=== PATIENT | male | born 1960 | race Caucasian/White ===

== ENCOUNTER 2016-07-07 10:08 | Inpatient (IN) | payer MEDICAID ==
[~2016-07-07 10:08] MED LIST: Midazolam 1 MG/ML 2 ML SDV ONE; Propofol 200 MG/20 ML SDV ONE; fentaNYL 100 MCG/2 ML SDV ONE
[2016-07-07] MEDS ORDERED: Lidocaine 1% 2 ML ONE (10:21)
[2016-07-07] MEDS ORDERED: ceFAZolin 2 GM in Sodium Chloride 0.9% 50 ML IV ONE (10:30)
[2016-07-07] MEDS ORDERED: Bupivacaine 0.5% 50 ML MDV ONE (10:31)
[2016-07-07] MEDS: Sodium Chloride 0.9% 1,000 ML IV SCH ×2 (10:36→16:25)
[2016-07-07] MEDS ORDERED: metroNIDAZOLE/Normal Saline 500 MG in Premix Bag 1 BAG IV ONE (11:00)
[2016-07-07] MEDS ORDERED: Propofol 200 MG/20 ML SDV ONE (11:17)
[2016-07-07] MEDS ORDERED: Bisacodyl 5 MG Tab PO PRN (11:37)
[2016-07-07] MEDS ORDERED: Naloxone 0.4 MG/ML SDV IVPUSH PRN (11:37)
[2016-07-07] MEDS ORDERED: Ondansetron 4 MG/2 ML SDV IVPUSH PRN (11:37)
[2016-07-07] MEDS ORDERED: Benzocaine/Cetylpyridinium/Menthol Lozenge MUCMEM PRN (11:37)
[2016-07-07] MEDS ORDERED: fentaNYL/Normal Saline 600 MCG/30 ML PCA Vial IV PRN (11:37)
[2016-07-07] MEDS ORDERED: Docusate Sodium 100 MG Cap PO PRN (11:37)
[2016-07-07] MEDS ORDERED: diphenhydrAMINE 50 MG/ML SDV IVPUSH PRN (11:37)
[2016-07-07] MEDS ORDERED: Promethazine 25 MG/ML SDV IM PRN (11:37)
[2016-07-07] MEDS ORDERED: Naloxone 0.4 MG/ML SDV IV PRN (11:40)
--- NOTE | 2016-07-07 15:08 | PCM.CONS ---
H&P History of Present Illness - General Date of Service: 07/07/16 Admit Problem/Dx: Admission Diagnosis/Problem Admission Diagnosis/Problem Osteomyelitis Source of Information: Patient, Provider History Limitations: Reports: No Limitations - History of Present Illness Initial Comments - Free Text/Narative: I was asked to see Edgar by Dr. Car regarding diabetes management. He was admitted to the hospital for amputation of his right fifth toe because of persistent infection. He underwent a successful and uneventful amputation. There've been no acute events and surgery. He has minimal pain at this time. We reviewed his diabetes medications including long-acting Lantus as well as metformin twice a day. He reports that he has been compliant with the medications. He has been on these doses for while and they have not changed. He does admit that his diet has been very rich in carbohydrates including 10-12 glasses of regular soda each day. He is aware that significant dietary improvements could be made in his hoping to start implementing some of these. He does not check his blood sugars regularly But when he does he often notes that they're high. His blood sugar was greater than 400 when he checked it yesterday. He does report polyuria and polydipsia. He has neuropathy of both feet. No recent difficulties with nausea, abdominal pain or weight loss. - Related Data Allergies/Adverse Reactions: Allergies Allergy/AdvReac Type Severity Reaction Status Date / Time No Known Allergies Allergy Verified 07/07/16 10:23 Home Medications: Home Meds Insulin Glargine,Hum.Rec.Anlog [Lantus Solostar] 70 units SQ DAILY 07/19/13 [ History] Aspirin [Children's Aspirin] 81 mg PO DAILY 06/29/14 [History] atorvaSTATin Calcium [Atorvastatin Calcium] 40 mg PO BEDTIME 06/29/14 [History] metFORMIN HCl [Metformin HCl] 1,000 mg PO BIDM 06/29/14 [History] Amoxicillin/Potassium Clav [Amox Tr-K Clv 875-125 mg Tab] 1 each PO Q12H [History] Glycerin/Lanolin/Mineral Oil [Eucerin Intensive [facility] C[facility]] 1 applic TP BID 02/11 [History] Lisinopril [Prinivil] 0.5 tab PO DAILY 07/07/16 [History] Naproxen [Naprosyn] 500 mg PO Q12HR 07/07/16 [History] Sulindac [Clinoril] 200 mg PO BIDMEALS 07/07/16 [History] Past Medical History - Past Health History Medical/Surgical History: Denies Medical/Surgical History Genitourinary History: Reports: Diabetic Nephropathy Musculoskeletal History: Reports: Other (See Below) Other Musculoskeletal History: sore right foot Endocrine/Metabolic History: Reports: Diabetes, Type II - Infectious Disease History Infectious Disease History: Reports: Chicken Pox Social & Family History - Family History Family Medical History: Noncontributory - Tobacco Use Smoking Status *Q: Never Smoker Second Hand Smoke Exposure: No - Caffeine Use Caffeine Use: Reports: Soda - Alcohol Use Days Per Week of Alcohol Use: 0 - Recreational Drug Use Recreational Drug Use: No H&P Review of Systems - Review of Systems: Review Of Systems: See Below Free Text/Narrative: A complete 12 point review of systems was obtained. Pertinent positives and negatives are noted in the history of present illness. All other systems were reviewed and were negative except as noted. Exam - Exam Exam: See Below - Vital Signs Vital Signs: Last Vital Signs Temp 36.4 C 07/07/16 14:47 Pulse 78 07/07/16 14:47 Resp 20 07/07/16 14:47 BP 132/80 07/07/16 14:47 Pulse Ox 92 L 07/07/16 12:44 Weight: 89.675 kg - Exam Quality Assessment: No: Supplemental Oxygen General: Alert, Oriented, Cooperative. No: Mild Distress HEENT: Conjunctiva Clear, Posterior Pharynx Clear Neck: Supple, Trachea Midline, Lymphadenopathy Lungs: Clear to Auscultation, Normal Respiratory Effort Cardiovascular: Regular Rate, Regular Rhythm Abdomen: Soft. No: Distention, Tenderness Back Exam: Normal Inspection, Full Range of Motion Extremities: Other (right 5th toe amputated, wound vac in place over the head of the metatarsal here). No: Cyanosis, Edema Peripheral Pulses: 1+: Dorsalis Pedis (L), Dorsalis Pedis (R) Skin: Warm, Dry Neuro Extensive - Mental Status: Alert, Oriented x3, Nl Response to Commands Neuro Extensive - Motor, Sensory, Reflexes: CN II-XII Intact. No: Dysarthria, Abnormal Motor, Tremor Psychiatric: Alert, Normal Affect - Patient Data [facility] Results last 24 hrs: Microbiology 07/07/16 11:20 Gram Stain - Final Toe, Right - Right Little Consult PN Assessment/Plan POD#: 0 Procedures: Procedures ASSAY OF CREATININE (01/31/16) DIAGNOSTIC COLONOSCOPY (07/07/14) EGD DIAGNOSTIC BRUSH WASH (07/06/14) EMERGENCY DEPT VISIT (07/19/13) EMERGENCY DEPT VISIT (06/15/13) IMMUNIZATION ADMIN (06/15/13) MRI LWR EXTREMITY W/O&W/DYE (01/31/16) ROUTINE VENIPUNCTURE (01/31/16) RPR S/N/AX/GEN/TRNK 2.5CM/< (06/15/13) TDAP VACCINE 7 YRS/> IM (06/15/13) THER/PROPH/DIAG INJ SC/IM (11/15/12) (1) Type II diabetes mellitus with foot ulcer SNOMED Code(s): 995347842 Code(s): E11.621 - TYPE 2 DIABETES MELLITUS WITH FOOT ULCER; L97.509 - NON- PRESSURE CHRONIC ULCER OTH PRT UNSP FOOT W UNSP SEVERITY Current Visit: Yes Qualifiers: Diabetes mellitus intermediate insulin use: with intermediate use Qualified Code( s): E11.621 - Type 2 diabetes mellitus with foot ulcer; L97.509 - Non-pressure chronic ulcer of other part of unspecified foot with unspecified severity; Z79.4 - intermission coordinator (current) use of insulin Problem List Initiated/Reviewed/Updated: Yes My Orders last 24 hours: My Active Orders 07/07/16 15:03 Diabetes Education [RC] Click to Edit Notify Provider [RC] PRN 07/07/16 15:04 POC Glucose [Blood Glucose Check, Bedside] [RC] QIDACANDBED 07/07/16 15:15 Insulin Aspart [NovoLOG] See Protocol SUBCUT ASDIRECTED 07/07/16 21:00 Insulin Detemir [Levemir] 40 unit SUBCUT BID atorvaSTATin [Lipitor] 40 mg PO BEDTIME 07/08/16 09:00 Aspirin [Halfprin] 81 mg PO DAILY Lisinopril [Prinivil] 5 mg PO DAILY Plan: ASSESSMENT AND PLAN 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 He has a wound VAC in place. Cultures are pending. -Postop cares per surgical team Suboptimally controlled, insulin-dependent diabetes mellitus - complications include neuropathy. Significant room for improvement with his diet. Plan to adjust medications while he is hospitalized. I think he would benefit from dividing his daily dose of medication to avoid providing too large of a single dose at bedtime. I think that a simple regimen would be most effective for him because I don't believe that he is capable of a complex 3 or 4 times per day dosing regimen. -Continue metformin twice daily with meals -Increase long-acting insulin to 40 units twice daily, adjust as indicated based on additional daily supplement -Medium dose sliding scale insulin -Diabetes education -Dietary consult Thank you for the interesting consultation and allowing me to be involved in Edgar's care. I will continue to follow along during hospitalization. Ata Posey M.D. Requesting Provider: Dr Car Date Consult Requested: 07/07/16 Reason for Consult: diabetes management Patient History Reviewed: Yes Admission H&P Reviewed: No (n/a) Notified Requestor: No (will notify in am ) Time Spent (in minutes): 45
[2016-07-07] MEDS: Insulin Aspart 100 Units/ML 3 ML Pen SUBCUT SCH ×3 (15:34→21:29)
[2016-07-07] MEDS: metFORMIN 500 MG Tab PO SCH (16:24)
[2016-07-07] MEDS ORDERED: Insulin Aspart 100 Units/ML 3 ML Pen SUBCUT ONE (17:20)
[2016-07-07] MEDS: Insulin Detemir 100 Units/ML 3 ML Pen SUBCUT SCH (21:29)
[2016-07-07] MEDS: atorvaSTATin 20 MG Tab PO SCH (21:30)
[2016-07-08] MEDS: Sodium Chloride 0.9% 1,000 ML IV SCH (05:13)
[2016-07-08] MEDS: metFORMIN 500 MG Tab PO SCH ×2 (09:36→17:02)
[2016-07-08] MEDS: Aspirin 81 MG Tab.EC PO SCH (09:37)
[2016-07-08] MEDS: Lisinopril 5 MG Tab PO SCH (09:37)
[2016-07-08] MEDS: Insulin Detemir 100 Units/ML 3 ML Pen SUBCUT SCH ×2 (09:39→21:05)
--- NOTE | 2016-07-08 09:42 | PCM.CONSN ---
- General Info Date of Service: 07/08/16 Functional Status: Reports: pain controlled, tolerating diet, urinating - Review of Systems General: Denies: Fever Musculoskeletal: Reports: foot pain Systems Review Comment:: No acute events overnight. Blood sugar was excellent this morning and 124. Patient complains of increased pain in his right foot, especially under the sponge supporting the wound VAC hose. There has been some drainage from the bottom of the right foot outside of the edge of the wound VAC. He has not had any fevers. Vital signs have been stable. No complaints of abdominal pain. - Patient Data Vitals - most recent: Last Vital Signs Temp 36.9 C 07/08/16 05:16 Pulse 68 07/08/16 05:16 Resp 15 07/08/16 05:16 BP 129/70 07/08/16 09:37 Pulse Ox 92 L 07/08/16 05:16 Weight - most recent: 89.675 kg I&O - last 24 hours: Intake & Output 07/07/16 07/08/16 07/08/16 22:59 06:59 14:59 Intake Total 743 896 Output Total 900 200 200 Balance -157 696 -200 Lab Results last 24 hrs: Laboratory Results - last 24 hr 07/08/16 07/08/16 Range/Units 05:31 05:31 WBC 12.7 H (4.5-11.0) K/uL RBC 4.19 L (4.30-5.90) M/uL Hgb 12.3 (12.0-15.0) g/dL Hct 35.8 L (40.0-54.0) % MCV 85 (80-98) fL MCH 29 (27-31) pg MCHC 34 (32-36) % Plt Count 319 (150-400) K/uL Neut % (Auto) 62 (36-66) % Lymph % (Auto) 24 (24-44) % [place] % (Auto) 12 H (2-6) % Eos % (Auto) 2 (2-4) % Baso % (Auto) 1 (0-1) % Sodium 139 L (140-148) mmol/L Potassium 3.9 (3.6-5.2) mmol/L Chloride 106 (100-108) mmol/L Carbon Dioxide 26 (21-32) mmol/L Anion Gap 10.9 (5.0-14.0) mmol/L BUN 15 (7-18) mg/dL Creatinine 0.8 (0.8-1.3) mg/dL Est Cr Clr Drug Dosing 105.56 mL/min Estimated GFR (MDRD) > 60 (>60) Glucose 124 H (74-106) mg/dL Calcium 7.7 L (8.5-10.1) mg/dL [facility] Results last 24 hrs: Microbiology 07/07/16 11:20 Gram Stain - Final Toe, Right - Right Little Wound Culture - Preliminary Viridans Streptococcus Med Orders - Current: Current Medications Aspirin (Halfprin) 81 mg PO DAILY [facility] Last Admin: 07/08/16 09:37 Dose: 81 mg Atorvastatin Calcium (Lipitor) 40 mg PO BEDTIME [facility] Last Admin: 07/07/16 21:30 Dose: 40 mg Benzocaine/Menthol (Cepacol Sore Throat) 1 lozenge MUCMEM Q1H PRN PRN Reason: Sore Throat Bisacodyl (Dulcolax) 5 mg PO DAILY PRN PRN Reason: Constipation Diphenhydramine HCl (Benadryl) 50 mg IVPUSH Q4H PRN PRN Reason: Itching Docusate Sodium (Colace) 100 mg PO BID PRN PRN Reason: Constipation Fentanyl Citrate (Fentanyl In Ns 20 Mcg/Ml 30 Ml Diving Coach) 0 mcg IV ASDIRECTED PRN; Protocol PRN Reason: Pain Sodium Chloride (Normal Saline) 1,000 mls @ 25 mls/hr IV ASDIRECTED [facility] Insulin Aspart (Novolog) 0 unit SUBCUT ASDIRECTED [facility] PRN Reason: Protocol Last Admin: 07/07/16 21:29 Dose: 2 units Insulin Detemir (Levemir) 40 unit SUBCUT BID [facility] Last Admin: 07/07/16 21:29 Dose: 40 units Lisinopril (Prinivil) 5 mg PO DAILY [facility] Last Admin: 07/08/16 09:37 Dose: 5 mg Metformin HCl (Glucophage) 1,000 mg PO BIDMEALS [facility] Last Admin: 07/08/16 09:36 Dose: 1,000 mg Naloxone HCl (Narcan) 0.1 mg IV ASDIRECTED PRN PRN Reason: decreased respiratory rate Ondansetron HCl (Zofran) 4 mg IVPUSH Q6H PRN PRN Reason: Nausea/Vomiting Promethazine HCl (Phenergan) 25 mg IM Q6H PRN PRN Reason: Nausea Senna/Docusate Sodium (Senna Plus) 1 tab PO BID PRN PRN Reason: Constipation Zolpidem Tartrate (Ambien) 5 mg PO BEDTIME PRN PRN Reason: Insomnia Discontinued Medications Bupivacaine HCl (Marcaine 0.5%) Confirm Administered Dose 50 ml .ROUTE .STK-MED ONE Stop: 07/07/16 10:32 Last Admin: 07/07/16 12:26 Dose: 30 ml Fentanyl (Sublimaze) Confirm Administered Dose 100 mcg .ROUTE .STK-MED ONE Stop: 07/07/16 10:07 Sodium Chloride (Normal Saline) 1,000 mls @ 75 mls/hr IV ASDIRECTED [facility] Last Admin: 07/08/16 05:13 Dose: 75 mls/hr Cefazolin Sodium 2 gm/ Sodium (Chloride) 50 mls @ 100 mls/hr IV ONETIME ONE Stop: 07/07/16 10:59 Last Admin: 07/07/16 10:51 Dose: 100 mls/hr Metronidazole 500 mg/ Premix 100 mls @ 100 mls/hr IV ONETIME ONE Stop: 07/07/16 11:59 Last Admin: 07/07/16 10:51 Dose: 100 mls/hr Lidocaine HCl (Xylocaine-Mpf 1%) Confirm Administered Dose 2 mls @ as directed .ROUTE .STK-MED ONE Stop: 07/07/16 10:22 Insulin Aspart (Novolog) 10 unit SUBCUT ONETIME ONE Stop: 07/07/16 17:21 Last Admin: 07/08/16 09:35 Dose: 10 units Midazolam HCl (Versed 1 Mg/Ml) Confirm Administered Dose 2 mg .ROUTE .STK-MED ONE Stop: 07/07/16 10:08 Propofol (Diprivan 20 Ml) Confirm Administered Dose 200 mg .ROUTE .STK-MED ONE Stop: 07/07/16 10:07 Propofol (Diprivan 20 Ml) Confirm Administered Dose 200 mg .ROUTE .STK-MED ONE Stop: 07/07/16 11:18 - Exam Quality Assessment: No: supplemental oxygen General: alert, oriented, cooperative, no acute distress Neck: supple Lungs: Normal respiratory effort Abdomen: soft, no distension Extremities: edema (right foot), other (wound vac in place with mild drainage. Callus over head of fifth metatarasl. callus and ulcer mid dorsum of the foot with mild drainage) Skin: warm, dry Psy/Mental Status: alert, normal affect Consult PN Assessment/Plan POD#: 1 Procedures: Procedures ASSAY OF CREATININE (01/31/16) DIAGNOSTIC COLONOSCOPY (07/07/14) EGD DIAGNOSTIC BRUSH WASH (07/06/14) EMERGENCY DEPT VISIT (07/19/13) EMERGENCY DEPT VISIT (06/15/13) IMMUNIZATION ADMIN (06/15/13) MRI LWR EXTREMITY W/O&W/DYE (01/31/16) ROUTINE VENIPUNCTURE (01/31/16) RPR S/N/AX/GEN/TRNK 2.5CM/< (06/15/13) TDAP VACCINE 7 YRS/> IM (06/15/13) THER/PROPH/DIAG INJ SC/IM (11/15/12) (1) Type II diabetes mellitus with foot ulcer SNOMED Code(s): 101171372 Code(s): E11.621 - TYPE 2 DIABETES MELLITUS WITH FOOT ULCER; L97.509 - NON- PRESSURE CHRONIC ULCER OTH PRT UNSP FOOT W UNSP SEVERITY Current Visit: Yes Qualifiers: Diabetes mellitus manufacturer representative insulin use: with half-way use Qualified Code( s): E11.621 - Type 2 diabetes mellitus with foot ulcer; L97.509 - Non-pressure chronic ulcer of other part of unspecified foot with unspecified severity; Z79.4 - shelter (current) use of insulin Problem List Initiated/Reviewed/Updated: Yes My Orders last 24 hours: My Active Orders 07/07/16 15:03 Diabetes Education [RC] Click to Edit Notify Provider [RC] PRN 07/07/16 15:04 POC Glucose [Blood Glucose Check, Bedside] [RC] QIDACANDBED 07/07/16 15:15 Insulin Aspart [NovoLOG] See Protocol SUBCUT ASDIRECTED 07/07/16 17:00 metFORMIN [Glucophage] 1,000 mg PO BIDMEALS 07/07/16 21:00 Insulin Detemir [Levemir] 40 unit SUBCUT BID atorvaSTATin [Lipitor] 40 mg PO BEDTIME 07/08/16 09:00 Aspirin [Halfprin] 81 mg PO DAILY Lisinopril [Prinivil] 5 mg PO DAILY 07/08/16 09:45 Sodium Chloride 0.9% [Normal Saline] 1,000 ml IV ASDIRECTED 07/08/16 Lunch Consistent Carbohydrate Diet [DIET] Plan: ASSESSMENT AND PLAN 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 He has a wound VAC in place. Cultures are pending. Periventricular bottom of the foot outside of the area of the wound. -Antibiotics -PICC line -Postop cares per surgical team Suboptimally controlled, insulin-dependent diabetes mellitus - complications include neuropathy. Sugars have improved with adjustments in his long-acting insulin and sliding-scale insulin. -Diabetic diet -Continue metformin twice daily with meals -Continue long-acting insulin to 40 units twice daily, adjust as indicated based on additional daily supplement -Medium dose sliding scale insulin -Diabetes education on Sunday -Dietary consult Thank you for the interesting consultation and allowing me to be involved in Edgar's care. I will continue to follow along during hospitalization. Ata Posey M.D.
[2016-07-08] MEDS ORDERED: Sodium Chloride 0.9% 1,000 ML IV SCH (09:45)
[2016-07-08] MEDS ORDERED: Piperacillin/Tazobactam 4.5 GM in Sodium Chloride 0.9% 100 ML IV SCH (10:00)
[2016-07-08] MEDS: Piperacillin/Tazobactam/Dext 4.5 GM in Premix Bag 1 BAG IV SCH ×3 (10:25→23:00)
[2016-07-08] MEDS: Enoxaparin 40 MG/0.4 ML Syringe SUBCUT SCH (10:25)
[2016-07-08] MEDS: Insulin Aspart 100 Units/ML 3 ML Pen SUBCUT SCH (10:42)
[2016-07-08] MEDS: atorvaSTATin 20 MG Tab PO SCH (21:07)
[2016-07-08] MEDS ORDERED: Piperacillin/Tazobactam 4.5 GM Vial ONE ×2 (22:35)
[2016-07-08] MEDS ORDERED: Sodium Chloride 0.9% 100 ML ONE ×2 (22:37)
[2016-07-09] MEDS: Piperacillin/Tazobactam/Dext 4.5 GM in Premix Bag 1 BAG IV SCH ×4 (03:41→22:14)
[2016-07-09] MEDS: Insulin Detemir 100 Units/ML 3 ML Pen SUBCUT SCH (08:48)
[2016-07-09] MEDS: Aspirin 81 MG Tab.EC PO SCH (08:49)
[2016-07-09] MEDS: metFORMIN 500 MG Tab PO SCH ×2 (08:50→16:51)
[2016-07-09] MEDS: Lisinopril 5 MG Tab PO SCH (08:52)
[2016-07-09] MEDS: Enoxaparin 40 MG/0.4 ML Syringe SUBCUT SCH (09:14)
--- NOTE | 2016-07-09 10:22 | PCM.CONSN ---
- General Info Date of Service: 07/09/16 Functional Status: Reports: pain controlled, tolerating diet - Review of Systems General: Denies: Fever Musculoskeletal: Reports: foot pain Systems Review Comment:: No acute events or fevers overnight. Pain has been fairly well-controlled with the exception of a short while this morning where he had increased pain. Appetite is been good. Blood sugars were a little on the low side this morning. He responded well to some juice. Culture from the right foot amputation is growing strep viridans. Wound VAC remains in place. He does have ongoing drainage from the bottom of his right foot. He had a bowel movement this morning. - Patient Data Vitals - most recent: Last Vital Signs Temp 36.7 C 07/09/16 07:03 Pulse 71 07/09/16 07:03 Resp 16 07/09/16 07:03 BP 103/69 07/09/16 08:52 Pulse Ox 95 07/09/16 07:03 Weight - most recent: 89.675 kg I&O - last 24 hours: Intake & Output 07/08/16 07/09/16 07/09/16 22:59 06:59 14:59 Intake Total 250 100 200 Output Total 300 650 300 Balance -50 -550 -100 [facility] Results last 24 hrs: Microbiology 07/07/16 11:20 Anaerobic Culture - Preliminary Toe, Right - Right Little NO GROWTH AFTER 2 DAYS 07/07/16 11:20 Gram Stain - Final Toe, Right - Right Little Wound Culture - Final Viridans Streptococcus Med Orders - Current: Current Medications Aspirin (Halfprin) 81 mg PO DAILY [facility] Last Admin: 07/09/16 08:49 Dose: 81 mg Atorvastatin Calcium (Lipitor) 40 mg PO BEDTIME [facility] Last Admin: 07/08/16 21:07 Dose: 40 mg Benzocaine/Menthol (Cepacol Sore Throat) 1 lozenge MUCMEM Q1H PRN PRN Reason: Sore Throat Bisacodyl (Dulcolax) 5 mg PO DAILY PRN PRN Reason: Constipation Diphenhydramine HCl (Benadryl) 50 mg IVPUSH Q4H PRN PRN Reason: Itching Docusate Sodium (Colace) 100 mg PO BID PRN PRN Reason: Constipation Enoxaparin Sodium (Lovenox) 40 mg SUBCUT Q24H [facility] Last Admin: 07/09/16 09:14 Dose: 40 mg Fentanyl Citrate (Fentanyl In Ns 20 Mcg/Ml 30 Ml Options Trader) 0 mcg IV ASDIRECTED PRN; Protocol PRN Reason: Pain Sodium Chloride (Normal Saline) 1,000 mls @ 25 mls/hr IV ASDIRECTED [facility] Piperacillin/Tazobactam/ (Dextrose 4.5 gm/ Premix) 100 mls @ 200 mls/hr IV Q6H [facility] Last Admin: 07/09/16 09:20 Dose: 200 mls/hr Insulin Aspart (Novolog) 0 unit SUBCUT ASDIRECTED [facility] PRN Reason: Protocol Last Admin: 07/08/16 10:42 Dose: 4 units Insulin Detemir (Levemir) 35 unit SUBCUT BEDTIME [facility] Insulin Detemir (Levemir) 40 unit SUBCUT DAILY [facility] Lisinopril (Prinivil) 5 mg PO DAILY [facility] Last Admin: 07/09/16 08:52 Dose: 5 mg Metformin HCl (Glucophage) 1,000 mg PO BIDMEALS [facility] Last Admin: 07/09/16 08:50 Dose: 1,000 mg Naloxone HCl (Narcan) 0.1 mg IV ASDIRECTED PRN PRN Reason: decreased respiratory rate Ondansetron HCl (Zofran) 4 mg IVPUSH Q6H PRN PRN Reason: Nausea/Vomiting Promethazine HCl (Phenergan) 25 mg IM Q6H PRN PRN Reason: Nausea Senna/Docusate Sodium (Senna Plus) 1 tab PO BID PRN PRN Reason: Constipation Zolpidem Tartrate (Ambien) 5 mg PO BEDTIME PRN PRN Reason: Insomnia Discontinued Medications Bupivacaine HCl (Marcaine 0.5%) Confirm Administered Dose 50 ml .ROUTE .STK-MED ONE Stop: 07/07/16 10:32 Last Admin: 07/07/16 12:26 Dose: 30 ml Fentanyl (Sublimaze) Confirm Administered Dose 100 mcg .ROUTE .STK-MED ONE Stop: 07/07/16 10:07 Sodium Chloride (Normal Saline) 1,000 mls @ 75 mls/hr IV ASDIRECTED [facility] Last Admin: 07/08/16 05:13 Dose: 75 mls/hr Cefazolin Sodium 2 gm/ Sodium (Chloride) 50 mls @ 100 mls/hr IV ONETIME ONE Stop: 07/07/16 10:59 Last Admin: 07/07/16 10:51 Dose: 100 mls/hr Metronidazole 500 mg/ Premix 100 mls @ 100 mls/hr IV ONETIME ONE Stop: 07/07/16 11:59 Last Admin: 07/07/16 10:51 Dose: 100 mls/hr Lidocaine HCl (Xylocaine-Mpf 1%) Confirm Administered Dose 2 mls @ as directed .ROUTE .STK-MED ONE Stop: 07/07/16 10:22 Sodium Chloride (Normal Saline) Confirm Administered Dose 100 mls @ as directed .ROUTE .STK-MED ONE Stop: 07/08/16 22:38 Last Admin: 07/09/16 02:16 Dose: Not Given Sodium Chloride (Normal Saline) Confirm Administered Dose 100 mls @ as directed .ROUTE .STK-MED ONE Stop: 07/08/16 22:38 Last Admin: 07/09/16 02:15 Dose: Not Given Insulin Aspart (Novolog) 10 unit SUBCUT ONETIME ONE Stop: 07/07/16 17:21 Last Admin: 07/08/16 09:35 Dose: 10 units Insulin Detemir (Levemir) 40 unit SUBCUT BID [facility] Last Admin: 07/09/16 08:48 Dose: 40 units Midazolam HCl (Versed 1 Mg/Ml) Confirm Administered Dose 2 mg .ROUTE .STK-MED ONE Stop: 07/07/16 10:08 Piperacillin Sod/Tazobactam Sod (Zosyn) Confirm Administered Dose 4.5 gm .ROUTE .STK-MED ONE Stop: 07/08/16 22:36 Last Admin: 07/09/16 01:47 Dose: Not Given Piperacillin Sod/Tazobactam Sod (Zosyn) Confirm Administered Dose 4.5 gm .ROUTE .STK-MED ONE Stop: 07/08/16 22:36 Last Admin: 07/09/16 02:15 Dose: Not Given Propofol (Diprivan 20 Ml) Confirm Administered Dose 200 mg .ROUTE .STK-MED ONE Stop: 07/07/16 10:07 Propofol (Diprivan 20 Ml) Confirm Administered Dose 200 mg .ROUTE .STK-MED ONE Stop: 07/07/16 11:18 - Exam General: alert, oriented, cooperative, no acute distress Neck: supple Lungs: Normal respiratory effort Abdomen: soft, no distension Extremities: edema (mild edema right foot. Wound vac over right 5th toe. necrotic distal to wound vac. Plantar surface with mid foot laceration and foul smelling drainage, mild surrounding erythema ) Psy/Mental Status: alert, normal affect Consult PN Assessment/Plan Procedures: Procedures ASSAY OF CREATININE (01/31/16) DIAGNOSTIC COLONOSCOPY (07/07/14) EGD DIAGNOSTIC BRUSH WASH (07/06/14) EMERGENCY DEPT VISIT (07/19/13) EMERGENCY DEPT VISIT (06/15/13) IMMUNIZATION ADMIN (06/15/13) MRI LWR EXTREMITY W/O&W/DYE (01/31/16) ROUTINE VENIPUNCTURE (01/31/16) RPR S/N/AX/GEN/TRNK 2.5CM/< (06/15/13) TDAP VACCINE 7 YRS/> IM (06/15/13) THER/PROPH/DIAG INJ SC/IM (11/15/12) (1) Type II diabetes mellitus with foot ulcer SNOMED Code(s): 242816767 Code(s): E11.621 - TYPE 2 DIABETES MELLITUS WITH FOOT ULCER; L97.509 - NON- PRESSURE CHRONIC ULCER OTH PRT UNSP FOOT W UNSP SEVERITY Current Visit: Yes Qualifiers: Diabetes mellitus terminal supervisor insulin use: with terminal supervisor use Qualified Code( s): E11.621 - Type 2 diabetes mellitus with foot ulcer; L97.509 - Non-pressure chronic ulcer of other part of unspecified foot with unspecified severity; Z79.4 - intermediate frame tender (current) use of insulin Problem List Initiated/Reviewed/Updated: Yes My Orders last 24 hours: My Active Orders 07/08/16 09:45 Sodium Chloride 0.9% [Normal Saline] 1,000 ml IV ASDIRECTED 07/08/16 Lunch Consistent Carbohydrate Diet [DIET] 07/09/16 10:16 CULTURE WOUND + SMEAR [RM] Routine 07/09/16 10:17 Lwr Ext Non Joint wo Cont Lt [MR] Routine 07/09/16 11:30 GLUCOSE POC LAB TO COLLECT [POC] QIDACANDBED 07/09/16 16:30 GLUCOSE POC LAB TO COLLECT [POC] QIDACANDBED 07/09/16 21:00 GLUCOSE POC LAB TO COLLECT [POC] QIDACANDBED Insulin Detemir [Levemir] 35 unit SUBCUT BEDTIME 07/10/16 05:00 BASIC METABOLIC PANEL,BMP [CHEM] Timed CBC W/O DIFF,HEMOGRAM [HEME] Timed (1) 07/10/16 09:00 Insulin Detemir [Levemir] 40 unit SUBCUT DAILY Plan: ASSESSMENT AND PLAN 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 He has a wound VAC in place. Cultures are pending. Ongoing drainage from the bottom of the foot, concern for significant deep space infection/osteomyelitis. Culture growing strep viridans. He is at risk for using part of his foot or possibly requiring a below the knee amputation. -MRI of the right foot -Continue current antibiotics -PICC line -Postop cares per surgical team Suboptimally controlled, insulin-dependent diabetes mellitus - complications include neuropathy. Sugars have improved and were slightly on the low side this morning. -Diabetic diet -Continue metformin twice daily with meals -Continue long-acting insulin to 40 units daily, decrease evening dose to 35 units -Medium dose sliding scale insulin -Diabetes education on Sunday -Dietary consult Thank you for the interesting consultation and allowing me to be involved in Edgar's care. I will continue to follow along during hospitalization. Ata Posey M.D.
[2016-07-09] MEDS: Insulin Aspart 100 Units/ML 3 ML Pen SUBCUT SCH (11:51)
[2016-07-09] MEDS ORDERED: Insulin Detemir 100 Units/ML 3 ML Pen SUBCUT SCH (21:00)
[2016-07-09] MEDS: atorvaSTATin 20 MG Tab PO SCH (22:14)
[2016-07-09] MEDS: Zolpidem 5 MG Tab PO PRN (23:31)
[2016-07-10] MEDS: Piperacillin/Tazobactam/Dext 4.5 GM in Premix Bag 1 BAG IV SCH ×4 (04:03→21:31)
[2016-07-10] MEDS ORDERED: Sodium Chloride 0.9% 1,000 ML IV SCH (08:00)
[2016-07-10] MEDS: Lisinopril 5 MG Tab PO SCH (08:23)
[2016-07-10] MEDS: metFORMIN 500 MG Tab PO SCH ×2 (08:23→16:49)
[2016-07-10] MEDS: Aspirin 81 MG Tab.EC PO SCH (08:23)
[2016-07-10] MEDS ORDERED: Insulin Detemir 100 Units/ML 3 ML Pen SUBCUT SCH ×2 (09:00→12:13)
[2016-07-10] MEDS: Enoxaparin 40 MG/0.4 ML Syringe SUBCUT SCH (10:14)
--- NOTE | 2016-07-10 12:15 | PCM.CONSN ---
- General Info Date of Service: 07/10/16 Functional Status: Reports: pain controlled, tolerating diet - Review of Systems General: Reports: Weakness. Denies: Fever, Chills Pulmonary: Reports: no symptoms Cardiovascular: Reports: No Symptoms Gastrointestinal: Reports: No symptoms Systems Review Comment:: This patient has remained stable over the past 24 hours, vital signs have been good and he has remained afebrile. White blood cell count remains elevated and he continues to drain purulent material from the wound in his right foot. MRI is pending today to try and make decision concerning further management and resection. - Patient Data Vitals - most recent: Last Vital Signs Temp 97.3 F 07/10/16 10:43 Pulse 88 07/10/16 10:43 Resp 18 07/10/16 10:43 BP 114/83 07/10/16 10:43 Pulse Ox 95 07/10/16 10:43 Weight - most recent: 197 lb 11.2 oz I&O - last 24 hours: Intake & Output 07/09/16 07/10/16 07/10/16 22:59 06:59 14:59 Intake Total 327 220 100 Output Total 400 600 Balance -73 220 -500 Lab Results last 24 hrs: Laboratory Results - last 24 hr 07/10/16 07/10/16 Range/Units 06:00 06:00 WBC 14.3 H (4.5-11.0) K/uL RBC 4.59 (4.30-5.90) M/uL Hgb 13.3 (12.0-15.0) g/dL Hct 39.2 L (40.0-54.0) % MCV 85 (80-98) fL MCH 29 (27-31) pg MCHC 34 (32-36) % Plt Count 367 (150-400) K/uL Sodium 138 L (140-148) mmol/L Potassium 4.2 (3.6-5.2) mmol/L Chloride 104 (100-108) mmol/L Carbon Dioxide 28 (21-32) mmol/L Anion Gap 10.2 (5.0-14.0) mmol/L BUN 11 (7-18) mg/dL Creatinine 0.9 (0.8-1.3) mg/dL Est Cr Clr Drug Dosing 93.83 mL/min Estimated GFR (MDRD) > 60 (>60) Glucose 131 H (74-106) mg/dL Calcium 8.0 L (8.5-10.1) mg/dL [facility] Results last 24 hrs: Microbiology 07/09/16 10:47 Gram Stain - Final Foot, Right Wound Culture - Preliminary Med Orders - Current: Current Medications Aspirin (Halfprin) 81 mg PO DAILY [facility] Last Admin: 07/10/16 08:23 Dose: 81 mg Atorvastatin Calcium (Lipitor) 40 mg PO BEDTIME [facility] Last Admin: 07/09/16 22:14 Dose: 40 mg Benzocaine/Menthol (Cepacol Sore Throat) 1 lozenge MUCMEM Q1H PRN PRN Reason: Sore Throat Bisacodyl (Dulcolax) 5 mg PO DAILY PRN PRN Reason: Constipation Diphenhydramine HCl (Benadryl) 50 mg IVPUSH Q4H PRN PRN Reason: Itching Docusate Sodium (Colace) 100 mg PO BID PRN PRN Reason: Constipation Enoxaparin Sodium (Lovenox) 40 mg SUBCUT Q24H [facility] Last Admin: 07/10/16 10:14 Dose: 40 mg Fentanyl Citrate (Fentanyl In Ns 20 Mcg/Ml 30 Ml [employer]) 0 mcg IV ASDIRECTED PRN; Protocol PRN Reason: Pain Piperacillin/Tazobactam/ (Dextrose 4.5 gm/ Premix) 100 mls @ 200 mls/hr IV Q6H [facility] Last Admin: 07/10/16 10:17 Dose: 200 mls/hr Sodium Chloride (Normal Saline) 1,000 mls @ 125 mls/hr IV ASDIRECTED [facility] Insulin Aspart (Novolog) 0 unit SUBCUT ASDIRECTED [facility] PRN Reason: Protocol Last Admin: 07/09/16 11:51 Dose: 4 units Insulin Detemir (Levemir) 20 unit SUBCUT DAILY [facility] Lisinopril (Prinivil) 5 mg PO DAILY [facility] Last Admin: 07/10/16 08:23 Dose: 5 mg Metformin HCl (Glucophage) 1,000 mg PO BIDMEALS [facility] Last Admin: 07/10/16 08:23 Dose: 1,000 mg Naloxone HCl (Narcan) 0.1 mg IV ASDIRECTED PRN PRN Reason: decreased respiratory rate Ondansetron HCl (Zofran) 4 mg IVPUSH Q6H PRN PRN Reason: Nausea/Vomiting Promethazine HCl (Phenergan) 25 mg IM Q6H PRN PRN Reason: Nausea Senna/Docusate Sodium (Senna Plus) 1 tab PO BID PRN PRN Reason: Constipation Zolpidem Tartrate (Ambien) 5 mg PO BEDTIME PRN PRN Reason: Insomnia Last Admin: 07/09/16 23:31 Dose: 5 mg Discontinued Medications Bupivacaine HCl (Marcaine 0.5%) Confirm Administered Dose 50 ml .ROUTE .STK-MED ONE Stop: 07/07/16 10:32 Last Admin: 07/07/16 12:26 Dose: 30 ml Fentanyl (Sublimaze) Confirm Administered Dose 100 mcg .ROUTE .STK-MED ONE Stop: 07/07/16 10:07 Sodium Chloride (Normal Saline) 1,000 mls [facility]ls[facility] Admin: 07/08/16 05:13 Dose: 75 mls/hr Cefazolin Sodium 2 gm/ Sodium (Chloride) 50 mls @ 100 mls/hr IV ONETIME ONE Stop: 07/07/16 10:59 Last Admin: 07/07/16 10:51 Dose: 100 mls/hr Metronidazole 500 mg/ Premix 100 mls @ 100 mls/hr IV ONETIME ONE Stop: 07/07/16 11:59 Last Admin: 07/07/16 10:51 Dose: 100 mls/hr Lidocaine HCl (Xylocaine-Mpf 1%) Confirm Administered Dose 2 mls @ as directed .ROUTE .STK-MED ONE Stop: 07/07/16 10:22 Sodium Chloride (Normal Saline) 1,000 mls @ 25 [facility]ls[facility] Last Admin: 07/10/16 10:15 Dose: 25 mls/hr Sodium Chloride (Normal Saline) Confirm Administered Dose 100 mls @ as directed .ROUTE .STK-MED ONE Stop: 07/08/16 22:38 Last Admin: 07/09/16 02:16 Dose: Not Given Sodium Chloride (Normal Saline) Confirm Administered Dose 100 mls @ as directed .ROUTE .STK-MED ONE Stop: 07/08/16 22:38 Last Admin: 07/09/16 02:15 Dose: Not Given Insulin Aspart (Novolog) 10 unit SUBCUT ONETIME ONE Stop: 07/07/16 17:21 Last Admin: 07/08/16 09:35 Dose: 10 units Insulin Detemir (Levemir) 40 unit SUBCUT BID [facility] Last Admin: 07/09/16 08:48 Dose: 40 units Insulin Detemir (Levemir) 35 unit SUBCUT BEDTIME [facility] Last Admin: 07/09/16 22:13 Dose: Not Given Insulin Detemir (Levemir) 40 unit SUBCUT DAILY [facility] Last Admin: 07/10/16 08:24 Dose: 40 units Midazolam HCl (Versed 1 Mg/Ml) Confirm Administered Dose 2 mg .ROUTE .STK-MED ONE Stop: 07/07/16 10:08 Piperacillin Sod/Tazobactam Sod (Zosyn) Confirm Administered Dose 4.5 gm .ROUTE .STK-MED ONE Stop: 07/08/16 22:36 Last Admin: 07/09/16 01:47 Dose: Not Given Piperacillin Sod/Tazobactam Sod (Zosyn) Confirm Administered Dose 4.5 gm .ROUTE .STK-MED ONE Stop: 07/08/16 22:36 Last Admin: 07/09/16 02:15 Dose: Not Given Propofol (Diprivan 20 Ml) Confirm Administered Dose 200 mg .ROUTE .STK-MED ONE Stop: 07/07/16 10:07 Propofol (Diprivan 20 Ml) Confirm Administered Dose 200 mg .ROUTE .STK-MED ONE Stop: 07/07/16 11:18 - Exam Quality Assessment: DVT prophylaxis General: alert, oriented, cooperative, mild distress Lungs: Clear to auscultation, Normal respiratory effort Cardiovascular: Regular Rate, Regular Rhythm, No Murmurs Abdomen: bowel sounds present, soft, no tenderness, no distension Extremities: no edema Skin: warm, dry, intact Consult PN Assessment/Plan Procedures: Procedures ASSAY OF CREATININE (01/31/16) DIAGNOSTIC COLONOSCOPY (07/07/14) EGD DIAGNOSTIC BRUSH WASH (07/06/14) EMERGENCY DEPT VISIT (07/19/13) EMERGENCY DEPT VISIT (06/15/13) IMMUNIZATION ADMIN (06/15/13) MRI LWR EXTREMITY W/O&W/DYE (01/31/16) ROUTINE VENIPUNCTURE (01/31/16) RPR S/N/AX/GEN/TRNK 2.5CM/< (06/15/13) TDAP VACCINE 7 YRS/> IM (06/15/13) THER/PROPH/DIAG INJ SC/IM (11/15/12) Problem List Initiated/Reviewed/Updated: Yes My Orders last 24 hours: My Active Orders 07/10/16 12:13 Insulin Detemir [Levemir] 20 unit SUBCUT DAILY Plan: ASSESSMENT AND PLAN 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 He has a wound VAC in place. Cultures are pending. Ongoing drainage from the bottom of the foot, concern for significant deep space infection/osteomyelitis. Culture growing strep viridans. He is at risk for using part of his foot or possibly requiring a below the knee amputation. 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 Sugars have improved and were slightly on the low side this morning. -Diabetic diet -Continue metformin twice daily with meals -Long-acting insulin 20 units subcutaneous daily -Medium dose sliding scale insulin -Diabetes education on Sunday -Dietary consult Thank you for the interesting consultation and allowing me to be involved in Edgar's care. I will continue to follow along during hospitalization.
[2016-07-10] MEDS ORDERED: Gadoteridol 279.3 MG/ML 20 ML SDV IV SCH (13:00)
[2016-07-10] MEDS: Insulin Aspart 100 Units/ML 3 ML Pen SUBCUT SCH ×2 (13:58→16:49)
--- NOTE | 2016-07-10 14:37 | MR ---
Lwr Ext Non Joint w wo Cont Rt HISTORY: osteomyelitis of the right foot Multiplanar sequences of the right foot were obtained without and with gadolinium. FINDINGS: There is diffuse soft tissue swelling and edema distal lateral aspect of the right foot. S oft tissue enhancement can be seen. These changes are consistent with cellulitis. I see no definite abscess formation. Postoperative changes of right fifth toe amputation are demonstrated. There also appears to have bee n amputation of the head of the fifth metatarsal. No marrow edema or enhancement of the fifth metata rsal is seen to suggest active osteomyelitis. No abnormal marrow edema or enhancement is seen in the remainder of the toes or metatarsals. IMPRESSION: Probable cellulitis. No definite active osteomyelitis is identified.
[2016-07-10] MEDS: atorvaSTATin 20 MG Tab PO SCH (20:24)
[2016-07-11] MEDS: Piperacillin/Tazobactam/Dext 4.5 GM in Premix Bag 1 BAG IV SCH ×4 (03:59→21:38)
[2016-07-11] MEDS ORDERED: Lidocaine 1% with EPINEPHrine 1:100,000 50 ML MDV ONE (06:49)
[2016-07-11] MEDS ORDERED: Bupivacaine 0.5% 50 ML MDV ONE (06:49)
[2016-07-11] MEDS ORDERED: fentaNYL 100 MCG/2 ML SDV ONE (07:22)
[2016-07-11] MEDS ORDERED: Midazolam 1 MG/ML 2 ML SDV ONE (07:22)
[2016-07-11] MEDS ORDERED: Propofol 200 MG/20 ML SDV ONE (07:22)
[2016-07-11] MEDS: metFORMIN 500 MG Tab PO SCH ×3 (07:37→16:29)
[2016-07-11] MEDS ORDERED: Lidocaine 1% 2 ML ONE (08:36)
[2016-07-11] MEDS: Lisinopril 5 MG Tab PO SCH (10:23)
[2016-07-11] MEDS: Aspirin 81 MG Tab.EC PO SCH (10:23)
[2016-07-11] MEDS: Enoxaparin 40 MG/0.4 ML Syringe SUBCUT SCH (10:23)
--- NOTE | 2016-07-11 10:54 | PN ---
DATE OF SERVICE: 07/09/2016 SUBJECTIVE: The patient is doing well. Again, this pain of his foot slowly is improving. No nausea, vomiting, shortness of breath, or chest pain. OBJECTIVE: VITAL SIGNS: Temperature 98.0, blood pressure 107/70, pulse 82, respirations 16, 94% on room air. CARDIOVASCULAR: Regular rhythm and rate. RESPIRATORY: Lungs are clear to consultation bilaterally. ABDOMEN: Bowel sounds are positive. Wound VAC is intact. No evidence of worsening infection. ASSESSMENT: Ray amputation. PLAN: Continue antibiotics at this time. The patient will undergo an MRI in the a.m. to evaluate current condition. Marino Car MD /[id number]
--- NOTE | 2016-07-11 10:57 | PN ---
DATE OF SERVICE: 07/10/2016 SUBJECTIVE: The patient continues to do well. MRI is still pending. His pain has improved. OBJECTIVE: VITAL SIGNS: Stable. Temperature 97.8, blood pressure 103/75, pulse 85, respirations 20, 99% on room air. CARDIOVASCULAR: Regular rhythm and rate. RESPIRATORY: Lungs are clear to consultation bilaterally. Wound VAC is intact. ASSESSMENT: Status post necrotic foot. PLAN: We will remove his wound VAC today. Evaluate and probably debride. Risks, benefits, alternatives, limitations of this were explained to the patient, and wished to proceed. Marino Car MD /[id number]
--- NOTE | 2016-07-11 11:00 | PN ---
DATE OF SERVICE: 07/11/2016 SUBJECTIVE: The patient continues to improve today. He feels subjectively his pain is significantly improved in his leg. OBJECTIVE: VITAL SIGNS: Stable. Temperature 98.8, blood pressure 135/86, pulse 82, respirations 18, 97% on room air. CARDIOVASCULAR: Regular rhythm and rate. RESPIRATORY: Lungs are clear to auscultation bilaterally. ABDOMEN: Bowel sounds are positive. Wound VAC is intact. ASSESSMENT: Infected right foot. PLAN: The patient will be taken to the operating room for debridement today. Risks, benefits, alternatives, and limitations, including, but not limited to infection and bleeding, were explained to the patient, and they wished to proceed. Marino Car MD /[id number]
--- NOTE | 2016-07-11 11:33 | PN ---
DATE OF SERVICE: 07/08/2016 SUBJECTIVE: The patient is doing well postoperatively. His pain has mildly improved compared to preoperative condition. OBJECTIVE: VITAL SIGNS: Temperature 98.0, blood pressure 102/69 respirations 28, and 97% on room air. CARDIOVASCULAR: Regular rhythm and rate. RESPIRATORY: Lungs, clear to consultation bilaterally. EXTREMITIES: Foot, the wound VAC is intact. No evidence of worsening cellulitis. LABORATORY DATA: Laboratory results show white blood cell count 12.7, basic metabolic panel is essentially normal. ASSESSMENT: Status post ray amputation. PLAN: We will continue to work on diet and activity today. Hospitalist service will continue general medical management. Marino Car MD /[id number]
--- NOTE | 2016-07-11 11:36 | PN ---
DATE OF SERVICE: 07/08/2016 Of note, due to the patient did not have antibiotics for approximately 12 hours. Once this was identified, this was corrected immediately. Marino Car MD /[id number]
--- NOTE | 2016-07-11 12:30 | OR ---
DATE OF PROCEDURE: 07/07/2016 PROCEDURE: 1. Transmetatarsal amputation (ray amputation) of 5th metatarsal, right foot. 2. Ray amputation. 3. Debridement of right foot approximately 5 cm x 3 cm (66952). 4. Placement of wound VAC, right foot (95096). PREOPERATIVE DIAGNOSIS: Concern for osteomyelitis, significant soft tissue skin infection. POSTOPERATIVE DIAGNOSIS: Concern for osteomyelitis, significant soft tissue skin infection. INDICATIONS: This is 55-year-old male, who had a traumatic injury to his right foot. He has been seen in clinic, but has worsened over the last 24 hours requiring surgical intervention. PROCEDURE IN DETAIL: The patient was placed in supine position. The foot was prepped and draped. The amputation performed in a classic grade fashion with circumnavigating the 5th toe. This was performed after anesthetizing with lidocaine. The toe was subsequently transected. The inferior to superior incision was made approximately 5 cm in size. This is rather large due to the necrotic tissue. This would be associated with a significant tissue debridement. The metatarsal head at about midshaft would be subsequently transected. A bone cutter was used to transect the metatarsal head. This was then subsequently removed and sent for specimen. The tissue was also cultured at this time. This was then thoroughly irrigated with 1 L of irrigation. The wound VAC was subsequently placed in the wound itself. This was performed in standard fashion using a black sponge and subsequently track pad and film over this. The patient tolerated the procedure well. Marino Car MD /[id number]
[2016-07-11] MEDS: Insulin Aspart 100 Units/ML 3 ML Pen SUBCUT SCH ×2 (13:14→21:40)
--- NOTE | 2016-07-11 14:10 | OR ---
DATE OF PROCEDURE: 07/11/2016 PROCEDURE: 1. Debridement, right foot (94644). 2. Wound VAC placement (35454). LOCATION: Bedside debridement. FINDINGS: Improved but still necrotic tissue noted in the right foot. PROCEDURE IN DETAIL: The patient was placed in supine position. The previous wound VAC was removed. The wound was then prepped with Betadine. Using a 15 blade, sharp debridement was performed. Unfortunately, this requires more debridement than can be performed at the bedside. Nonetheless, debridement was performed. The patient tolerated the procedure well. The wound VAC was then placed in standard fashion using the black wound sponge with the track pad and plastic overlay. The patient was taken to the operating room in the a.m. for more formal debridement. Marino Car MD /[id number]
--- NOTE | 2016-07-11 14:58 | OR ---
CORRECTED COPY DATE OF PROCEDURE: 07/11/2016 ADDENDUM: PROCEDURES PERFORMED: Debridement of right foot wound. DATE OF PROCEDURE: 07/11/2016 PROCEDURES PERFORMED: 1. Debridement of left foot wound, lateral (7.1 cm x 4.1 cm), 19466, 72692. 2. Debridement of right plantar wound anterior wound (2.1 x 0.9 cm), 71924. 3. Debridement of right foot plantar wound, posterior wound (1.6 cm x 1.4 cm). 4. Wound VAC placement, right foot (59170). INDICATIONS: This is a 55-year-old male with a significant infection of his right foot. He requires re-evaluation and debridement today. FINDINGS: Improvement overall of the cellulitis. No exposed bone. RISKS: Risks, benefits, alternatives, and limitations including, but not limited to infection, bleeding, and requirement for reoperation including [id number] amputation were explained to the patient, and they wished to proceed. PROCEDURE IN DETAIL: The patient was placed in the supine position. The right foot was readily identified. The previous wound VAC was removed. The original wound was inspected. There was some granulation tissue, but still some necrotic tissue. This was then debrided using a 15 blade. Minimal bleeding was controlled by electrocautery. The remainder of the metatarsal head was not exposed at this time. Debridement then continued with the other 2 wounds. Although, they do not communicate through the foot, there is a concern that they eventually will. These were also debrided using a 15 blade. Once hemostasis was achieved with electrocautery. The wound was thoroughly irrigated with 1 L of irrigation. This was then cleaned and dried. The wound VAC was then placed over all 3 wounds using a superficial film layer followed by a bridge around the lateral aspect of the foot. Minimal leak was noted and an ALEJA was placed to facilitate this. Of note, tincture of benzoin was also used to facilitate wound VAC suction. The patient tolerated the procedure well. Marino Car MD /[id number]
--- NOTE | 2016-07-11 15:24 | PCM.CONSN ---
- General Info Date of Service: 07/11/16 Functional Status: Reports: pain controlled, tolerating diet, urinating - Review of Systems General: Denies: Fever, Chills Pulmonary: Reports: no symptoms Cardiovascular: Reports: No Symptoms Gastrointestinal: Reports: No symptoms Systems Review Comment:: This patient has remained stable over the past 24 hours. Vital signs have been good and he has remained afebrile, white blood cell count remains modestly elevated. MRI was obtained and showed no evidence of osteomyelitis in the foot. He was taken back to the operating room this morning by Dr. Car for further debridement. - Patient Data Vitals - most recent: Last Vital Signs Temp 98.4 F 07/11/16 11:51 Pulse 95 07/11/16 11:51 Resp 18 07/11/16 11:51 BP 120/85 07/11/16 11:51 Pulse Ox 97 07/11/16 11:51 Weight - most recent: 197 lb 11.2 oz I&O - last 24 hours: Intake & Output 07/11/16 07/11/16 07/11/16 06:59 14:59 22:59 Intake Total 760 500 Output Total 550 250 Balance 210 250 Lab Results last 24 hrs: Laboratory Results - last 24 hr 07/11/16 Range/Units 09:46 WBC 12.5 H (4.5-11.0) K/uL RBC 4.84 (4.30-5.90) M/uL Hgb 14.3 (12.0-15.0) g/dL Hct 41.7 (40.0-54.0) % MCV 86 (80-98) fL MCH 30 (27-31) pg MCHC 34 (32-36) % Plt Count 348 (150-400) K/uL Neut % (Auto) 64 (36-66) % Lymph % (Auto) 22 L (24-44) % [place] % (Auto) 10 H (2-6) % Eos % (Auto) 3 (2-4) % Baso % (Auto) 1 (0-1) % [place] Results last 24 hrs: Microbiology 07/07/16 11:20 Anaerobic Culture - Final Toe, Right - Right Little NO GROWTH AFTER 3 DAYS 07/09/16 10:47 Gram Stain - Final Foot, Right Wound Culture - Preliminary Med Orders - Current: Current Medications Aspirin (Halfprin) 81 mg PO DAILY [facility] Last Admin: 07/11/16 10:23 Dose: 81 mg Atorvastatin Calcium (Lipitor) 40 mg PO BEDTIME [facility] Last Admin: 07/10/16 20:24 Dose: 40 mg Benzocaine/Menthol (Cepacol Sore Throat) 1 lozenge MUCMEM Q1H PRN PRN Reason: Sore Throat Bisacodyl (Dulcolax) 5 mg PO DAILY PRN PRN Reason: Constipation Diphenhydramine HCl (Benadryl) 50 mg IVPUSH Q4H PRN PRN Reason: Itching Docusate Sodium (Colace) 100 mg PO BID PRN PRN Reason: Constipation Enoxaparin Sodium (Lovenox) 40 mg SUBCUT Q24H [facility] Last Admin: 07/11/16 10:23 Dose: 40 mg Fentanyl Citrate (Fentanyl In Ns 20 Mcg/Ml 30 Ml Gunite Mixer) 0 mcg IV ASDIRECTED PRN; Protocol PRN Reason: Pain Last Admin: 07/07/16 11:46 Dose: 0.1 mcg Piperacillin/Tazobactam/ (Dextrose 4.5 gm/ Premix) 100 mls @ 200 mls/hr IV Q6H [facility] Last Admin: 07/11/16 10:40 Dose: 200 mls/hr Insulin Aspart (Novolog) 0 unit SUBCUT ASDIRECTED [facility] PRN Reason: Protocol Last Admin: 07/11/16 13:14 Dose: 2 units Insulin Detemir (Levemir) 24 unit SUBCUT DAILY [facility] Lisinopril (Prinivil) 5 mg PO DAILY [facility] Last Admin: 07/11/16 10:23 Dose: 5 mg Metformin HCl (Glucophage) 1,000 mg PO BIDMEALS [facility] Last Admin: 07/11/16 10:36 Dose: 1,000 mg Naloxone HCl (Narcan) 0.1 mg IV ASDIRECTED PRN PRN Reason: decreased respiratory rate Ondansetron HCl (Zofran) 4 mg IVPUSH Q6H PRN PRN Reason: Nausea/Vomiting Promethazine HCl (Phenergan) 25 mg IM Q6H PRN PRN Reason: Nausea Senna/Docusate Sodium (Senna Plus) 1 tab PO BID PRN PRN Reason: Constipation Zolpidem Tartrate (Ambien) 5 mg PO BEDTIME PRN PRN Reason: Insomnia Last Admin: 07/09/16 23:31 Dose: 5 mg Discontinued Medications Bupivacaine HCl (Marcaine 0.5%) Confirm Administered Dose 50 ml .ROUTE .STK-MED ONE Stop: 07/07/16 10:32 Last Admin: 07/07/16 12:26 Dose: 30 ml Bupivacaine HCl (Marcaine 0.5%) Confirm Administered Dose 50 ml .ROUTE .[facility]-MED ONE Stop: 07/11/16 06:50 Last Admin: 07/11/16 09:03 Dose: 5 ml Fentanyl (Sublimaze) Confirm Administered Dose 100 mcg .ROUTE .STK-MED ONE Stop: 07/07/16 10:07 Fentanyl (Sublimaze) Confirm Administered Dose 100 mcg .ROUTE .[facility]-MED ONE Stop: 07/11/16 07:23 Gadoteridol (Prohance) 20 ml IV . DIRECTED [facility] Stop: 07/10/16 13:01 Last Admin: 07/10/16 13:33 Dose: 19 ml Sodium Chloride (Normal Saline) 1,000 mls @ 75 mls/hr IV ASDIRECTED [facility] Last Admin: 07/08/16 05:13 Dose: 75 mls/hr Cefazolin Sodium 2 gm/ Sodium (Chloride) 50 mls @ 100 mls/hr IV ONETIME ONE Stop: 07/07/16 10:59 Last Admin: 07/07/16 10:51 Dose: 100 mls/hr Metronidazole 500 mg/ Premix 100 mls @ 100 mls/hr IV ONETIME ONE Stop: 07/07/16 11:59 Last Admin: 07/07/16 10:51 Dose: 100 mls/hr Lidocaine HCl (Xylocaine-Mpf 1%) Confirm Administered Dose 2 mls @ as directed .ROUTE .STK-MED ONE Stop: 07/07/16 10:22 Sodium Chloride (Normal Saline) 1,000 mls @ 25 mls/hr IV ASDIRECTED [facility] Last Admin: 07/10/16 10:15 Dose: 25 mls/hr Sodium Chloride (Normal Saline) Confirm Administered Dose 100 mls @ as directed .ROUTE .STK-MED ONE Stop: 07/08/16 22:38 Last Admin: 07/09/16 02:16 Dose: Not Given Sodium Chloride (Normal Saline) Confirm Administered Dose 100 mls @ as directed .ROUTE .STK-MED ONE Stop: 07/08/16 22:38 Last Admin: 07/09/16 02:15 Dose: Not Given Sodium Chloride (Normal Saline) 1,000 mls @ 125 mls/hr IV ASDIRECTED [facility] Last Admin: 07/11/16 07:03 Dose: 125 mls/hr Lidocaine HCl (Xylocaine-Mpf 1%) Confirm Administered Dose 2 mls @ as directed .ROUTE .STK-MED ONE Stop: 07/11/16 08:37 Insulin Aspart (Novolog) 10 unit SUBCUT ONETIME ONE Stop: 07/07/16 17:21 Last Admin: 07/08/16 09:35 Dose: 10 units Insulin Detemir (Levemir) 40 unit SUBCUT BID [facility] Last Admin: 07/09/16 08:48 Dose: 40 units Insulin Detemir (Levemir) 35 unit SUBCUT BEDTIME [facility] Last Admin: 07/09/16 22:13 Dose: Not Given Insulin Detemir (Levemir) 40 unit SUBCUT DAILY [facility] Last Admin: 07/10/16 08:24 Dose: 40 units Insulin Detemir (Levemir) 20 unit SUBCUT DAILY [facility] Last Admin: 07/11/16 10:27 Dose: 20 units Lidocaine/Epinephrine (Xylocaine 1% With Epinephrine 1:100,000) Confirm Administered Dose 50 ml .ROUTE .STK-MED ONE Stop: 07/11/16 06:50 Last Admin: 07/11/16 09:03 Dose: 5 ml Midazolam HCl (Versed 1 Mg/Ml) Confirm Administered Dose 2 mg .ROUTE .STK-MED ONE Stop: 07/07/16 10:08 Midazolam HCl (Versed 1 Mg/Ml) Confirm Administered Dose 2 mg .ROUTE .STK-MED ONE Stop: 07/11/16 07:23 Piperacillin Sod/Tazobactam Sod (Zosyn) Confirm Administered Dose 4.5 gm .ROUTE .STK-MED ONE Stop: 07/08/16 22:36 Last Admin: 07/09/16 01:47 Dose: Not Given Piperacillin Sod/Tazobactam Sod (Zosyn) Confirm Administered Dose 4.5 gm .ROUTE .STK-MED ONE Stop: 07/08/16 22:36 Last Admin: 07/09/16 02:15 Dose: Not Given Propofol (Diprivan 20 Ml) Confirm Administered Dose 200 mg .ROUTE .STK-MED ONE Stop: 07/07/16 10:07 Propofol (Diprivan 20 Ml) Confirm Administered Dose 200 mg .ROUTE .STK-MED ONE Stop: 07/07/16 11:18 Propofol (Diprivan 20 Ml) Confirm Administered Dose 200 mg .ROUTE .STK-MED ONE Stop: 07/11/16 07:23 - Exam Quality Assessment: DVT prophylaxis General: alert, oriented, cooperative, no acute distress Lungs: Clear to auscultation, Normal respiratory effort Cardiovascular: Regular Rate, Regular Rhythm, No Murmurs Abdomen: bowel sounds present, soft, no tenderness, no distension Extremities: no edema Skin: warm, dry, intact Consult PN Assessment/Plan Procedures: Procedures ASSAY OF CREATININE (01/31/16) DIAGNOSTIC COLONOSCOPY (07/07/14) EGD DIAGNOSTIC BRUSH WASH (07/06/14) EMERGENCY DEPT VISIT (07/19/13) EMERGENCY DEPT VISIT (06/15/13) IMMUNIZATION ADMIN (06/15/13) MRI LWR EXTREMITY W/O&W/DYE (01/31/16) ROUTINE VENIPUNCTURE (01/31/16) RPR S/N/AX/GEN/TRNK 2.5CM/< (06/15/13) TDAP VACCINE 7 YRS/> IM (06/15/13) THER/PROPH/DIAG INJ SC/IM (11/15/12) Problem List Initiated/Reviewed/Updated: Yes My Orders last 24 hours: My Active Orders 07/11/16 15:19 Insulin Detemir [Levemir] 24 unit SUBCUT DAILY 07/11/16 15:21 Convert IV to Saline Lock [OM.PC] Routine Plan: ASSESSMENT AND PLAN 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 He has a wound VAC in place. Culture from the fluid growing strep viridans. 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 Glucose levels have been stable over the past 2 days -Diabetic diet -Continue metformin twice daily with meals -Long-acting insulin 24 units subcutaneous daily -Medium dose sliding scale insulin -Diabetes education on Sunday -Dietary consult Thank you for the interesting consultation and allowing me to be involved in Edgar's care. I will continue to follow along during hospitalization.
[2016-07-11] MEDS: atorvaSTATin 20 MG Tab PO SCH (20:43)
[2016-07-11] MEDS: Zolpidem 5 MG Tab PO PRN (20:43)
[2016-07-12] MEDS: Piperacillin/Tazobactam/Dext 4.5 GM in Premix Bag 1 BAG IV SCH ×4 (04:02→21:41)
[2016-07-12] MEDS: metFORMIN 500 MG Tab PO SCH ×2 (07:57→17:59)
[2016-07-12] MEDS: Lisinopril 5 MG Tab PO SCH (08:02)
[2016-07-12] MEDS: Insulin Detemir 100 Units/ML 3 ML Pen SUBCUT SCH (08:02)
[2016-07-12] MEDS: Aspirin 81 MG Tab.EC PO SCH (08:03)
--- NOTE | 2016-07-12 09:51 | PN ---
DATE OF SERVICE: 07/12/2016 SUBJECTIVE: The patient is doing well today. Pain is controlled. No nausea, vomiting, or shortness of breath. Continues to do well. OBJECTIVE: VITAL SIGNS: Stable. He is afebrile. Blood pressure of 115/78, pulse 62, respirations 16. CARDIOVASCULAR: Regular rhythm and rate. RESPIRATORY: Lungs clear to auscultation bilaterally. Wound VAC is intact. ASSESSMENT: Status post wound VAC and surgical debridement of wound. PLAN: Continue antibiotics. Overall the patient continues to slowly improve. We will get a physical therapy consult today as we will encourage more activity, but he is active except for limited use of his foot. Marino Car MD /[id number]
[2016-07-12] MEDS: Enoxaparin 40 MG/0.4 ML Syringe SUBCUT SCH (10:34)
--- NOTE | 2016-07-12 12:22 | PCM.CONSN ---
- General Info Date of Service: 07/12/16 Functional Status: Reports: pain controlled, urinating - Review of Systems General: Denies: Fever, Weakness, Chills Pulmonary: Reports: no symptoms Cardiovascular: Reports: No Symptoms Gastrointestinal: Reports: No symptoms Psychiatric: Reports: depression Systems Review Comment:: This patient has remained stable over the past 24 hours, blood sugars have been under good control with current management. Vital signs have been stable and he has remained afebrile. He is feeling depressed because of current situation with his foot and need for longer hospitalization. - Patient Data Vitals - most recent: Last Vital Signs Temp 98.0 F 07/12/16 11:21 Pulse 76 07/12/16 11:21 Resp 16 07/12/16 11:21 BP 90/70 07/12/16 11:21 Pulse Ox 97 07/12/16 11:21 Weight - most recent: 197 lb 11.2 oz I&O - last 24 hours: Intake & Output 07/11/16 07/12/16 07/12/16 22:59 06:59 14:59 Intake Total 1222 260 100 Output Total 300 600 Balance 922 260 -500 Lab Results last 24 hrs: Laboratory Results - last 24 hr 07/12/16 Range/Units 05:57 WBC 14.4 H (4.5-11.0) K/uL RBC 4.46 (4.30-5.90) M/uL Hgb 12.8 (12.0-15.0) g/dL Hct 38.6 L (40.0-54.0) % MCV 87 (80-98) fL MCH 29 (27-31) pg MCHC 33 (32-36) % Plt Count 383 (150-400) K/uL Neut % (Auto) 67 H (36-66) % Lymph % (Auto) 22 L (24-44) % [place] % (Auto) 9 H (2-6) % Eos % (Auto) 2 (2-4) % Baso % (Auto) 0 (0-1) % [place] Results last 24 hrs: Microbiology 07/09/16 10:47 Gram Stain - Final Foot, Right Wound Culture - Final Med Orders - Current: Current Medications Aspirin (Halfprin) 81 mg PO DAILY [facility] Last Admin: 07/12/16 08:03 Dose: 81 mg Atorvastatin Calcium (Lipitor) 40 mg PO BEDTIME [facility] Last Admin: 07/11/16 20:43 Dose: 40 mg Benzocaine/Menthol (Cepacol Sore Throat) 1 lozenge MUCMEM Q1H PRN PRN Reason: Sore Throat Bisacodyl (Dulcolax) 5 mg PO DAILY PRN PRN Reason: Constipation Diphenhydramine HCl (Benadryl) 50 mg IVPUSH Q4H PRN PRN Reason: Itching Docusate Sodium (Colace) 100 mg PO BID PRN PRN Reason: Constipation Enoxaparin Sodium (Lovenox) 40 mg SUBCUT Q24H [facility] Last Admin: 07/12/16 10:34 Dose: 40 mg Fentanyl Citrate (Fentanyl In Ns 20 Mcg/Ml 30 Ml Method Consultant) 0 mcg IV ASDIRECTED PRN; Protocol PRN Reason: Pain Last Admin: 07/07/16 11:46 Dose: 0.1 mcg Piperacillin/Tazobactam/ (Dextrose 4.5 gm/ Premix) 100 mls @ 200 mls/hr IV Q6H [facility] Last Admin: 07/12/16 10:34 Dose: 200 mls/hr Insulin Aspart (Novolog) 0 unit SUBCUT ASDIRECTED [facility] PRN Reason: Protocol Last Admin: 07/11/16 21:40 Dose: 2 units Insulin Detemir (Levemir) 24 unit SUBCUT DAILY [facility] Last Admin: 07/12/16 08:02 Dose: 24 units Lisinopril (Prinivil) 5 mg PO DAILY [facility] Last Admin: 07/12/16 08:02 Dose: 5 mg Metformin HCl (Glucophage) 1,000 mg PO BIDMEALS [facility] Last Admin: 07/12/16 07:57 Dose: 1,000 mg Naloxone HCl (Narcan) 0.1 mg IV ASDIRECTED PRN PRN Reason: decreased respiratory rate Ondansetron HCl (Zofran) 4 mg IVPUSH Q6H PRN PRN Reason: Nausea/Vomiting Promethazine HCl (Phenergan) 25 mg IM Q6H PRN PRN Reason: Nausea Senna/Docusate Sodium (Senna Plus) 1 tab PO BID PRN PRN Reason: Constipation Zolpidem Tartrate (Ambien) 5 mg PO BEDTIME PRN PRN Reason: Insomnia Last Admin: 07/11/16 20:43 Dose: 5 mg Discontinued Medications Bupivacaine HCl (Marcaine 0.5%) Confirm Administered Dose 50 ml .ROUTE .[facility]-MED ONE Stop: 07/07/16 10:32 Last Admin: 07/07/16 12:26 Dose: 30 ml Bupivacaine HCl (Marcaine 0.5%) Confirm Administered Dose 50 ml .ROUTE .[facility] ONE Stop: 07/11/16 06:50 Last Admin: 07/11/16 09:03 Dose: 5 ml Fentanyl (Sublimaze) Confirm Administered Dose 100 mcg .ROUTE .[facility] ONE Stop: 07/07/16 10:07 Fentanyl (Sublimaze) Confirm Administered Dose 100 mcg .ROUTE .[facility] ONE Stop: 07/11/16 07:23 Gadoteridol (Prohance) 20 ml IV . DIRECTED [facility] Stop: 07/10/16 13:01 Last Admin: 07/10/16 13:33 Dose: 19 ml Sodium Chloride (Normal Saline) 1,000 mls @ 75 mls/hr IV ASDIRECTED [facility] Last Admin: 07/08/16 05:13 Dose: 75 mls/hr Cefazolin Sodium 2 gm/ Sodium (Chloride) 50 mls @ 100 mls/hr IV ONETIME ONE Stop: 07/07/16 10:59 Last Admin: 07/07/16 10:51 Dose: 100 mls/hr Metronidazole 500 mg/ Premix 100 mls @ 100 mls/hr IV ONETIME ONE Stop: 07/07/16 11:59 Last Admin: 07/07/16 10:51 Dose: 100 mls/hr Lidocaine HCl (Xylocaine-Mpf 1%) Confirm Administered Dose 2 mls @ as directed .ROUTE .[facility] ONE Stop: 07/07/16 10:22 Sodium Chloride (Normal Saline) 1,000 mls @ 25 mls/hr IV ASDIRECTED [facility] Last Admin: 07/10/16 10:15 Dose: 25 mls/hr Sodium Chloride (Normal Saline) Confirm Administered Dose 100 mls @ as directed .ROUTE .[facility] ONE Stop: 07/08/16 22:38 Last Admin: 07/09/16 02:16 Dose: Not Given Sodium Chloride (Normal Saline) Confirm Administered Dose 100 mls @ as directed .ROUTE .[facility] ONE Stop: 07/08/16 22:38 Last Admin: 07/09/16 02:15 Dose: Not Given Sodium Chloride (Normal Saline) 1,000 mls @ 125 mls/hr IV ASDIRECTED [facility] Last Admin: 07/11/16 07:03 Dose: 125 mls/hr Lidocaine HCl (Xylocaine-Mpf 1%) Confirm Administered Dose 2 mls @ as directed .ROUTE .STK-MED ONE Stop: 07/11/16 08:37 Insulin Aspart (Novolog) 10 unit SUBCUT ONETIME ONE Stop: 07/07/16 17:21 Last Admin: 07/08/16 09:35 Dose: 10 units Insulin Detemir (Levemir) 40 unit SUBCUT BID [facility] Last Admin: 07/09/16 08:48 Dose: 40 units Insulin Detemir (Levemir) 35 unit SUBCUT BEDTIME [facility] Last Admin: 07/09/16 22:13 Dose: Not Given Insulin Detemir (Levemir) 40 unit SUBCUT DAILY [facility] Last Admin: 07/10/16 08:24 Dose: 40 units Insulin Detemir (Levemir) 20 unit SUBCUT DAILY [facility] Last Admin: 07/11/16 10:27 Dose: 20 units Lidocaine/Epinephrine (Xylocaine 1% With Epinephrine 1:100,000) Confirm Administered Dose 50 ml .ROUTE .STK-MED ONE Stop: 07/11/16 06:50 Last Admin: 07/11/16 09:03 Dose: 5 ml Midazolam HCl (Versed 1 Mg/Ml) Confirm Administered Dose 2 mg .ROUTE .STK-MED ONE Stop: 07/07/16 10:08 Midazolam HCl (Versed 1 Mg/Ml) Confirm Administered Dose 2 mg .ROUTE .STK-MED ONE Stop: 07/11/16 07:23 Piperacillin Sod/Tazobactam Sod (Zosyn) Confirm Administered Dose 4.5 gm .ROUTE .STK-MED ONE Stop: 07/08/16 22:36 Last Admin: 07/09/16 01:47 Dose: Not Given Piperacillin Sod/Tazobactam Sod (Zosyn) Confirm Administered Dose 4.5 gm .ROUTE .STK-MED ONE Stop: 07/08/16 22:36 Last Admin: 07/09/16 02:15 Dose: Not Given Propofol (Diprivan 20 Ml) Confirm Administered Dose 200 mg .ROUTE .STK-MED ONE Stop: 07/07/16 10:07 Propofol (Diprivan 20 Ml) Confirm Administered Dose 200 mg .ROUTE .STK-MED ONE Stop: 07/07/16 11:18 Propofol (Diprivan 20 Ml) Confirm Administered Dose 200 mg .ROUTE .STK-MED ONE Stop: 07/11/16 07:23 - Exam Quality Assessment: DVT prophylaxis General: alert, oriented, cooperative Lungs: Clear to auscultation, Normal respiratory effort Cardiovascular: Regular Rate, Regular Rhythm, No Murmurs Abdomen: bowel sounds present, soft, no tenderness, no distension Extremities: no edema Consult PN Assessment/Plan Procedures: Procedures ASSAY OF CREATININE (01/31/16) DIAGNOSTIC COLONOSCOPY (07/07/14) EGD DIAGNOSTIC BRUSH WASH (07/06/14) EMERGENCY DEPT VISIT (07/19/13) EMERGENCY DEPT VISIT (06/15/13) IMMUNIZATION ADMIN (06/15/13) MRI LWR EXTREMITY W/O&W/DYE (01/31/16) ROUTINE VENIPUNCTURE (01/31/16) RPR S/N/AX/GEN/TRNK 2.5CM/< (06/15/13) TDAP VACCINE 7 YRS/> IM (06/15/13) THER/PROPH/DIAG INJ SC/IM (11/15/12) Problem List Initiated/Reviewed/Updated: Yes My Orders last 24 hours: My Active Orders 07/11/16 15:19 Insulin Detemir [Levemir] 24 unit SUBCUT DAILY 07/11/16 15:21 Convert IV to Saline Lock [OM.PC] Routine Plan: ASSESSMENT AND PLAN 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 He has a wound VAC in place. Culture from the fluid growing strep viridans. 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 Glucose levels have been stable over the past 3 days with current management -Diabetic diet -Continue metformin twice daily with meals -Long-acting insulin 24 units subcutaneous daily -Medium dose sliding scale insulin -Diabetes education on Sunday -Dietary consult Thank you for the interesting consultation and allowing me to be involved in Edgar's care. I will continue to follow along during hospitalization.
[2016-07-12] MEDS: Insulin Aspart 100 Units/ML 3 ML Pen SUBCUT SCH ×3 (12:31→21:21)
[2016-07-12] MEDS: Acetaminophen/HYDROcodone 325-5 MG Tab PO PRN (17:59)
[2016-07-12] MEDS: atorvaSTATin 20 MG Tab PO SCH (21:21)
[2016-07-13] MEDS: Piperacillin/Tazobactam/Dext 4.5 GM in Premix Bag 1 BAG IV SCH ×3 (04:51→16:27)
[2016-07-13] MEDS: Aspirin 81 MG Tab.EC PO SCH (08:34)
[2016-07-13] MEDS: Insulin Aspart 100 Units/ML 3 ML Pen SUBCUT SCH ×3 (08:35→21:34)
[2016-07-13] MEDS: FLUoxetine 20 MG Cap PO SCH (08:39)
[2016-07-13] MEDS: Lisinopril 5 MG Tab PO SCH (08:39)
[2016-07-13] MEDS: Insulin Detemir 100 Units/ML 3 ML Pen SUBCUT SCH (08:40)
--- NOTE | 2016-07-13 09:45 | PN ---
DATE OF SERVICE: 07/13/2016 SUBJECTIVE: The patient feels his foot is significantly better today. His pain is well controlled. He has no nausea, vomiting, shortness of breath, or chest pain. He is having bowel movements. OBJECTIVE: VITAL SIGNS: Temperature 97.9, blood pressure 127/77, pulse 67, respirations 16, and 95% on room air. CARDIOVASCULAR: Regular rhythm and rate. RESPIRATORY: Lungs, clear to auscultation bilaterally. ABDOMEN: Bowel sounds positive. EXTREMITIES: Right leg shows wound VAC intact. No worsening cellulitis. No concerns with the wound today. ASSESSMENT AND PLAN: Significant foot infection. MRI surprisingly did not show any evidence of osteomyelitis. We removed and exchanged his wound VAC in the a.m. The patient will be here for several more days to assess his status. In addition, the patient is not really a candidate for home antibiotics due to mental capacity and he needs to remain in the hospital for close observation also due to that fact. Marino Car MD /[id number]
[2016-07-13] MEDS: metFORMIN 500 MG Tab PO SCH ×2 (09:50→16:27)
[2016-07-13] MEDS: Enoxaparin 40 MG/0.4 ML Syringe SUBCUT SCH (10:38)
--- NOTE | 2016-07-13 13:15 | PCM.CONSN ---
- General Info Date of Service: 07/13/16 Functional Status: Reports: pain controlled, tolerating diet, urinating - Review of Systems General: Denies: Fever, Weakness, Chills Pulmonary: Reports: no symptoms Cardiovascular: Reports: No Symptoms Gastrointestinal: Reports: No symptoms Musculoskeletal: Reports: foot pain Systems Review Comment:: This patient has been stable over the past 24 hours, good vital signs and has been afebrile. White blood cell count remains modestly elevated. Glucose levels have been under good control with current management. - Patient Data Vitals - most recent: Last Vital Signs Temp 97.1 F 07/13/16 10:56 Pulse 78 07/13/16 10:56 Resp 16 07/13/16 10:56 BP 112/71 07/13/16 10:56 Pulse Ox 97 07/13/16 10:56 Weight - most recent: 192 lb 12.8 oz I&O - last 24 hours: Intake & Output 07/12/16 07/13/16 07/13/16 22:59 06:59 14:59 Intake Total 440 100 100 Output Total 150 300 Balance 290 -200 100 Med Orders - Current: Current Medications Hydrocodone Bitart/Acetaminophen ([place] 325-5 Mg) 1 - 2 tab PO Q4H PRN PRN Reason: Pain Last Admin: 07/12/16 17:59 Dose: 1 tab Aspirin (Halfprin) 81 mg PO DAILY [facility] Last Admin: 07/13/16 08:34 Dose: 81 mg Atorvastatin Calcium (Lipitor) 40 mg PO BEDTIME [facility] Last Admin: 07/12/16 21:21 Dose: 40 mg Benzocaine/Menthol (Cepacol Sore Throat) 1 lozenge MUCMEM Q1H PRN PRN Reason: Sore Throat Bisacodyl (Dulcolax) 5 mg PO DAILY PRN PRN Reason: Constipation Diphenhydramine HCl (Benadryl) 50 mg IVPUSH Q4H PRN PRN Reason: Itching Docusate Sodium (Colace) 100 mg PO BID PRN PRN Reason: Constipation Enoxaparin Sodium (Lovenox) 40 mg SUBCUT Q24H [facility] Last Admin: 07/13/16 10:38 Dose: 40 mg Fluoxetine HCl (Prozac) 40 mg PO DAILY [facility] Last Admin: 07/13/16 08:39 Dose: 40 mg Piperacillin/Tazobactam/ (Dextrose 4.5 gm/ Premix) 100 mls @ 200 mls/hr IV Q6H [facility] Stop: 07/13/16 17:00 Last Admin: 07/13/16 10:41 Dose: 200 mls/hr Piperacillin Sod/Tazobactam (Sod 4.5 gm/ Sodium Chloride) 100 mls @ 200 mls/hr IV Q6H [facility] Insulin Aspart (Novolog) 0 unit SUBCUT ASDIRECTED [facility] PRN Reason: Protocol Last Admin: 07/13/16 08:35 Dose: 2 units Insulin Detemir (Levemir) 24 unit SUBCUT DAILY [facility] Last Admin: 07/13/16 08:40 Dose: 24 units Lisinopril (Prinivil) 5 mg PO DAILY [facility] Last Admin: 07/13/16 08:39 Dose: 5 mg Metformin HCl (Glucophage) 1,000 mg PO BIDOKALS [facility] Last Admin: 07/13/16 09:50 Dose: 1,000 mg Naloxone HCl (Narcan) 0.1 mg IV ASDIRECTED PRN PRN Reason: decreased respiratory rate Ondansetron HCl (Zofran) 4 mg IVPUSH Q6H PRN PRN Reason: Nausea/Vomiting Promethazine HCl (Phenergan) 25 mg IM Q6H PRN PRN Reason: Nausea Senna/Docusate Sodium (Senna Plus) 1 tab PO BID PRN PRN Reason: Constipation Zolpidem Tartrate (Ambien) 5 mg PO BEDTIME PRN PRN Reason: Insomnia Last Admin: 07/11/16 20:43 Dose: 5 mg Discontinued Medications Bupivacaine HCl (Marcaine 0.5%) Confirm Administered Dose 50 ml .ROUTE .STK-MED ONE Stop: 07/07/16 10:32 Last Admin: 07/07/16 12:26 Dose: 30 ml Bupivacaine HCl (Marcaine 0.5%) Confirm Administered Dose 50 ml .ROUTE .STK-MED ONE Stop: 07/11/16 06:50 Last Admin: 07/11/16 09:03 Dose: 5 ml Fentanyl (Sublimaze) Confirm Administered Dose 100 mcg .ROUTE .STK-MED ONE Stop: 07/07/16 10:07 Fentanyl (Sublimaze) Confirm Administered Dose 100 mcg .ROUTE .STK-MED ONE Stop: 07/11/16 07:23 Fentanyl Citrate (Fentanyl In Ns 20 Mcg/Ml 30 Ml Clin Tech) 0 mcg IV ASDIRECTED PRN; Protocol PRN Reason: Pain Last Admin: 07/07/16 11:46 Dose: 0.1 mcg Gadoteridol (Prohance) 20 ml IV . DIRECTED [facility] Stop: 07/10/16 13:01 Last Admin: 07/10/16 13:33 Dose: 19 ml Sodium Chloride (Normal Saline) 1,000 mls @ 75 mls/hr IV ASDIRECTED [facility] Last Admin: 07/08/16 05:13 Dose: 75 mls/hr Cefazolin Sodium 2 gm/ Sodium (Chloride) 50 mls @ 100 mls/hr IV ONETIME ONE Stop: 07/07/16 10:59 Last Admin: 07/07/16 10:51 Dose: 100 mls/hr Metronidazole 500 mg/ Premix 100 mls @ 100 mls/hr IV ONETIME ONE Stop: 07/07/16 11:59 Last Admin: 07/07/16 10:51 Dose: 100 mls/hr Lidocaine HCl (Xylocaine-Mpf 1%) Confirm Administered Dose 2 mls @ as directed .ROUTE .STK-MED ONE Stop: 07/07/16 10:22 Sodium Chloride (Normal Saline) 1,000 mls @ 25 mls/hr IV ASDIRECTED [facility] Last Admin: 07/10/16 10:15 Dose: 25 mls/hr Sodium Chloride (Normal Saline) Confirm Administered Dose 100 mls @ as directed .ROUTE .STK-MED ONE Stop: 07/08/16 22:38 Last Admin: 07/09/16 02:16 Dose: Not Given Sodium Chloride (Normal Saline) Confirm Administered Dose 100 mls @ as directed .ROUTE .STK-MED ONE Stop: 07/08/16 22:38 Last Admin: 07/09/16 02:15 Dose: Not Given Sodium Chloride (Normal Saline) 1,000 mls @ 125 mls/hr IV ASDIRECTED [facility] Last Admin: 07/11/16 07:03 Dose: 125 mls/hr Lidocaine HCl (Xylocaine-Mpf 1%) Confirm Administered Dose 2 mls @ as directed .ROUTE .STK-MED ONE Stop: 07/11/16 08:37 Insulin Aspart (Novolog) 10 unit SUBCUT ONETIME ONE Stop: 07/07/16 17:21 Last Admin: 07/08/16 09:35 Dose: 10 units Insulin Detemir (Levemir) 40 unit SUBCUT BID [facility] Last Admin: 07/09/16 08:48 Dose: 40 units Insulin Detemir (Levemir) 35 unit SUBCUT BEDTIME [facility] Last Admin: 07/09/16 22:13 Dose: Not Given Insulin Detemir (Levemir) 40 unit SUBCUT DAILY [facility] Last Admin: 07/10/16 08:24 Dose: 40 units Insulin Detemir (Levemir) 20 unit SUBCUT DAILY [facility] Last Admin: 07/11/16 10:27 Dose: 20 units Lidocaine/Epinephrine (Xylocaine 1% With Epinephrine 1:100,000) Confirm Administered Dose 50 ml .ROUTE .STK-MED ONE Stop: 07/11/16 06:50 Last Admin: 07/11/16 09:03 Dose: 5 ml Midazolam HCl (Versed 1 Mg/Ml) Confirm Administered Dose 2 mg .ROUTE .STK-MED ONE Stop: 07/07/16 10:08 Midazolam HCl (Versed 1 Mg/Ml) Confirm Administered Dose 2 mg .ROUTE .STK-MED ONE Stop: 07/11/16 07:23 Piperacillin Sod/Tazobactam Sod (Zosyn) Confirm Administered Dose 4.5 gm .ROUTE .STK-MED ONE Stop: 07/08/16 22:36 Last Admin: 07/09/16 01:47 Dose: Not Given Piperacillin Sod/Tazobactam Sod (Zosyn) Confirm Administered Dose 4.5 gm .ROUTE .STK-MED ONE Stop: 07/08/16 22:36 Last Admin: 07/09/16 02:15 Dose: Not Given Propofol (Diprivan 20 Ml) Confirm Administered Dose 200 mg .ROUTE .STK-MED ONE Stop: 07/07/16 10:07 Propofol (Diprivan 20 Ml) Confirm Administered Dose 200 mg .ROUTE .STK-MED ONE Stop: 07/07/16 11:18 Propofol (Diprivan 20 Ml) Confirm Administered Dose 200 mg .ROUTE .STK-MED ONE Stop: 07/11/16 07:23 - Exam Quality Assessment: DVT prophylaxis General: alert, oriented, cooperative Lungs: Clear to auscultation, Normal respiratory effort Cardiovascular: Regular Rate, Regular Rhythm, No Murmurs Abdomen: bowel sounds present, soft, no tenderness, no distension Extremities: no edema Consult PN Assessment/Plan Procedures: Procedures ASSAY OF CREATININE (01/31/16) DIAGNOSTIC COLONOSCOPY (07/07/14) EGD DIAGNOSTIC BRUSH WASH (07/06/14) EMERGENCY DEPT VISIT (07/19/13) EMERGENCY DEPT VISIT (06/15/13) IMMUNIZATION ADMIN (06/15/13) MRI LWR EXTREMITY W/O&W/DYE (01/31/16) ROUTINE VENIPUNCTURE (01/31/16) RPR S/N/AX/GEN/TRNK 2.5CM/< (06/15/13) TDAP VACCINE 7 YRS/> IM (06/15/13) THER/PROPH/DIAG INJ SC/IM (11/15/12) Problem List Initiated/Reviewed/Updated: Yes Plan: ASSESSMENT AND PLAN 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 He has a wound VAC in place. Culture from the fluid growing strep viridans. 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 Glucose levels have been stable over the past 4 days with current management -Diabetic diet -Continue metformin twice daily with meals -Long-acting insulin 24 units subcutaneous daily -Medium dose sliding scale insulin -Diabetes education on Sunday -Dietary consult Thank you for the interesting consultation and allowing me to be involved in Edgar's care. I will continue to follow along during hospitalization.
[2016-07-13] MEDS: Acetaminophen/HYDROcodone 325-5 MG Tab PO PRN (18:24)
[2016-07-13] MEDS: Piperacillin/Tazobactam 4.5 GM in Sodium Chloride 0.9% 100 ML IV SCH (21:35)
[2016-07-14] MEDS: Piperacillin/Tazobactam 4.5 GM in Sodium Chloride 0.9% 100 ML IV SCH ×4 (04:17→21:40)
[2016-07-14] MEDS: Enoxaparin 40 MG/0.4 ML Syringe SUBCUT SCH (09:14)
[2016-07-14] MEDS: Aspirin 81 MG Tab.EC PO SCH (09:15)
[2016-07-14] MEDS: Lisinopril 5 MG Tab PO SCH (09:15)
[2016-07-14] MEDS: metFORMIN 500 MG Tab PO SCH ×2 (09:15→16:36)
[2016-07-14] MEDS: FLUoxetine 20 MG Cap PO SCH (09:15)
[2016-07-14] MEDS: Insulin Detemir 100 Units/ML 3 ML Pen SUBCUT SCH (09:26)
--- NOTE | 2016-07-14 13:11 | PCM.CONSN ---
- General Info Date of Service: 07/14/16 Functional Status: Reports: pain controlled, tolerating diet, urinating - Review of Systems General: Denies: Fever, Weakness, Chills Pulmonary: Reports: no symptoms Cardiovascular: Reports: No Symptoms Gastrointestinal: Reports: No symptoms Systems Review Comment:: This patient has continued to do well, blood sugar 73 maintenance fairly good control although elevated above previous levels during the past 24 hours. Vital signs have been stable and he has remained afebrile. Appetite has been good and he has been progressing with physical therapy. - Patient Data Vitals - most recent: Last Vital Signs Temp 97.9 F 07/14/16 11:06 Pulse 80 07/14/16 11:06 Resp 17 07/14/16 11:06 BP 109/78 07/14/16 11:06 Pulse Ox 98 07/14/16 11:06 Weight - most recent: 192 lb 12.8 oz I&O - last 24 hours: Intake & Output 07/13/16 07/14/16 07/14/16 22:59 06:59 14:59 Intake Total 340 100 940 Output Total 325 175 150 Balance 15 -75 790 Lab Results last 24 hrs: Laboratory Results - last 24 hr 07/14/16 Range/Units 05:14 WBC 12.3 H (4.5-11.0) K/uL RBC 4.54 (4.30-5.90) M/uL Hgb 13.3 (12.0-15.0) g/dL Hct 39.0 L (40.0-54.0) % MCV 86 (80-98) fL MCH 29 (27-31) pg MCHC 34 (32-36) % Plt Count 427 H (150-400) K/uL Med Orders - Current: Current Medications Hydrocodone Bitart/Acetaminophen ([place] 325-5 Mg) 1 - 2 tab PO Q4H PRN PRN Reason: Pain Last Admin: 07/13/16 18:24 Dose: 1 tab Aspirin (Halfprin) 81 mg PO DAILY [facility] Last Admin: 07/14/16 09:15 Dose: 81 mg Atorvastatin Calcium (Lipitor) 40 mg PO BEDTIME [facility] Last Admin: 07/14/16 00:00 Dose: 40 mg Benzocaine/Menthol (Cepacol Sore Throat) 1 lozenge MUCMEM Q1H PRN PRN Reason: Sore Throat Bisacodyl (Dulcolax) 5 mg PO DAILY PRN PRN Reason: Constipation Diphenhydramine HCl (Benadryl) 50 mg IVPUSH Q4H PRN PRN Reason: Itching Docusate Sodium (Colace) 100 mg PO BID PRN PRN Reason: Constipation Enoxaparin Sodium (Lovenox) 40 mg SUBCUT Q24H [facility] Last Admin: 07/14/16 09:14 Dose: 40 mg Fluoxetine HCl (Prozac) 40 mg PO DAILY [facility] Last Admin: 07/14/16 09:15 Dose: 40 mg Piperacillin Sod/Tazobactam (Sod 4.5 gm/ Sodium Chloride) 100 mls @ 200 mls/hr IV Q6H [facility] Last Admin: 07/14/16 10:03 Dose: 200 mls/hr Insulin Aspart (Novolog) 0 unit SUBCUT ASDIRECTED [facility] PRN Reason: Protocol Last Admin: 07/13/16 21:34 Dose: 4 units Insulin Detemir (Levemir) 30 unit SUBCUT DAILY [facility] Lisinopril (Prinivil) 5 mg PO DAILY [facility] Last Admin: 07/14/16 09:15 Dose: 5 mg Metformin HCl (Glucophage) 1,000 mg PO BIDMEALS [facility] Last Admin: 07/14/16 09:15 Dose: 1,000 mg Ondansetron HCl (Zofran) 4 mg IVPUSH Q6H PRN PRN Reason: Nausea/Vomiting Promethazine HCl (Phenergan) 25 mg IM Q6H PRN PRN Reason: Nausea Senna/Docusate Sodium (Senna Plus) 1 tab PO BID PRN PRN Reason: Constipation Zolpidem Tartrate (Ambien) 5 mg PO BEDTIME PRN PRN Reason: Insomnia Last Admin: 07/11/16 20:43 Dose: 5 mg Discontinued Medications Bupivacaine HCl (Marcaine 0.5%) Confirm Administered Dose 50 ml .ROUTE .STK-MED ONE Stop: 07/07/16 10:32 Last Admin: 07/07/16 12:26 Dose: 30 ml Bupivacaine HCl (Marcaine 0.5%) Confirm Administered Dose 50 ml .ROUTE .STK-MED ONE Stop: 07/11/16 06:50 Last Admin: 07/11/16 09:03 Dose: 5 ml Fentanyl (Sublimaze) Confirm Administered Dose 100 mcg .ROUTE .STK-MED ONE Stop: 07/07/16 10:07 Fentanyl (Sublimaze) Confirm Administered Dose 100 mcg .ROUTE .STK-MED ONE Stop: 07/11/16 07:23 Fentanyl Citrate (Fentanyl In Ns 20 Mcg/Ml 30 Ml Cmm Programmer) 0 mcg IV ASDIRECTED PRN; Protocol PRN Reason: Pain Last Admin: 07/07/16 11:46 Dose: 0.1 mcg Gadoteridol (Prohance) 20 ml IV . DIRECTED [facility] Stop: 07/10/16 13:01 Last Admin: 07/10/16 13:33 Dose: 19 ml Sodium Chloride (Normal Saline) 1,000 mls @ 75 mls/hr IV ASDIRECTED [facility] Last Admin: 07/08/16 05:13 Dose: 75 mls/hr Cefazolin Sodium 2 gm/ Sodium (Chloride) 50 mls @ 100 mls/hr IV ONETIME ONE Stop: 07/07/16 10:59 Last Admin: 07/07/16 10:51 Dose: 100 mls/hr Metronidazole 500 mg/ Premix 100 mls @ 100 mls/hr IV ONETIME ONE Stop: 07/07/16 11:59 Last Admin: 07/07/16 10:51 Dose: 100 mls/hr Lidocaine HCl (Xylocaine-Mpf 1%) Confirm Administered Dose 2 mls @ as directed .ROUTE .STK-MED ONE Stop: 07/07/16 10:22 Sodium Chloride (Normal Saline) 1,000 mls @ 25 mls/hr IV ASDIRECTED [facility] Last Admin: 07/10/16 10:15 Dose: 25 mls/hr Piperacillin/Tazobactam/ (Dextrose 4.5 gm/ Premix) 100 mls @ 200 mls/hr IV Q6H [facility] Stop: 07/13/16 17:00 Last Admin: 07/13/16 16:27 Dose: 200 mls/hr Sodium Chloride (Normal Saline) Confirm Administered Dose 100 mls @ as directed .ROUTE .STK-MED ONE Stop: 07/08/16 22:38 Last Admin: 07/09/16 02:16 Dose: Not Given Sodium Chloride (Normal Saline) Confirm Administered Dose 100 mls @ as directed .ROUTE .STK-MED ONE Stop: 07/08/16 22:38 Last Admin: 07/09/16 02:15 Dose: Not Given Sodium Chloride (Normal Saline) 1,000 mls @ 125 mls/hr IV ASDIRECTED [facility] Last Admin: 07/11/16 07:03 Dose: 125 mls/hr Lidocaine HCl (Xylocaine-Mpf 1%) Confirm Administered Dose 2 mls @ as directed .ROUTE .STK-MED ONE Stop: 07/11/16 08:37 Insulin Aspart (Novolog) 10 unit SUBCUT ONETIME ONE Stop: 07/07/16 17:21 Last Admin: 07/08/16 09:35 Dose: 10 units Insulin Detemir (Levemir) 40 unit SUBCUT BID [facility] Last Admin: 07/09/16 08:48 Dose: 40 units Insulin Detemir (Levemir) 35 unit SUBCUT BEDTIME [facility] Last Admin: 07/09/16 22:13 Dose: Not Given Insulin Detemir (Levemir) 40 unit SUBCUT DAILY [facility] Last Admin: 07/10/16 08:24 Dose: 40 units Insulin Detemir (Levemir) 20 unit SUBCUT DAILY [facility] Last Admin: 07/11/16 10:27 Dose: 20 units Insulin Detemir (Levemir) 24 unit SUBCUT DAILY [facility] Last Admin: 07/14/16 09:26 Dose: 24 units Lidocaine/Epinephrine (Xylocaine 1% With Epinephrine 1:100,000) Confirm Administered Dose 50 ml .ROUTE .STK-MED ONE Stop: 07/11/16 06:50 Last Admin: 07/11/16 09:03 Dose: 5 ml Midazolam HCl (Versed 1 Mg/Ml) Confirm Administered Dose 2 mg .ROUTE .STK-MED ONE Stop: 07/07/16 10:08 Midazolam HCl (Versed 1 Mg/Ml) Confirm Administered Dose 2 mg .ROUTE .STK-MED ONE Stop: 07/11/16 07:23 Naloxone HCl (Narcan) 0.1 mg IV ASDIRECTED PRN PRN Reason: decreased respiratory rate Piperacillin Sod/Tazobactam Sod (Zosyn) Confirm Administered Dose 4.5 gm .ROUTE .STK-MED ONE Stop: 07/08/16 22:36 Last Admin: 07/09/16 01:47 Dose: Not Given Piperacillin Sod/Tazobactam Sod (Zosyn) Confirm Administered Dose 4.5 gm .ROUTE .STK-MED ONE Stop: 07/08/16 22:36 Last Admin: 07/09/16 02:15 Dose: Not Given Propofol (Diprivan 20 Ml) Confirm Administered Dose 200 mg .ROUTE .STK-MED ONE Stop: 07/07/16 10:07 Propofol (Diprivan 20 Ml) Confirm Administered Dose 200 mg .ROUTE .STK-MED ONE Stop: 07/07/16 11:18 Propofol (Diprivan 20 Ml) Confirm Administered Dose 200 mg .ROUTE .STK-MED ONE Stop: 07/11/16 07:23 - Exam Quality Assessment: DVT prophylaxis General: alert, oriented, cooperative Lungs: Clear to auscultation, Normal respiratory effort Cardiovascular: Regular Rate, Regular Rhythm Abdomen: bowel sounds present, soft, no tenderness, no distension Extremities: no edema Consult PN Assessment/Plan Procedures: Procedures ASSAY OF CREATININE (01/31/16) DIAGNOSTIC COLONOSCOPY (07/07/14) EGD DIAGNOSTIC BRUSH WASH (07/06/14) EMERGENCY DEPT VISIT (07/19/13) EMERGENCY DEPT VISIT (06/15/13) IMMUNIZATION ADMIN (06/15/13) MRI LWR EXTREMITY W/O&W/DYE (01/31/16) ROUTINE VENIPUNCTURE (01/31/16) RPR S/N/AX/GEN/TRNK 2.5CM/< (06/15/13) TDAP VACCINE 7 YRS/> IM (06/15/13) THER/PROPH/DIAG INJ SC/IM (11/15/12) Problem List Initiated/Reviewed/Updated: Yes My Orders last 24 hours: My Active Orders 07/14/16 13:09 Insulin Detemir [Levemir] 30 unit SUBCUT DAILY Plan: ASSESSMENT AND PLAN 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 He has a wound VAC in place. Culture from the fluid growing strep viridans. 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 Glucose levels have gone up over the past 24 hours, oral intake has improved -Diabetic diet -Continue metformin twice daily with meals -Increase Long-acting insulin to 30 units subcutaneous daily -Medium dose sliding scale insulin -Diabetes education on Sunday -Dietary consult Thank you for the interesting consultation and allowing me to be involved in Edgar's care. I will continue to follow along during hospitalization.
[2016-07-14] MEDS: Insulin Aspart 100 Units/ML 3 ML Pen SUBCUT SCH ×3 (13:24→21:38)
[2016-07-14] MEDS ORDERED: Dimethicone 20%/Zinc Oxide 25% 56 GM Spray Bottle TOP PRN (13:50)
[2016-07-14] MEDS: atorvaSTATin 20 MG Tab PO SCH ×2 (20:34)
[2016-07-15] MEDS: Piperacillin/Tazobactam 4.5 GM in Sodium Chloride 0.9% 100 ML IV SCH ×4 (03:50→21:05)
[2016-07-15] MEDS: Aspirin 81 MG Tab.EC PO SCH (08:58)
[2016-07-15] MEDS: Lisinopril 5 MG Tab PO SCH (08:58)
[2016-07-15] MEDS: metFORMIN 500 MG Tab PO SCH ×2 (08:58→18:01)
[2016-07-15] MEDS: FLUoxetine 20 MG Cap PO SCH (08:58)
[2016-07-15] MEDS: Enoxaparin 40 MG/0.4 ML Syringe SUBCUT SCH (09:03)
[2016-07-15] MEDS: Insulin Detemir 100 Units/ML 3 ML Pen SUBCUT SCH (09:05)
--- NOTE | 2016-07-15 10:46 | PCM.CONSN ---
- General Info Date of Service: 07/15/16 Functional Status: Reports: pain controlled, tolerating diet, urinating - Review of Systems General: Denies: Fever, Chills Pulmonary: Reports: no symptoms Cardiovascular: Reports: No Symptoms Gastrointestinal: Reports: No symptoms Systems Review Comment:: Patient has remained stable since yesterday, vital signs are good and he has remained afebrile. Blood glucose levels have been within the desired range with current management. - Patient Data Vitals - most recent: Last Vital Signs Temp 97.7 F 07/15/16 08:00 Pulse 77 07/15/16 08:00 Resp 18 07/15/16 08:00 BP 132/87 07/15/16 08:00 Pulse Ox 96 07/15/16 08:00 Weight - most recent: 192 lb 12.8 oz I&O - last 24 hours: Intake & Output 07/14/16 07/15/16 07/15/16 22:59 06:59 14:59 Intake Total 200 100 340 Output Total 200 200 Balance 0 -100 340 Med Orders - Current: Current Medications Hydrocodone Bitart/Acetaminophen ([place] 325-5 Mg) 1 - 2 tab PO Q4H PRN PRN Reason: Pain Last Admin: 07/13/16 18:24 Dose: 1 tab Aspirin (Halfprin) 81 mg PO DAILY [facility] Last Admin: 07/15/16 08:58 Dose: 81 mg Atorvastatin Calcium (Lipitor) 40 mg PO BEDTIME [facility] Last Admin: 07/14/16 20:34 Dose: 40 mg Benzocaine/Menthol (Cepacol Sore Throat) 1 lozenge MUCMEM Q1H PRN PRN Reason: Sore Throat Bisacodyl (Dulcolax) 5 mg PO DAILY PRN PRN Reason: Constipation Dimethicone/Zinc Oxide (Rash Relief-Zinc Oxide [employer]) 1 gm TOP ASDIRECTED PRN PRN Reason: Rash Diphenhydramine HCl (Benadryl) 50 mg IVPUSH Q4H PRN PRN Reason: Itching Docusate Sodium (Colace) 100 mg PO BID PRN PRN Reason: Constipation Enoxaparin Sodium (Lovenox) 40 mg SUBCUT Q24H [facility] Last Admin: 07/15/16 09:03 Dose: 40 mg Fluoxetine HCl (Prozac) 40 mg PO DAILY [facility] Last Admin: 07/15/16 08:58 Dose: 40 mg Piperacillin Sod/Tazobactam (Sod 4.5 gm/ Sodium Chloride) 100 mls @ 200 mls/hr IV Q6H [facility] Last Admin: 07/15/16 09:00 Dose: 200 mls/hr Insulin Aspart (Novolog) 0 unit SUBCUT ASDIRECTED [facility] PRN Reason: Protocol Last Admin: 07/14/16 21:38 Dose: 4 units Insulin Detemir (Levemir) 30 unit SUBCUT DAILY [facility] Last Admin: 07/15/16 09:05 Dose: 30 units Lisinopril (Prinivil) 5 mg PO DAILY [facility] Last Admin: 07/15/16 08:58 Dose: 5 mg Metformin HCl (Glucophage) 1,000 mg PO BIDMEALS [facility] Last Admin: 07/15/16 08:58 Dose: 1,000 mg Ondansetron HCl (Zofran) 4 mg IVPUSH Q6H PRN PRN Reason: Nausea/Vomiting Promethazine HCl (Phenergan) 25 mg IM Q6H PRN PRN Reason: Nausea Senna/Docusate Sodium (Senna Plus) 1 tab PO BID PRN PRN Reason: Constipation Zolpidem Tartrate (Ambien) 5 mg PO BEDTIME PRN PRN Reason: Insomnia Last Admin: 07/11/16 20:43 Dose: 5 mg Discontinued Medications Bupivacaine HCl (Marcaine 0.5%) Confirm Administered Dose 50 ml .ROUTE .STK-MED ONE Stop: 07/07/16 10:32 Last Admin: 07/07/16 12:26 Dose: 30 ml Bupivacaine HCl (Marcaine 0.5%) Confirm Administered Dose 50 ml .ROUTE .STK-MED ONE Stop: 07/11/16 06:50 Last Admin: 07/11/16 09:03 Dose: 5 ml Fentanyl (Sublimaze) Confirm Administered Dose 100 mcg .ROUTE .STK-MED ONE Stop: 07/07/16 10:07 Fentanyl (Sublimaze) Confirm Administered Dose 100 mcg .ROUTE .STK-MED ONE Stop: 07/11/16 07:23 Fentanyl Citrate (Fentanyl In Ns 20 Mcg/Ml 30 Ml Shellacker) 0 mcg IV ASDIRECTED PRN; Protocol PRN Reason: Pain Last Admin: 07/07/16 11:46 Dose: 0.1 mcg Gadoteridol (Prohance) 20 ml IV . DIRECTED [facility] Stop: 07/10/16 13:01 Last Admin: 07/10/16 13:33 Dose: 19 ml Sodium Chloride (Normal Saline) 1,000 mls @ 75 [facility] Last Admin: 07/08/16 05:13 Dose: 75 mls/hr Cefazolin Sodium 2 gm/ Sodium (Chloride) 50 mls @ 100 mls/hr IV ONETIME ONE Stop: 07/07/16 10:59 Last Admin: 07/07/16 10:51 Dose: 100 mls/hr Metronidazole 500 mg/ Premix 100 mls @ 100 mls/hr IV ONETIME ONE Stop: 07/07/16 11:59 Last Admin: 07/07/16 10:51 Dose: 100 mls/hr Lidocaine HCl (Xylocaine-Mpf 1%) Confirm Administered Dose 2 mls @ as directed .ROUTE .STK-MED ONE Stop: 07/07/16 10:22 Sodium Chloride (Normal Saline) 1,000 mls @ 25 mls/hr IV [facility] Last Admin: 07/10/16 10:15 Dose: 25 mls/hr Piperacillin/Tazobactam/ (Dextrose 4.5 gm/ Premix) 100 mls @ 200 mls/hr IV Q6H [facility] Stop: 07/13/16 17:00 Last Admin: 07/13/16 16:27 Dose: 200 mls/hr Sodium Chloride (Normal Saline) Confirm Administered Dose 100 mls @ as directed .ROUTE .STK-MED ONE Stop: 07/08/16 22:38 Last Admin: 07/09/16 02:16 Dose: Not Given Sodium Chloride (Normal Saline) Confirm Administered Dose 100 mls @ as directed .ROUTE .STK-MED ONE Stop: 07/08/16 22:38 Last Admin: 07/09/16 02:15 Dose: Not Given Sodium Chloride (Normal Saline) 1,000 mls @ 125 mls/hr IV [facility] Last Admin: 07/11/16 07:03 Dose: 125 mls/hr Lidocaine HCl (Xylocaine-Mpf 1%) Confirm Administered Dose 2 mls @ as directed .ROUTE .STK-MED ONE Stop: 07/11/16 08:37 Insulin Aspart (Novolog) 10 unit SUBCUT ONETIME ONE Stop: 07/07/16 17:21 Last Admin: 07/08/16 09:35 Dose: 10 units Insulin Detemir (Levemir) 40 unit SUBCUT BID [facility] Last Admin: 07/09/16 08:48 Dose: 40 units Insulin Detemir (Levemir) 35 unit SUBCUT BEDTIME [facility] Last Admin: 07/09/16 22:13 Dose: Not Given Insulin Detemir (Levemir) 40 unit SUBCUT DAILY [facility] Last Admin: 07/10/16 08:24 Dose: 40 units Insulin Detemir (Levemir) 20 unit SUBCUT DAILY [facility] Last Admin: 07/11/16 10:27 Dose: 20 units Insulin Detemir (Levemir) 24 unit SUBCUT DAILY [facility] Last Admin: 07/14/16 09:26 Dose: 24 units Lidocaine/Epinephrine (Xylocaine 1% With Epinephrine 1:100,000) Confirm Administered Dose 50 ml .ROUTE .STK-MED ONE Stop: 07/11/16 06:50 Last Admin: 07/11/16 09:03 Dose: 5 ml Midazolam HCl (Versed 1 Mg/Ml) Confirm Administered Dose 2 mg .ROUTE .STK-MED ONE Stop: 07/07/16 10:08 Midazolam HCl (Versed 1 Mg/Ml) Confirm Administered Dose 2 mg .ROUTE .STK-MED ONE Stop: 07/11/16 07:23 Naloxone HCl (Narcan) 0.1 mg IV ASDIRECTED PRN PRN Reason: decreased respiratory rate Piperacillin Sod/Tazobactam Sod (Zosyn) Confirm Administered Dose 4.5 gm .ROUTE .STK-MED ONE Stop: 07/08/16 22:36 Last Admin: 07/09/16 01:47 Dose: Not Given Piperacillin Sod/Tazobactam Sod (Zosyn) Confirm Administered Dose 4.5 gm .ROUTE .STK-MED ONE Stop: 07/08/16 22:36 Last Admin: 07/09/16 02:15 Dose: Not Given Propofol (Diprivan 20 Ml) Confirm Administered Dose 200 mg .ROUTE .STK-MED ONE Stop: 07/07/16 10:07 Propofol (Diprivan 20 Ml) Confirm Administered Dose 200 mg .ROUTE .STK-MED ONE Stop: 07/07/16 11:18 Propofol (Diprivan 20 Ml) Confirm Administered Dose 200 mg .ROUTE .STK-MED ONE Stop: 07/11/16 07:23 - Exam Quality Assessment: DVT prophylaxis General: alert, oriented, cooperative, no acute distress Lungs: Clear to auscultation, Normal respiratory effort Cardiovascular: Regular Rate, Regular Rhythm, No Murmurs Abdomen: bowel sounds present, soft, no tenderness, no distension Consult PN Assessment/Plan Procedures: Procedures ASSAY OF CREATININE (01/31/16) DIAGNOSTIC COLONOSCOPY (07/07/14) EGD DIAGNOSTIC BRUSH WASH (07/06/14) EMERGENCY DEPT VISIT (07/19/13) EMERGENCY DEPT VISIT (06/15/13) IMMUNIZATION ADMIN (06/15/13) MRI LWR EXTREMITY W/O&W/DYE (01/31/16) ROUTINE VENIPUNCTURE (01/31/16) RPR S/N/AX/GEN/TRNK 2.5CM/< (06/15/13) TDAP VACCINE 7 YRS/> IM (06/15/13) THER/PROPH/DIAG INJ SC/IM (11/15/12) Problem List Initiated/Reviewed/Updated: Yes My Orders last 24 hours: My Active Orders 07/14/16 13:09 Insulin Detemir [Levemir] 30 unit SUBCUT DAILY Plan: ASSESSMENT AND PLAN 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 He has a wound VAC in place. Culture from the fluid growing strep viridans. 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 Glucose levels have been stable since yesterday we'll plan to continue current management -Diabetic diet -Continue metformin twice daily with meals -Increase Long-acting insulin to 30 units subcutaneous daily -Medium dose sliding scale insulin -Diabetes education on Sunday -Dietary consult Thank you for the interesting consultation and allowing me to be involved in Edgar's care. I will continue to follow along during hospitalization.
[2016-07-15] MEDS: Insulin Aspart 100 Units/ML 3 ML Pen SUBCUT SCH (16:23)
[2016-07-15] MEDS: atorvaSTATin 20 MG Tab PO SCH (21:05)
[2016-07-16] MEDS: Piperacillin/Tazobactam 4.5 GM in Sodium Chloride 0.9% 100 ML IV SCH ×4 (03:48→21:15)
[2016-07-16] MEDS: metFORMIN 500 MG Tab PO SCH ×2 (08:30→16:26)
[2016-07-16] MEDS: Aspirin 81 MG Tab.EC PO SCH (08:30)
[2016-07-16] MEDS: Lisinopril 5 MG Tab PO SCH (08:31)
[2016-07-16] MEDS: Insulin Detemir 100 Units/ML 3 ML Pen SUBCUT SCH (08:32)
[2016-07-16] MEDS: FLUoxetine 20 MG Cap PO SCH (08:32)
--- NOTE | 2016-07-16 10:20 | PCM.CONSN ---
- General Info Date of Service: 07/16/16 Functional Status: Reports: pain controlled, tolerating diet, urinating - Review of Systems General: Denies: Fever, Weakness, Chills Pulmonary: Reports: no symptoms Cardiovascular: Reports: No Symptoms Gastrointestinal: Reports: No symptoms Psychiatric: Reports: depression Systems Review Comment:: This patient has been stable, vital signs have been good and he has remained afebrile. Blood glucose levels have been within the desired range with current management. Wound VAC remains in place and is working well. - Patient Data Vitals - most recent: Last Vital Signs Temp 95.5 F 07/16/16 07:33 Pulse 66 07/16/16 07:33 Resp 16 07/16/16 07:33 BP 126/83 07/16/16 07:33 Pulse Ox 96 07/16/16 07:33 Weight - most recent: 192 lb 12.8 oz I&O - last 24 hours: Intake & Output 07/15/16 07/16/16 07/16/16 22:59 06:59 14:59 Intake Total 200 100 100 Output Total 50 100 200 Balance 150 0 -100 Med Orders - Current: Current Medications Hydrocodone Bitart/Acetaminophen ([place] 325-5 Mg) 1 - 2 tab PO Q4H PRN PRN Reason: Pain Last Admin: 07/13/16 18:24 Dose: 1 tab Aspirin (Halfprin) 81 mg PO DAILY [facility] Last Admin: 07/16/16 08:30 Dose: 81 mg Atorvastatin Calcium (Lipitor) 40 mg PO BEDTIME [facility] Last Admin: 07/15/16 21:05 Dose: 40 mg Benzocaine/Menthol (Cepacol Sore Throat) 1 lozenge MUCMEM Q1H PRN PRN Reason: Sore Throat Bisacodyl (Dulcolax) 5 mg PO DAILY PRN PRN Reason: Constipation Dimethicone/Zinc Oxide (Rash Relief-Zinc Oxide [place]) 1 gm TOP ASDIRECTED PRN PRN Reason: Rash Last Admin: 07/15/16 14:03 Dose: 1 gm Diphenhydramine HCl (Benadryl) 50 mg IVPUSH Q4H PRN PRN Reason: Itching Docusate Sodium (Colace) 100 mg PO BID PRN PRN Reason: Constipation Enoxaparin Sodium (Lovenox) 40 mg SUBCUT Q24H [facility] Last Admin: 07/15/16 09:03 Dose: 40 mg Fluoxetine HCl (Prozac) 40 mg PO DAILY [facility] Last Admin: 07/16/16 08:32 Dose: 40 mg Piperacillin Sod/Tazobactam (Sod 4.5 gm/ Sodium Chloride) 100 mls @ 200 mls/hr IV Q6H [facility] Last Admin: 07/16/16 03:48 Dose: 200 mls/hr Insulin Aspart (Novolog) 0 unit SUBCUT ASDIRECTED [facility] PRN Reason: Protocol Last Admin: 07/15/16 16:23 Dose: 2 units Insulin Detemir (Levemir) 30 unit SUBCUT DAILY [facility] Last Admin: 07/16/16 08:32 Dose: 30 units Lisinopril (Prinivil) 5 mg PO DAILY [facility] Last Admin: 07/16/16 08:31 Dose: 5 mg Metformin HCl (Glucophage) 1,000 mg PO BIDMEALS [facility] Last Admin: 07/16/16 08:30 Dose: 1,000 mg Ondansetron HCl (Zofran) 4 mg IVPUSH Q6H PRN PRN Reason: Nausea/Vomiting Promethazine HCl (Phenergan) 25 mg IM Q6H PRN PRN Reason: Nausea Senna/Docusate Sodium (Senna Plus) 1 tab PO BID PRN PRN Reason: Constipation Zolpidem Tartrate (Ambien) 5 mg PO BEDTIME PRN PRN Reason: Insomnia Last Admin: 07/11/16 20:43 Dose: 5 mg Discontinued Medications Bupivacaine HCl (Marcaine 0.5%) Confirm Administered Dose 50 ml .ROUTE .STK-MED ONE Stop: 07/07/16 10:32 Last Admin: 07/07/16 12:26 Dose: 30 ml Bupivacaine HCl (Marcaine 0.5%) Confirm Administered Dose 50 ml .ROUTE .STK-MED ONE Stop: 07/11/16 06:50 Last Admin: 07/11/16 09:03 Dose: 5 ml Fentanyl (Sublimaze) Confirm Administered Dose 100 mcg .ROUTE .STK-MED ONE Stop: 07/07/16 10:07 Fentanyl (Sublimaze) Confirm Administered Dose 100 mcg .ROUTE .STK-MED ONE Stop: 07/11/16 07:23 Fentanyl Citrate (Fentanyl In Ns 20 Mcg/Ml 30 Ml [facility] [employer]) 0 mcg IV ASDIRECTED PRN; Protocol PRN Reason: Pain Last Admin: 07/07/16 11:46 Dose: 0.1 mcg Gadoteridol (Prohance) 20 ml IV . DIRECTED [facility] Stop: 07/10/16 13:01 Last Admin: 07/10/16 13:33 Dose: 19 ml Sodium Chloride (Normal Saline) 1,000 mls @ 75 mls/hr IV ASDIRECTED [facility] Last Admin: 07/08/16 05:13 Dose: 75 mls/hr Cefazolin Sodium 2 gm/ Sodium (Chloride) 50 mls @ 100 mls/hr IV ONETIME ONE Stop: 07/07/16 10:59 Last Admin: 07/07/16 10:51 Dose: 100 mls/hr Metronidazole 500 mg/ Premix 100 mls @ 100 mls/hr IV ONETIME ONE Stop: 07/07/16 11:59 Last Admin: 07/07/16 10:51 Dose: 100 mls/hr Lidocaine HCl (Xylocaine-Mpf 1%) Confirm Administered Dose 2 mls @ as directed .ROUTE .STK-MED ONE Stop: 07/07/16 10:22 Sodium Chloride (Normal Saline) 1,000 mls @ 25 mls/hr IV ASDIRECTED [facility] Last Admin: 07/10/16 10:15 Dose: 25 mls/hr Piperacillin/Tazobactam/ (Dextrose 4.5 gm/ Premix) 100 mls @ 200 mls/hr IV Q6H [facility] Stop: 07/13/16 17:00 Last Admin: 07/13/16 16:27 Dose: 200 mls/hr Sodium Chloride (Normal Saline) Confirm Administered Dose 100 mls @ as directed .ROUTE .STK-MED ONE Stop: 07/08/16 22:38 Last Admin: 07/09/16 02:16 Dose: Not Given Sodium Chloride (Normal Saline) Confirm Administered Dose 100 mls @ as directed .ROUTE .STK-MED ONE Stop: 07/08/16 22:38 Last Admin: 07/09/16 02:15 Dose: Not Given Sodium Chloride (Normal Saline) 1,000 mls @ 125 mls/hr IV ASDIRECTED [facility] Last Admin: 07/11/16 07:03 Dose: 125 mls/hr Lidocaine HCl (Xylocaine-Mpf 1%) Confirm Administered Dose 2 mls @ as directed .ROUTE .STK-MED ONE Stop: 07/11/16 08:37 Insulin Aspart (Novolog) 10 unit SUBCUT ONETIME ONE Stop: 07/07/16 17:21 Last Admin: 07/08/16 09:35 Dose: 10 units Insulin Detemir (Levemir) 40 unit SUBCUT BID [facility] Last Admin: 07/09/16 08:48 Dose: 40 units Insulin Detemir (Levemir) 35 unit SUBCUT BEDTIME [facility] Last Admin: 07/09/16 22:13 Dose: Not Given Insulin Detemir (Levemir) 40 unit SUBCUT DAILY [facility] Last Admin: 07/10/16 08:24 Dose: 40 units Insulin Detemir (Levemir) 20 unit SUBCUT DAILY [facility] Last Admin: 07/11/16 10:27 Dose: 20 units Insulin Detemir (Levemir) 24 unit SUBCUT DAILY [facility] Last Admin: 07/14/16 09:26 Dose: 24 units Lidocaine/Epinephrine (Xylocaine 1% With Epinephrine 1:100,000) Confirm Administered Dose 50 ml .ROUTE .STK-MED ONE Stop: 07/11/16 06:50 Last Admin: 07/11/16 09:03 Dose: 5 ml Midazolam HCl (Versed 1 Mg/Ml) Confirm Administered Dose 2 mg .ROUTE .STK-MED ONE Stop: 07/07/16 10:08 Midazolam HCl (Versed 1 Mg/Ml) Confirm Administered Dose 2 mg .ROUTE .STK-MED ONE Stop: 07/11/16 07:23 Naloxone HCl (Narcan) 0.1 mg IV ASDIRECTED PRN PRN Reason: decreased respiratory rate Piperacillin Sod/Tazobactam Sod (Zosyn) Confirm Administered Dose 4.5 gm .ROUTE .STK-MED ONE Stop: 07/08/16 22:36 Last Admin: 07/09/16 01:47 Dose: Not Given Piperacillin Sod/Tazobactam Sod (Zosyn) Confirm Administered Dose 4.5 gm .ROUTE .STK-MED ONE Stop: 07/08/16 22:36 Last Admin: 07/09/16 02:15 Dose: Not Given Propofol (Diprivan 20 Ml) Confirm Administered Dose 200 mg .ROUTE .STK-MED ONE Stop: 07/07/16 10:07 Propofol (Diprivan 20 Ml) Confirm Administered Dose 200 mg .ROUTE .STK-MED ONE Stop: 07/07/16 11:18 Propofol (Diprivan 20 Ml) Confirm Administered Dose 200 mg .ROUTE .STK-MED ONE Stop: 07/11/16 07:23 - Exam Quality Assessment: DVT prophylaxis General: alert, oriented, cooperative, no acute distress Lungs: Clear to auscultation, Normal respiratory effort Cardiovascular: Regular Rate, Regular Rhythm, No Murmurs Abdomen: bowel sounds present, soft, no tenderness, no distension Extremities: no edema Consult PN Assessment/Plan Procedures: Procedures ASSAY OF CREATININE (01/31/16) DIAGNOSTIC COLONOSCOPY (07/07/14) EGD DIAGNOSTIC BRUSH WASH (07/06/14) EMERGENCY DEPT VISIT (07/19/13) EMERGENCY DEPT VISIT (06/15/13) IMMUNIZATION ADMIN (06/15/13) MRI LWR EXTREMITY W/O&W/DYE (01/31/16) ROUTINE VENIPUNCTURE (01/31/16) RPR S/N/AX/GEN/TRNK 2.5CM/< (06/15/13) TDAP VACCINE 7 YRS/> IM (06/15/13) THER/PROPH/DIAG INJ SC/IM (11/15/12) Problem List Initiated/Reviewed/Updated: Yes My Orders last 24 hours: My Active Orders 07/17/16 08:00 Lwr Ext Non Joint w wo Cont Rt [MR] Routine Plan: ASSESSMENT AND PLAN 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 He has a wound VAC in place. Culture from the fluid growing strep viridans. Remains on broad-spectrum antibiotic therapy to cover for polymicrobial infection -Repeat MRI of right foot in the a.m., to reassess for osteomyelitis -Continue current antibiotics -Postop cares per surgical team Suboptimally controlled, insulin-dependent diabetes mellitus - complications include neuropathy. Glucose levels have been stable since yesterday we'll plan to continue current management -Diabetic diet -Continue metformin twice daily with meals -continue Long-acting insulin at 30 units subcutaneous daily -Medium dose sliding scale insulin Thank you for the interesting consultation and allowing me to be involved in Edgar's care. I will continue to follow along during hospitalization.
[2016-07-16] MEDS: Enoxaparin 40 MG/0.4 ML Syringe SUBCUT SCH (10:44)
--- NOTE | 2016-07-16 13:15 | PN ---
DATE OF SERVICE: 07/15/2016 The patient has been clinically stable overnight. The wound VAC remains in place with no signs of any spreading infection. Otherwise, management will be per Dr. Henriquez. Madan Brandt MD /[id number]
[2016-07-16] MEDS: Zolpidem 5 MG Tab PO PRN (21:40)
[2016-07-16] MEDS: atorvaSTATin 20 MG Tab PO SCH (21:40)
[2016-07-17] MEDS: Piperacillin/Tazobactam 4.5 GM in Sodium Chloride 0.9% 100 ML IV SCH ×4 (03:25→21:25)
[2016-07-17] MEDS: metFORMIN 500 MG Tab PO SCH ×2 (08:01→16:19)
[2016-07-17] MEDS: Insulin Detemir 100 Units/ML 3 ML Pen SUBCUT SCH (08:03)
[2016-07-17] MEDS: Lisinopril 5 MG Tab PO SCH (08:03)
[2016-07-17] MEDS: FLUoxetine 20 MG Cap PO SCH (08:03)
[2016-07-17] MEDS: Aspirin 81 MG Tab.EC PO SCH (08:09)
--- NOTE | 2016-07-17 10:28 | PCM.CONSN ---
- General Info Date of Service: 07/17/16 Functional Status: Reports: pain controlled, tolerating diet - Review of Systems General: Denies: Fever Musculoskeletal: Reports: foot pain Systems Review Comment:: No acute events overnight. No significant foot pain. Able to bear some weight on the right foot. No fevers. Blood sugars have been very well-controlled. - Patient Data Vitals - most recent: Last Vital Signs Temp 36.6 C 07/17/16 07:24 Pulse 83 07/17/16 07:24 Resp 18 07/17/16 07:24 BP 159/89 H 07/17/16 08:03 Pulse Ox 95 07/17/16 03:26 Weight - most recent: 87.453 kg I&O - last 24 hours: Intake & Output 07/16/16 07/17/16 07/17/16 22:59 06:59 14:59 Intake Total 275 400 300 Output Total 225 Balance 275 175 300 Med Orders - Current: Current Medications Hydrocodone Bitart/Acetaminophen ([place] 325-5 Mg) 1 - 2 tab PO Q4H PRN PRN Reason: Pain Last Admin: 07/13/16 18:24 Dose: 1 tab Aspirin (Halfprin) 81 mg PO DAILY [facility] Last Admin: 07/17/16 08:09 Dose: 81 mg Atorvastatin Calcium (Lipitor) 40 mg PO BEDTIME [facility] Last Admin: 07/16/16 21:40 Dose: 40 mg Benzocaine/Menthol (Cepacol Sore Throat) 1 lozenge MUCMEM Q1H PRN PRN Reason: Sore Throat Bisacodyl (Dulcolax) 5 mg PO DAILY PRN PRN Reason: Constipation Dimethicone/Zinc Oxide (Rash Relief-Zinc Oxide [place]) 1 gm TOP ASDIRECTED PRN PRN Reason: Rash Last Admin: 07/15/16 14:03 Dose: 1 gm Diphenhydramine HCl (Benadryl) 50 mg IVPUSH Q4H PRN PRN Reason: Itching Docusate Sodium (Colace) 100 mg PO BID PRN PRN Reason: Constipation Enoxaparin Sodium (Lovenox) 40 mg SUBCUT Q24H [facility] Last Admin: 07/16/16 10:44 Dose: 40 mg Fluoxetine HCl (Prozac) 40 mg PO DAILY [facility] Last Admin: 07/17/16 08:03 Dose: 40 mg Piperacillin Sod/Tazobactam (Sod 4.5 gm/ Sodium Chloride) 100 mls @ 200 mls/hr IV Q6H [facility] Last Admin: 07/17/16 03:25 Dose: 200 mls/hr Sodium Chloride (Normal Saline) 1,000 mls @ 125 mls/hr IV ASDIRECTED [facility] Insulin Aspart (Novolog) 0 unit SUBCUT ASDIRECTED [facility] PRN Reason: Protocol Last Admin: 07/15/16 16:23 Dose: 2 units Insulin Detemir (Levemir) 30 unit SUBCUT DAILY [facility] Last Admin: 07/17/16 08:03 Dose: 30 units Lisinopril (Prinivil) 5 mg PO DAILY [facility] Last Admin: 07/17/16 08:03 Dose: 5 mg Metformin HCl (Glucophage) 1,000 mg PO BIDMEALS [facility] Last Admin: 07/17/16 08:01 Dose: 1,000 mg Ondansetron HCl (Zofran) 4 mg IVPUSH Q6H PRN PRN Reason: Nausea/Vomiting Promethazine HCl (Phenergan) 25 mg IM Q6H PRN PRN Reason: Nausea Senna/Docusate Sodium (Senna Plus) 1 tab PO BID PRN PRN Reason: Constipation Zolpidem Tartrate (Ambien) 5 mg PO BEDTIME PRN PRN Reason: Insomnia Last Admin: 07/16/16 21:40 Dose: 5 mg Discontinued Medications Bupivacaine HCl (Marcaine 0.5%) Confirm Administered Dose 50 ml .ROUTE .STK-MED ONE Stop: 07/07/16 10:32 Last Admin: 07/07/16 12:26 Dose: 30 ml Bupivacaine HCl (Marcaine 0.5%) Confirm Administered Dose 50 ml .ROUTE .STK-MED ONE Stop: 07/11/16 06:50 Last Admin: 07/11/16 09:03 Dose: 5 ml Fentanyl (Sublimaze) Confirm Administered Dose 100 mcg .ROUTE .STK-MED ONE Stop: 07/07/16 10:07 Fentanyl (Sublimaze) Confirm Administered Dose 100 mcg .ROUTE .STK-MED ONE Stop: 07/11/16 07:23 Fentanyl Citrate (Fentanyl In Ns 20 Mcg/Ml 30 Ml [place]) 0 mcg IV ASDIRECTED PRN; Protocol PRN Reason: Pain Last Admin: 07/07/16 11:46 Dose: 0.1 mcg Gadoteridol (Prohance) 20 ml IV . DIRECTED [facility] Stop: 07/10/16 13:01 Last Admin: 07/10/16 13:33 Dose: 19 ml Sodium Chloride (Normal Saline) 1,000 mls @ 75 mls/hr IV ASDIRECTED [facility] Last Admin: 07/08/16 05:13 Dose: 75 mls/hr Cefazolin Sodium 2 gm/ Sodium (Chloride) 50 mls @ 100 mls/hr IV ONETIME ONE Stop: 07/07/16 10:59 Last Admin: 07/07/16 10:51 Dose: 100 mls/hr Metronidazole 500 mg/ Premix 100 mls @ 100 mls/hr IV ONETIME ONE Stop: 07/07/16 11:59 Last Admin: 07/07/16 10:51 Dose: 100 mls/hr Lidocaine HCl (Xylocaine-Mpf 1%) Confirm Administered Dose 2 mls @ as directed .ROUTE .STK-MED ONE Stop: 07/07/16 10:22 Sodium Chloride (Normal Saline) 1,000 mls @ 25 mls/hr IV ASDIRECTED [facility] Last Admin: 07/10/16 10:15 Dose: 25 mls/hr Piperacillin/Tazobactam/ (Dextrose 4.5 gm/ Premix) 100 mls @ 200 mls/hr IV Q6H [facility] Stop: 07/13/16 17:00 Last Admin: 07/13/16 16:27 Dose: 200 mls/hr Sodium Chloride (Normal Saline) Confirm Administered Dose 100 mls @ as directed .ROUTE .STK-MED ONE Stop: 07/08/16 22:38 Last Admin: 07/09/16 02:16 Dose: Not Given Sodium Chloride (Normal Saline) Confirm Administered Dose 100 mls @ as directed .ROUTE .STK-MED ONE Stop: 07/08/16 22:38 Last Admin: 07/09/16 02:15 Dose: Not Given Sodium Chloride (Normal Saline) 1,000 mls @ 125 mls/hr IV ASDIRECTED [facility] Last Admin: 07/11/16 07:03 Dose: 125 mls/hr Lidocaine HCl (Xylocaine-Mpf 1%) Confirm Administered Dose 2 mls @ as directed .ROUTE .STK-MED ONE Stop: 07/11/16 08:37 Insulin Aspart (Novolog) 10 unit SUBCUT ONETIME ONE Stop: 07/07/16 17:21 Last Admin: 07/08/16 09:35 Dose: 10 units Insulin Detemir (Levemir) 40 unit SUBCUT BID [facility] Last Admin: 07/09/16 08:48 Dose: 40 units Insulin Detemir (Levemir) 35 unit SUBCUT BEDTIME [facility] Last Admin: 07/09/16 22:13 Dose: Not Given Insulin Detemir (Levemir) 40 unit SUBCUT DAILY [facility] Last Admin: 07/10/16 08:24 Dose: 40 units Insulin Detemir (Levemir) 20 unit SUBCUT DAILY [facility] Last Admin: 07/11/16 10:27 Dose: 20 units Insulin Detemir (Levemir) 24 unit SUBCUT DAILY [facility] Last Admin: 07/14/16 09:26 Dose: 24 units Lidocaine/Epinephrine (Xylocaine 1% With Epinephrine 1:100,000) Confirm Administered Dose 50 ml .ROUTE .STK-MED ONE Stop: 07/11/16 06:50 Last Admin: 07/11/16 09:03 Dose: 5 ml Midazolam HCl (Versed 1 Mg/Ml) Confirm Administered Dose 2 mg .ROUTE .STK-MED ONE Stop: 07/07/16 10:08 Midazolam HCl (Versed 1 Mg/Ml) Confirm Administered Dose 2 mg .ROUTE .STK-MED ONE Stop: 07/11/16 07:23 Naloxone HCl (Narcan) 0.1 mg IV ASDIRECTED PRN PRN Reason: decreased respiratory rate Piperacillin Sod/Tazobactam Sod (Zosyn) Confirm Administered Dose 4.5 gm .ROUTE .STK-MED ONE Stop: 07/08/16 22:36 Last Admin: 07/09/16 01:47 Dose: Not Given Piperacillin Sod/Tazobactam Sod (Zosyn) Confirm Administered Dose 4.5 gm .ROUTE .STK-MED ONE Stop: 07/08/16 22:36 Last Admin: 07/09/16 02:15 Dose: Not Given Propofol (Diprivan 20 Ml) Confirm Administered Dose 200 mg .ROUTE .STK-MED ONE Stop: 07/07/16 10:07 Propofol (Diprivan 20 Ml) Confirm Administered Dose 200 mg .ROUTE .STK-MED ONE Stop: 07/07/16 11:18 Propofol (Diprivan 20 Ml) Confirm Administered Dose 200 mg .ROUTE .STK-MED ONE Stop: 07/11/16 07:23 - Exam General: alert, oriented, cooperative, no acute distress Neck: supple Lungs: Normal respiratory effort Extremities: no edema, other (right foot with wound vac over the head of the fifth metatarsal extending inferiorly to the middle of plantar surface. Purple color inferior and lateral on right 4th toe. no erythema of the foot. ) Consult PN Assessment/Plan Procedures: Procedures ASSAY OF CREATININE (01/31/16) DIAGNOSTIC COLONOSCOPY (07/07/14) EGD DIAGNOSTIC BRUSH WASH (07/06/14) EMERGENCY DEPT VISIT (07/19/13) EMERGENCY DEPT VISIT (06/15/13) IMMUNIZATION ADMIN (06/15/13) MRI LWR EXTREMITY W/O&W/DYE (01/31/16) ROUTINE VENIPUNCTURE (01/31/16) RPR S/N/AX/GEN/TRNK 2.5CM/< (06/15/13) TDAP VACCINE 7 YRS/> IM (06/15/13) THER/PROPH/DIAG INJ SC/IM (11/15/12) (1) Type II diabetes mellitus with foot ulcer SNOMED Code(s): 718308841 Code(s): E11.621 - TYPE 2 DIABETES MELLITUS WITH FOOT ULCER; L97.509 - NON- PRESSURE CHRONIC ULCER OTH PRT UNSP FOOT W UNSP SEVERITY Current Visit: Yes Qualifiers: Diabetes mellitus correction insulin use: with correction use Qualified Code( s): E11.621 - Type 2 diabetes mellitus with foot ulcer; L97.509 - Non-pressure chronic ulcer of other part of unspecified foot with unspecified severity; Z79.4 - [facility]itentiary (current) use of insulin Problem List Initiated/Reviewed/Updated: Yes My Orders last 24 hours: My Active Orders 07/17/16 11:30 GLUCOSE POC LAB TO COLLECT [POC] QIDACANDBED 07/17/16 16:30 GLUCOSE POC LAB TO COLLECT [POC] QIDACANDBED 07/17/16 21:00 GLUCOSE POC LAB TO COLLECT [POC] QIDACANDBED Plan: ASSESSMENT AND PLAN Diabetic foot infection of the right fifth toe and plantar surface of the foot - status post amputation of the right fifth toe. He has a wound VAC in place. Culture from the fluid growing strep viridans. Remains on broad-spectrum antibiotic therapy to cover for polymicrobial infection -Repeat MRI of right foot today to reassess for osteomyelitis -Continue current antibiotics -Postop cares per surgical team Suboptimally controlled, insulin-dependent diabetes mellitus - complications include neuropathy. Blood sugar levels have been very well controlled over the past few days. -Diabetic diet -Continue metformin twice daily with meals -continue Long-acting insulin at 30 units subcutaneous daily -Medium dose sliding scale insulin Ata Posey M.D.
[2016-07-17] MEDS: Enoxaparin 40 MG/0.4 ML Syringe SUBCUT SCH (10:35)
[2016-07-17] MEDS ORDERED: Gadoteridol 279.3 MG/ML 20 ML SDV IV SCH (13:00)
--- NOTE | 2016-07-17 13:28 | PN ---
DATE OF SERVICE: 07/17/2016 SUBJECTIVE: The patient is improved significantly over the weekend. Pain is well controlled. No nausea, vomiting, shortness of breath, or chest pain. OBJECTIVE: VITAL SIGNS: Stable. CARDIOVASCULAR: Regular rhythm and rate. EXTREMITIES: The right foot shows improvement of cellulitis. Wound VAC is intact. ASSESSMENT AND PLAN: MRI today to evaluate current status of infection. Continue antibiotics and work on possible PICC line. Marino Car MD /[id number]
--- NOTE | 2016-07-17 13:44 | MR ---
MR right forefoot with and without contrast. Indication: Diabetic foot infection, reevaluate for osteomyelitis. Comparison: 07/10/2016. Findings: There is an open wound on the dorsal lateral soft tissues of the foot primarily about the former location about the fifth digit. There is a small pocket of fluid above the fourth metatarsal base. This appears similar compared to prior examination. No rim-enhancing. There is diffuse enhance ment about the interosseous musculature between the fourth and fifth metatarsals. Enhancement at the plantar soft tissues of the foot about the fifth fourth and third digits. Prior amputation at the fifth metatarsal head.. At the fifth metatarsal neck distally at the amputat ion site extending towards the midshaft there is primary confluent T1 signal with enhancement. Confl uent T1 signal most likely at the amputation site at the fifth metatarsal neck. There is now increa sed T2 signal with reticulated T1 signal at the fourth MTP joint. No definitive marrow replacement a long the fourth digit. Impression: 1. Confluent T1 signal most notably at the fifth metatarsal neck at the amputation site. This extend s toward the mid shaft. Findings can be seen in osteomyelitis at the fifth metatarsal neck. Mid shaf t signal may be reactive only but difficult to exclude early osteomyelitis.. 2. Reticulated T1 signal at the fourth MTP joint. This may be reactive only but has increased compar ed to prior examination. Consider follow-up to exclude developing osteomyelitis in this location. 3. Soft tissue skin thickening about the wound with enhancement can indicate cellulitis. Diffuse sof t tissue enhancement about the musculature between the fifth and fourth metatarsals and third metata rsal can indicate myositis.
--- NOTE | 2016-07-17 14:59 | PN ---
DATE OF SERVICE: 07/16/2016 The patient has remained clinically stable. Wound VAC remains in place and there are no signs of any spreading infection. He is going to have an MRI of the foot and leg tomorrow, and at that point, Dr. Car will worm picker management of the surgical issues. The patient will continue to be followed by the hospitalists as well. Madan Brandt MD /[id number]
[2016-07-17] MEDS: atorvaSTATin 20 MG Tab PO SCH (21:20)
[2016-07-18] MEDS ORDERED: Sodium Chloride 0.9% 1,000 ML IV SCH (00:01)
[2016-07-18] MEDS: Piperacillin/Tazobactam 4.5 GM in Sodium Chloride 0.9% 100 ML IV SCH ×4 (03:35→21:05)
[2016-07-18] MEDS ORDERED: Lidocaine 1% with EPINEPHrine 1:100,000 50 ML MDV ONE (07:16)
[2016-07-18] MEDS ORDERED: Bupivacaine 0.5% 50 ML MDV ONE (07:16)
[2016-07-18] MEDS ORDERED: Midazolam 1 MG/ML 2 ML SDV ONE ×2 (07:33→09:25)
[2016-07-18] MEDS ORDERED: Propofol 200 MG/20 ML SDV ONE ×2 (07:33→09:33)
[2016-07-18] MEDS ORDERED: fentaNYL 100 MCG/2 ML SDV ONE (07:33)
[2016-07-18] MEDS: Aspirin 81 MG Tab.EC PO SCH ×2 (10:38→11:26)
[2016-07-18] MEDS: metFORMIN 500 MG Tab PO SCH ×3 (10:38→16:16)
[2016-07-18] MEDS: Lisinopril 5 MG Tab PO SCH ×2 (10:39→11:28)
[2016-07-18] MEDS: FLUoxetine 20 MG Cap PO SCH ×2 (10:39→11:26)
[2016-07-18] MEDS: Insulin Detemir 100 Units/ML 3 ML Pen SUBCUT SCH ×2 (10:39→11:29)
[2016-07-18] MEDS: Enoxaparin 40 MG/0.4 ML Syringe SUBCUT SCH ×2 (10:39→11:28)
--- NOTE | 2016-07-18 11:26 | CR ---
Heart size within normal limits. Left subclavian catheter with distal tip at the mid SVC. No focal c onsolidation. No pneumothorax.
--- NOTE | 2016-07-18 17:30 | PN ---
DATE OF SERVICE: 07/18/2016 SUBJECTIVE: The patient is doing well. His gas gangrene has almost abated. He is tolerating diet and is ready for discharge to [facility]. OBJECTIVE: VITAL SIGNS: Stable. CARDIOVASCULAR: Regular rate. RESPIRATORY: Lungs clear to consultation bilaterally. ABDOMEN: Bowel sounds positive. Wound VAC is intact. ASSESSMENT AND PLAN: Gas gangrene of foot. The patient will be discharged today. We discussed diet, activity, followup, signs and symptoms, complications, and the role of the emergency room. Please see discharge summary for further details. Marino Car MD /[id number]
[2016-07-18] MEDS ORDERED: Oxytocin 10 Units/1 ML SDV ONE (20:04)
[2016-07-18] MEDS: atorvaSTATin 20 MG Tab PO SCH (21:00)
[2016-07-19] MEDS: Piperacillin/Tazobactam 4.5 GM in Sodium Chloride 0.9% 100 ML IV SCH ×2 (03:00→09:47)
[2016-07-19 07:20] VITALS: BP 147/88
[2016-07-19] MEDS: FLUoxetine 20 MG Cap PO SCH (09:40)
[2016-07-19] MEDS: Aspirin 81 MG Tab.EC PO SCH (09:40)
[2016-07-19] MEDS: metFORMIN 500 MG Tab PO SCH (09:41)
[2016-07-19] MEDS: Enoxaparin 40 MG/0.4 ML Syringe SUBCUT SCH (09:41)
[2016-07-19] MEDS: Lisinopril 5 MG Tab PO SCH (09:41)
[2016-07-19] MEDS: Insulin Detemir 100 Units/ML 3 ML Pen SUBCUT SCH (09:44)
--- NOTE | 2016-07-19 09:53 | OR ---
DATE OF PROCEDURE: 07/18/2016 PROCEDURES: 1. Debridement of foot wound, right foot lateral, 7 cm x 4.2 cm (40530, [id number]). 2. Debridement of right plantar wound, 2.1 cm x 1 cm, (89412). 3. Debridement of right plantar foot wound, posterior wound, (1.3 cm x 1.5 cm). 4. Wound VAC placement, right foot (06737). 5. Central line placement, left subclavian vein. INDICATIONS: This is a 55-year-old male with a significant wound infection of his right foot. The patient requires re-evaluation of debridement and central line placement for IV antibiotics. FINDINGS: He continued improvement of the cellulitis without any evidence of osteomyelitis. Risks, benefits, alternatives, and limitations, including, but not limited to infection, bleeding, reoperation [id number] amputation and pneumothorax were explained to the patient and wished to proceed. PROCEDURE IN DETAIL: The patient was placed in supine position. The left subclavian vein was accessed first. This was able to be accessed on the first pass using a 35,000 needle and wire. This was accessed via micropuncture kit, then exchanged for the standard wire kit. Dark blood was noted. This micropuncture kit was then exchanged to the standard kit and subsequently dilated. The central line was then advanced without difficulty. This would be sutured into place. This was then re-prepped with chlorhexidine as it was prepped initially. Dressings were applied. The patient tolerated this aspect well. Gown and gloves were then exchanged. Debridement was then performed on the right leg. The right foot was first addressed by removing the wound VAC and prepping and draping. The debridement was again performed using a 15 blade with minimal bleeding controlled by electrocautery. The wound itself was described as a significant improvement. The cellulitis has decreased by approximately 90%. Sharp debridement then continued through the wound as described and as mentioned above and the additional 2 wounds which also showed mild improvement. Once debridement was completed, the wound was thoroughly irrigated. The wound VAC was then placed over 3 wounds using superficial bone layer, followed by bridge around the lateral aspect of the foot. Minimal leak was noted and an Musa was placed to address the wound. Of note, tincture of benzoin was also used to facilitate wound VAC closure. The patient tolerated the procedure well. Marino Car MD /[id number]
--- NOTE | 2016-07-19 10:53 | PN ---
DATE OF SERVICE: 07/19/2016 SUBJECTIVE: The patient is doing very well today. Pain is well controlled. No nausea, vomiting, shortness of breath, or chest pain. OBJECTIVE: VITAL SIGNS: Stable. CARDIOVASCULAR: Regular rhythm and rate. RESPIRATORY: Lungs are clear to auscultation bilaterally. EXTREMITIES: Wound VAC in right leg is healing well without signs of cellulitis or infection. ASSESSMENT: Status post multiple debridement of right foot and transmetatarsal amputation. PLAN: The patient will be discharged today. Please see discharge note for further details. Marino Car MD /[id number]
--- NOTE | 2016-07-19 11:41 | DISCH ---
DISCHARGE DIAGNOSES: 1. Gas gangrene, right foot. 2. Transmetatarsal amputation of fifth metatarsal. HOSPITAL COURSE: This is a pleasant 55-year-old male who developed an acute wound due to incorrect diabetic foot wear. The patient was taken to the operating room emergently and underwent transmetatarsal amputation. The patient will return to the operating room 2 more times for additional tissue debridement and evaluation status. The patient also underwent 2 MRIs during this hospitalization. The last one did not show any evidence of osteomyelitis. There was also no evidence of worsening gas gangrene. Both, subjectively and objectively prior to discharge, the patient had improved significantly. His pain is very well controlled. FOLLOWUP: Follow up with Surgery in 7 to 14 days. DISPOSITION: The patient will be sent to skilled nursing for physical rehabilitation. We will continue to change the wound VAC every 3 days. Off note, a central line was also placed during this hospitalization. The patient will continue IV antibiotics for approximately 4 more weeks.
== END 2016-07-19 11:10 | DRG 305 ==
LOC: JP.MS 10:08 → JP.SDS 10:08 → EDSTATUS 10:45 → JP.ICU 12:00 → JP.MS 07-08 13:15
PROVIDERS: ADMIT Surgery; ATTEND Surgery
PROC: 0HDMXZZ Extraction of Right Foot Skin, External Approach (ICD-10-PCS; principal; 2016-07-07)
PROC: 2W1SX6Z Compression of Right Foot using Pressure Dressing (ICD-10-PCS; principal; 2016-07-07)
PROC: 0Y6M0ZF Detachment at Right Foot, Partial 5th Ray, Open Approach (ICD-10-PCS; principal; 2016-07-07)
PROC: 2W1SX6Z Compression of Right Foot using Pressure Dressing (ICD-10-PCS; 2016-07-11)
PROC: 0HDMXZZ Extraction of Right Foot Skin, External Approach (ICD-10-PCS; 2016-07-11)
PROC: 2W1SX6Z Compression of Right Foot using Pressure Dressing (ICD-10-PCS; 2016-07-18)
PROC: 0HDMXZZ Extraction of Right Foot Skin, External Approach (ICD-10-PCS; 2016-07-18)
PROC: 02HV33Z Insertion of Infusion Device into Superior Vena Cava, Percutaneous Approach (ICD-10-PCS; 2016-07-18)
DX: E11.621 Type 2 diabetes mellitus with foot ulcer (principal); E11.65 Type 2 diabetes mellitus with hyperglycemia; Z79.4 Long term (current) use of insulin; E11.69 Type 2 diabetes mellitus with other specified complication; B95.4 Other streptococcus as the cause of diseases classified elsewhere; E11.42 Type 2 diabetes mellitus with diabetic polyneuropathy; L97.519 Non-pressure chronic ulcer of other part of right foot with unspecified severity; E11.628 Type 2 diabetes mellitus with other skin complications; L03.115 Cellulitis of right lower limb; A48.0 Gas gangrene; Z79.2 Long term (current) use of antibiotics; Z79.82 Long term (current) use of aspirin
CPT/HCPCS: 36415; 51798; 73720-26-RT; 73720-RT; 80048; 82962; 85025; 85027; 87070; 87075; 87077; 87205; 87493; 88304; 88305; 88311; 97110-GP; 97116-GP; 97162-GP; 97165-GO; 97530-GP; 97605; A9270-GY; A9576; C1751; C1894; J0690; J1642; J1650; J2250; J2543; J2704; J3010; J7030; J7040; J7050

== ENCOUNTER 2016-12-11 13:44 | Inpatient (IN) | payer MEDICAID ==
[2016-12-11] MEDS ORDERED: Lactated Ringers 1,000 ML IV SCH (14:30)
--- NOTE | 2016-12-11 14:52 | EDM.PDOC ---
ED HPI GENERAL MEDICAL PROBLEM - General Chief Complaint: Upper Extremity Injury/Pain Stated Complaint: [facility] Time Seen by Provider: 12/11/16 14:00 Source of Information: Reports: Patient, EMS History Limitations: Reports: No Limitations - History of Present Illness INITIAL COMMENTS - FREE TEXT/NARRATIVE: 56-year-old male who fell and hurt his right arm 4 days ago has had an increasing problem with redness and swelling, warmth an elevated white count despite antibiotic treatments. He was sent in from the clinic today to be admitted for IV antibiotics. Patient himself does not feel chilled, not currently running a fever but he does have an elevated white count. Onset: Sudden (4 days ago) Location: Reports: Upper Extremity, Right Severity: Moderate Associated Symptoms: Denies: Fever/Chills, Nausea/Vomiting, Shortness of Breath Right Arm Pain Score (Numeric/FACES): 8 - Related Data Allergies Allergy/AdvReac Type Severity Reaction Status Date / Time No Known Allergies Allergy Verified 12/11/16 13:58 Home Meds: Home Meds Aspirin [Children's Aspirin] 81 mg PO DAILY 06/29/14 [History] atorvaSTATin Calcium [Atorvastatin Calcium] 40 mg PO BEDTIME 06/29/14 [History] metFORMIN HCl [Metformin HCl] 1,000 mg PO BIDM 06/29/14 [History] Lisinopril [Prinivil] 0.5 tab PO DAILY 07/07/16 [History] Ertapenem [INVanz] 1 gm IV DAILY #28 vial 07/18/16 [Rx] FLUoxetine [PROzac] 40 mg PO DAILY 30 Days cap 07/18/16 [Rx] Insulin Glargine,Hum.Rec.Anlog [Lantus Solostar] 30 units SQ DAILY #100 ml 07/18 [Rx] Past Medical History - Past Health History Medical/Surgical History: Denies Medical/Surgical History Cardiovascular History: Reports: High Cholesterol, Hypertension Gastrointestinal History: Reports: GERD Genitourinary History: Reports: Diabetic Nephropathy Musculoskeletal History: Reports: Other (See Below) Other Musculoskeletal History: sore right foot Psychiatric History: Reports: Depression Endocrine/Metabolic History: Reports: Diabetes, Type II - Infectious Disease History Infectious Disease History: Reports: Chicken Pox Social & Family History - Family History Family Medical History: Noncontributory - Tobacco Use Smoking Status *Q: Never Smoker Second Hand Smoke Exposure: No - Caffeine Use Caffeine Use: Reports: Soda - Alcohol Use Days Per Week of Alcohol Use: 0 - Recreational Drug Use Recreational Drug Use: No Review of Systems - Review of Systems Review Of Systems: See Below Constitutional: Denies: Fever Respiratory: Denies: Shortness of Breath Cardiovascular: Denies: Chest Pain GI/Abdominal: Denies: Abdominal Pain Musculoskeletal: Reports: Arm Pain, Other (Marked discomfort with movement of the right hand, pain is referred to the proximal forearm) Skin: Reports: Bruising, Erythema (Right arm) Psychiatric: Reports: No Symptoms ED EXAM, GENERAL - Physical Exam Exam: See Below Exam Limited By: No Limitations General Appearance: Alert, No Apparent Distress (Fairly comfortable when his arm is still) Respiratory/Chest: No Respiratory Distress, Lungs Clear Cardiovascular: Regular Rate, Rhythm Extremities: Redness (Patient has significant well demarcated erythema of the arm from just proximal to the wrist through the elbow and up to the proximal humerus, especially on the extensor surface of the arm. There is fairly significant soft tissue swelling with tenderness to palpation. There is moderate warmth.) Course - Vital Signs Last Recorded V/S: Last Vital Signs Temp 97.9 F 12/11/16 17:13 Pulse 96 12/11/16 17:13 Resp 16 12/11/16 17:13 BP 153/83 H 12/11/16 17:13 Pulse Ox 97 12/11/16 17:13 - Orders/Labs/Meds Orders: Active Orders 24 hr Category Date Time Status Elbow wo Cont Rt [CT] Stat Exams 12/11/16 14:52 Stop Req CULTURE BLOOD [BC] Urgent Lab 12/11/16 14:25 Received CULTURE BLOOD [BC] Urgent Lab 12/11/16 14:25 Received Blood Culture x2 Reflex Set [OM.PC] Urgent Oth 12/11/16 14:07 Ordered Medication Orders Acetaminophen (Tylenol) 650 mg PO Q4H PRN PRN Reason: Pain (Mild 1-3)/fever Aspirin (Aspirin) 81 mg PO DAILY JACQU[facility]N Atorvastatin Calcium (Lipitor) 40 mg PO BEDTIME JACQUELYN Dextrose (Glutose 15) 15 gm PO ONETIME PRN PRN Reason: Hypoglycemia Dextrose/Water (Dextrose 50% In Water) 50 ml IV ONETIME PRN PRN Reason: Hypoglycemia Docusate Sodium (Colace) 100 mg PO BID PRN PRN Reason: Constipation Enoxaparin Sodium (Lovenox) 40 mg SUBCUT Q24H [facility] Fluoxetine HCl (Prozac) 40 mg PO DAILY [facility] Lactated Ringer's (Ringers, Lactated) 500 mls @ 500 mls/hr IV .BOLUS JACQUELYN Stop: 12/11/16 19:53 Lactated Ringer's (Ringers, Lactated) 1,000 mls @ 125 mls/hr IV ASDIRECTED JACQUELYN Meropenem 1 gm/ Sodium (Chloride) 100 mls @ 200 mls/hr IV Q8H JACQU[facility]N Vancomycin HCl 1.25 gm/ Sodium (Chloride) 250 mls @ 167 mls/hr IV Q12H JACQUELYN Insulin Aspart (Novolog) 0 unit SUBCUT QIDACANDBED JACQUELYN PRN Reason: Protocol Insulin Detemir (Levemir) 30 unit SUBCUT DAILY [facility] Lisinopril (Prinivil) 2.5 mg PO DAILY [facility] Magnesium Hydroxide (Milk Of Magnesia) 30 ml PO Q12H PRN PRN Reason: Constipation Ondansetron HCl (Zofran) 4 mg IV Q4H PRN PRN Reason: Nausea/Vomiting Oxycodone HCl (Oxycodone) 5 mg PO Q4H PRN PRN Reason: Pain (moderate 4-6) Polyethylene Glycol (Miralax) 17 gm PO DAILY PRN PRN Reason: Constipation Sodium Chloride (Saline Flush) 10 ml FLUSH ASDIRECTED PRN PRN Reason: Keep Vein Open Labs: Laboratory Tests 12/11/16 12/11/16 12/11/16 Range/Units 14:25 14:25 14:25 WBC 23.1 H (4.5-11.0) K/uL RBC 4.79 (4.30-5.90) M/uL Hgb 13.9 (12.0-15.0) g/dL Hct 41.4 (40.0-54.0) % MCV 86 (80-98) fL MCH 29 (27-31) pg MCHC 34 (32-36) % Plt Count 326 (150-400) K/uL Add Manual Diff Yes Neutrophils % (Manual) 83 H (36-66) % Band Neutrophils % 2 L (5-11) % Lymphocytes % (Manual) 8 L (24-44) % Monocytes % (Manual) 7 H (2-6) % Sodium 134 L (140-148) mmol/L Potassium 3.9 (3.6-5.2) mmol/L Chloride 97 L (100-108) mmol/L Carbon Dioxide 21 (21-32) mmol/L Anion Gap 19.9 H (5.0-14.0) mmol/L BUN 16 (7-18) mg/dL Creatinine 0.9 (0.8-1.3) mg/dL Est Cr Clr Drug Dosing 86.71 mL/min Estimated GFR (MDRD) > 60 (>60) Glucose 286 H (74-106) mg/dL Lactic Acid 1.9 (0.4-2.0) mmol/L Calcium 8.8 (8.5-10.1) mg/dL Total Bilirubin 0.4 (0.2-1.0) mg/dL AST 18 (15-37) U/L ALT 24 (12-78) U/L Alkaline Phosphatase 215 H (46-116) U/L Total Protein 8.0 (6.4-8.2) g/dL Albumin 2.3 L (3.4-5.0) g/dL Globulin 5.7 H (2.3-3.5) g/dL Albumin/Globulin Ratio 0.4 L (1.2-2.2) Meds: Medications Generic Name Dose Route Start Last Admin Trade Name Freq PRN Reason Stop Dose Admin Acetaminophen 650 mg 12/11/16 16:52 Tylenol PO Q4H PRN Pain (Mild 1-3)/fever Aspirin 81 mg 12/12/16 09:00 Aspirin PO DAILY [facility] Atorvastatin Calcium 40 mg 12/11/16 21:00 Lipitor PO BEDTIME [facility] Dextrose 15 gm 12/11/16 16:52 Glutose 15 PO ONETIME PRN Hypoglycemia Dextrose/Water 50 ml 12/11/16 16:52 Dextrose 50% In Water IV ONETIME PRN Hypoglycemia Docusate Sodium 100 mg 12/11/16 16:52 Colace PO BID PRN Constipation Enoxaparin Sodium 40 mg 12/11/16 18:00 Lovenox SUBCUT Q24H [facility] Fluoxetine HCl 40 mg 12/12/16 09:00 Prozac PO DAILY [facility] Lactated Ringer's 500 mls @ 500 mls/hr 12/11/16 16:52 Ringers, Lactated IV 12/11/16 19:53 .BOLUS [facility] Lactated Ringer's 1,000 mls @ 125 mls/hr 12/11/16 19:45 Ringers, Lactated IV ASDIRECTED [facility] Meropenem 1 gm/ Sodium 100 mls @ 200 mls/hr 12/12/16 01:00 Chloride IV Q8H [facility]ACQU[facility]N Vancomycin HCl 1.25 gm/ Sodium 250 mls @ 167 mls/hr 12/12/16 03:00 Chloride IV Q12H [facility] Insulin Aspart 0 unit 12/11/16 17:00 Novolog SUBCUT QIDACANDBED [facility] Protocol Insulin Detemir 30 unit 12/12/16 09:00 Levemir SUBCUT DAILY [facility] Lisinopril 2.5 mg 12/12/16 09:00 Prinivil PO DAILY [facility] Magnesium Hydroxide 30 ml 12/11/16 16:52 Milk Of Magnesia PO Q12H PRN Constipation Ondansetron HCl 4 mg 12/11/16 16:52 Zofran IV Q4H PRN Nausea/Vomiting Oxycodone HCl 5 mg 12/11/16 16:52 Oxycodone PO Q4H PRN Pain (moderate 4-6) Polyethylene Glycol 17 gm 12/11/16 16:52 Miralax PO DAILY PRN Constipation Sodium Chloride 10 ml 12/11/16 16:52 Saline Flush FLUSH ASDIRECTED PRN Keep Vein Open Discontinued Medications Generic Name Dose Route Start Last Admin Trade Name Freq PRN Reason Stop Dose Admin Lactated Ringer's 1,000 mls @ 500 mls/hr 12/11/16 14:30 12/11/16 14:27 Ringers, Lactated IV 500 mls/hr ASDIRECTED JACQUELYN Administration Vancomycin HCl 1.25 gm/ Sodium 250 mls @ 150 mls/hr 12/11/16 15:00 12/11/16 15:19 Chloride IV 12/11/16 16:39 150 mls/hr ONETIME ONE Administration Meropenem 1 gm/ Sodium 100 mls @ 200 mls/hr 12/11/16 16:00 Chloride IV Q8H [facility] Vancomycin HCl 1 gm 12/11/16 17:00 Vancomycin IV 12/11/16 17:01 .PHARMACY TO DOSE JACQUELYN - Re-Assessments/Exams Free Text/Narrative Re-Assessment/Exam: 12/11/16 15:42 This patient has already had 3 x-rays done of his arm all negative. I discussed his situation with Dr. Henriquez of the hospitalist service and he will evaluate the patient for inpatient antibiotic treatment. Blood cultures and lactic acid were obtained, CBC and CMP and the patient was given 1 g of vancomycin IV. Departure - Departure Time of Disposition: 16:11 Disposition: Admitted As Inpatient 67 Condition: Good Clinical Impression: Cellulitis of right arm Contusion of arm, right Qualifiers: Encounter type: initial encounter Qualified Code(s): S40.021A - Contusion of right upper arm, initial encounter - Discharge Information - My Orders Last 24 Hours: My Active Orders 12/11/16 14:07 Blood Culture x2 Reflex Set [OM.PC] Urgent 12/11/16 14:25 CULTURE BLOOD [BC] Urgent CULTURE BLOOD [BC] Urgent 12/11/16 14:52 Elbow wo Cont Rt [CT] Stat - Assessment/Plan Last 24 Hours: My Active Orders 12/11/16 14:07 Blood Culture x2 Reflex Set [OM.PC] Urgent 12/11/16 14:25 CULTURE BLOOD [BC] Urgent CULTURE BLOOD [BC] Urgent 12/11/16 14:52 Elbow wo Cont Rt [CT] Stat
[2016-12-11] MEDS ORDERED: Meropenem 1 GM in Sodium Chloride 0.9% 100 ML IV SCH (16:00)
[2016-12-11] MEDS ORDERED: Ondansetron 4 MG/2 ML SDV IV PRN (16:52)
[2016-12-11] MEDS ORDERED: Polyethylene Glycol 3350 Powder 17 GM Packet PO PRN (16:52)
[2016-12-11] MEDS ORDERED: Lactated Ringers 500 ML IV SCH (16:52)
[2016-12-11] MEDS ORDERED: Glucose Gel 15 GM in 37.5 GM Tube PO PRN (16:52)
[2016-12-11] MEDS ORDERED: Docusate Sodium 100 MG Cap PO PRN (16:52)
[2016-12-11] MEDS ORDERED: Sodium Chloride 0.9% 10 ML Syringe FLUSH PRN (16:52)
[2016-12-11] MEDS ORDERED: 50% Dextrose in Water 50 ML Syringe IV PRN (16:52)
[2016-12-11] MEDS ORDERED: Magnesium Hydroxide 400 MG/5 ML Susp 30 ML Cup PO PRN (16:52)
[2016-12-11] MEDS ORDERED: Vancomycin 1 GM SDV IV SCH (17:00)
--- NOTE | 2016-12-11 17:15 | PCM.HP ---
H&P History of Present Illness - General Date of Service: 12/11/16 Admit Problem/Dx: Admission Diagnosis/Problem Admission Diagnosis/Problem Cellulitis Source of Information: Patient, Provider, RN Notes Reviewed History Limitations: Reports: No Limitations - History of Present Illness Initial Comments - Free Text/Narative: Mr. Mishra is a 56-year-old gentleman who was admitted through the emergency department with severe cellulitis of his right upper extremity and early sepsis. He fell approximately one week ago and was seen in the emergency department for evaluation. X-ray showed no evidence of fracture. Following that he had 2 visits in the clinic last week, where he was noted to be developing cellulitis at the wrist and distal forearm. He was placed on oral antibiotics and during one of the visits received IM ceftriaxone. Over the weekend the cellulitis became worse and extended up into the distal upper arm. Skin is very tender, erythematous, with associated pruritus. He presented to the clinic again today and because of this severe cellulitis was sent to the emergency department for further evaluation and management. Blood cultures have been drawn and these received IV fluids for early sepsis, lactic acid level was normal but his white blood cell count was significantly elevated and associated with fever as well as tachycardia. Antibiotic therapy has been initiated in the emergency department with vancomycin and meropenem. Right Arm Pain Score (Numeric/FACES): 8 - Related Data Allergies/Adverse Reactions: Allergies Allergy/AdvReac Type Severity Reaction Status Date / Time No Known Allergies Allergy Verified 12/11/16 13:58 Home Medications: Home Meds Aspirin [Children's Aspirin] 81 mg PO DAILY 06/29/14 [History] atorvaSTATin Calcium [Atorvastatin Calcium] 40 mg PO BEDTIME 06/29/14 [History] metFORMIN HCl [Metformin HCl] 1,000 mg PO BIDM 06/29/14 [History] Lisinopril [Prinivil] 0.5 tab PO DAILY 07/07/16 [History] Ertapenem [INVanz] 1 gm IV DAILY #28 vial 07/18/16 [Rx] FLUoxetine [PROzac] 40 mg PO DAILY 30 Days cap 07/18/16 [Rx] Insulin Glargine,Hum.Rec.Anlog [Lantus Solostar] 30 units SQ DAILY #100 ml 07/18 [Rx] Past Medical History - Past Health History Medical/Surgical History: Denies Medical/Surgical History Cardiovascular History: Reports: High Cholesterol, Hypertension Gastrointestinal History: Reports: GERD Genitourinary History: Reports: Diabetic Nephropathy Musculoskeletal History: Reports: Other (See Below) Other Musculoskeletal History: sore right foot Psychiatric History: Reports: Depression Endocrine/Metabolic History: Reports: Diabetes, Type II - Infectious Disease History Infectious Disease History: Reports: Chicken Pox Social & Family History - Family History Family Medical History: Noncontributory - Tobacco Use Smoking Status *Q: Never Smoker Second Hand Smoke Exposure: No - Caffeine Use Caffeine Use: Reports: Soda - Alcohol Use Days Per Week of Alcohol Use: 0 - Recreational Drug Use Recreational Drug Use: No H&P Review of Systems - Review of Systems: Review Of Systems: See Below General: Reports: Fever, Chills, Weakness, Diaphoresis HEENT: Reports: No Symptoms Pulmonary: Reports: No Symptoms Cardiovascular: Reports: No Symptoms Gastrointestinal: Reports: No Symptoms Genitourinary: Reports: No Symptoms Musculoskeletal: Reports: Arm Pain Skin: Reports: Pruritis, Erythema Psychiatric: Reports: No Symptoms Neurological: Reports: No Symptoms Hematologic/Lymphatic: Reports: No Symptoms Immunologic: Reports: No Symptoms Exam - Exam Exam: See Below - Vital Signs Vital Signs: Last Vital Signs Temp 95.9 F 12/11/16 13:56 Pulse 94 12/11/16 16:05 Resp 16 12/11/16 13:56 BP 134/85 12/11/16 16:05 Pulse Ox 96 12/11/16 16:05 Weight: 190 lb - Exam Quality Assessment: DVT Prophylaxis General: Alert, Oriented, Cooperative, Mild Distress HEENT: Conjunctiva Clear, Hearing Intact, Mucosa Moist & [place], Normal Nasal Septum, Posterior Pharynx Clear, Pupils Equal Neck: Supple, Trachea Midline, +2 Carotid Pulse wo Bruit Lungs: Clear to Auscultation, Normal Respiratory Effort Cardiovascular: Regular Rate, Regular Rhythm, Normal S1, Normal S2, Tachycardia. No: Irregular Rhythm, Bradycardia, Systolic Murmur, Diastolic Murmur GI/Abdominal Exam: Normal Bowel Sounds, Soft, Non-Tender, No Organomegaly, No Distention Back Exam: Normal Inspection, Full Range of Motion Extremities: Increased Warmth, Redness, Other (Tenderness with erythema right upper extremity extending from the distal upper arm to the wrist) Skin: Other (Description of cellulitis as above) Neurological: Cranial Nerves Intact, Strength Equal Bilateral, Normal Speech, Normal Tone, Sensation Intact. No: Focal Deficit Neuro Extensive - Mental Status: Alert, Oriented x3, Normal Mood/Affect, Normal Cognition, Memory Intact - Patient Data Result Diagrams: 12/11/16 14:25 12/11/16 14:25 *Q Meaningful Use (ADM) - VTE *Q VTE Criteria *Q: - VTE Risk Assess *Q Each Risk Factor Represents 1 Point: Age 41 - 59 years, Obesity ( BMI > 25 kg/m2 ) Total Score 1 Point Risk Factors: 2 Each Risk Factor Represents 2 Points: None Total Score 2 Point Risk Factors: 0 Each Risk Factor Represents 3 Points: None Total Score 3 Point Risk Factors: 0 Each Risk Factor Represents 5 Points: None Total Score 5 Point Risk Factors: 0 Venous Thromboembolism Risk Factor Score *Q: 2 - Stroke *Q Stroke Criteria *Q: - AMI *Q AMI Criteria *Q: Problem List Initiated/Reviewed/Updated: Yes Orders Last 24hrs: Active Orders 24 hr Category Date Time Status Patient Status [ADT] Routine ADT 12/11/16 16:52 Active Ambulate [RC] QID Care 12/11/16 16:52 Active Blood Glucose Check, Bedside [RC] QIDACANDBED Care 12/11/16 16:52 Active Communication Order [RC] ASDIRECTED Care 12/11/16 16:52 Active Diabetes Education [RC] Click to Edit Care 12/11/16 16:52 Active Intake and Output [RC] QSHIFT Care 12/11/16 16:52 Active Notify Provider Vital Signs [RC] ASDIRECTED Care 12/11/16 16:52 Active Notify Provider [RC] PRN Care 12/11/16 16:52 Active Oxygen Therapy [RC] PRN Care 12/11/16 16:52 Active Peripheral IV Care [RC] . DIRECTED Care 12/11/16 16:52 Active Up With Assistance [RC] ASDIRECTED Care 12/11/16 16:52 Active Up to Chair [RC] QID Care 12/11/16 16:52 Active VTE/DVT Education [RC] Per Unit Routine Care 12/11/16 16:52 Active Vital Signs [RC] Q4H Care 12/11/16 16:52 Active Consistent Carbohydrate Diet [DIET] Diet 12/11/16 Lunch Active BASIC METABOLIC PANEL,BMP [CHEM] AM Lab 12/12/16 05:11 Ordered CBC WITH AUTO DIFF [HEME] AM Lab 12/12/16 05:11 Ordered GLUCOSE POC LAB TO COLLECT [POC] QIDACANDBED Lab 12/11/16 21:00 Ordered GLUCOSE POC LAB TO COLLECT [POC] QIDACANDBED Lab 12/12/16 07:30 Ordered GLUCOSE POC LAB TO COLLECT [POC] QIDACANDBED Lab 12/12/16 11:30 Ordered GLUCOSE POC LAB TO COLLECT [POC] QIDACANDBED Lab 12/12/16 16:30 Ordered GLUCOSE POC LAB TO COLLECT [POC] QIDACANDBED Lab 12/12/16 21:00 Ordered GLUCOSE POC LAB TO COLLECT [POC] QIDACANDBED Lab 12/13/16 07:30 Ordered GLUCOSE POC LAB TO COLLECT [POC] QIDACANDBED Lab 12/13/16 11:30 Ordered GLUCOSE POC LAB TO COLLECT [POC] QIDACANDBED Lab 12/13/16 16:30 Ordered GLUCOSE POC LAB TO COLLECT [POC] QIDACANDBED Lab 12/13/16 21:00 Ordered GLUCOSE POC LAB TO COLLECT [POC] QIDACANDBED Lab 12/14/16 07:30 Ordered GLUCOSE POC LAB TO COLLECT [POC] QIDACANDBED Lab 12/14/16 11:30 Ordered GLUCOSE POC LAB TO COLLECT [POC] QIDACANDBED Lab 12/14/16 16:30 Ordered GLUCOSE POC LAB TO COLLECT [POC] QIDACANDBED Lab 12/14/16 21:00 Ordered GLUCOSE POC LAB TO COLLECT [POC] QIDACANDBED Lab 12/15/16 07:30 Ordered GLUCOSE POC LAB TO COLLECT [POC] QIDACANDBED Lab 12/15/16 11:30 Ordered GLUCOSE POC LAB TO COLLECT [POC] QIDACANDBED Lab 12/15/16 16:30 Ordered GLUCOSE POC LAB TO COLLECT [POC] QIDACANDBED Lab 12/15/16 21:00 Ordered GLUCOSE POC LAB TO COLLECT [POC] QIDACANDBED Lab 12/16/16 07:30 Ordered GLUCOSE POC LAB TO COLLECT [POC] QIDACANDBED Lab 12/16/16 11:30 Ordered GLUCOSE POC LAB TO COLLECT [POC] QIDACANDBED Lab 12/16/16 16:30 Ordered GLUCOSE POC LAB TO COLLECT [POC] QIDACANDBED Lab 12/16/16 21:00 Ordered GLUCOSE POC LAB TO COLLECT [POC] QIDACANDBED Lab 12/17/16 07:30 Ordered GLUCOSE POC LAB TO COLLECT [POC] QIDACANDBED Lab 12/17/16 11:30 Ordered GLUCOSE POC LAB TO COLLECT [POC] QIDACANDBED Lab 12/17/16 16:30 Ordered GLUCOSE POC LAB TO COLLECT [POC] QIDACANDBED Lab 12/17/16 21:00 Ordered GLUCOSE POC LAB TO COLLECT [POC] QIDACANDBED Lab 12/18/16 07:30 Ordered GLUCOSE POC LAB TO COLLECT [POC] QIDACANDBED Lab 12/18/16 11:30 Ordered GLUCOSE POC LAB TO COLLECT [POC] QIDACANDBED Lab 12/18/16 16:30 Ordered GLUCOSE POC LAB TO COLLECT [POC] QIDACANDBED Lab 12/18/16 21:00 Ordered GLUCOSE POC LAB TO COLLECT [POC] QIDACANDBED Lab 12/19/16 07:30 Ordered GLUCOSE POC LAB TO COLLECT [POC] QIDACANDBED Lab 12/19/16 11:30 Ordered GLUCOSE POC LAB TO COLLECT [POC] QIDACANDBED Lab 12/19/16 16:30 Ordered GLUCOSE POC LAB TO COLLECT [POC] QIDACANDBED Lab 12/19/16 21:00 Ordered GLUCOSE POC LAB TO COLLECT [POC] QIDACANDBED Lab 12/20/16 07:30 Ordered GLUCOSE POC LAB TO COLLECT [POC] QIDACANDBED Lab 12/20/16 11:30 Ordered GLUCOSE POC LAB TO COLLECT [POC] QIDACANDBED Lab 12/20/16 16:30 Ordered GLUCOSE POC LAB TO COLLECT [POC] QIDACANDBED Lab 12/20/16 21:00 Ordered GLUCOSE POC LAB TO COLLECT [POC] QIDACANDBED Lab 12/21/16 07:30 Ordered GLUCOSE POC LAB TO COLLECT [POC] QIDACANDBED Lab 12/21/16 11:30 Ordered GLUCOSE POC LAB TO COLLECT [POC] QIDACANDBED Lab 12/21/16 16:30 Ordered GLUCOSE POC LAB TO COLLECT [POC] QIDACANDBED Lab 12/21/16 21:00 Ordered GLUCOSE POC LAB TO COLLECT [POC] QIDACANDBED Lab 12/22/16 07:30 Ordered GLUCOSE POC LAB TO COLLECT [POC] QIDACANDBED Lab 12/22/16 11:30 Ordered GLUCOSE POC LAB TO COLLECT [POC] QIDACANDBED Lab 12/22/16 16:30 Ordered MAGNESIUM [CHEM] AM Lab 12/12/16 05:11 Ordered Acetaminophen [Tylenol] Med 12/11/16 16:52 Active 650 mg PO Q4H PRN Dextrose 50% in Water Med 12/11/16 16:52 Active 50 ml IV ONETIME PRN Dextrose [Glutose 15] Med 12/11/16 16:52 Active 15 gm PO ONETIME PRN Docusate Sodium [Colace] Med 12/11/16 16:52 Active 100 mg PO BID PRN Enoxaparin [Lovenox] Med 12/11/16 18:00 Active 40 mg SUBCUT Q24H Insulin Aspart [NovoLOG] Med 12/11/16 17:00 Active See Protocol SUBCUT QIDACANDBED Lactated Ringers [Ringers, Lactated] 1,000 ml Med 12/11/16 19:45 Active IV ASDIRECTED Lactated Ringers [Ringers, Lactated] 500 ml Med 12/11/16 16:52 Active IV .BOLUS Magnesium Hydroxide [Milk of Magnesia] Med 12/11/16 16:52 Active 30 ml PO Q12H PRN Meropenem [Merrem] 1 gm Med 12/12/16 01:00 Active Sodium Chloride 0.9% [Normal Saline] 100 ml IV Q8H Ondansetron [Zofran] Med 12/11/16 16:52 Active 4 mg IV Q4H PRN Polyethylene Glycol 3350 [MiraLAX] Med 12/11/16 16:52 Active 17 gm PO DAILY PRN Sodium Chloride 0.9% [Saline Flush] Med 12/11/16 16:52 Active 10 ml FLUSH ASDIRECTED PRN Vancomycin 1.25 gm Med 12/12/16 03:00 Active Sodium Chloride 0.9% [Normal Saline] 250 ml IV Q12H oxyCODONE Med 12/11/16 16:52 Active 5 mg PO Q4H PRN Peripheral IV Insertion Adult [OM.PC] Routine Oth 12/11/16 16:52 Ordered Resuscitation Status Routine Resus Stat 12/11/16 16:37 Ordered Medication Orders Acetaminophen (Tylenol) 650 mg PO Q4H PRN PRN Reason: Pain (Mild 1-3)/fever Aspirin (Aspirin) 81 mg PO DAILY [facility] Atorvastatin Calcium (Lipitor) 40 mg PO BEDTIME JACQUELYN Dextrose (Glutose 15) 15 gm PO ONETIME PRN PRN Reason: Hypoglycemia Dextrose/Water (Dextrose 50% In Water) 50 ml IV ONETIME PRN PRN Reason: Hypoglycemia Docusate Sodium (Colace) 100 mg PO BID PRN PRN Reason: Constipation Enoxaparin Sodium (Lovenox) 40 mg SUBCUT Q24H JACQUELYN Fluoxetine HCl (Prozac) 40 mg PO DAILY [facility] Lactated Ringer's (Ringers, Lactated) 500 mls @ 500 mls/hr IV .BOLUS [facility] Stop: 12/11/16 19:53 Lactated Ringer's (Ringers, Lactated) 1,000 mls @ 125 mls/hr IV ASDIRECTED JACQUELYN Meropenem 1 gm/ Sodium (Chloride) 100 mls @ 200 mls/hr IV Q8H JACQUELYN Vancomycin HCl 1.25 gm/ Sodium (Chloride) 250 mls @ 167 mls/hr IV Q12H [facility] Insulin Aspart (Novolog) 0 unit SUBCUT QIDACANDBED JACQUELYN PRN Reason: Protocol Insulin Detemir (Levemir) 30 unit SUBCUT DAILY [facility] Lisinopril (Prinivil) mg PO DAILY [facility] Magnesium Hydroxide (Milk Of Magnesia) 30 ml PO Q12H PRN PRN Reason: Constipation Ondansetron HCl (Zofran) 4 mg IV Q4H PRN PRN Reason: Nausea/Vomiting Oxycodone HCl (Oxycodone) 5 mg PO Q4H PRN PRN Reason: Pain (moderate 4-6) Polyethylene Glycol (Miralax) 17 gm PO DAILY PRN PRN Reason: Constipation Sodium Chloride (Saline Flush) 10 ml FLUSH ASDIRECTED PRN PRN Reason: Keep Vein Open Assessment/Plan Comment:: ASSESSMENT AND PLAN CELLULITIS OF THE RIGHT ARM WITH EARLY SEPSIS-injury last week, developing cellulitis since that time. He has known underlying type 2 diabetes mellitus -Vigorous IV fluids for hydration and management of sepsis -Blood cultures pending -Pain medication as needed -IV vancomycin and meropenem pending culture results TYPE 2 DIABETES MELLITUS -Hold metformin -Continue usual dose of long-acting insulins -Moderate dose sliding scale NovoLog -4 times a day glucometers MAINTENANCE ISSUES -DVT prophylaxis; Lovenox 40 mg subcutaneous daily -GI prophylaxis; not indicated -Green catheter; not indicated -Nutrition; consistent carb diet -Nicotine dependence; not required CODE STATUS-FULL CODE ADMISSION STATUS-patient will be admitted to inpatient status, expect at least a 2 night hospital stay for evaluation and management of problems as outlined above. At the time of this admission I do not reasonably expected evaluation and management of this problem will require more than a 96 hour hospital stay. DISPOSITION-anticipate discharge to home after the hospital stay. PRIMARY CARE PROVIDER-Dr. Ruiz
[2016-12-11] MEDS: Enoxaparin 40 MG/0.4 ML Syringe SUBCUT SCH (17:38)
[2016-12-11] MEDS: Insulin Aspart 100 Units/ML 3 ML Pen SUBCUT SCH ×2 (18:20→21:17)
[2016-12-11] MEDS: atorvaSTATin 20 MG Tab PO SCH (21:18)
[2016-12-11] MEDS: Lactated Ringers 1,000 ML IV SCH (23:17)
[2016-12-12] MEDS: Meropenem 1 GM in Sodium Chloride 0.9% 100 ML IV SCH ×3 (00:27→17:06)
[2016-12-12] MEDS: oxyCODONE 5 MG Tab PO PRN ×2 (00:31→18:24)
[2016-12-12] MEDS: Insulin Aspart 100 Units/ML 3 ML Pen SUBCUT SCH ×4 (07:39→21:50)
[2016-12-12] MEDS: FLUoxetine 20 MG Cap PO SCH (08:17)
[2016-12-12] MEDS: Aspirin 81 MG Tab.Chew PO SCH (08:17)
[2016-12-12] MEDS: Acetaminophen 325 MG Tab PO PRN ×2 (08:17→13:47)
[2016-12-12] MEDS: Insulin Detemir 100 Units/ML 3 ML Pen SUBCUT SCH (08:18)
[2016-12-12] MEDS: Lisinopril 2.5 MG Tab PO SCH (09:09)
[2016-12-12] MEDS: Lactated Ringers 1,000 ML IV SCH (09:10)
--- NOTE | 2016-12-12 10:20 | PCM.PN ---
- General Info Date of Service: 12/12/16 Functional Status: Reports: Pain Controlled, Tolerating Diet, Ambulating, Urinating - Review of Systems General: Denies: Fever, Chills Pulmonary: Reports: No Symptoms Cardiovascular: Reports: No Symptoms Gastrointestinal: Reports: No Symptoms Musculoskeletal: Reports: Arm Pain Systems Review Comment:: Mr. Mishra has been stable since admission with good vital signs, no further evidence of sepsis and no significant temperature elevations. The arm remains swollen and tender, but he has noted improvement since yesterday. - Patient Data Vitals - Most Recent: Last Vital Signs Temp 98.5 F 12/12/16 07:22 Pulse 86 12/12/16 07:22 Resp 16 12/12/16 07:22 BP 135/74 12/12/16 09:09 Pulse Ox 96 12/12/16 07:22 Weight - Most Recent: 190 lb I&O - Last 24 Hours: Intake & Output 12/11/16 12/12/16 12/12/16 22:59 06:59 14:59 Intake Total 550 1568 340 Balance 550 1568 340 Lab Results Last 24 Hours: Laboratory Results - last 24 hr 12/12/16 12/12/16 Range/Units 04:45 04:45 WBC 20.5 H (4.5-11.0) K/uL RBC 4.55 (4.30-5.90) M/uL Hgb 13.4 (12.0-15.0) g/dL Hct 39.5 L (40.0-54.0) % MCV 87 (80-98) fL MCH 30 (27-31) pg MCHC 34 (32-36) % Plt Count 294 (150-400) K/uL Add Manual Diff Yes Neutrophils % (Manual) 71 H (36-66) % Band Neutrophils % 5 (5-11) % Lymphocytes % (Manual) 11 L (24-44) % Monocytes % (Manual) 12 H (2-6) % Eosinophils % (Manual) 1 L (2-4) % Sodium 136 L (140-148) mmol/L Potassium 3.9 (3.6-5.2) mmol/L Chloride 102 (100-108) mmol/L Carbon Dioxide 24 (21-32) mmol/L Anion Gap 13.9 (5.0-14.0) mmol/L BUN 13 (7-18) mg/dL Creatinine 0.8 (0.8-1.3) mg/dL Est Cr Clr Drug Dosing 104.33 mL/min Estimated GFR (MDRD) > 60 (>60) Glucose 234 H (74-106) mg/dL Calcium 8.1 L (8.5-10.1) mg/dL Magnesium 1.8 (1.8-2.4) mg/dL Med Orders - Current: Current Medications Acetaminophen (Tylenol) 650 mg PO Q4H PRN PRN Reason: Pain (Mild 1-3)/fever Last Admin: 12/12/16 08:17 Dose: 650 mg Aspirin (Aspirin) 81 mg PO DAILY [facility] Last Admin: 12/12/16 08:17 Dose: 81 mg Atorvastatin Calcium (Lipitor) 40 mg PO BEDTIME [facility] Last Admin: 12/11/16 21:18 Dose: 40 mg Dextrose (Glutose 15) 15 gm PO ONETIME PRN PRN Reason: Hypoglycemia Dextrose/Water (Dextrose 50% In Water) 50 ml IV ONETIME PRN PRN Reason: Hypoglycemia Docusate Sodium (Colace) 100 mg PO BID PRN PRN Reason: Constipation Enoxaparin Sodium (Lovenox) 40 mg SUBCUT Q24H [facility] Last Admin: 12/11/16 17:38 Dose: 40 mg Fluoxetine HCl (Prozac) 40 mg PO DAILY [facility] Last Admin: 12/12/16 08:17 Dose: 40 mg Meropenem 1 gm/ Sodium (Chloride) 100 mls @ 200 mls/hr IV Q8H [facility] Last Admin: 12/12/16 08:19 Dose: 200 mls/hr Vancomycin HCl 1.25 gm/ Sodium (Chloride) 250 mls @ 167 mls/hr IV Q12H [facility] Last Admin: 12/12/16 03:09 Dose: 167 mls/hr Insulin Aspart (Novolog) 0 unit SUBCUT QIDACANDBED [facility] PRN Reason: Protocol Last Admin: 12/12/16 07:39 Dose: 4 units Insulin Detemir (Levemir) 30 unit SUBCUT DAILY [facility] Last Admin: 12/12/16 08:18 Dose: 30 units Lisinopril (Prinivil) 2.5 mg PO DAILY [facility] Last Admin: 12/12/16 09:09 Dose: 2.5 mg Magnesium Hydroxide (Milk Of Magnesia) 30 ml PO Q12H PRN PRN Reason: Constipation Ondansetron HCl (Zofran) 4 mg IV Q4H PRN PRN Reason: Nausea/Vomiting Oxycodone HCl (Oxycodone) 5 mg PO Q4H PRN PRN Reason: Pain (moderate 4-6) Last Admin: 12/12/16 00:31 Dose: 5 mg Polyethylene Glycol (Miralax) 17 gm PO DAILY PRN PRN Reason: Constipation Sodium Chloride (Saline Flush) 10 ml FLUSH ASDIRECTED PRN PRN Reason: Keep Vein Open Discontinued Medications Lactated Ringer's (Ringers, Lactated) 1,000 mls @ 500 mls/hr IV ASDIRECTED [facility] Last Admin: 12/11/16 14:27 Dose: 500 mls/hr Vancomycin HCl 1.25 gm/ Sodium (Chloride) 250 mls @ 150 mls/hr IV ONETIME ONE Stop: 12/11/16 16:39 Last Admin: 12/11/16 15:19 Dose: 150 mls/hr Meropenem 1 gm/ Sodium (Chloride) 100 mls @ 200 mls/hr IV Q8H [facility] Last Admin: 12/11/16 17:36 Dose: 200 mls/hr Lactated Ringer's (Ringers, Lactated) 500 mls @ 500 mls/hr IV .BOLUS [facility] Stop: 12/11/16 19:53 Last Admin: 12/11/16 17:34 Dose: 500 mls/hr Lactated Ringer's (Ringers, Lactated) 1,000 mls @ 125 mls/hr IV ASDIRECTED [facility] Last Admin: 12/12/16 09:10 Dose: 125 mls/hr Vancomycin HCl (Vancomycin) 1 gm IV .PHARMACY TO DOSE [facility] Stop: 12/11/16 17:01 - Exam Quality Assessment: DVT Prophylaxis General: Alert, Oriented, Cooperative, Mild Distress Lungs: Clear to Auscultation, Normal Respiratory Effort Cardiovascular: Regular Rate, Regular Rhythm, No Murmurs GI/Abdominal Exam: Normal Bowel Sounds, Soft, Non-Tender, No Distention Extremities: Other (Persistent swelling and erythema of the right upper extremity, improved from admission) Skin: Warm, Dry, Intact - Problem List Review Problem List Initiated/Reviewed/Updated: Yes - My Orders Last 24 Hours: My Active Orders 12/11/16 16:37 Resuscitation Status Routine 12/11/16 16:52 Patient Status [ADT] Routine Ambulate [RC] QID Blood Glucose Check, Bedside [RC] QIDACANDBED Communication Order [RC] ASDIRECTED Diabetes Education [RC] Click to Edit Intake and Output [RC] QSHIFT Notify Provider Vital Signs [RC] ASDIRECTED Notify Provider [RC] PRN Oxygen Therapy [RC] PRN Peripheral IV Care [RC] Q12H Up With Assistance [RC] ASDIRECTED Up to Chair [RC] QID VTE/DVT Education [RC] Per Unit Routine Vital Signs [RC] Q4H Acetaminophen [Tylenol] 650 mg PO Q4H PRN Dextrose 50% in Water 50 ml IV ONETIME PRN Dextrose [Glutose 15] 15 gm PO ONETIME PRN Docusate Sodium [Colace] 100 mg PO BID PRN Magnesium Hydroxide [Milk of Magnesia] 30 ml PO Q12H PRN Ondansetron [Zofran] 4 mg IV Q4H PRN Polyethylene Glycol 3350 [MiraLAX] 17 gm PO DAILY PRN Sodium Chloride 0.9% [Saline Flush] 10 ml FLUSH ASDIRECTED PRN oxyCODONE 5 mg PO Q4H PRN Peripheral IV Insertion Adult [OM.PC] Routine 12/11/16 17:00 Insulin Aspart [NovoLOG] See Protocol SUBCUT QIDACANDBED 12/11/16 18:00 Enoxaparin [Lovenox] 40 mg SUBCUT Q24H 12/11/16 Lunch Consistent Carbohydrate Diet [DIET] 12/12/16 01:00 Meropenem [Merrem] 1 gm Sodium Chloride 0.9% [Normal Saline] 100 ml IV Q8H 12/12/16 03:00 Vancomycin 1.25 gm Sodium Chloride 0.9% [Normal Saline] 250 ml IV Q12H 12/12/16 10:17 Convert IV to Saline Lock [OM.PC] Routine 12/12/16 11:30 GLUCOSE POC LAB TO COLLECT [POC] QIDACANDBED 12/12/16 16:30 GLUCOSE POC LAB TO COLLECT [POC] QIDACANDBED 12/12/16 21:00 GLUCOSE POC LAB TO COLLECT [POC] QIDACANDBED 12/13/16 05:00 BASIC METABOLIC PANEL,BMP [CHEM] Timed CBC WITH AUTO DIFF [HEME] Timed 12/13/16 07:30 GLUCOSE POC LAB TO COLLECT [POC] QIDACANDBED 12/13/16 11:30 GLUCOSE POC LAB TO COLLECT [POC] QIDACANDBED 12/13/16 16:30 GLUCOSE POC LAB TO COLLECT [POC] QIDACANDBED 12/13/16 21:00 GLUCOSE POC LAB TO COLLECT [POC] QIDACANDBED 12/14/16 07:30 GLUCOSE POC LAB TO COLLECT [POC] QIDACANDBED 12/14/16 11:30 GLUCOSE POC LAB TO COLLECT [POC] QIDACANDBED 12/14/16 16:30 GLUCOSE POC LAB TO COLLECT [POC] QIDACANDBED 12/14/16 21:00 GLUCOSE POC LAB TO COLLECT [POC] QIDACANDBED 12/15/16 07:30 GLUCOSE POC LAB TO COLLECT [POC] QIDACANDBED 12/15/16 11:30 GLUCOSE POC LAB TO COLLECT [POC] QIDACANDBED 12/15/16 16:30 GLUCOSE POC LAB TO COLLECT [POC] QIDACANDBED 12/15/16 21:00 GLUCOSE POC LAB TO COLLECT [POC] QIDACANDBED 12/16/16 07:30 GLUCOSE POC LAB TO COLLECT [POC] QIDACANDBED 12/16/16 11:30 GLUCOSE POC LAB TO COLLECT [POC] QIDACANDBED 12/16/16 16:30 GLUCOSE POC LAB TO COLLECT [POC] QIDACANDBED 12/16/16 21:00 GLUCOSE POC LAB TO COLLECT [POC] QIDACANDBED 12/17/16 07:30 GLUCOSE POC LAB TO COLLECT [POC] QIDACANDBED 12/17/16 11:30 GLUCOSE POC LAB TO COLLECT [POC] QIDACANDBED 12/17/16 16:30 GLUCOSE POC LAB TO COLLECT [POC] QIDACANDBED 12/17/16 21:00 GLUCOSE POC LAB TO COLLECT [POC] QIDACANDBED 12/18/16 07:30 GLUCOSE POC LAB TO COLLECT [POC] QIDACANDBED 12/18/16 11:30 GLUCOSE POC LAB TO COLLECT [POC] QIDACANDBED 12/18/16 16:30 GLUCOSE POC LAB TO COLLECT [POC] QIDACANDBED 12/18/16 21:00 GLUCOSE POC LAB TO COLLECT [POC] QIDACANDBED 12/19/16 07:30 GLUCOSE POC LAB TO COLLECT [POC] QIDACANDBED 12/19/16 11:30 GLUCOSE POC LAB TO COLLECT [POC] QIDACANDBED 12/19/16 16:30 GLUCOSE POC LAB TO COLLECT [POC] QIDACANDBED 12/19/16 21:00 GLUCOSE POC LAB TO COLLECT [POC] QIDACANDBED 12/20/16 07:30 GLUCOSE POC LAB TO COLLECT [POC] QIDACANDBED 12/20/16 11:30 GLUCOSE POC LAB TO COLLECT [POC] QIDACANDBED 12/20/16 16:30 GLUCOSE POC LAB TO COLLECT [POC] QIDACANDBED 12/20/16 21:00 GLUCOSE POC LAB TO COLLECT [POC] QIDACANDBED 12/21/16 07:30 GLUCOSE POC LAB TO COLLECT [POC] QIDACANDBED 12/21/16 11:30 GLUCOSE POC LAB TO COLLECT [POC] QIDACANDBED 12/21/16 16:30 GLUCOSE POC LAB TO COLLECT [POC] QIDACANDBED 12/21/16 21:00 GLUCOSE POC LAB TO COLLECT [POC] QIDACANDBED 12/22/16 07:30 GLUCOSE POC LAB TO COLLECT [POC] QIDACANDBED 12/22/16 11:30 GLUCOSE POC LAB TO COLLECT [POC] QIDACANDBED 12/22/16 16:30 GLUCOSE POC LAB TO COLLECT [POC] QIDACANDBED - Plan Plan:: ASSESSMENT AND PLAN CELLULITIS OF THE RIGHT ARM WITH EARLY SEPSIS-injury last week, developing cellulitis since that time. He has known underlying type 2 diabetes mellitus. Cellulitis has improved since admission, he has been afebrile, hemodynamically stable, with improvement in white blood cell count. -Saline lock IV -Blood cultures pending -Pain medication as needed -IV vancomycin and meropenem pending culture results TYPE 2 DIABETES MELLITUS -Hold metformin -Continue usual dose of long-acting insulins -Moderate dose sliding scale NovoLog -4 times a day glucometers MAINTENANCE ISSUES -DVT prophylaxis; Lovenox 40 mg subcutaneous daily -GI prophylaxis; not indicated -Green catheter; not indicated -Nutrition; consistent carb diet -Nicotine dependence; not required CODE STATUS-FULL CODE ADMISSION STATUS-patient will be admitted to inpatient status, expect at least a 2 night hospital stay for evaluation and management of problems as outlined above. At the time of this admission I do not reasonably expected evaluation and management of this problem will require more than a 96 hour hospital stay. DISPOSITION-anticipate discharge to home after the hospital stay. PRIMARY CARE PROVIDER-Dr. Ruiz
[2016-12-12] MEDS: Bacitracin Oint 1 GM U/D Packet TOP SCH (13:07)
[2016-12-12] MEDS: Enoxaparin 40 MG/0.4 ML Syringe SUBCUT SCH (17:06)
[2016-12-12] MEDS: atorvaSTATin 20 MG Tab PO SCH (20:12)
[2016-12-12] MEDS: Melatonin 3 MG Tab PO PRN (21:50)
[2016-12-13] MEDS: Meropenem 1 GM in Sodium Chloride 0.9% 100 ML IV SCH ×3 (01:55→16:50)
[2016-12-13] MEDS: oxyCODONE 5 MG Tab PO PRN ×2 (01:59→20:03)
[2016-12-13] MEDS: Lisinopril 2.5 MG Tab PO SCH (08:00)
[2016-12-13] MEDS: FLUoxetine 20 MG Cap PO SCH (08:00)
[2016-12-13] MEDS: Insulin Detemir 100 Units/ML 3 ML Pen SUBCUT SCH (08:01)
[2016-12-13] MEDS: Aspirin 81 MG Tab.Chew PO SCH (08:01)
[2016-12-13] MEDS: Insulin Aspart 100 Units/ML 3 ML Pen SUBCUT SCH ×4 (08:02→21:21)
[2016-12-13] MEDS: Bacitracin Oint 1 GM U/D Packet TOP SCH (08:08)
--- NOTE | 2016-12-13 12:15 | PCM.PN ---
- General Info Date of Service: 12/13/16 Functional Status: Reports: Pain Controlled, Tolerating Diet, Ambulating - Review of Systems General: Denies: Fever, Weakness, Chills Pulmonary: Reports: No Symptoms Cardiovascular: Reports: No Symptoms Gastrointestinal: Reports: No Symptoms Skin: Reports: Other (Cellulitis right arm) Systems Review Comment:: Mr. Mishra has shown further improvement over the past 24 hours. There is a persistent area of cellulitis over the dorsal aspect of the right forearm, with persistent erythema and swelling. Vital signs have been stable and he has remained afebrile. White blood cell count remains elevated at 19,000. - Patient Data Vitals - Most Recent: Last Vital Signs Temp 97.7 F 12/13/16 12:00 Pulse 72 12/13/16 12:00 Resp 14 12/13/16 12:00 BP 155/90 H 12/13/16 12:00 Pulse Ox 98 12/13/16 12:00 Weight - Most Recent: 188 lb 11.204 oz I&O - Last 24 Hours: Intake & Output 12/12/16 12/13/16 12/13/16 22:59 06:59 14:59 Intake Total 250 370 Balance 250 370 Lab Results Last 24 Hours: Laboratory Results - last 24 hr 12/13/16 12/13/16 Range/Units 05:58 05:58 WBC 19.0 H (4.5-11.0) K/uL RBC 4.48 (4.30-5.90) M/uL Hgb 13.0 (12.0-15.0) g/dL Hct 39.1 L (40.0-54.0) % MCV 87 (80-98) fL MCH 29 (27-31) pg MCHC 33 (32-36) % Plt Count 276 (150-400) K/uL Add Manual Diff Yes Neutrophils % (Manual) 76 H (36-66) % Band Neutrophils % 4 L (5-11) % Lymphocytes % (Manual) 11 L (24-44) % Monocytes % (Manual) 8 H (2-6) % Eosinophils % (Manual) 1 L (2-4) % Sodium 138 L (140-148) mmol/L Potassium 3.8 (3.6-5.2) mmol/L Chloride 104 (100-108) mmol/L Carbon Dioxide 29 (21-32) mmol/L Anion Gap 8.8 (5.0-14.0) mmol/L BUN 12 (7-18) mg/dL Creatinine 0.7 L (0.8-1.3) mg/dL Est Cr Clr Drug Dosing 118.84 mL/min Estimated GFR (MDRD) > 60 (>60) Glucose 193 H (74-106) mg/dL Calcium 8.0 L (8.5-10.1) mg/dL Med Orders - Current: Current Medications Acetaminophen (Tylenol) 650 mg PO Q4H PRN PRN Reason: Pain (Mild 1-3)/fever Last Admin: 12/12/16 13:47 Dose: 650 mg Aspirin (Aspirin) 81 mg PO DAILY [facility] Last Admin: 12/13/16 08:01 Dose: 81 mg Atorvastatin Calcium (Lipitor) 40 mg PO BEDTIME [facility] Last Admin: 12/12/16 20:12 Dose: 40 mg Bacitracin (Bacitracin Oint 1 Gm) 1 dose TOP DAILY [facility] Last Admin: 12/13/16 08:08 Dose: 1 dose Dextrose (Glutose 15) 15 gm PO ONETIME PRN PRN Reason: Hypoglycemia Dextrose/Water (Dextrose 50% In Water) 50 ml IV ONETIME PRN PRN Reason: Hypoglycemia Docusate Sodium (Colace) 100 mg PO BID PRN PRN Reason: Constipation Enoxaparin Sodium (Lovenox) 40 mg SUBCUT Q24H [facility] Last Admin: 12/12/16 17:06 Dose: 40 mg Fluoxetine HCl (Prozac) 40 mg PO DAILY [facility] Last Admin: 12/13/16 08:00 Dose: 40 mg Meropenem 1 gm/ Sodium (Chloride) 100 mls @ 200 mls/hr IV Q8H [facility] Last Admin: 12/13/16 08:08 Dose: 200 mls/hr Vancomycin HCl 1.25 gm/ Sodium (Chloride) 250 mls @ 167 mls/hr IV Q12H [facility] Last Admin: 12/13/16 03:03 Dose: 167 mls/hr Insulin Aspart (Novolog) 0 unit SUBCUT QIDACANDBED [facility] PRN Reason: Protocol Last Admin: 12/13/16 08:02 Dose: 4 units Insulin Detemir (Levemir) 30 unit SUBCUT DAILY [facility] Last Admin: 12/13/16 08:01 Dose: 30 units Lisinopril (Prinivil) 2.5 mg PO DAILY [facility] Last Admin: 12/13/16 08:00 Dose: 2.5 mg Magnesium Hydroxide (Milk Of Magnesia) 30 ml PO Q12H PRN PRN Reason: Constipation Melatonin (Melatonin) 9 mg PO BEDTIME PRN PRN Reason: Sleep Last Admin: 12/12/16 21:50 Dose: 9 mg Ondansetron HCl (Zofran) 4 mg IV Q4H PRN PRN Reason: Nausea/Vomiting Oxycodone HCl (Oxycodone) 5 mg PO Q4H PRN PRN Reason: Pain (moderate 4-6) Last Admin: 12/13/16 01:59 Dose: 5 mg Polyethylene Glycol (Miralax) 17 gm PO DAILY PRN PRN Reason: Constipation Sodium Chloride (Saline Flush) 10 ml FLUSH ASDIRECTED PRN PRN Reason: Keep Vein Open Discontinued Medications Lactated Ringer's (Ringers, Lactated) 1,000 mls @ 500 mls/hr IV ASDIRECTED [facility] Last Admin: 12/11/16 14:27 Dose: 500 mls/hr Vancomycin HCl 1.25 gm/ Sodium (Chloride) 250 mls @ 150 mls/hr IV ONETIME ONE Stop: 12/11/16 16:39 Last Admin: 12/11/16 15:19 Dose: 150 mls/hr Meropenem 1 gm/ Sodium (Chloride) 100 mls @ 200 mls/hr IV Q8H [facility] Last Admin: 12/11/16 17:36 Dose: 200 mls/hr Lactated Ringer's (Ringers, Lactated) 500 mls @ 500 mls/hr IV .BOLUS [facility] Stop: 12/11/16 19:53 Last Admin: 12/11/16 17:34 Dose: 500 mls/hr Lactated Ringer's (Ringers, Lactated) 1,000 mls @ 125 mls/hr IV ASDIRECTED [facility] Last Admin: 12/12/16 09:10 Dose: 125 mls/hr Vancomycin HCl (Vancomycin) 1 gm IV .PHARMACY TO DOSE [facility] Stop: 12/11/16 17:01 - Exam General: Alert, Oriented, Cooperative, Mild Distress Lungs: Clear to Auscultation, Normal Respiratory Effort Cardiovascular: Regular Rate, Regular Rhythm, No Murmurs GI/Abdominal Exam: Normal Bowel Sounds, Soft, Non-Tender Extremities: Non-Tender, No Pedal Edema Skin: Other (Persistent cellulitis dorsal aspect of the right forearm) - Problem List Review Problem List Initiated/Reviewed/Updated: Yes - My Orders Last 24 Hours: My Active Orders 12/12/16 21:31 Melatonin 9 mg PO BEDTIME PRN 12/13/16 12:10 Extremity Non Vascular Rt [US] Urgent 12/13/16 14:45 VANCOMYCIN TROUGH [CHEM] Routine 12/13/16 16:30 GLUCOSE POC LAB TO COLLECT [POC] QIDACANDBED 12/13/16 21:00 GLUCOSE POC LAB TO COLLECT [POC] QIDACANDBED 12/14/16 05:00 CBC WITH AUTO DIFF [HEME] Timed 12/14/16 07:30 GLUCOSE POC LAB TO COLLECT [POC] QIDACANDBED 12/14/16 11:30 GLUCOSE POC LAB TO COLLECT [POC] QIDACANDBED 12/14/16 16:30 GLUCOSE POC LAB TO COLLECT [POC] QIDACANDBED 12/14/16 21:00 GLUCOSE POC LAB TO COLLECT [POC] QIDACANDBED 12/15/16 07:30 GLUCOSE POC LAB TO COLLECT [POC] QIDACANDBED 12/15/16 11:30 GLUCOSE POC LAB TO COLLECT [POC] QIDACANDBED 12/15/16 16:30 GLUCOSE POC LAB TO COLLECT [POC] QIDACANDBED 12/15/16 21:00 GLUCOSE POC LAB TO COLLECT [POC] QIDACANDBED 12/16/16 07:30 GLUCOSE POC LAB TO COLLECT [POC] QIDACANDBED 12/16/16 11:30 GLUCOSE POC LAB TO COLLECT [POC] QIDACANDBED 12/16/16 16:30 GLUCOSE POC LAB TO COLLECT [POC] QIDACANDBED 12/16/16 21:00 GLUCOSE POC LAB TO COLLECT [POC] QIDACANDBED 12/17/16 07:30 GLUCOSE POC LAB TO COLLECT [POC] QIDACANDBED 12/17/16 11:30 GLUCOSE POC LAB TO COLLECT [POC] QIDACANDBED 12/17/16 16:30 GLUCOSE POC LAB TO COLLECT [POC] QIDACANDBED 12/17/16 21:00 GLUCOSE POC LAB TO COLLECT [POC] QIDACANDBED 12/18/16 07:30 GLUCOSE POC LAB TO COLLECT [POC] QIDACANDBED 12/18/16 11:30 GLUCOSE POC LAB TO COLLECT [POC] QIDACANDBED 12/18/16 16:30 GLUCOSE POC LAB TO COLLECT [POC] QIDACANDBED 12/18/16 21:00 GLUCOSE POC LAB TO COLLECT [POC] QIDACANDBED 12/19/16 07:30 GLUCOSE POC LAB TO COLLECT [POC] QIDACANDBED 12/19/16 11:30 GLUCOSE POC LAB TO COLLECT [POC] QIDACANDBED 12/19/16 16:30 GLUCOSE POC LAB TO COLLECT [POC] QIDACANDBED 12/19/16 21:00 GLUCOSE POC LAB TO COLLECT [POC] QIDACANDBED 12/20/16 07:30 GLUCOSE POC LAB TO COLLECT [POC] QIDACANDBED 12/20/16 11:30 GLUCOSE POC LAB TO COLLECT [POC] QIDACANDBED 12/20/16 16:30 GLUCOSE POC LAB TO COLLECT [POC] QIDACANDBED 12/20/16 21:00 GLUCOSE POC LAB TO COLLECT [POC] QIDACANDBED 12/21/16 07:30 GLUCOSE POC LAB TO COLLECT [POC] QIDACANDBED 12/21/16 11:30 GLUCOSE POC LAB TO COLLECT [POC] QIDACANDBED 12/21/16 16:30 GLUCOSE POC LAB TO COLLECT [POC] QIDACANDBED 12/21/16 21:00 GLUCOSE POC LAB TO COLLECT [POC] QIDACANDBED 12/22/16 07:30 GLUCOSE POC LAB TO COLLECT [POC] QIDACANDBED 12/22/16 11:30 GLUCOSE POC LAB TO COLLECT [POC] QIDACANDBED 12/22/16 16:30 GLUCOSE POC LAB TO COLLECT [POC] QIDACANDBED - Plan Plan:: ASSESSMENT AND PLAN CELLULITIS OF THE RIGHT ARM WITH EARLY SEPSIS-injury last week, developing cellulitis since that time. He has known underlying type 2 diabetes mellitus. Cellulitis has improved since admission, he has been afebrile, hemodynamically stable, white blood cell count improved but still elevated at 19,000 -Ultrasound right forearm to evaluate for abscess formation -Saline lock IV -Blood cultures pending -Pain medication as needed -IV vancomycin and meropenem pending culture results TYPE 2 DIABETES MELLITUS -Hold metformin -Continue usual dose of long-acting insulins -Moderate dose sliding scale NovoLog -4 times a day glucometers MAINTENANCE ISSUES -DVT prophylaxis; Lovenox 40 mg subcutaneous daily -GI prophylaxis; not indicated -Green catheter; not indicated -Nutrition; consistent carb diet -Nicotine dependence; not required CODE STATUS-FULL CODE ADMISSION STATUS-patient will be admitted to inpatient status, expect at least a 2 night hospital stay for evaluation and management of problems as outlined above. At the time of this admission I do not reasonably expected evaluation and management of this problem will require more than a 96 hour hospital stay. DISPOSITION-anticipate discharge to home after the hospital stay. PRIMARY CARE PROVIDER-Dr. Ruiz
--- NOTE | 2016-12-13 13:42 | US ---
Extremity Non Vascular Rt INDICATION: Cellulitis right forearm FINDINGS: Extensive heterogeneous fluid throughout the soft tissues of the right forearm consistent w ith cellulitis and early phlegmon. There is no localized abscess or focal fluid collection accessible for drainage. IMPRESSION: Extensive phlegmon throughout the soft tissues of the right forearm. Follow-up ultrasound in 2-3 days could be performed to assess for localized abscess.
[2016-12-13] MEDS: Enoxaparin 40 MG/0.4 ML Syringe SUBCUT SCH (17:36)
[2016-12-13] MEDS: atorvaSTATin 20 MG Tab PO SCH (20:04)
[2016-12-13] MEDS: Melatonin 3 MG Tab PO PRN (21:21)
[2016-12-14] MEDS: Meropenem 1 GM in Sodium Chloride 0.9% 100 ML IV SCH ×2 (00:16→09:45)
[2016-12-14] MEDS: oxyCODONE 5 MG Tab PO PRN (06:16)
[2016-12-14] MEDS: Insulin Aspart 100 Units/ML 3 ML Pen SUBCUT SCH ×4 (09:30→21:30)
[2016-12-14] MEDS: Insulin Detemir 100 Units/ML 3 ML Pen SUBCUT SCH (09:31)
[2016-12-14] MEDS: FLUoxetine 20 MG Cap PO SCH (09:32)
[2016-12-14] MEDS: Aspirin 81 MG Tab.Chew PO SCH (09:32)
[2016-12-14] MEDS: Lisinopril 2.5 MG Tab PO SCH (09:32)
[2016-12-14] MEDS: Bacitracin Oint 1 GM U/D Packet TOP SCH ×2 (09:49→18:39)
--- NOTE | 2016-12-14 11:54 | PCM.PN ---
- General Info Date of Service: 12/14/16 Functional Status: Reports: Pain Controlled, Tolerating Diet, Ambulating, Urinating - Review of Systems General: Denies: Fever, Weakness, Chills Cardiovascular: Reports: No Symptoms Gastrointestinal: Reports: No Symptoms Genitourinary: Reports: No Symptoms Musculoskeletal: Reports: Arm Pain Systems Review Comment:: Mr. Mishra has shown further improvement over the past 24 hours with less swelling and erythema of the right forearm. Vital signs have been stable and he has remained afebrile. Ultrasound was obtained yesterday showing no evidence of abscess. - Patient Data Vitals - Most Recent: Last Vital Signs Temp 98.1 F 12/14/16 10:21 Pulse 74 12/14/16 10:21 Resp 16 12/14/16 10:21 BP 128/83 12/14/16 10:21 Pulse Ox 96 12/14/16 10:21 Weight - Most Recent: 188 lb 11.204 oz I&O - Last 24 Hours: Intake & Output 12/13/16 12/14/16 12/14/16 22:59 06:59 14:59 Intake Total 955 560 300 Balance 955 560 300 Lab Results Last 24 Hours: Laboratory Results - last 24 hr 12/13/16 12/14/16 Range/Units 15:07 05:00 WBC 20.8 H (4.5-11.0) K/uL RBC 4.36 (4.30-5.90) M/uL Hgb 12.8 (12.0-15.0) g/dL Hct 38.1 L (40.0-54.0) % MCV 87 (80-98) fL MCH 29 (27-31) pg MCHC 34 (32-36) % Plt Count 264 (150-400) K/uL Add Manual Diff Yes Neutrophils % (Manual) 75 H (36-66) % Band Neutrophils % 5 (5-11) % Lymphocytes % (Manual) 12 L (24-44) % Monocytes % (Manual) 7 H (2-6) % Eosinophils % (Manual) 1 L (2-4) % Vancomycin Trough 7.1 L (10.0-20.0) ug/mL Med Orders - Current: Current Medications Acetaminophen (Tylenol) 650 mg PO Q4H PRN PRN Reason: Pain (Mild 1-3)/fever Last Admin: 12/12/16 13:47 Dose: 650 mg Aspirin (Aspirin) 81 mg PO DAILY [facility] Last Admin: 12/14/16 09:32 Dose: 81 mg Atorvastatin Calcium (Lipitor) 40 mg PO BEDTIME [facility] Last Admin: 12/13/16 20:04 Dose: 40 mg Bacitracin (Bacitracin Oint 1 Gm) 1 dose TOP DAILY [facility] Last Admin: 12/14/16 09:49 Dose: 1 dose Dextrose (Glutose 15) 15 gm PO ONETIME PRN PRN Reason: Hypoglycemia Dextrose/Water (Dextrose 50% In Water) 50 ml IV ONETIME PRN PRN Reason: Hypoglycemia Docusate Sodium (Colace) 100 mg PO BID PRN PRN Reason: Constipation Enoxaparin Sodium (Lovenox) 40 mg SUBCUT Q24H [facility] Last Admin: 12/13/16 17:36 Dose: 40 mg Fluoxetine HCl (Prozac) 40 mg PO DAILY [facility] Last Admin: 12/14/16 09:32 Dose: 40 mg Cefazolin Sodium 1 gm/ Sodium (Chloride) 50 mls @ 200 mls/hr IV Q8HR [facility] Insulin Aspart (Novolog) 0 unit SUBCUT QIDACANDBED [facility] PRN Reason: Protocol Last Admin: 12/14/16 09:30 Dose: 2 units Insulin Detemir (Levemir) 30 unit SUBCUT DAILY [facility] Last Admin: 12/14/16 09:31 Dose: 30 units Lisinopril (Prinivil) 2.5 mg PO DAILY [facility] Last Admin: 12/14/16 09:32 Dose: 2.5 mg Magnesium Hydroxide (Milk Of Magnesia) 30 ml PO Q12H PRN PRN Reason: Constipation Melatonin (Melatonin) 9 mg PO BEDTIME PRN PRN Reason: Sleep Last Admin: 12/13/16 21:21 Dose: 9 mg Ondansetron HCl (Zofran) 4 mg IV Q4H PRN PRN Reason: Nausea/Vomiting Oxycodone HCl (Oxycodone) 5 mg PO Q4H PRN PRN Reason: Pain (moderate 4-6) Last Admin: 12/14/16 06:16 Dose: 5 mg Polyethylene Glycol (Miralax) 17 gm PO DAILY PRN PRN Reason: Constipation Sodium Chloride (Saline Flush) 10 ml FLUSH ASDIRECTED PRN PRN Reason: Keep Vein Open Discontinued Medications Lactated Ringer's (Ringers, Lactated) 1,000 mls @ 500 mls/hr IV ASDIRECTED [facility] Last Admin: 12/11/16 14:27 Dose: 500 mls/hr Vancomycin HCl 1.25 gm/ Sodium (Chloride) 250 mls @ 150 mls/hr IV ONETIME ONE Stop: 12/11/16 16:39 Last Admin: 12/11/16 15:19 Dose: 150 mls/hr Meropenem 1 gm/ Sodium (Chloride) 100 mls @ 200 mls/hr IV Q8H [facility] Last Admin: 12/11/16 17:36 Dose: 200 mls/hr Lactated Ringer's (Ringers, Lactated) 500 mls @ 500 mls/hr IV .BOLUS [facility] Stop: 12/11/16 19:53 Last Admin: 12/11/16 17:34 Dose: 500 mls/hr Lactated Ringer's (Ringers, Lactated) 1,000 mls @ 125 mls/hr IV ASDIRECTED [facility] Last Admin: 12/12/16 09:10 Dose: 125 mls/hr Meropenem 1 gm/ Sodium (Chloride) 100 mls @ 200 mls/hr IV Q8H [facility] Last Admin: 12/14/16 09:45 Dose: 200 mls/hr Vancomycin HCl 1.25 gm/ Sodium (Chloride) 250 mls @ 167 mls/hr IV Q12H [facility] Stop: 12/13/16 18:00 Last Admin: 12/13/16 15:07 Dose: 167 mls/hr Vancomycin HCl 1.25 gm/ Sodium (Chloride) 250 mls @ 175 mls/hr IV Q8H [facility] Last Admin: 12/14/16 06:09 Dose: 175 mls/hr Vancomycin HCl (Vancomycin) 1 gm IV .PHARMACY TO DOSE [facility] Stop: 12/11/16 17:01 - Exam General: Alert, Oriented, Cooperative, No Acute Distress Lungs: Clear to Auscultation, Normal Respiratory Effort Cardiovascular: Regular Rate, Regular Rhythm, No Murmurs GI/Abdominal Exam: Normal Bowel Sounds, Soft, Non-Tender, No Distention Extremities: Arm Pain, Other (Persistent but improving cellulitis of the right forearm) Skin: Dry, Intact - Problem List Review Problem List Initiated/Reviewed/Updated: Yes - My Orders Last 24 Hours: My Active Orders 12/14/16 14:00 ceFAZolin [Ancef] 1 gm Sodium Chloride 0.9% [Normal Saline] 50 ml IV Q8HR 12/14/16 16:30 GLUCOSE POC LAB TO COLLECT [POC] QIDACANDBED 12/14/16 21:00 GLUCOSE POC LAB TO COLLECT [POC] QIDACANDBED 12/15/16 05:00 CBC WITH AUTO DIFF [HEME] Timed 12/15/16 07:30 GLUCOSE POC LAB TO COLLECT [POC] QIDACANDBED 12/15/16 11:30 GLUCOSE POC LAB TO COLLECT [POC] QIDACANDBED 12/15/16 16:30 GLUCOSE POC LAB TO COLLECT [POC] QIDACANDBED 12/15/16 21:00 GLUCOSE POC LAB TO COLLECT [POC] QIDACANDBED 12/16/16 07:30 GLUCOSE POC LAB TO COLLECT [POC] QIDACANDBED 12/16/16 11:30 GLUCOSE POC LAB TO COLLECT [POC] QIDACANDBED 12/16/16 16:30 GLUCOSE POC LAB TO COLLECT [POC] QIDACANDBED 12/16/16 21:00 GLUCOSE POC LAB TO COLLECT [POC] QIDACANDBED 12/17/16 07:30 GLUCOSE POC LAB TO COLLECT [POC] QIDACANDBED 12/17/16 11:30 GLUCOSE POC LAB TO COLLECT [POC] QIDACANDBED 12/17/16 16:30 GLUCOSE POC LAB TO COLLECT [POC] QIDACANDBED 12/17/16 21:00 GLUCOSE POC LAB TO COLLECT [POC] QIDACANDBED 12/18/16 07:30 GLUCOSE POC LAB TO COLLECT [POC] QIDACANDBED 12/18/16 11:30 GLUCOSE POC LAB TO COLLECT [POC] QIDACANDBED 12/18/16 16:30 GLUCOSE POC LAB TO COLLECT [POC] QIDACANDBED 12/18/16 21:00 GLUCOSE POC LAB TO COLLECT [POC] QIDACANDBED 12/19/16 07:30 GLUCOSE POC LAB TO COLLECT [POC] QIDACANDBED 12/19/16 11:30 GLUCOSE POC LAB TO COLLECT [POC] QIDACANDBED 12/19/16 16:30 GLUCOSE POC LAB TO COLLECT [POC] QIDACANDBED 12/19/16 21:00 GLUCOSE POC LAB TO COLLECT [POC] QIDACANDBED 12/20/16 07:30 GLUCOSE POC LAB TO COLLECT [POC] QIDACANDBED 12/20/16 11:30 GLUCOSE POC LAB TO COLLECT [POC] QIDACANDBED 12/20/16 16:30 GLUCOSE POC LAB TO COLLECT [POC] QIDACANDBED 12/20/16 21:00 GLUCOSE POC LAB TO COLLECT [POC] QIDACANDBED 12/21/16 07:30 GLUCOSE POC LAB TO COLLECT [POC] QIDACANDBED 12/21/16 11:30 GLUCOSE POC LAB TO COLLECT [POC] QIDACANDBED 12/21/16 16:30 GLUCOSE POC LAB TO COLLECT [POC] QIDACANDBED 12/21/16 21:00 GLUCOSE POC LAB TO COLLECT [POC] QIDACANDBED 12/22/16 07:30 GLUCOSE POC LAB TO COLLECT [POC] QIDACANDBED 12/22/16 11:30 GLUCOSE POC LAB TO COLLECT [POC] QIDACANDBED 12/22/16 16:30 GLUCOSE POC LAB TO COLLECT [POC] QIDACANDBED - Plan Plan:: ASSESSMENT AND PLAN CELLULITIS OF THE RIGHT ARM WITH EARLY SEPSIS-injury last week, developing cellulitis since that time. He has known underlying type 2 diabetes mellitus. Cellulitis improved since yesterday, no palpable abscess on the forearm noted. White blood cell count remains elevated, he has been afebrile. Blood cultures have remained negative 2 days -Saline lock IV -Blood cultures pending -Pain medication as needed -Discontinue vancomycin and meropenem -Cefazolin 1 g IV every 8 hours TYPE 2 DIABETES MELLITUS -Hold metformin -Continue usual dose of long-acting insulins -Moderate dose sliding scale NovoLog -4 times a day glucometers MAINTENANCE ISSUES -DVT prophylaxis; Lovenox 40 mg subcutaneous daily -GI prophylaxis; not indicated -Green catheter; not indicated -Nutrition; consistent carb diet -Nicotine dependence; not required CODE STATUS-FULL CODE ADMISSION STATUS-patient will be admitted to inpatient status, expect at least a 2 night hospital stay for evaluation and management of problems as outlined above. At the time of this admission I do not reasonably expected evaluation and management of this problem will require more than a 96 hour hospital stay. DISPOSITION-anticipate discharge to home after the hospital stay. PRIMARY CARE PROVIDER-Dr. Ruiz
[2016-12-14] MEDS ORDERED: ceFAZolin 1 GM in Sodium Chloride 0.9% 50 ML IV SCH (14:00)
[2016-12-14] MEDS: ceFAZolin 1 GM in Premix Bag 1 BAG IV SCH (15:50)
[2016-12-14] MEDS: Acetaminophen 325 MG Tab PO PRN (15:56)
[2016-12-14] MEDS: Enoxaparin 40 MG/0.4 ML Syringe SUBCUT SCH (17:22)
[2016-12-14] MEDS: atorvaSTATin 20 MG Tab PO SCH (21:29)
[2016-12-15] MEDS: oxyCODONE 5 MG Tab PO PRN (00:08)
[2016-12-15] MEDS: ceFAZolin 1 GM in Premix Bag 1 BAG IV SCH ×3 (00:29→16:11)
[2016-12-15] MEDS: Lisinopril 2.5 MG Tab PO SCH (09:20)
[2016-12-15] MEDS: Aspirin 81 MG Tab.Chew PO SCH (09:21)
[2016-12-15] MEDS: FLUoxetine 20 MG Cap PO SCH (09:21)
[2016-12-15] MEDS: Insulin Detemir 100 Units/ML 3 ML Pen SUBCUT SCH (09:23)
[2016-12-15] MEDS: Insulin Aspart 100 Units/ML 3 ML Pen SUBCUT SCH ×4 (09:24→21:34)
[2016-12-15] MEDS: Bacitracin Oint 1 GM U/D Packet TOP SCH (13:07)
--- NOTE | 2016-12-15 14:14 | US ---
Ultrasound right forearm. Comparison: 03/15/2016. Findings: Within the right forearm there is a heterogeneous subcutaneous fluid collection. Collection appears mildly more hypoechoic on this examination. Transverse dimension is 4.2 cm x 1.1 cm AP. It a ppears multiloculated. The length is least up to 4.3 cm. Impression: 1. Extensive subcutaneous complex collection mildly more hypoechoic. No improvement in the interval. This may indicate phlegmonous change. Early abscess collection cannot be definitively excluded. Consi tanna surgical consultation.
--- NOTE | 2016-12-15 14:36 | PCM.PN ---
- General Info Date of Service: 12/15/16 Functional Status: Reports: Pain Controlled, Tolerating Diet, Ambulating - Review of Systems General: Denies: Fever, Weakness, Chills Pulmonary: Reports: No Symptoms Cardiovascular: Reports: No Symptoms Gastrointestinal: Reports: No Symptoms Musculoskeletal: Reports: Arm Pain Systems Review Comment:: Mr. Mishra has remained stable since yesterday, persistent inflammation of the right forearm not significantly improved over the past 24 hours. Mild low-grade temperature elevations with persistent elevation in white blood cell count at almost 19,000. Repeat ultrasound of the arm today still shows no obvious abscess formation although there is an area of fluid throughout the forearm. - Patient Data Vitals - Most Recent: Last Vital Signs Temp 96.9 F 12/15/16 10:58 Pulse 73 12/15/16 10:58 Resp 16 12/15/16 10:58 BP 139/87 12/15/16 10:58 Pulse Ox 97 12/15/16 10:58 Weight - Most Recent: 188 lb 11.204 oz I&O - Last 24 Hours: Intake & Output 12/14/16 12/15/16 12/15/16 22:59 06:59 14:59 Intake Total 990 500 Output Total 0 Balance 990 500 Lab Results Last 24 Hours: Laboratory Results - last 24 hr 12/15/16 Range/Units 05:50 WBC 18.7 H (4.5-11.0) K/uL RBC 4.54 (4.30-5.90) M/uL Hgb 13.4 (12.0-15.0) g/dL Hct 39.5 L (40.0-54.0) % MCV 87 (80-98) fL MCH 30 (27-31) pg MCHC 34 (32-36) % Plt Count 294 (150-400) K/uL Neut % (Auto) 76 H (36-66) % Lymph % (Auto) 14 L (24-44) % [place] % (Auto) 8 H (2-6) % Eos % (Auto) 2 (2-4) % Baso % (Auto) 0 (0-1) % Med Orders - Current: Current Medications Acetaminophen (Tylenol) 650 mg PO Q4H PRN PRN Reason: Pain (Mild 1-3)/fever Last Admin: 12/14/16 15:56 Dose: 650 mg Aspirin (Aspirin) 81 mg PO DAILY [facility] Last Admin: 12/15/16 09:21 Dose: 81 mg Atorvastatin Calcium (Lipitor) 40 mg PO BEDTIME [facility] Last Admin: 12/14/16 21:29 Dose: 40 mg Bacitracin (Bacitracin Oint 1 Gm) 1 dose TOP DAILY [facility] Last Admin: 12/15/16 13:07 Dose: Not Given Dextrose (Glutose 15) 15 gm PO ONETIME PRN PRN Reason: Hypoglycemia Dextrose/Water (Dextrose 50% In Water) 50 ml IV ONETIME PRN PRN Reason: Hypoglycemia Docusate Sodium (Colace) 100 mg PO BID PRN PRN Reason: Constipation Enoxaparin Sodium (Lovenox) 40 mg SUBCUT Q24H [facility] Last Admin: 12/14/16 17:22 Dose: 40 mg Fluoxetine HCl (Prozac) 40 mg PO DAILY [facility] Last Admin: 12/15/16 09:21 Dose: 40 mg Cefazolin Sodium/Dextrose 1 gm (/ Premix) 50 mls @ 100 mls/hr IV Q8H [facility] Last Admin: 12/15/16 09:20 Dose: 100 mls/hr Insulin Aspart (Novolog) 0 unit SUBCUT QIDACANDBED [facility] PRN Reason: Protocol Last Admin: 12/15/16 13:06 Dose: 4 units Insulin Detemir (Levemir) 36 unit SUBCUT DAILY [facility] Lisinopril (Prinivil) 2.5 mg PO DAILY [facility] Last Admin: 12/15/16 09:20 Dose: 2.5 mg Magnesium Hydroxide (Milk Of Magnesia) 30 ml PO Q12H PRN PRN Reason: Constipation Melatonin (Melatonin) 9 mg PO BEDTIME PRN PRN Reason: Sleep Last Admin: 12/13/16 21:21 Dose: 9 mg Ondansetron HCl (Zofran) 4 mg IV Q4H PRN PRN Reason: Nausea/Vomiting Oxycodone HCl (Oxycodone) 5 mg PO Q4H PRN PRN Reason: Pain (moderate 4-6) Last Admin: 12/15/16 00:08 Dose: 5 mg Polyethylene Glycol (Miralax) 17 gm PO DAILY PRN PRN Reason: Constipation Sodium Chloride (Saline Flush) 10 ml FLUSH ASDIRECTED PRN PRN Reason: Keep Vein Open Discontinued Medications Lactated Ringer's (Ringers, Lactated) 1,000 mls @ 500 mls/hr IV ASDIRECTED [facility] Last Admin: 12/11/16 14:27 Dose: 500 mls/hr Vancomycin HCl 1.25 gm/ Sodium (Chloride) 250 mls @ 150 mls/hr IV ONETIME ONE Stop: 12/11/16 16:39 Last Admin: 12/11/16 15:19 Dose: 150 mls/hr Meropenem 1 gm/ Sodium (Chloride) 100 mls @ 200 mls/hr IV Q8H [facility] Last Admin: 12/11/16 17:36 Dose: 200 mls/hr Lactated Ringer's (Ringers, Lactated) 500 mls @ 500 mls/hr IV .BOLUS [facility] Stop: 12/11/16 19:53 Last Admin: 12/11/16 17:34 Dose: 500 mls/hr Lactated Ringer's (Ringers, Lactated) 1,000 mls @ 125 mls/hr IV ASDIRECTED [facility] Last Admin: 12/12/16 09:10 Dose: 125 mls/hr Meropenem 1 gm/ Sodium (Chloride) 100 mls @ 200 mls/hr IV Q8H [facility] Last Admin: 12/14/16 09:45 Dose: 200 mls/hr Vancomycin HCl 1.25 gm/ Sodium (Chloride) 250 mls @ 167 mls/hr IV Q12H [facility] Stop: 12/13/16 18:00 Last Admin: 12/13/16 15:07 Dose: 167 mls/hr Vancomycin HCl 1.25 gm/ Sodium (Chloride) 250 mls @ 175 mls/hr IV Q8H [facility] Last Admin: 12/14/16 06:09 Dose: 175 mls/hr Insulin Detemir (Levemir) 30 unit SUBCUT DAILY [facility] Last Admin: 12/15/16 09:23 Dose: 30 units Vancomycin HCl (Vancomycin) 1 gm IV .PHARMACY TO DOSE [facility] Stop: 12/11/16 17:01 - Exam Quality Assessment: DVT Prophylaxis General: Alert, Oriented, Cooperative, Mild Distress Lungs: Clear to Auscultation, Normal Respiratory Effort Cardiovascular: Regular Rate, No Murmurs GI/Abdominal Exam: Normal Bowel Sounds, Soft, Non-Tender, No Distention Extremities: No Pedal Edema, Other (Persistent inflammation dorsal aspect of the right forearm with erythema and increased warmth) Skin: Warm, Dry - Problem List Review Problem List Initiated/Reviewed/Updated: Yes - My Orders Last 24 Hours: My Active Orders 12/14/16 16:00 ceFAZolin [Ancef] 1 gm Premix Bag 1 bag IV Q8H 12/15/16 14:30 Insulin Detemir [Levemir] 36 unit SUBCUT DAILY 12/15/16 16:30 GLUCOSE POC LAB TO COLLECT [POC] QIDACANDBED 12/15/16 21:00 GLUCOSE POC LAB TO COLLECT [POC] QIDACANDBED 12/16/16 07:30 GLUCOSE POC LAB TO COLLECT [POC] QIDACANDBED 12/16/16 11:30 GLUCOSE POC LAB TO COLLECT [POC] QIDACANDBED 12/16/16 16:30 GLUCOSE POC LAB TO COLLECT [POC] QIDACANDBED 12/16/16 21:00 GLUCOSE POC LAB TO COLLECT [POC] QIDACANDBED 12/17/16 07:30 GLUCOSE POC LAB TO COLLECT [POC] QIDACANDBED 12/17/16 11:30 GLUCOSE POC LAB TO COLLECT [POC] QIDACANDBED 12/17/16 16:30 GLUCOSE POC LAB TO COLLECT [POC] QIDACANDBED 12/17/16 21:00 GLUCOSE POC LAB TO COLLECT [POC] QIDACANDBED 12/18/16 07:30 GLUCOSE POC LAB TO COLLECT [POC] QIDACANDBED 12/18/16 11:30 GLUCOSE POC LAB TO COLLECT [POC] QIDACANDBED 12/18/16 16:30 GLUCOSE POC LAB TO COLLECT [POC] QIDACANDBED 12/18/16 21:00 GLUCOSE POC LAB TO COLLECT [POC] QIDACANDBED 12/19/16 07:30 GLUCOSE POC LAB TO COLLECT [POC] QIDACANDBED 12/19/16 11:30 GLUCOSE POC LAB TO COLLECT [POC] QIDACANDBED 12/19/16 16:30 GLUCOSE POC LAB TO COLLECT [POC] QIDACANDBED 12/19/16 21:00 GLUCOSE POC LAB TO COLLECT [POC] QIDACANDBED 12/20/16 07:30 GLUCOSE POC LAB TO COLLECT [POC] QIDACANDBED 12/20/16 11:30 GLUCOSE POC LAB TO COLLECT [POC] QIDACANDBED 12/20/16 16:30 GLUCOSE POC LAB TO COLLECT [POC] QIDACANDBED 12/20/16 21:00 GLUCOSE POC LAB TO COLLECT [POC] QIDACANDBED 12/21/16 07:30 GLUCOSE POC LAB TO COLLECT [POC] QIDACANDBED 12/21/16 11:30 GLUCOSE POC LAB TO COLLECT [POC] QIDACANDBED 12/21/16 16:30 GLUCOSE POC LAB TO COLLECT [POC] QIDACANDBED 12/21/16 21:00 GLUCOSE POC LAB TO COLLECT [POC] QIDACANDBED 12/22/16 07:30 GLUCOSE POC LAB TO COLLECT [POC] QIDACANDBED 12/22/16 11:30 GLUCOSE POC LAB TO COLLECT [POC] QIDACANDBED 12/22/16 16:30 GLUCOSE POC LAB TO COLLECT [POC] QIDACANDBED - Plan Plan:: ASSESSMENT AND PLAN CELLULITIS OF THE RIGHT ARM WITH EARLY SEPSIS-injury last week, developing cellulitis since that time. He has known underlying type 2 diabetes mellitus. Area of cellulitis stable since yesterday but not significantly improved. Ultrasound today continues to show evidence of some fluid in the form but no obvious abscess formation Blood cultures have remained negative 4 days -Saline lock IV -Blood cultures pending -Pain medication as needed -Discontinue vancomycin and meropenem -Cefazolin 1 g IV every 8 hours -Consult Dr. Brandt for surgical opinion TYPE 2 DIABETES MELLITUS- glucose levels running above desired range -Hold metformin -Increase Levemir to 36 units subcutaneous daily -Moderate dose sliding scale NovoLog -4 times a day glucometers MAINTENANCE ISSUES -DVT prophylaxis; Lovenox 40 mg subcutaneous daily -GI prophylaxis; not indicated -Green catheter; not indicated -Nutrition; consistent carb diet -Nicotine dependence; not required CODE STATUS-FULL CODE ADMISSION STATUS-patient will be admitted to inpatient status, expect at least a 2 night hospital stay for evaluation and management of problems as outlined above. At the time of this admission I do not reasonably expected evaluation and management of this problem will require more than a 96 hour hospital stay. DISPOSITION-anticipate discharge to home after the hospital stay. PRIMARY CARE PROVIDER-Dr. Ruiz
[2016-12-15] MEDS: Acetaminophen 325 MG Tab PO PRN (16:11)
[2016-12-15] MEDS: Enoxaparin 40 MG/0.4 ML Syringe SUBCUT SCH (17:25)
[2016-12-15] MEDS: atorvaSTATin 20 MG Tab PO SCH (21:33)
[2016-12-16] MEDS: ceFAZolin 1 GM in Premix Bag 1 BAG IV SCH ×2 (00:13→08:24)
[2016-12-16] MEDS: Dextrose 5%-Lactated Ringers 1,000 ML IV SCH ×3 (00:16→18:13)
[2016-12-16] MEDS: oxyCODONE 5 MG Tab PO PRN (04:37)
[2016-12-16] MEDS ORDERED: Lidocaine 1% with EPINEPHrine 1:100,000 50 ML MDV ONE (06:37)
[2016-12-16] MEDS ORDERED: Bupivacaine 0.5% 50 ML MDV ONE (06:37)
[2016-12-16] MEDS ORDERED: Midazolam 1 MG/ML 2 ML SDV ONE (07:01)
[2016-12-16] MEDS ORDERED: fentaNYL 100 MCG/2 ML SDV ONE ×2 (07:01→12:17)
[2016-12-16] MEDS ORDERED: Propofol 200 MG/20 ML SDV ONE (07:01)
[2016-12-16] MEDS: Bacitracin Oint 1 GM U/D Packet TOP SCH (08:20)
[2016-12-16] MEDS: Insulin Aspart 100 Units/ML 3 ML Pen SUBCUT SCH ×4 (08:26→21:04)
[2016-12-16] MEDS: Insulin Detemir 100 Units/ML 3 ML Pen SUBCUT SCH (08:27)
--- NOTE | 2016-12-16 10:39 | PCM.PN ---
- General Info Date of Service: 12/16/16 Functional Status: Reports: Pain Controlled, Tolerating Diet, Ambulating - Review of Systems General: Denies: Fever, Chills Pulmonary: Reports: No Symptoms Cardiovascular: Reports: No Symptoms Gastrointestinal: Reports: No Symptoms Skin: Reports: Other (Persistent area of cellulitis on the dorsal aspect of the right forearm, with probable area of abscess formation) Systems Review Comment:: Mr. Mishra has remained stable since yesterday, vital signs have been good and he has remained afebrile. Ultrasound obtained yesterday afternoon suggests abscess formation in the right forearm. Continues to experience pain in the area and ongoing swelling. He is been seen and evaluated by Dr. Brandt and plan is to proceed with surgical IND of the area in the operating room today. - Patient Data Vitals - Most Recent: Last Vital Signs Temp 98.9 F 12/16/16 07:56 Pulse 72 12/16/16 07:56 Resp 16 12/16/16 07:56 BP 157/82 H 12/16/16 07:56 Pulse Ox 97 12/16/16 07:56 Weight - Most Recent: 188 lb 11.204 oz I&O - Last 24 Hours: Intake & Output 12/15/16 12/16/16 12/16/16 22:59 06:59 14:59 Intake Total 240 550 50 Balance 240 550 50 Med Orders - Current: Current Medications Acetaminophen (Tylenol) 650 mg PO Q4H PRN PRN Reason: Pain (Mild 1-3)/fever Last Admin: 12/15/16 16:11 Dose: 650 mg Aspirin (Aspirin) 81 mg PO DAILY [facility] Last Admin: 12/15/16 09:21 Dose: 81 mg Atorvastatin Calcium (Lipitor) 40 mg PO BEDTIME [facility] Last Admin: 12/15/16 21:33 Dose: 40 mg Bacitracin (Bacitracin Oint 1 Gm) 1 dose TOP DAILY [facility] Last Admin: 12/16/16 08:20 Dose: 1 dose Dextrose (Glutose 15) 15 gm PO ONETIME PRN PRN Reason: Hypoglycemia Dextrose/Water (Dextrose 50% In Water) 50 ml IV ONETIME PRN PRN Reason: Hypoglycemia Docusate Sodium (Colace) 100 mg PO BID PRN PRN Reason: Constipation Enoxaparin Sodium (Lovenox) 40 mg SUBCUT Q24H [facility] Last Admin: 12/15/16 17:25 Dose: 40 mg Fluoxetine HCl (Prozac) 40 mg PO DAILY [facility] Last Admin: 12/15/16 09:21 Dose: 40 mg Cefazolin Sodium/Dextrose 1 gm (/ Premix) 50 mls @ 100 mls/hr IV Q8H [facility] Last Admin: 12/16/16 08:24 Dose: 100 mls/hr Dextrose/Lactated Ringer's (Dextrose 5%-Lactated Ringers) 1,000 mls @ 100 mls/ hr IV ASDIRECTED [facility] Last Admin: 12/16/16 00:16 Dose: 100 mls/hr Insulin Aspart (Novolog) 0 unit SUBCUT QIDACANDBED [facility] PRN Reason: Protocol Last Admin: 12/16/16 08:26 Dose: 6 units Insulin Detemir (Levemir) 36 unit SUBCUT DAILY [facility] Last Admin: 12/16/16 08:27 Dose: 36 units Lisinopril (Prinivil) 2.5 mg PO DAILY [facility] Last Admin: 12/15/16 09:20 Dose: 2.5 mg Magnesium Hydroxide (Milk Of Magnesia) 30 ml PO Q12H PRN PRN Reason: Constipation Melatonin (Melatonin) 9 mg PO BEDTIME PRN PRN Reason: Sleep Last Admin: 12/13/16 21:21 Dose: 9 mg Ondansetron HCl (Zofran) 4 mg IV Q4H PRN PRN Reason: Nausea/Vomiting Oxycodone HCl (Oxycodone) 5 mg PO Q4H PRN PRN Reason: Pain (moderate 4-6) Last Admin: 12/16/16 04:37 Dose: 5 mg Polyethylene Glycol (Miralax) 17 gm PO DAILY PRN PRN Reason: Constipation Sodium Chloride (Saline Flush) 10 ml FLUSH ASDIRECTED PRN PRN Reason: Keep Vein Open Discontinued Medications Bupivacaine HCl (Marcaine 0.5%) Confirm Administered Dose 50 ml .ROUTE .STK-MED ONE Stop: 12/16/16 06:38 Fentanyl (Sublimaze) Confirm Administered Dose 100 mcg .ROUTE .STK-MED ONE Stop: 12/16/16 07:02 Lactated Ringer's (Ringers, Lactated) 1,000 mls @ 500 mls/hr IV ASDIRECTED [facility] Last Admin: 10/16/17 14:27 Dose: 500 mls/hr Vancomycin HCl 1.25 gm/ Sodium (Chloride) 250 mls @ 150 mls/hr IV ONETIME ONE Stop: 12/11/16 16:39 Last Admin: 12/11/16 15:19 Dose: 150 mls/hr Meropenem 1 gm/ Sodium (Chloride) 100 mls @ 200 mls/hr IV Q8H [facility] Last Admin: 12/11/16 17:36 Dose: 200 mls/hr Lactated Ringer's (Ringers, Lactated) 500 mls @ 500 mls/hr IV .BOLUS [facility] Stop: 12/11/16 19:53 Last Admin: 12/11/16 17:34 Dose: 500 mls/hr Lactated Ringer's (Ringers, Lactated) 1,000 mls @ 125 mls/hr IV ASDIRECTED [facility] Last Admin: 12/12/16 09:10 Dose: 125 mls/hr Meropenem 1 gm/ Sodium (Chloride) 100 mls @ 200 mls/hr IV Q8H [facility] Last Admin: 12/14/16 09:45 Dose: 200 mls/hr Vancomycin HCl 1.25 gm/ Sodium (Chloride) 250 mls @ 167 mls/hr IV Q12H [facility] Stop: 12/13/16 18:00 Last Admin: 12/13/16 15:07 Dose: 167 mls/hr Vancomycin HCl 1.25 gm/ Sodium (Chloride) 250 mls @ 175 mls/hr IV Q8H [facility] Last Admin: 12/14/16 06:09 Dose: 175 mls/hr Insulin Detemir (Levemir) 30 unit SUBCUT DAILY [facility] Last Admin: 12/15/16 09:23 Dose: 30 units Lidocaine/Epinephrine (Xylocaine 1% With Epinephrine 1:100,000) Confirm Administered Dose 50 ml .ROUTE .STK-MED ONE Stop: 12/16/16 06:38 Midazolam HCl (Versed 1 Mg/Ml) Confirm Administered Dose 2 mg .ROUTE .STK-MED ONE Stop: 12/16/16 07:02 Propofol (Diprivan 20 Ml) Confirm Administered Dose 200 mg .ROUTE .STK-MED ONE Stop: 12/16/16 07:02 Vancomycin HCl (Vancomycin) 1 gm IV .PHARMACY TO DOSE [facility] Stop: 12/11/16 17:01 - Exam Quality Assessment: DVT Prophylaxis General: Alert, Oriented, Cooperative, Mild Distress Lungs: Clear to Auscultation, Normal Respiratory Effort Cardiovascular: Regular Rate, Regular Rhythm, No Murmurs GI/Abdominal Exam: Normal Bowel Sounds, Soft, Non-Tender, No Distention Extremities: Arm Pain, Other (Persistent cellulitis with abscess dorsal aspect of the right forearm) - Problem List Review Problem List Initiated/Reviewed/Updated: Yes - My Orders Last 24 Hours: My Active Orders 12/16/16 09:00 Insulin Detemir [Levemir] 36 unit SUBCUT DAILY 12/16/16 11:30 GLUCOSE POC LAB TO COLLECT [POC] QIDACANDBED 12/16/16 16:30 GLUCOSE POC LAB TO COLLECT [POC] QIDACANDBED 12/16/16 21:00 GLUCOSE POC LAB TO COLLECT [POC] QIDACANDBED 12/17/16 05:00 BASIC METABOLIC PANEL,BMP [CHEM] Timed CBC WITH AUTO DIFF [HEME] Timed 12/17/16 07:30 GLUCOSE POC LAB TO COLLECT [POC] QIDACANDBED 12/17/16 11:30 GLUCOSE POC LAB TO COLLECT [POC] QIDACANDBED 12/17/16 16:30 GLUCOSE POC LAB TO COLLECT [POC] QIDACANDBED 12/17/16 21:00 GLUCOSE POC LAB TO COLLECT [POC] QIDACANDBED 12/18/16 07:30 GLUCOSE POC LAB TO COLLECT [POC] QIDACANDBED 12/18/16 11:30 GLUCOSE POC LAB TO COLLECT [POC] QIDACANDBED 12/18/16 16:30 GLUCOSE POC LAB TO COLLECT [POC] QIDACANDBED 12/18/16 21:00 GLUCOSE POC LAB TO COLLECT [POC] QIDACANDBED 12/19/16 07:30 GLUCOSE POC LAB TO COLLECT [POC] QIDACANDBED 12/19/16 11:30 GLUCOSE POC LAB TO COLLECT [POC] QIDACANDBED 12/19/16 16:30 GLUCOSE POC LAB TO COLLECT [POC] QIDACANDBED 12/19/16 21:00 GLUCOSE POC LAB TO COLLECT [POC] QIDACANDBED 12/20/16 07:30 GLUCOSE POC LAB TO COLLECT [POC] QIDACANDBED 12/20/16 11:30 GLUCOSE POC LAB TO COLLECT [POC] QIDACANDBED 12/20/16 16:30 GLUCOSE POC LAB TO COLLECT [POC] QIDACANDBED 12/20/16 21:00 GLUCOSE POC LAB TO COLLECT [POC] QIDACANDBED 12/21/16 07:30 GLUCOSE POC LAB TO COLLECT [POC] QIDACANDBED 12/21/16 11:30 GLUCOSE POC LAB TO COLLECT [POC] QIDACANDBED 12/21/16 16:30 GLUCOSE POC LAB TO COLLECT [POC] QIDACANDBED 12/21/16 21:00 GLUCOSE POC LAB TO COLLECT [POC] QIDACANDBED 12/22/16 07:30 GLUCOSE POC LAB TO COLLECT [POC] QIDACANDBED 12/22/16 11:30 GLUCOSE POC LAB TO COLLECT [POC] QIDACANDBED 12/22/16 16:30 GLUCOSE POC LAB TO COLLECT [POC] QIDACANDBED - Plan Plan:: ASSESSMENT AND PLAN CELLULITIS OF THE RIGHT ARM WITH EARLY SEPSIS-injury last week, developing cellulitis since that time. He has known underlying type 2 diabetes mellitus. Area of cellulitis stable since yesterday but not significantly improved. Ultrasound today continues to show evidence of some fluid and possible abscess formation -Saline lock IV -Blood cultures pending -Pain medication as needed -Cefazolin 1 g IV every 8 hours -Surgical drainage of abscess today by Dr. Brandt TYPE 2 DIABETES MELLITUS- glucose levels running above desired range -Hold metformin -Increase Levemir to 36 units subcutaneous daily -Moderate dose sliding scale NovoLog -4 times a day glucometers MAINTENANCE ISSUES -DVT prophylaxis; Lovenox 40 mg subcutaneous daily -GI prophylaxis; not indicated -Green catheter; not indicated -Nutrition; consistent carb diet -Nicotine dependence; not required CODE STATUS-FULL CODE ADMISSION STATUS-patient will be admitted to inpatient status, expect at least a 2 night hospital stay for evaluation and management of problems as outlined above. At the time of this admission I do not reasonably expected evaluation and management of this problem will require more than a 96 hour hospital stay. DISPOSITION-anticipate discharge to home after the hospital stay. PRIMARY CARE PROVIDER-Dr. Ruiz
[2016-12-16] MEDS ORDERED: Succinylcholine 200 MG/10 ML MDV ONE (12:14)
[2016-12-16] MEDS ORDERED: Ondansetron 4 MG/2 ML SDV ONE (12:14)
[2016-12-16] MEDS ORDERED: Dexamethasone 4 MG/ML SDV ONE (12:14)
[2016-12-16] MEDS ORDERED: Rocuronium 50 MG/5 ML Vial ONE (12:14)
[2016-12-16] MEDS ORDERED: Naloxone 0.4 MG/ML SDV IVPUSH PRN (13:09)
[2016-12-16] MEDS ORDERED: Clindamycin Phosphate 900 MG in Sodium Chloride 0.9% 100 ML IV ONE (13:15)
[2016-12-16] MEDS: HYDROmorphone/Normal Saline 15 MG/30 ML PCA IV PRN ×2 (13:18→13:37)
[2016-12-16] MEDS: FLUoxetine 20 MG Cap PO SCH (14:21)
[2016-12-16] MEDS: Lisinopril 2.5 MG Tab PO SCH (14:22)
[2016-12-16] MEDS: Aspirin 81 MG Tab.Chew PO SCH (14:23)
[2016-12-16] MEDS: Ampicillin/Sulbactam Na 3 GM in Sodium Chloride 0.9% 100 ML IV SCH ×2 (16:25→21:06)
[2016-12-16] MEDS: Clindamycin Phosphate 900 MG in Sodium Chloride 0.9% 100 ML IV SCH (19:39)
[2016-12-16] MEDS: atorvaSTATin 20 MG Tab PO SCH (21:06)
[2016-12-17] MEDS: Ampicillin/Sulbactam Na 3 GM in Sodium Chloride 0.9% 100 ML IV SCH ×4 (04:15→23:03)
[2016-12-17] MEDS: Clindamycin Phosphate 900 MG in Sodium Chloride 0.9% 100 ML IV SCH ×3 (04:22→19:33)
[2016-12-17] MEDS: Dextrose 5%-Lactated Ringers 1,000 ML IV SCH (07:36)
[2016-12-17] MEDS ORDERED: Midazolam 1 MG/ML 2 ML SDV ONE (07:54)
[2016-12-17] MEDS ORDERED: Propofol 200 MG/20 ML SDV ONE (07:54)
[2016-12-17] MEDS ORDERED: fentaNYL 100 MCG/2 ML SDV ONE (07:54)
[2016-12-17] MEDS: Insulin Detemir 100 Units/ML 3 ML Pen SUBCUT SCH (08:12)
[2016-12-17] MEDS: Insulin Aspart 100 Units/ML 3 ML Pen SUBCUT SCH ×2 (08:12→12:30)
[2016-12-17] MEDS: Lactated Ringers 1,000 ML IV SCH ×2 (10:30→23:03)
--- NOTE | 2016-12-17 11:34 | PCM.PN ---
- General Info Date of Service: 12/17/16 Functional Status: Reports: Pain Controlled, Tolerating Diet, Ambulating - Review of Systems General: Denies: Fever, Chills Pulmonary: Reports: No Symptoms Cardiovascular: Reports: No Symptoms Gastrointestinal: Reports: No Symptoms Musculoskeletal: Reports: Arm Pain Systems Review Comment:: Mr. Mishra is been stable since yesterday, vital signs are good and he is remained afebrile. He underwent debridement of abscess cavity on his right forearm yesterday by Dr. Brandt and was taken back to surgery again this morning for further debridement. - Patient Data Vitals - Most Recent: Last Vital Signs Temp 96.6 F 12/17/16 10:30 Pulse 62 12/17/16 10:30 Resp 16 12/17/16 10:30 BP 102/63 12/17/16 10:30 Pulse Ox 91 L 12/17/16 10:30 Weight - Most Recent: 188 lb 11.204 oz I&O - Last 24 Hours: Intake & Output 12/16/16 12/17/16 12/17/16 22:59 06:59 14:59 Intake Total 2111 1092 120 Output Total 1550 Balance 561 1092 120 Lab Results Last 24 Hours: Laboratory Results - last 24 hr 12/17/16 12/17/16 Range/Units 04:43 04:43 WBC 18.8 H (4.5-11.0) K/uL RBC 4.45 (4.30-5.90) M/uL Hgb 13.0 (12.0-15.0) g/dL Hct 39.3 L (40.0-54.0) % MCV 88 (80-98) fL MCH 29 (27-31) pg MCHC 33 (32-36) % Plt Count 379 (150-400) K/uL Neut % (Auto) 82 H (36-66) % Lymph % (Auto) 11 L (24-44) % [place] % (Auto) 7 H (2-6) % Eos % (Auto) 0 L (2-4) % Baso % (Auto) 0 (0-1) % Sodium 139 L (140-148) mmol/L Potassium 4.4 (3.6-5.2) mmol/L Chloride 104 (100-108) mmol/L Carbon Dioxide 29 (21-32) mmol/L Anion Gap 10.4 (5.0-14.0) mmol/L BUN 16 (7-18) mg/dL Creatinine 0.9 (0.8-1.3) mg/dL Est Cr Clr Drug Dosing 92.43 mL/min Estimated GFR (MDRD) > 60 (>60) Glucose 351 H (74-106) mg/dL Calcium 8.1 L (8.5-10.1) mg/dL [place] Results Last 24 Hours: Microbiology 12/16/16 12:27 Anaerobic Culture - Preliminary Arm, Right - Lower NO GROWTH AFTER 1 DAY 12/16/16 12:27 Gram Stain - Final Arm, Right - Lower Wound Culture - Preliminary Med Orders - Current: Current Medications Acetaminophen (Tylenol) 650 mg PO Q4H PRN PRN Reason: Pain (Mild 1-3)/fever Last Admin: 12/15/16 16:11 Dose: 650 mg Aspirin (Aspirin) 81 mg PO DAILY [facility] Last Admin: 12/16/16 14:23 Dose: Not Given Atorvastatin Calcium (Lipitor) 40 mg PO BEDTIME [facility] Last Admin: 12/16/16 21:06 Dose: 40 mg Bacitracin (Bacitracin Oint 1 Gm) 1 dose TOP DAILY [facility] Last Admin: 12/16/16 08:20 Dose: 1 dose Dextrose (Glutose 15) 15 gm PO ONETIME PRN PRN Reason: Hypoglycemia Dextrose/Water (Dextrose 50% In Water) 50 ml IV ONETIME PRN PRN Reason: Hypoglycemia Docusate Sodium (Colace) 100 mg PO BID PRN PRN Reason: Constipation Fluoxetine HCl (Prozac) 40 mg PO DAILY [facility] Last Admin: 12/16/16 14:21 Dose: 40 mg Hydromorphone HCl (Dilaudid [employer] 15 Mg In Ns 30 Ml) 0 mg IV ASDIRECTED PRN; Protocol PRN Reason: Pain Last Admin: 12/16/16 13:37 Dose: 15 mg Ampicillin Sodium/Sulbactam (Sodium 3 gm/ Sodium Chloride) 100 mls @ 200 mls/ hr IV Q6H [facility] Last Admin: 12/17/16 04:15 Dose: 200 mls/hr Clindamycin Phosphate 900 mg/ (Sodium Chloride) 106 mls @ 212 mls/hr IV Q8H [facility] Last Admin: 12/17/16 04:22 Dose: 212 mls/hr Lactated Ringer's (Ringers, Lactated) 1,000 mls @ 80 mls/hr IV ASDIRECTED [facility] Insulin Detemir (Levemir) 42 unit SUBCUT DAILY [facility] Lisinopril (Prinivil) 2.5 mg PO DAILY [facility] Last Admin: 12/16/16 14:22 Dose: 2.5 mg Magnesium Hydroxide (Milk Of Magnesia) 30 ml PO Q12H PRN PRN Reason: Constipation Melatonin (Melatonin) 9 mg PO BEDTIME PRN PRN Reason: Sleep Last Admin: 12/13/16 21:21 Dose: 9 mg Naloxone HCl (Narcan) 0.4 mg IVPUSH Q2M PRN PRN Reason: Respiratory Distress Non-Formulary Medication (Metformin Hcl [Metformin Hcl]) 1,000 mg PO BIDM [facility] Ondansetron HCl (Zofran) 4 mg IV Q4H PRN PRN Reason: Nausea/Vomiting Oxycodone HCl (Oxycodone) 5 mg PO Q4H PRN PRN Reason: Pain (moderate 4-6) Last Admin: 12/16/16 04:37 Dose: 5 mg Polyethylene Glycol (Miralax) 17 gm PO DAILY PRN PRN Reason: Constipation Sodium Chloride (Saline Flush) 10 ml FLUSH ASDIRECTED PRN PRN Reason: Keep Vein Open Discontinued Medications Bupivacaine HCl (Marcaine 0.5%) Confirm Administered Dose 50 ml .ROUTE .STK-MED ONE Stop: 12/16/16 06:38 Dexamethasone (Dexamethasone) Confirm Administered Dose 4 mg .ROUTE .STK-MED ONE Stop: 12/16/16 12:15 Enoxaparin Sodium (Lovenox) 40 mg SUBCUT Q24H [facility] Last Admin: 12/15/16 17:25 Dose: 40 mg Fentanyl (Sublimaze) Confirm Administered Dose 100 mcg .ROUTE .STK-MED ONE Stop: 12/16/16 07:02 Fentanyl (Sublimaze) Confirm Administered Dose 100 mcg .ROUTE .STK-MED ONE Stop: 12/16/16 12:18 Fentanyl (Sublimaze) Confirm Administered Dose 100 mcg .ROUTE .STK-MED ONE Stop: 12/17/16 07:55 Lactated Ringer's (Ringers, Lactated) 1,000 mls @ 500 mls/hr IV ASDIRECTED [facility] Last Admin: 10/16/17 14:27 Dose: 500 mls/hr Vancomycin HCl 1.25 gm/ Sodium (Chloride) 250 mls @ 150 mls/hr IV ONETIME ONE Stop: 12/11/16 16:39 Last Admin: 12/11/16 15:19 Dose: 150 mls/hr Meropenem 1 gm/ Sodium (Chloride) 100 mls @ 200 mls/hr IV Q8H [facility] Last Admin: 12/11/16 17:36 Dose: 200 mls/hr Lactated Ringer's (Ringers, Lactated) 500 mls @ 500 mls/hr IV .BOLUS [facility] Stop: 12/11/16 19:53 Last Admin: 12/11/16 17:34 Dose: 500 mls/hr Lactated Ringer's (Ringers, Lactated) 1,000 mls @ 125 mls/hr IV ASDIRECTED [facility] Last Admin: 12/12/16 09:10 Dose: 125 mls/hr Meropenem 1 gm/ Sodium (Chloride) 100 mls @ 200 mls/hr IV Q8H [facility] Last Admin: 12/14/16 09:45 Dose: 200 mls/hr Vancomycin HCl 1.25 gm/ Sodium (Chloride) 250 mls @ 167 mls/hr IV Q12H [facility] Stop: 12/13/16 18:00 Last Admin: 12/13/16 15:07 Dose: 167 mls/hr Vancomycin HCl 1.25 gm/ Sodium (Chloride) 250 mls @ 175 mls/hr IV Q8H [facility] Last Admin: 12/14/16 06:09 Dose: 175 mls/hr Cefazolin Sodium/Dextrose 1 gm (/ Premix) 50 mls @ 100 mls/hr IV Q8H [facility] Last Admin: 12/16/16 08:24 Dose: 100 mls/hr Dextrose/Lactated Ringer's (Dextrose 5%-Lactated Ringers) 1,000 mls @ 100 mls/ hr IV ASDIRECTED [facility] Last Admin: 12/17/16 07:36 Dose: 100 mls/hr Clindamycin Phosphate 900 mg/ (Sodium Chloride) 106 mls @ 212 mls/hr IV ONETIME ONE Stop: 12/16/16 13:44 Last Admin: 12/16/16 13:05 Dose: 212 mls/hr Insulin Aspart (Novolog) 0 unit SUBCUT QIDACANDBED [facility] PRN Reason: Protocol Last Admin: 12/17/16 08:12 Dose: 8 units Insulin Detemir (Levemir) 30 unit SUBCUT DAILY [facility] Last Admin: 12/15/16 09:23 Dose: 30 units Insulin Detemir (Levemir) 36 unit SUBCUT DAILY [facility] Last Admin: 12/17/16 08:12 Dose: 36 units Lidocaine/Epinephrine (Xylocaine 1% With Epinephrine 1:100,000) Confirm Administered Dose 50 ml .ROUTE .STK-MED ONE Stop: 12/16/16 06:38 Midazolam HCl (Versed 1 Mg/Ml) Confirm Administered Dose 2 mg .ROUTE .STK-MED ONE Stop: 12/16/16 07:02 Midazolam HCl (Versed 1 Mg/Ml) Confirm Administered Dose 2 mg .ROUTE .STK-MED ONE Stop: 12/17/16 07:55 Ondansetron HCl (Zofran) Confirm Administered Dose 4 mg .ROUTE .STK-MED ONE Stop: 12/16/16 12:15 Propofol (Diprivan 20 Ml) Confirm Administered Dose 200 mg .ROUTE .STK-MED ONE Stop: 12/16/16 07:02 Propofol (Diprivan 20 Ml) Confirm Administered Dose 200 mg .ROUTE .STK-MED ONE Stop: 12/17/16 07:55 Rocuronium [place] (Zemuron) Confirm Administered Dose 50 mg .ROUTE .STK-MED ONE Stop: 12/16/16 12:15 Succinylcholine Chloride (Quelicin) Confirm Administered Dose 200 mg .ROUTE .STK -MED ONE Stop: 12/16/16 12:15 Vancomycin HCl (Vancomycin) 1 gm IV .PHARMACY TO DOSE [facility] Stop: 12/11/16 17:01 - Exam General: Alert, Oriented, Cooperative, Mild Distress Lungs: Clear to Auscultation, Normal Respiratory Effort Cardiovascular: Regular Rate, Regular Rhythm, No Murmurs GI/Abdominal Exam: Normal Bowel Sounds, Soft, Non-Tender, No Organomegaly, No Distention Extremities: Arm Pain, Other (Dressing in place right forearm) Skin: Warm, Dry - Problem List Review Problem List Initiated/Reviewed/Updated: Yes - My Orders Last 24 Hours: My Active Orders 12/17/16 11:28 Insulin Detemir [Levemir] 42 unit SUBCUT DAILY 12/17/16 11:30 GLUCOSE POC LAB TO COLLECT [POC] QIDACANDBED 12/17/16 16:30 GLUCOSE POC LAB TO COLLECT [POC] QIDACANDBED 12/17/16 17:00 metFORMIN HCl [Metformin HCl] 1,000 mg PO BIDM 12/17/16 21:00 GLUCOSE POC LAB TO COLLECT [POC] QIDACANDBED 12/18/16 07:30 GLUCOSE POC LAB TO COLLECT [POC] QIDACANDBED 12/18/16 11:30 GLUCOSE POC LAB TO COLLECT [POC] QIDACANDBED 12/18/16 16:30 GLUCOSE POC LAB TO COLLECT [POC] QIDACANDBED 12/18/16 21:00 GLUCOSE POC LAB TO COLLECT [POC] QIDACANDBED 12/19/16 07:30 GLUCOSE POC LAB TO COLLECT [POC] QIDACANDBED 12/19/16 11:30 GLUCOSE POC LAB TO COLLECT [POC] QIDACANDBED 12/19/16 16:30 GLUCOSE POC LAB TO COLLECT [POC] QIDACANDBED 12/19/16 21:00 GLUCOSE POC LAB TO COLLECT [POC] QIDACANDBED 12/20/16 07:30 GLUCOSE POC LAB TO COLLECT [POC] QIDACANDBED 12/20/16 11:30 GLUCOSE POC LAB TO COLLECT [POC] QIDACANDBED 12/20/16 16:30 GLUCOSE POC LAB TO COLLECT [POC] QIDACANDBED 12/20/16 21:00 GLUCOSE POC LAB TO COLLECT [POC] QIDACANDBED 12/21/16 07:30 GLUCOSE POC LAB TO COLLECT [POC] QIDACANDBED 12/21/16 11:30 GLUCOSE POC LAB TO COLLECT [POC] QIDACANDBED 12/21/16 16:30 GLUCOSE POC LAB TO COLLECT [POC] QIDACANDBED 12/21/16 21:00 GLUCOSE POC LAB TO COLLECT [POC] QIDACANDBED 12/22/16 07:30 GLUCOSE POC LAB TO COLLECT [POC] QIDACANDBED 12/22/16 11:30 GLUCOSE POC LAB TO COLLECT [POC] QIDACANDBED 12/22/16 16:30 GLUCOSE POC LAB TO COLLECT [POC] QIDACANDBED - Plan Plan:: ASSESSMENT AND PLAN CELLULITIS OF THE RIGHT ARM WITH EARLY SEPSIS-injury last week, developing cellulitis since that time. He has known underlying type 2 diabetes mellitus. Status post debridement of abscess right forearm yesterday and again today -IV fluids as ordered by Dr. Brandt -Blood cultures negative thus far -Pain medication as needed -Cefazolin 1 g IV every 8 hours -Surgical management per Dr. Brandt TYPE 2 DIABETES MELLITUS- glucose levels have been further elevated over the past 24 hours -Resume metformin 1 g by mouth twice a day -Increase Levemir to 42 units subcutaneous daily -Moderate dose sliding scale NovoLog -4 times a day glucometers MAINTENANCE ISSUES -DVT prophylaxis; Lovenox 40 mg subcutaneous daily -GI prophylaxis; not indicated -Green catheter; not indicated -Nutrition; consistent carb diet -Nicotine dependence; not required CODE STATUS-FULL CODE ADMISSION STATUS-patient will be admitted to inpatient status, expect at least a 2 night hospital stay for evaluation and management of problems as outlined above. At the time of this admission I do not reasonably expected evaluation and management of this problem will require more than a 96 hour hospital stay. DISPOSITION-anticipate discharge to home after the hospital stay. PRIMARY CARE PROVIDER-Dr. Ruiz
[2016-12-17] MEDS: Aspirin 81 MG Tab.Chew PO SCH (11:55)
[2016-12-17] MEDS: FLUoxetine 20 MG Cap PO SCH (11:56)
[2016-12-17] MEDS: Lisinopril 2.5 MG Tab PO SCH (11:56)
[2016-12-17] MEDS: Bacitracin Oint 1 GM U/D Packet TOP SCH (12:00)
[2016-12-17] MEDS: Insulin Aspart 100 Units/ML 3 ML Pen SUBCUT PRN ×3 (12:21→23:07)
[2016-12-17] MEDS ORDERED: Insulin Detemir 100 Units/ML 3 ML Pen SUBCUT ONE ×2 (12:30)
[2016-12-17] MEDS: metFORMIN 500 MG Tab PO SCH (17:02)
[2016-12-17] MEDS: atorvaSTATin 20 MG Tab PO SCH (23:05)
[2016-12-17] MEDS: HYDROmorphone/Normal Saline 15 MG/30 ML PCA IV PRN (23:26)
[2016-12-18] MEDS: Ampicillin/Sulbactam Na 3 GM in Sodium Chloride 0.9% 100 ML IV SCH ×4 (03:13→21:52)
[2016-12-18] MEDS: Clindamycin Phosphate 900 MG in Sodium Chloride 0.9% 100 ML IV SCH ×3 (03:52→19:57)
[2016-12-18] MEDS ORDERED: Propofol 200 MG/20 ML SDV ONE (07:08)
[2016-12-18] MEDS ORDERED: fentaNYL 100 MCG/2 ML SDV ONE (07:08)
[2016-12-18] MEDS ORDERED: Midazolam 1 MG/ML 2 ML SDV ONE (07:08)
--- NOTE | 2016-12-18 07:51 | PN ---
DATE OF SERVICE: 12/18/2016 SUBJECTIVE: Edgar is n.p.o. He will be going down for a dressing change of his right arm. He had an incision and drainage on 12/16/2016. He reports his pain is controlled. White count 16.8, blood sugar 166. He has been afebrile. Remainder of review of systems is negative for any pertinent positives and negatives. OBJECTIVE: GENERAL: Edgar Mishra is a pleasant 56-year-old male. He is alert and orientated. VITAL SIGNS: TPR 97.3, 62, 16, and blood pressure 112/63. HEENT: Negative. NECK: Supple. HEART: Regular rate and rhythm. LUNGS: Clear. EXTREMITIES: Right arm on dressing is dry and intact. Extremities without peripheral edema. ASSESSMENT: Incision and drainage of wound to right arm. PLAN: Rx magnesium 2 g IV x72 hours. Remain n.p.o. until after procedure. We will evaluate p.r.n. or in a.m. Mariah Roach PA-C /[id number]
[2016-12-18] MEDS: metFORMIN 500 MG Tab PO SCH ×2 (08:39→17:40)
[2016-12-18] MEDS: Insulin Detemir 100 Units/ML 3 ML Pen SUBCUT SCH (08:39)
[2016-12-18] MEDS: Lisinopril 2.5 MG Tab PO SCH (08:39)
[2016-12-18] MEDS: FLUoxetine 20 MG Cap PO SCH (08:39)
[2016-12-18] MEDS: Aspirin 81 MG Tab.Chew PO SCH (08:39)
[2016-12-18] MEDS: Insulin Aspart 100 Units/ML 3 ML Pen SUBCUT PRN ×2 (08:42→17:20)
[2016-12-18] MEDS: Magnesium Sulfate/Water 2 GM in Premix Bag 1 BAG IV SCH ×3 (09:00→22:40)
--- NOTE | 2016-12-18 09:18 | OR ---
DATE OF PROCEDURE: 12/17/2016 PREOPERATIVE DIAGNOSIS: Necrotizing infection, right forearm. POSTOPERATIVE DIAGNOSIS: Necrotizing infection, right forearm. OPERATIVE PROCEDURE: Debridement of necrotizing infection of right forearm ([id number], [id number] [phone]). ANESTHESIA: IV sedation. INDICATION FOR PROCEDURE: Please see attached progress notes. Potential risks of the procedure including further bleeding and infection were reviewed, and the patient wishes to proceed. DETAILS OF PROCEDURE: The patient was taken to the operating room and placed in a supine position. IV sedation was administered, after which the operative dressing was taken down. The wound was found to have some scattered necrotic material within it. After the area was prepped and draped, that area was debrided. The entire area of the debridement was scattered through the wound, which measured at 26 cm in length and an open area in which the debridement was undertaken of around 65 cm. After the necrotic material was debrided, iodoform gauze was once again placed and dressing applied. The patient was taken to the recovery room in a satisfactory condition. Madan Brandt MD /[id number]
[2016-12-18] MEDS: Lactated Ringers 1,000 ML IV SCH (10:17)
--- NOTE | 2016-12-18 10:45 | PCM.PN ---
- General Info Date of Service: 12/18/16 Functional Status: Reports: Pain Controlled, Tolerating Diet, Ambulating - Review of Systems Pulmonary: Denies: Shortness of Breath Musculoskeletal: Denies: Arm Pain Systems Review Comment:: No acute events overnight. He did have his wound packed in the operating room this morning. Currently reports no pain in the right arm. Swelling is going down on the right hand. He is able to wiggle his fingers without difficulty today. Wound culture is growing staph aureus with sensitivities pending. - Patient Data Vitals - Most Recent: Last Vital Signs Temp 36.1 C 12/18/16 08:50 Pulse 86 12/18/16 08:50 Resp 18 12/18/16 08:50 BP 130/73 12/18/16 08:50 Pulse Ox 97 12/18/16 08:50 Weight - Most Recent: 85.593 kg I&O - Last 24 Hours: Intake & Output 12/17/16 12/18/16 12/18/16 22:59 06:59 14:59 Intake Total 1377 400 Output Total 200 600 Balance 1177 -200 Lab Results Last 24 Hours: Laboratory Results - last 24 hr 12/18/16 12/18/16 Range/Units 04:40 04:40 WBC 16.1 H (4.5-11.0) K/uL RBC 4.29 L (4.30-5.90) M/uL Hgb 12.4 (12.0-15.0) g/dL Hct 38.5 L (40.0-54.0) % MCV 90 (80-98) fL MCH 29 (27-31) pg MCHC 32 (32-36) % Plt Count 436 H (150-400) K/uL Sodium 142 (140-148) mmol/L Potassium 4.0 (3.6-5.2) mmol/L Chloride 107 (100-108) mmol/L Carbon Dioxide 31 (21-32) mmol/L Anion Gap 4.5 L (5.0-14.0) mmol/L BUN 20 H (7-18) mg/dL Creatinine 0.8 (0.8-1.3) mg/dL Est Cr Clr Drug Dosing 103.98 mL/min Estimated GFR (MDRD) > 60 (>60) Glucose 166 H (74-106) mg/dL Calcium 7.8 L (8.5-10.1) mg/dL Phosphorus 3.9 (2.5-4.9) mg/dL Magnesium 1.6 L (1.8-2.4) mg/dL Total Bilirubin 0.2 (0.2-1.0) mg/dL AST 27 (15-37) U/L ALT 27 (12-78) U/L Alkaline Phosphatase 141 H (46-116) U/L Total Protein 6.4 (6.4-8.2) g/dL Albumin 2.0 L (3.4-5.0) g/dL Globulin 4.4 H (2.3-3.5) g/dL Albumin/Globulin Ratio 0.5 L (1.2-2.2) [place]im Results Last 24 Hours: Microbiology 12/16/16 12:27 Anaerobic Culture - Preliminary Arm, Right - Lower NO GROWTH AFTER 2 DAYS 12/16/16 12:27 Gram Stain - Final Arm, Right - Lower Wound Culture - Preliminary Med Orders - Current: Current Medications Acetaminophen (Tylenol) 650 mg PO Q4H PRN PRN Reason: Pain (Mild 1-3)/fever Last Admin: 12/15/16 16:11 Dose: 650 mg Hydrocodone Bitart/Acetaminophen ([place] 325-5 Mg) 1 - 2 tab PO Q4H PRN PRN Reason: PAIN Aspirin (Aspirin) 81 mg PO DAILY [facility] Last Admin: 12/18/16 08:39 Dose: 81 mg Atorvastatin Calcium (Lipitor) 40 mg PO BEDTIME [facility] Last Admin: 12/17/16 23:05 Dose: 40 mg Bacitracin (Bacitracin Oint 1 Gm) 1 dose TOP DAILY [facility] Last Admin: 12/17/16 12:00 Dose: 1 dose Dextrose (Glutose 15) 15 gm PO ONETIME PRN PRN Reason: Hypoglycemia Dextrose/Water (Dextrose 50% In Water) 50 ml IV ONETIME PRN PRN Reason: Hypoglycemia Docusate Sodium (Colace) 100 mg PO BID PRN PRN Reason: Constipation Fluoxetine HCl (Prozac) 40 mg PO DAILY [facility] Last Admin: 12/18/16 08:39 Dose: 40 mg Ampicillin Sodium/Sulbactam (Sodium 3 gm/ Sodium Chloride) 100 mls @ 200 mls/ hr IV Q6H [facility] Last Admin: 12/18/16 03:13 Dose: 200 mls/hr Clindamycin Phosphate 900 mg/ (Sodium Chloride) 106 mls @ 212 mls/hr IV Q8H [facility] Last Admin: 12/18/16 03:52 Dose: 212 mls/hr Lactated Ringer's (Ringers, Lactated) 1,000 mls @ 80 mls/hr IV ASDIRECTED [facility] Last Admin: 12/18/16 10:17 Dose: 80 mls/hr Magnesium Sulfate 2 gm/ Premix 50 mls @ 25 mls/hr IV Q6H [facility] Stop: 12/18/16 23:59 Last Admin: 12/18/16 09:00 Dose: 25 mls/hr Insulin Aspart (Novolog) 0 unit SUBCUT QID PRN; Protocol PRN Reason: HIGH CORRECTIONAL DOSE Last Admin: 12/18/16 08:42 Dose: 3 unit Insulin Detemir (Levemir) 42 unit SUBCUT DAILY [facility] Last Admin: 12/18/16 08:39 Dose: 42 units Lisinopril (Prinivil) 2.5 mg PO DAILY [facility] Last Admin: 12/18/16 08:39 Dose: 2.5 mg Magnesium Hydroxide (Milk Of Magnesia) 30 ml PO Q12H PRN PRN Reason: Constipation Melatonin (Melatonin) 9 mg PO BEDTIME PRN PRN Reason: Sleep Last Admin: 12/13/16 21:21 Dose: 9 mg Metformin HCl (Glucophage) 1,000 mg PO BIDM [facility] Last Admin: 12/18/16 08:39 Dose: 1,000 mg Ondansetron HCl (Zofran) 4 mg IV Q4H PRN PRN Reason: Nausea/Vomiting Oxycodone HCl (Oxycodone) 5 mg PO Q4H PRN PRN Reason: Pain (moderate 4-6) Last Admin: 12/16/16 04:37 Dose: 5 mg Polyethylene Glycol (Miralax) 17 gm PO DAILY PRN PRN Reason: Constipation Sodium Chloride (Saline Flush) 10 ml FLUSH ASDIRECTED PRN PRN Reason: Keep Vein Open Discontinued Medications Bupivacaine HCl (Marcaine 0.5%) Confirm Administered Dose 50 ml .ROUTE .STK-MED ONE Stop: 12/16/16 06:38 Dexamethasone (Dexamethasone) Confirm Administered Dose 4 mg .ROUTE .STK-MED ONE Stop: 12/16/16 12:15 Enoxaparin Sodium (Lovenox) 40 mg SUBCUT Q24H [facility] Last Admin: 12/15/16 17:25 Dose: 40 mg Fentanyl (Sublimaze) Confirm Administered Dose 100 mcg .ROUTE .STK-MED ONE Stop: 12/16/16 07:02 Fentanyl (Sublimaze) Confirm Administered Dose 100 mcg .ROUTE .STK-MED ONE Stop: 12/16/16 12:18 Fentanyl (Sublimaze) Confirm Administered Dose 100 mcg .ROUTE .STK-MED ONE Stop: 12/17/16 07:55 Fentanyl (Sublimaze) Confirm Administered Dose 100 mcg .ROUTE .STK-MED ONE Stop: 12/18/16 07:09 Hydromorphone HCl (Dilaudid [facility] 15 Mg In Ns 30 Ml) 0 mg IV ASDIRECTED PRN; Protocol PRN Reason: Pain Last Admin: 12/17/16 23:26 Dose: 15 mg Lactated Ringer's (Ringers, Lactated) 1,000 mls @ 500 mls/hr IV ASDIRECTED [facility] Last Admin: 12/11/16 14:27 Dose: 500 mls/hr Vancomycin HCl 1.25 gm/ Sodium (Chloride) 250 mls @ 150 mls/hr IV ONETIME ONE Stop: 12/11/16 16:39 Last Admin: 12/11/16 15:19 Dose: 150 mls/hr Meropenem 1 gm/ Sodium (Chloride) 100 mls @ 200 mls/hr IV Q8H [facility] Last Admin: 12/11/16 17:36 Dose: 200 mls/hr Lactated Ringer's (Ringers, Lactated) 500 mls @ 500 mls/hr IV .BOLUS JACQUELYN Stop: 12/11/16 19:53 Last Admin: 12/11/16 17:34 Dose: 500 mls/hr Lactated Ringer's (Ringers, Lactated) 1,000 mls @ 125 mls/hr IV ASDIRECTED [facility] Last Admin: 12/12/16 09:10 Dose: 125 mls/hr Meropenem 1 gm/ Sodium (Chloride) 100 mls @ 200 mls/hr IV Q8H [facility] Last Admin: 12/14/16 09:45 Dose: 200 mls/hr Vancomycin HCl 1.25 gm/ Sodium (Chloride) 250 mls @ 167 mls/hr IV Q12H [facility] Stop: 12/13/16 18:00 Last Admin: 12/13/16 15:07 Dose: 167 mls/hr Vancomycin HCl 1.25 gm/ Sodium (Chloride) 250 mls @ 175 mls/hr IV Q8H [facility] Last Admin: 12/14/16 06:09 Dose: 175 mls/hr Cefazolin Sodium/Dextrose 1 gm (/ Premix) 50 mls @ 100 mls/hr IV Q8H [facility] Last Admin: 12/16/16 08:24 Dose: 100 mls/hr Dextrose/Lactated Ringer's (Dextrose 5%-Lactated Ringers) 1,000 mls @ 100 mls/ hr IV ASDIRECTED [facility] Last Admin: 12/17/16 07:36 Dose: 100 mls/hr Clindamycin Phosphate 900 mg/ (Sodium Chloride) 106 mls @ 212 mls/hr IV ONETIME ONE Stop: 12/16/16 13:44 Last Admin: 12/16/16 13:05 Dose: 212 mls/hr Insulin Aspart (Novolog) 0 unit SUBCUT QIDACANDBED [facility] PRN Reason: Protocol Last Admin: 12/17/16 12:30 Dose: Not Given Insulin Detemir (Levemir) 30 unit SUBCUT DAILY [facility] Last Admin: 12/15/16 09:23 Dose: 30 units Insulin Detemir (Levemir) 36 unit SUBCUT DAILY [facility] Last Admin: 12/17/16 08:12 Dose: 36 units Insulin Detemir (Levemir) 3 unit SUBCUT ONETIME ONE Stop: 12/17/16 12:31 Insulin Detemir (Levemir) 6 unit SUBCUT ONETIME ONE Stop: 12/17/16 12:31 Last Admin: 12/17/16 12:25 Dose: 6 units Lidocaine/Epinephrine (Xylocaine 1% With Epinephrine 1:100,000) Confirm Administered Dose 50 ml .ROUTE .STK-MED ONE Stop: 12/16/16 06:38 Midazolam HCl (Versed 1 Mg/Ml) Confirm Administered Dose 2 mg .ROUTE .STK-MED ONE Stop: 12/16/16 07:02 Midazolam HCl (Versed 1 Mg/Ml) Confirm Administered Dose 2 mg .ROUTE .STK-MED ONE Stop: 12/17/16 07:55 Midazolam HCl (Versed 1 Mg/Ml) Confirm Administered Dose 2 mg .ROUTE .STK-MED ONE Stop: 12/18/16 07:09 Naloxone HCl (Narcan) 0.4 mg IVPUSH Q2M PRN PRN Reason: Respiratory Distress Ondansetron HCl (Zofran) Confirm Administered Dose 4 mg .ROUTE .STK-MED ONE Stop: 12/16/16 12:15 Propofol (Diprivan 20 Ml) Confirm Administered Dose 200 mg .ROUTE .STK-MED ONE Stop: 12/16/16 07:02 Propofol (Diprivan 20 Ml) Confirm Administered Dose 200 mg .ROUTE .STK-MED ONE Stop: 12/17/16 07:55 Propofol (Diprivan 20 Ml) Confirm Administered Dose 200 mg .ROUTE .STK-MED ONE Stop: 12/18/16 07:09 Rocuronium [place] (Zemuron) Confirm Administered Dose 50 mg .ROUTE .STK-MED ONE Stop: 12/16/16 12:15 Succinylcholine Chloride (Quelicin) Confirm Administered Dose 200 mg .ROUTE .STK -MED ONE Stop: 12/16/16 12:15 Vancomycin HCl (Vancomycin) 1 gm IV .PHARMACY TO DOSE JACQUELYN Stop: 12/11/16 17:01 - Exam Quality Assessment: No: Supplemental Oxygen General: Alert, Oriented, Cooperative, No Acute Distress Neck: Supple Lungs: Normal Respiratory Effort Extremities: No Pedal Edema, Other (right arm wrapped in dry intact surgical dressing covered with kerlix ) Skin: Warm, Dry Psy/Mental Status: Alert, Normal Affect - Problem List Review Problem List Initiated/Reviewed/Updated: Yes - My Orders Last 24 Hours: My Active Orders 12/19/16 05:00 BASIC METABOLIC PANEL,BMP [CHEM] Timed CBC W/O DIFF,HEMOGRAM [HEME] Timed (1) - Plan Plan:: ASSESSMENT AND PLAN CELLULITIS OF THE RIGHT ARM WITH EARLY SEPSIS - injury last week, developing cellulitis since that time. He has known underlying type 2 diabetes mellitus. Status post debridement of abscess right forearm x2 and received wound packing/ care in the operating room today. Tolerating therapy with Amp/Sulb and clindamycin. Wound culture with staph aureus but sensitivities are pending. -Follow-up culture -Pain medication as needed -Continue current antibiotics -Surgical management per Dr. Brandt TYPE 2 DIABETES MELLITUS - glucose levels have been stable and acceptable so far. -Continue metformin 1 g by mouth twice a day -Increase Levemir to 42 units subcutaneous daily -Moderate dose sliding scale NovoLog -4 times a day glucometers MAINTENANCE ISSUES -DVT prophylaxis; ambulatory -GI prophylaxis; not indicated -Green catheter; not indicated -Nutrition; consistent carb diet DISPOSITION - anticipate discharge to home with home care after the hospital stay. Ata Posey M.D.
[2016-12-18] MEDS: Bacitracin Oint 1 GM U/D Packet TOP SCH (11:24)
--- NOTE | 2016-12-18 12:21 | PN ---
DATE OF SERVICE: 12/17/2016 The patient has been afebrile with stable vital signs. He did require ECONOMICS DEPARTMENT CHAIR use for pain control, which would not be unexpected. The incision was inspected and some additional debridement of necrotic tissue was undertaken. There did not appear to be any spreading of the necrosis, away from the current open area. The cultures are still pending, and we will continue the present antibiotics targeting the gram-positive cocci which were seen on the gram stain, and repeat the dressing change and debridement if necessary in the operating room tomorrow with IV sedation. If his blood sugars start to run high, we will change IV to plain LR. Madan Brandt MD /[id number]
[2016-12-18] MEDS: Melatonin 3 MG Tab PO PRN (21:52)
[2016-12-18] MEDS: Acetaminophen/HYDROcodone 325-5 MG Tab PO PRN (21:52)
[2016-12-18] MEDS: atorvaSTATin 20 MG Tab PO SCH (21:52)
[2016-12-19] MEDS: Lactated Ringers 1,000 ML IV SCH (00:44)
[2016-12-19] MEDS: Clindamycin Phosphate 900 MG in Sodium Chloride 0.9% 100 ML IV SCH ×4 (03:04→20:54)
[2016-12-19] MEDS: Ampicillin/Sulbactam Na 3 GM in Sodium Chloride 0.9% 100 ML IV SCH (03:06)
[2016-12-19] MEDS: Acetaminophen/HYDROcodone 325-5 MG Tab PO PRN ×2 (05:50→17:46)
[2016-12-19] MEDS: Aspirin 81 MG Tab.Chew PO SCH (08:46)
[2016-12-19] MEDS: metFORMIN 500 MG Tab PO SCH ×2 (08:46→16:55)
[2016-12-19] MEDS: Lisinopril 2.5 MG Tab PO SCH (08:47)
[2016-12-19] MEDS: FLUoxetine 20 MG Cap PO SCH (08:48)
[2016-12-19] MEDS: Insulin Detemir 100 Units/ML 3 ML Pen SUBCUT SCH (08:52)
[2016-12-19] MEDS: Sulfamethoxazole/Trimethoprim 800-160 MG Tab PO SCH ×2 (08:57→21:24)
[2016-12-19] MEDS: Bacitracin Oint 1 GM U/D Packet TOP SCH (09:03)
--- NOTE | 2016-12-19 09:21 | PN ---
DATE OF SERVICE: 12/19/2016 SUBJECTIVE: Edgar's dressing was changed this morning. He did test positive for MRSA; been afebrile. Pain has been controlled. REVIEW OF SYSTEMS: Remainder of review of systems negative for any pertinent positives and negatives. OBJECTIVE: GENERAL: Edgar Mishra is a pleasant 56-year-old male. VITAL SIGNS: TPR is 97.5, 66, 16. Blood pressure 147/82. HEENT: Negative. NECK: Supple. HEART: Regular rate and rhythm. LUNGS: Clear. EXTREMITIES: Right arm dressing removed per Madan Brandt M.D. Dressing was put on by nursing staff. The patient did look at his arm. Extremities without peripheral edema. ASSESSMENT: Incision and drainage of wound, right arm. PLAN: 1. Discontinue Unasyn. 2. Septra DS b.i.d. p.o. 3. Home Care to set up dressing changes. 4. Occupational Therapy consultation to evaluate and treat right arm. 5. Good pulmonary toilet encouraged. 6. We will evaluate p.r.n. or in the a.m. Mariah Roach PA-C /[id number]
--- NOTE | 2016-12-19 10:50 | PCM.PN ---
- General Info Date of Service: 12/19/16 Functional Status: Reports: Pain Controlled, Tolerating Diet, Ambulating - Review of Systems General: Denies: Fever Musculoskeletal: Denies: Arm Pain Systems Review Comment:: No acute events overnight. Minimal arm pain. Tolerated bedside dressing change well. Wound culture grew out MRSA. Blood sugars have been well-controlled. - Patient Data Vitals - Most Recent: Last Vital Signs Temp 36.4 C 12/19/16 07:28 Pulse 66 12/19/16 07:28 Resp 18 12/19/16 07:28 BP 147/82 H 12/19/16 07:28 Pulse Ox 95 12/19/16 07:28 Weight - Most Recent: 85.593 kg I&O - Last 24 Hours: Intake & Output 12/18/16 12/19/16 12/19/16 22:59 06:59 14:59 Intake Total 1370 1143 500 Output Total 700 450 Balance 670 1143 50 Lab Results Last 24 Hours: Laboratory Results - last 24 hr 12/19/16 12/19/16 Range/Units 05:00 05:00 WBC 12.3 H (4.5-11.0) K/uL RBC 4.23 L (4.30-5.90) M/uL Hgb 12.0 (12.0-15.0) g/dL Hct 36.9 L (40.0-54.0) % MCV 87 (80-98) fL MCH 28 (27-31) pg MCHC 33 (32-36) % Plt Count 493 H (150-400) K/uL Sodium 139 L (140-148) mmol/L Potassium 3.8 (3.6-5.2) mmol/L Chloride 104 (100-108) mmol/L Carbon Dioxide 28 (21-32) mmol/L Anion Gap 10.8 (5.0-14.0) mmol/L BUN 12 (7-18) mg/dL Creatinine 0.8 (0.8-1.3) mg/dL Est Cr Clr Drug Dosing 103.98 mL/min Estimated GFR (MDRD) > 60 (>60) Glucose 99 (74-106) mg/dL Calcium 8.0 L (8.5-10.1) mg/dL [place]im Results Last 24 Hours: Microbiology 12/16/16 12:27 Anaerobic Culture - Final Arm, Right - Lower NO GROWTH AFTER 3 DAYS 12/16/16 12:27 Gram Stain - Final Arm, Right - Lower Wound Culture - Final (Mrsa) Staphylococcus Aureus Med Orders - Current: Current Medications Acetaminophen (Tylenol) 650 mg PO Q4H PRN PRN Reason: Pain (Mild 1-3)/fever Last Admin: 12/15/16 16:11 Dose: 650 mg Hydrocodone Bitart/Acetaminophen ([place] 325-5 Mg) 1 - 2 tab PO Q4H PRN PRN Reason: PAIN Last Admin: 12/19/16 05:50 Dose: 2 tab Aspirin (Aspirin) 81 mg PO DAILY [facility] Last Admin: 12/19/16 08:46 Dose: 81 mg Atorvastatin Calcium (Lipitor) 40 mg PO BEDTIME [facility] Last Admin: 12/18/16 21:52 Dose: 40 mg Bacitracin (Bacitracin Oint 1 Gm) 1 dose TOP DAILY [facility] Last Admin: 12/19/16 09:03 Dose: 1 dose Dextrose (Glutose 15) 15 gm PO ONETIME PRN PRN Reason: Hypoglycemia Dextrose/Water (Dextrose 50% In Water) 50 ml IV ONETIME PRN PRN Reason: Hypoglycemia Docusate Sodium (Colace) 100 mg PO BID PRN PRN Reason: Constipation Fluoxetine HCl (Prozac) 40 mg PO DAILY [facility] Last Admin: 12/19/16 08:48 Dose: 40 mg Clindamycin Phosphate 900 mg/ (Sodium Chloride) 106 mls @ 212 mls/hr IV Q8H [facility] Last Admin: 12/19/16 03:57 Dose: 212 mls/hr Lactated Ringer's (Ringers, Lactated) 1,000 mls @ 80 mls/hr IV ASDIRECTED [facility] Last Admin: 12/19/16 00:44 Dose: 80 mls/hr Insulin Aspart (Novolog) 0 unit SUBCUT QID PRN; Protocol PRN Reason: HIGH CORRECTIONAL DOSE Last Admin: 12/18/16 17:20 Dose: 2 unit Insulin Detemir (Levemir) 42 unit SUBCUT DAILY [facility] Last Admin: 12/19/16 08:52 Dose: 42 units Lisinopril (Prinivil) 2.5 mg PO DAILY [facility] Last Admin: 12/19/16 08:47 Dose: 2.5 mg Magnesium Hydroxide (Milk Of Magnesia) 30 ml PO Q12H PRN PRN Reason: Constipation Melatonin (Melatonin) 9 mg PO BEDTIME PRN PRN Reason: Sleep Last Admin: 12/18/16 21:52 Dose: 9 mg Metformin HCl (Gluc[facility]) [facility] [place] Admin: 12/19/16 08:46 Dose: 1,000 mg Ondansetron HCl (Zofran) 4 mg IV Q4H PRN PRN Reason: Nausea/Vomiting Oxycodone HCl (Oxycodone) 5 mg PO Q4H PRN PRN Reason: Pain (moderate 4-6) Last Admin: 12/16/16 04:37 Dose: 5 mg Polyethylene Glycol (Miralax) 17 gm PO DAILY PRN PRN Reason: Constipation Sodium Chloride (Saline Flush) 10 ml FLUSH ASDIRECTED PRN PRN Reason: Keep Vein Open Trimethoprim/Sulfamethoxazole (Septra Ds) 1 tab PO BID [facility] Last Admin: 12/19/16 08:57 Dose: 1 tab Discontinued Medications Bupivacaine HCl (Marcaine 0.5%) Confirm Administered Dose 50 ml .ROUTE .STK-MED ONE Stop: 12/16/16 06:38 Dexamethasone (Dexamethasone) Confirm Administered Dose 4 mg .ROUTE .STK-MED ONE Stop: 12/16/16 12:15 Enoxaparin Sodium (Lovenox) 40 mg SUBCUT Q24H [facility] Last Admin: 12/15/16 17:25 Dose: 40 mg Fentanyl (Sublimaze) Confirm Administered Dose 100 mcg .ROUTE .STK-MED ONE Stop: 12/16/16 07:02 Fentanyl (Sublimaze) Confirm Administered Dose 100 mcg .ROUTE .STK-MED ONE Stop: 12/16/16 12:18 Fentanyl (Sublimaze) Confirm Administered Dose 100 mcg .ROUTE .STK-MED ONE Stop: 12/17/16 07:55 Fentanyl (Sublimaze) Confirm Administered Dose 100 mcg .ROUTE .STK-MED ONE Stop: 12/18/16 07:09 Hydromorphone HCl (Dilaudid [employer] 15 Mg In Ns 30 Ml) 0 mg IV ASDIRECTED PRN; Protocol PRN Reason: Pain Last Admin: 12/17/16 23:26 Dose: 15 mg Lactated Ringer's (Ringers, Lactated) 1,000 mls @ 500 mls/hr IV ASDIRECTED [facility] Last Admin: 12/11/16 14:27 Dose: 500 mls/hr Vancomycin HCl 1.25 gm/ Sodium (Chloride) 250 mls @ 150 mls/hr IV ONETIME ONE Stop: 12/11/16 16:39 Last Admin: 12/11/16 15:19 Dose: 150 mls/hr Meropenem 1 gm/ Sodium (Chloride) 100 mls @ 200 mls/hr IV Q8H [facility] Last Admin: 12/11/16 17:36 Dose: 200 mls/hr Lactated Ringer's (Ringers, Lactated) 500 mls @ 500 mls/hr IV .BOLUS [facility] Stop: 12/11/16 19:53 Last Admin: 12/11/16 17:34 Dose: 500 mls/hr Lactated Ringer's (Ringers, Lactated) 1,000 mls @ 125 mls/hr IV ASDIRECTED [facility] Last Admin: 12/12/16 09:10 Dose: 125 mls/hr Meropenem 1 gm/ Sodium (Chloride) 100 mls @ 200 mls/hr IV Q8H [facility] Last Admin: 12/14/16 09:45 Dose: 200 mls/hr Vancomycin HCl 1.25 gm/ Sodium (Chloride) 250 mls @ 167 mls/hr IV Q12H [facility] Stop: 12/13/16 18:00 Last Admin: 12/13/16 15:07 Dose: 167 mls/hr Vancomycin HCl 1.25 gm/ Sodium (Chloride) 250 mls @ 175 mls/hr IV Q8H [facility] Last Admin: 12/14/16 06:09 Dose: 175 mls/hr Cefazolin Sodium/Dextrose 1 gm (/ Premix) 50 mls @ 100 mls/hr IV Q8H [facility] Last Admin: 12/16/16 08:24 Dose: 100 mls/hr Dextrose/Lactated Ringer's (Dextrose 5%-Lactated Ringers) 1,000 mls @ 100 mls/ hr IV ASDIRECTED [facility] Last Admin: 12/17/16 07:36 Dose: 100 mls/hr Clindamycin Phosphate 900 mg/ (Sodium Chloride) 106 mls @ 212 mls/hr IV ONETIME ONE Stop: 12/16/16 13:44 Last Admin: 12/16/16 13:05 Dose: 212 mls/hr Ampicillin Sodium/Sulbactam (Sodium 3 gm/ Sodium Chloride) 100 mls @ 200 mls/ hr IV Q6H [facility] Last Admin: 12/19/16 03:06 Dose: 200 mls/hr Magnesium Sulfate 2 gm/ Premix 50 mls @ 25 mls/hr IV Q6H [facility] Stop: 12/18/16 23:59 Last Admin: 12/18/16 22:40 Dose: 25 mls/hr Insulin Aspart (Novolog) 0 unit SUBCUT QIDACANDBED [facility] PRN Reason: Protocol Last Admin: 12/17/16 12:30 Dose: Not Given Insulin Detemir (Levemir) 30 unit SUBCUT DAILY [facility] Last Admin: 12/15/16 09:23 Dose: 30 units Insulin Detemir (Levemir) 36 unit SUBCUT DAILY [facility] Last Admin: 12/17/16 08:12 Dose: 36 units Insulin Detemir (Levemir) 3 unit SUBCUT ONETIME ONE Stop: 12/17/16 12:31 Insulin Detemir (Levemir) 6 unit SUBCUT ONETIME ONE Stop: 12/17/16 12:31 Last Admin: 12/17/16 12:25 Dose: 6 units Lidocaine/Epinephrine (Xylocaine 1% With Epinephrine 1:100,000) Confirm Administered Dose 50 ml .ROUTE .STK-MED ONE Stop: 12/16/16 06:38 Midazolam HCl (Versed 1 Mg/Ml) Confirm Administered Dose 2 mg .ROUTE .STK-MED ONE Stop: 12/16/16 07:02 Midazolam HCl (Versed 1 Mg/Ml) Confirm Administered Dose 2 mg .ROUTE .STK-MED ONE Stop: 12/17/16 07:55 Midazolam HCl (Versed 1 Mg/Ml) Confirm Administered Dose 2 mg .ROUTE .STK-MED ONE Stop: 12/18/16 07:09 Naloxone HCl (Narcan) 0.4 mg IVPUSH Q2M PRN PRN Reason: Respiratory Distress Ondansetron HCl (Zofran) Confirm Administered Dose 4 mg .ROUTE .STK-MED ONE Stop: 12/16/16 12:15 Propofol (Diprivan 20 Ml) Confirm Administered Dose 200 mg .ROUTE .STK-MED ONE Stop: 12/16/16 07:02 Propofol (Diprivan 20 Ml) Confirm Administered Dose 200 mg .ROUTE .STK-MED ONE Stop: 12/17/16 07:55 Propofol (Diprivan 20 Ml) Confirm Administered Dose 200 mg .ROUTE .STK-MED ONE Stop: 12/18/16 07:09 Rocuronium [place] (Zemuron) Confirm Administered Dose 50 mg .ROUTE .STK-MED ONE Stop: 12/16/16 12:15 Succinylcholine Chloride (Quelicin) Confirm Administered Dose 200 mg .ROUTE .STK -MED ONE Stop: 12/16/16 12:15 Vancomycin HCl (Vancomycin) 1 gm IV .PHARMACY TO DOSE JACQUELYN Stop: 12/11/16 17:01 - Exam Quality Assessment: No: Supplemental Oxygen General: Alert, Oriented, Cooperative, No Acute Distress Lungs: Normal Respiratory Effort Extremities: Other (right arm wrapped in dry intact dressing from distal upper arm to distal lower arm. No edema of either hand) Skin: Warm, Dry Psy/Mental Status: Alert, Normal Affect - Problem List Review Problem List Initiated/Reviewed/Updated: Yes - Plan Plan:: ASSESSMENT AND PLAN CELLULITIS OF THE RIGHT ARM WITH EARLY SEPSIS - injury last week, developing cellulitis since that time. He has known underlying type 2 diabetes mellitus. Status post debridement of abscess right forearm x2. Culture growing MRSA. Currently double covered with clindamycin and Bactrim initiated today. -Pain medication as needed -Agree with Bactrim for outpatient management -Surgical management per Dr. Brandt TYPE 2 DIABETES MELLITUS - glucose levels have been well-controlled with increased dose of Levaquin here from baseline. -Continue metformin 1 g by mouth twice a day -Increase Levemir to 42 units subcutaneous daily -Moderate dose sliding scale NovoLog -4 times a day glucometers MAINTENANCE ISSUES -DVT prophylaxis; ambulatory -GI prophylaxis; not indicated -Green catheter; not indicated -Nutrition; consistent carb diet DISPOSITION - anticipate discharge to home with home care after the hospital stay. Ata Posey M.D.
[2016-12-19] MEDS: Insulin Aspart 100 Units/ML 3 ML Pen SUBCUT PRN ×2 (12:02→17:44)
[2016-12-19] MEDS: atorvaSTATin 20 MG Tab PO SCH (21:24)
[2016-12-20] MEDS: Clindamycin Phosphate 900 MG in Sodium Chloride 0.9% 100 ML IV SCH ×2 (04:01→11:26)
[2016-12-20] MEDS: metFORMIN 500 MG Tab PO SCH (08:01)
[2016-12-20] MEDS: FLUoxetine 20 MG Cap PO SCH (08:03)
[2016-12-20] MEDS: Sulfamethoxazole/Trimethoprim 800-160 MG Tab PO SCH (08:04)
[2016-12-20] MEDS: Lisinopril 2.5 MG Tab PO SCH (08:04)
[2016-12-20 08:05] VITALS: BP 143/73
[2016-12-20] MEDS: Aspirin 81 MG Tab.Chew PO SCH (08:05)
[2016-12-20] MEDS: Bacitracin Oint 1 GM U/D Packet TOP SCH (08:19)
[2016-12-20] MEDS: Insulin Aspart 100 Units/ML 3 ML Pen SUBCUT PRN ×2 (08:20→11:36)
[2016-12-20] MEDS: Acetaminophen/HYDROcodone 325-5 MG Tab PO PRN (08:20)
[2016-12-20] MEDS: Insulin Detemir 100 Units/ML 3 ML Pen SUBCUT SCH (08:21)
--- NOTE | 2016-12-20 12:56 | PN ---
DATE OF SERVICE: 12/15/2016 This is a 56-year-old male with type 2 diabetes mellitus, who was admitted with cellulitis involving the right forearm, extending somewhat onto the elbow area. He was started on IV antibiotics, and the degree of cellulitis has decreased, but he continues to have some area of fluctuance over the dorsal aspect of the forearm suggestive of developing an abscess. Plan will be to proceed with drainage and debridement of this tomorrow morning. Potential risks of the procedure including bleeding, infection, the fact that he may end up with a quite extensive open wound, possible injury to nerves or muscle during the course of this dissection or debridement were all reviewed, and the patient wishes to proceed. This will be set up for tomorrow morning. Madan Brandt MD /[id number]
--- NOTE | 2016-12-20 14:56 | OR ---
DATE OF PROCEDURE: 12/16/2016 PREOPERATIVE DIAGNOSIS: Cellulitis with probable abscess formation on the dorsal aspect of right forearm. POSTOPERATIVE DIAGNOSIS: Necrotizing infection extending into the subfascial and intramuscular planes of the right dorsal forearm. OPERATIVE PROCEDURES: 1. Incision and drainage of subfascial abscess, right forearm (06166). 2. Right forearm dorsal fasciotomy with debridement of nonviable muscle and fascia ([id number]). ANESTHESIA: General. INDICATION FOR PROCEDURE: Please see progress note dated 12/15/2016. DETAILS OF PROCEDURE: The patient was taken to the operating room. After general endotracheal anesthesia was induced, the right arm was prepped and draped initially over the dorsal aspect of the forearm, further distally. A linear incision was made. Purulence was then encountered, and this was then initially drained, extending from roughly the area just proximal to the wrist to an area slightly above the elbow. This all appeared to be more or less confined within the dorsal forearm compartment. After initial drainage and cultures were obtained, it became evident that there was a large amount of purulence present below the muscular fascia. Fasciotomy was then completed and purulence was drained from that plane. Some necrotic muscle and fascia were then debrided. There was also some purulence coming between the muscle groups, which was then drained. The area was then packed open with iodoform gauze. The plan will be to proceed with a relook at this tomorrow morning with additional debridement as necessary. The patient was taken to the recovery room in a satisfactory condition. Madan Brandt MD /[id number]
--- NOTE | 2016-12-20 18:56 | DISCH ---
ADMISSION DIAGNOSES: 1. Cellulitis, right arm. 2. Type 2 diabetes. DISCHARGE DIAGNOSES: 1. Debridement of necrotizing infection of the right forearm for necrotizing infection of right arm on 12/17/2016. 2. Intraoperative dressing change under anesthesia on 12/17/2016. 3. Dressing change under general anesthesia on 12/18. HISTORY: Edgar Mishra presented to the emergency room with severe cellulitis in his right upper extremities and early sepsis. He fell approximately one week before seen in the emergency room and was evaluated. After preoperative evaluation and discussion of possible risks and possible complications, he wished to proceed with surgical procedure. HOSPITAL COURSE: Edgar came into the emergency room on 12/11/2016. He was started on antibiotics. His arm remained to be red, swollen, and warm. So, surgical consult on 12/17/2016 where he was seen by Madan Brandt MD. The incision was inspected, and he went to OR on 12/18/2016 for incision and drainage of that necrotizing infection of the right forearm. On 12/17/2016, he had intraoperative dressing changes, and he was able to have bedside dressing changes starting b.i.d. and received occupational therapy on 12/19/2016. His culture did grow out MRSA, and he was started on Septra DS twice daily. PHYSICAL EXAMINATION: GENERAL: Edgar Mishra is a 56-year-old male. He is alert and orientated. VITAL SIGNS: TPR 97.7, 70, and 16. Blood pressure is 143/73. HEART: Regular rate and rhythm. LUNGS: Clear. EXTREMITIES: Right arm: From his elbow to right above his wrist, there is about a 4 inch area that is open, and its deep, almost to the muscle. It is clean and dry, and there is good blood supply. No signs of infection. Extremities without peripheral edema. DISPOSITION: Discharged to home. CONDITION: Stable and improving. FOLLOWUP APPOINTMENT: With Mariah Roach PA-C, on 12/25/2016 at 10 a.m. MEDICATIONS: Home medications are: 1. Tylenol 650 mg q.4 hours p.r.n. pain. 2. [place] 5/325 mg 1 to 2 tablets every 4 hours p.r.n. more severe pain, #40. 3. Colace 100 mg oral twice daily with 6 refills. 4. Lisinopril 2.5 mg oral daily. 5. Melatonin 9 mg oral at bedtime. 6. Sulfa DS (Bactrim DS) one tablet twice daily for 2 weeks. He is to restart his other medications of: 1. Prozac 40 mg daily. 2. Lantus 42 units subcu daily. 3. Lisinopril 0.5 mg oral daily. 4. Melatonin 9 mg oral at bedtime. 5. [id number] mg oral at bedtime. 6. Metformin 1000 mg oral twice daily. DIET: Diet after discharge is diabetic diet as he was eating before, drink 8 to 10 glasses of water a day. ACTIVITY: As tolerated. No lifting greater than 10 pounds. DISCHARGE INSTRUCTIONS: Driving: Do not drive on pain medication. Shower/bathing: May shower right before dressing changes once a day, just let the water run on open incision. Notify provider if any fever, increased pain, swelling, redness, drainage, nausea, or vomiting. Wound incision care: [facility]. They are going to change dressing once a day after shower to evaluate wound, home safety, and medications. Dressing changes are to fix dry 4x4 gauze pieces over open incision. Place an ABD, then wrap with Kerlix and secure with tape. Occupational therapy referral also to be done at home.
--- NOTE | 2016-12-21 15:01 | OR ---
DATE OF PROCEDURE: 12/18/2016 PREOPERATIVE DIAGNOSIS: Necrotizing infection involving muscle and fascia, right forearm. POSTOPERATIVE DIAGNOSIS: Necrotizing infection involving muscle and fascia, right forearm. OPERATIVE PROCEDURE: Debridement of necrotizing fascitis, right forearm, ([id number], [id number] x2). ANESTHESIA: IV sedation. INDICATION FOR PROCEDURE: The patient was taken to the operating room once again for evaluation of his right forearm and debridement of any additional necrotic tissue that is present. Potential risks including further bleeding, infection, injury to the nerves or muscles in the area during the dissection were all reviewed, and the patient wishes to proceed. DETAILS OF PROCEDURE: The patient was taken to the operating room. After IV sedation was administered, the dressing on the right forearm was taken down. The patient was noted to have some scattered necrotic material over the length of the incision. The incision measured 26 cm and based on this diameter, had a surface area of roughly around 65 cm. The surface area was then debrided of scattered necrotic material within it and at that point, all areas appeared to be clean. The necrotic purulence was sent for pathologic evaluation. Dressing was applied. The patient was taken to the recovery room in a satisfactory condition. Madan Brandt MD /[id number]
== END 2016-12-20 13:11 | disposition home or self-care (01) | DRG 581 ==
LOC: JP.ED 13:44 → JP.MS 16:35
PROVIDERS: ADMIT Hospitalist; ATTEND Surgery
PROC: 0K9 Muscles, Drainage (ICD-10-PCS; principal; 2016-12-16)
PROC: 0X9 Anatomical Regions, Upper Extremities, Drainage (ICD-10-PCS; 2016-12-16)
PROC: 0HDDXZZ Extraction of Right Lower Arm Skin, External Approach (ICD-10-PCS; 2016-12-17)
PROC: 2W0 Placement, Anatomical Regions, Change (ICD-10-PCS; 2016-12-18)
DX: L03.113 Cellulitis of right upper limb (principal); L02.413 Cutaneous abscess of right upper limb; B95.62 Methicillin resistant Staphylococcus aureus infection as the cause of diseases classified elsewhere; E11.21 Type 2 diabetes mellitus with diabetic nephropathy; Z79.4 Long term (current) use of insulin; I10 Essential (primary) hypertension; E78.00 Pure hypercholesterolemia, unspecified; F32.9 Major depressive disorder, single episode, unspecified; Z79.2 Long term (current) use of antibiotics; Z79.82 Long term (current) use of aspirin; W19.XXXD Unspecified fall, subsequent encounter
CPT/HCPCS: 36415; 76881-26-RT; 76881-RT; 80048; 80053; 80202; 82962; 83605; 83735; 84100; 85025; 85027; 87040; 87070; 87075; 87077; 87186; 87205; 88304; 94762; 96361; 96365; 96366; 96375; 97165-GO; 99285-25; A9270-GY; J0295; J0330; J0690; J1100; J1170; J1650; J2185; J2250; J2405; J2704; J3010; J3370; J3475; J7030; J7042; J7050; J7120; S0077

== ENCOUNTER 2016-12-22 15:33 | Emergency (ER) | payer MEDICAID ==
[2016-12-22 15:48] VITALS: BP 142/82
--- NOTE | 2016-12-22 16:22 | EDM.PDOC ---
ED HPI GENERAL MEDICAL PROBLEM - General Chief Complaint: Upper Extremity Injury/Pain Stated Complaint: RIGHT FOREARM RECHECK Time Seen by Provider: 12/22/16 15:55 Source of Information: Reports: Patient History Limitations: Reports: No Limitations - History of Present Illness INITIAL COMMENTS - FREE TEXT/NARRATIVE: 56-year-old male that is in today to recheck his arm. He has had significant surgery requiring open debridement of an infection in his right forearm. He has home healthcare coming in to change dressings on a daily basis, today there was more drainage on the dressing and it concerned the patient and I think the home health nurses well. No fever or chills. He continues on his oral Bactrim. He has an appointment scheduled for Sunday next week with the surgical department at the clinic. Onset: Unknown/Unsure Severity: Mild - Related Data Allergies Allergy/AdvReac Type Severity Reaction Status Date / Time No Known Allergies Allergy Verified 12/22/16 15:48 Home Meds: Home Meds Aspirin [Children's Aspirin] 81 mg PO DAILY 06/29/14 [History] atorvaSTATin Calcium [Atorvastatin Calcium] 40 mg PO BEDTIME 06/29/14 [History] metFORMIN HCl [Metformin HCl] 1,000 mg PO BIDM 06/29/14 [History] Lisinopril [Prinivil] 0.5 tab PO DAILY 07/07/16 [History] Ertapenem [INVanz] 1 gm IV DAILY #28 vial 07/18/16 [Rx] FLUoxetine [PROzac] 40 mg PO DAILY 30 Days cap 07/18/16 [Rx] Insulin Glarg,Human.Rec.Analog [Lantus Solostar] 42 unit SUBCUT DAILY 12/19/16 [ History] Acetaminophen [Tylenol] 650 mg PO Q4H PRN tablet 12/20/16 [Rx] Acetaminophen/HYDROcodone [[place] 325-5 MG] 1 - 2 tab PO Q4H PRN #40 tablet 12/20 [Rx] Docusate Sodium [Colace] 100 mg PO BID #100 cap 12/20/16 [Rx] Lisinopril [Prinivil] 2.5 mg PO DAILY tablet 12/20/16 [Rx] Melatonin 9 mg PO BEDTIME PRN tablet 12/20/16 [Rx] Sulfamethoxazole/Trimethoprim [IJD: Sulfamethoxazole/Trimethoprim DS] 1 tab PO BID #40 tablet 12/20/16 [Rx] Past Medical History - Past Health History Medical/Surgical History: Denies Medical/Surgical History Cardiovascular History: Reports: High Cholesterol, Hypertension Gastrointestinal History: Reports: GERD Genitourinary History: Reports: Diabetic Nephropathy Musculoskeletal History: Reports: Other (See Below) Other Musculoskeletal History: sore right foot, R FOREARM SURGICAL REPAIR Psychiatric History: Reports: Depression Endocrine/Metabolic History: Reports: Diabetes, Type II - Infectious Disease History Infectious Disease History: Reports: Chicken Pox - Past Surgical History Other Musculoskeletal Surgeries/Procedures:: right toe amputation in June Social & Family History - Family History Family Medical History: Noncontributory - Tobacco Use Smoking Status *Q: Unknown Ever Smoked Second Hand Smoke Exposure: No - Caffeine Use Caffeine Use: Reports: Soda - Alcohol Use Days Per Week of Alcohol Use: 0 - Recreational Drug Use Recreational Drug Use: No Review of Systems - Review of Systems Review Of Systems: See Below Constitutional: Denies: Fever Respiratory: Denies: Shortness of Breath, Cough Cardiovascular: Denies: Chest Pain GI/Abdominal: Denies: Abdominal Pain Neurological: Denies: Paresthesia ED EXAM, GENERAL - Physical Exam Exam: See Below Exam Limited By: No Limitations General Appearance: Alert, No Apparent Distress Respiratory/Chest: No Respiratory Distress Extremities: Other (Exam is otherwise limited to the right arm. He has a very large open surgical wound on the forearm exposing the underlying muscle and soft tissue. The dressings were removed, there was a small amount of serous exudate on the dressings but no purulent drainage or malodorous findings.) Course - Vital Signs Last Recorded V/S: Last Vital Signs Temp 96.4 F 12/22/16 15:47 Pulse 92 12/22/16 15:47 Resp 14 12/22/16 15:47 BP 142/82 H 12/22/16 15:47 Pulse Ox 97 12/22/16 15:47 - Re-Assessments/Exams Free Text/Narrative Re-Assessment/Exam: 12/22/16 16:21 Sterile new dressings were replaced. Patient was reassured and can be rechecked next week as scheduled. Departure - Departure Time of Disposition: 16:29 Disposition: Home, Self-Care 01 Condition: Good Clinical Impression: Encounter for wound re-check - Discharge Information Instructions: Delayed Wound Closure Referrals: Dhiraj Ruiz MD [Primary Care Provider] - Forms: ED Department Discharge Care Plan Goals: Continue with current treatments, and recheck on Sunday as scheduled.
== END 2016-12-22 16:30 | disposition home or self-care (01) ==
LOC: JP.ED 15:33
DX: Z48.817 Encounter for surgical aftercare following surgery on the skin and subcutaneous tissue (principal); E11.40 Type 2 diabetes mellitus with diabetic neuropathy, unspecified; I10 Essential (primary) hypertension; Z79.84 Long term (current) use of oral hypoglycemic drugs; Z79.4 Long term (current) use of insulin; Z79.899 Other long term (current) drug therapy; Z79.82 Long term (current) use of aspirin
CPT/HCPCS: 99283

== ENCOUNTER 2017-01-20 17:51 | Emergency (ER) | payer MEDICAID ==
[2017-01-20 18:11] VITALS: BP 126/68
--- NOTE | 2017-01-20 18:27 | EDM.PDOC ---
ED HPI GENERAL MEDICAL PROBLEM - General Chief Complaint: Lower Extremity Injury/Pain Stated Complaint: LT FOOT INJURY Time Seen by Provider: 01/20/17 18:12 Source of Information: Reports: Patient, RN Notes Reviewed History Limitations: Reports: No Limitations - History of Present Illness INITIAL COMMENTS - FREE TEXT/NARRATIVE: 56-year-old gentleman department today with ulcers on his left foot he has a known history of diabetes mellitus type 2 states he's had these ulcers for about 3 weeks he does have an upcoming appointment with wound care this week his biggest concern is he just wants to be checked out no fevers no particular pain - Related Data Allergies Allergy/AdvReac Type Severity Reaction Status Date / Time No Known Allergies Allergy Verified 12/22/16 15:48 Home Meds: Home Meds Aspirin [Children's Aspirin] 81 mg PO DAILY 06/29/14 [History] atorvaSTATin Calcium [Atorvastatin Calcium] 40 mg PO BEDTIME 06/29/14 [History] metFORMIN HCl [Metformin HCl] 1,000 mg PO BIDM 06/29/14 [History] Lisinopril [Prinivil] 0.5 tab PO DAILY 07/07/16 [History] Ertapenem [INVanz] 1 gm IV DAILY #28 vial 07/18/16 [Rx] FLUoxetine [PROzac] 40 mg PO DAILY 30 Days cap 07/18/16 [Rx] Insulin Glarg,Human.Rec.Analog [Lantus Solostar] 42 unit SUBCUT DAILY 12/19/16 [ History] Acetaminophen [Tylenol] 650 mg PO Q4H PRN tablet 12/20/16 [Rx] Acetaminophen/HYDROcodone [[place] 325-5 MG] 1 - 2 tab PO Q4H PRN #40 tablet 12/20 [Rx] Docusate Sodium [Colace] 100 mg PO BID #100 cap 12/20/16 [Rx] Lisinopril [Prinivil] 2.5 mg PO DAILY tablet 12/20/16 [Rx] Melatonin 9 mg PO BEDTIME PRN tablet 12/20/16 [Rx] Sulfamethoxazole/Trimethoprim [IJD: Sulfamethoxazole/Trimethoprim DS] 1 tab PO BID #40 tablet 12/20/16 [Rx] Past Medical History Cardiovascular History: Reports: High Cholesterol, Hypertension Gastrointestinal History: Reports: GERD Genitourinary History: Reports: Diabetic Nephropathy Musculoskeletal History: Reports: Other (See Below) Other Musculoskeletal History: sore right foot, R FOREARM SURGICAL REPAIR Psychiatric History: Reports: Depression Endocrine/Metabolic History: Reports: Diabetes, Type II - Infectious Disease History Infectious Disease History: Reports: Chicken Pox - Past Surgical History Other Musculoskeletal Surgeries/Procedures:: right toe amputation in June Social & Family History - Family History Family Medical History: Noncontributory - Tobacco Use Smoking Status *Q: Never Smoker Second Hand Smoke Exposure: No - Caffeine Use Caffeine Use: Reports: Soda - Alcohol Use Days Per Week of Alcohol Use: 0 - Recreational Drug Use Recreational Drug Use: No Review of Systems - Review of Systems Review Of Systems: See Below Constitutional: Denies: Chills, Fever Respiratory: Reports: No Symptoms Cardiovascular: Reports: No Symptoms GI/Abdominal: Reports: No Symptoms Skin: Reports: Wound ED EXAM, GENERAL - Physical Exam Exam: See Below Free Text/Narrative:: Examination of the left foot pedal pulses +1 trace edema noted he does have multiple ulcers on the foot they are open odiferous there is extensive granulation around the wound there is a large ulcer on the plantar surface underneath the metatarsal head of digit #5 with undermining the distal tip of digit #2 has an ulcer as well nontender to the touch no significant erythema appreciated Exam Limited By: No Limitations General Appearance: Alert, WD/WN, No Apparent Distress Respiratory/Chest: No Respiratory Distress Course - Vital Signs Last Recorded V/S: Last Vital Signs Temp 99.7 F 01/20/17 18:10 Pulse 95 01/20/17 18:10 Resp 14 01/20/17 18:10 BP 126/68 01/20/17 18:10 Pulse Ox 97 01/20/17 18:10 - Orders/Labs/Meds Orders: Active Orders 24 hr Category Date Time Status CV Ankle Brachial Index (NOEMI) [US] Stat Exams 01/20/17 18:20 Ordered Departure - Departure Time of Disposition: 19:28 Disposition: Home, Self-Care 01 Condition: Fair Clinical Impression: Diabetic foot ulcer Qualifiers: Diabetic foot ulcer location: toe Diabetes mellitus type: type 2 Laterality: left Non-pressure ulcer stage: with necrosis of muscle Qualified Code(s): E11.621 - Type 2 diabetes mellitus with foot ulcer; L97.523 - Non-pressure chronic ulcer of other part of left foot with necrosis of muscle; L97.523 - Non- pressure chronic ulcer of other part of left foot with necrosis of muscle; L97.523 - Non-pressure chronic 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 Car on of next week - My Orders Last 24 Hours: My Active Orders 01/20/17 18:20 CV Ankle Brachial Index (NOEMI) [US] Stat - Assessment/Plan Last 24 Hours: My Active Orders 01/20/17 18:20 CV Ankle Brachial Index (NOEMI) [US] Stat Plan: Assessment Acuity = acute Site and laterality = diabetic foot ulcer Etiology = poor controlled diabetes Manifestations = none Location of injury = Home Lab values = ABIs pending Plan Called discussed the case with Dr. Car general surgery during wound care he has an appointment with him on of this next week plan for debridement at that time recommended no antibiotics at this time just an NOEMI Patient was in agreement with the plan all questions were answered, they were instructed to return to the emergency department or call for worsening symptoms. This note was dictated using [employer] voice recognition software please call with any questions.
--- NOTE | 2017-01-22 09:02 | US ---
Bilateral ankle brachial indices The ankle-brachial indices are within normal limits bilaterally. The value for each extremity measure s 1.3. Normal is generally considered greater than 0.96. Impression: 1. Normal ABIs bilaterally.
== END 2017-01-20 19:40 | disposition home or self-care (01) ==
LOC: JP.ED 17:51
DX: E11.621 Type 2 diabetes mellitus with foot ulcer (principal); L97.523 Non-pressure chronic ulcer of other part of left foot with necrosis of muscle; E11.21 Type 2 diabetes mellitus with diabetic nephropathy; E11.65 Type 2 diabetes mellitus with hyperglycemia; Z79.4 Long term (current) use of insulin; I10 Essential (primary) hypertension; Z79.82 Long term (current) use of aspirin; Z89.421 Acquired absence of other right toe(s)
CPT/HCPCS: 93922; 93922-26; 99284-25

== ENCOUNTER 2017-02-27 15:56 | Inpatient (IN) | payer MEDICAID ==
[2017-02-27] MEDS ORDERED: Sodium Chloride 0.9% 10 ML Syringe FLUSH PRN (16:46)
--- NOTE | 2017-02-27 16:51 | EDM.PDOC ---
ED HPI GENERAL MEDICAL PROBLEM - General Chief Complaint: Lower Extremity Injury/Pain Stated Complaint: L FOOT LACERATION Time Seen by Provider: 02/27/17 16:35 Source of Information: Reports: Patient, Old Records History Limitations: Reports: No Limitations - History of Present Illness INITIAL COMMENTS - FREE TEXT/NARRATIVE: 56 yo male with AODM presents with an open, draining L foot ulcer with erythema. He has not had a fever. He has not been to his doctor. Reports BS in the 120's. No injury. Onset: Gradual Onset Date: 02/25/17 Duration: Day(s):, Getting Worse Location: Reports: Lower Extremity, Left Quality: Reports: Dull Severity: Moderate Improves with: Reports: None Worsens with: Reports: Other (time) Context: Reports: Other (AODM) Associated Symptoms: Reports: No Other Symptoms. 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 (see below) (changes socks often due to the drainage.) - Related Data Allergies Allergy/AdvReac Type Severity Reaction Status Date / Time No Known Allergies Allergy Verified 12/22/16 15:48 Home Meds: Home Meds Aspirin [Children's Aspirin] 81 mg PO DAILY 06/29/14 [History] atorvaSTATin Calcium [Atorvastatin Calcium] 40 mg PO BEDTIME 06/29/14 [History] metFORMIN HCl [Metformin HCl] 1,000 mg PO BIDM 06/29/14 [History] Lisinopril [Prinivil] 0.5 tab PO DAILY 07/07/16 [History] Ertapenem [INVanz] 1 gm IV DAILY #28 vial 07/18/16 [Rx] FLUoxetine [PROzac] 40 mg PO DAILY 30 Days cap 07/18/16 [Rx] Insulin Glarg,Human.Rec.Analog [Lantus Solostar] 42 unit SUBCUT DAILY 12/19/16 [ History] Acetaminophen [Tylenol] 650 mg PO Q4H PRN tablet 12/20/16 [Rx] Acetaminophen/HYDROcodone [[place] 325-5 MG] 1 - 2 tab PO Q4H PRN #40 tablet 12/20 [Rx] Docusate Sodium [Colace] 100 mg PO BID #100 cap 12/20/16 [Rx] Lisinopril [Prinivil] 2.5 mg PO DAILY tablet 12/20/16 [Rx] Melatonin 9 mg PO BEDTIME PRN tablet 12/20/16 [Rx] Sulfamethoxazole/Trimethoprim [IJD: Sulfamethoxazole/Trimethoprim DS] 1 tab PO BID #40 tablet 12/20/16 [Rx] Past Medical History - Past Health History Medical/Surgical History: Denies Medical/Surgical History Cardiovascular History: Reports: High Cholesterol, Hypertension Gastrointestinal History: Reports: GERD Genitourinary History: Reports: Diabetic Nephropathy Musculoskeletal History: Reports: Other (See Below) Other Musculoskeletal History: sore right foot, R FOREARM SURGICAL REPAIR. sore on the bottom of left foot Psychiatric History: Reports: Depression Endocrine/Metabolic History: Reports: Diabetes, Type II - Infectious Disease History Infectious Disease History: Reports: Chicken Pox - Past Surgical History Other Musculoskeletal Surgeries/Procedures:: right toe amputation in June Social & Family History - Family History Family Medical History: Noncontributory - Tobacco Use Smoking Status *Q: Never Smoker Second Hand Smoke Exposure: No - Caffeine Use Caffeine Use: Reports: Soda - Alcohol Use Days Per Week of Alcohol Use: 0 - Recreational Drug Use Recreational Drug Use: No Review of Systems - Review of Systems Review Of Systems: See Below Constitutional: Reports: No Symptoms Respiratory: Reports: No Symptoms Cardiovascular: Reports: No Symptoms GI/Abdominal: Reports: No Symptoms Genitourinary: Reports: No Symptoms Musculoskeletal: Reports: No Symptoms Skin: Reports: Erythema, Wound, Change in Color Neurological: Reports: Numbness (Both LE's due to neuropathy) ED EXAM, GENERAL - Physical Exam Exam: See Below Exam Limited By: No Limitations General Appearance: Alert, WD/WN, No Apparent Distress Eye Exam: Bilateral Eye: Normal Inspection Ears: Normal External Exam, Normal Canal, Hearing Grossly Normal Ear Exam: Bilateral Ear: Auricle Normal, Canal Normal Nose: Normal Inspection, Normal Mucosa, No Blood Throat/Mouth: Normal Inspection, Normal Lips, Normal Oropharynx, Normal Voice, No Airway Compromise Head: Atraumatic, Normocephalic Neck: Normal Inspection, Supple Respiratory/Chest: No Respiratory Distress, Lungs Clear, Normal Breath Sounds, No Accessory Muscle Use Cardiovascular: Regular Rate, Rhythm GI/Abdominal: Normal Bowel Sounds, Soft, Non-Tender, No Distention Back Exam: Normal Inspection Extremities: Pedal Edema, Increased Warmth (L foot), Redness Neurological: Alert, Oriented, CN II-XII Intact, Sensory/Motor Deficit ( Decreased sensation to both feet, not new.) Psychiatric: Normal Affect, Normal Mood Skin Exam: Warm, Erythema, Increased Warmth (L foot with open ulcers.) Course - Vital Signs Last Recorded V/S: Last Vital Signs Temp 36.4 C 02/27/17 16:04 Pulse 103 H 02/27/17 16:04 Resp 16 02/27/17 16:04 BP 152/89 H 02/27/17 16:04 Pulse Ox 98 02/27/17 16:04 - Orders/Labs/Meds Orders: Active Orders 24 hr Category Date Time Status Foot Comp Min 3V Lt [CR] Stat Exams 02/27/17 16:45 Taken CULTURE BLOOD [BC] Stat Lab 02/27/17 17:26 Ordered CULTURE BLOOD [BC] Stat Lab 02/27/17 17:27 Ordered ESR [SEDIMENTATION RATE MANUAL] [HEME] Stat Lab 02/27/17 17:02 Received UA W/MICROSCOPIC [URIN] Stat Lab 02/27/17 17:22 Received Piperacillin/Tazobactam [Zosyn] 4.5 gm Med 02/27/17 17:27 Ordered Sodium Chloride 0.9% [Normal Saline] 100 ml IV NOW Sodium Chloride 0.9% [Saline Flush] Med 02/27/17 16:46 Active 10 ml FLUSH ASDIRECTED PRN Saline Lock Insert [OM.PC] Routine Oth 02/27/17 16:46 Ordered Medication Orders Piperacillin Sod/Tazobactam (Sod 4.5 gm/ Sodium Chloride) 100 mls @ 200 mls/hr IV NOW STA Stop: 02/27/17 17:56 Sodium Chloride (Saline Flush) 10 ml FLUSH ASDIRECTED PRN PRN Reason: Keep Vein Open Last Admin: 02/27/17 16:54 Dose: 10 ml Labs: Laboratory Tests 02/27/17 02/27/17 Range/Units 17:02 17:02 WBC 17.7 H (4.5-11.0) K/uL RBC 4.80 (4.30-5.90) M/uL Hgb 13.9 (12.0-15.0) g/dL Hct 40.8 (40.0-54.0) % MCV 85 (80-98) fL MCH 29 (27-31) pg MCHC 34 (32-36) % Plt Count 301 (150-400) K/uL Sodium 137 L (140-148) mmol/L Potassium 3.9 (3.6-5.2) mmol/L Chloride 101 (100-108) mmol/L Carbon Dioxide 26 (21-32) mmol/L Anion Gap 13.9 (5.0-14.0) mmol/L BUN 10 (7-18) mg/dL Creatinine 0.8 (0.8-1.3) mg/dL Est Cr Clr Drug Dosing 104.33 mL/min Estimated GFR (MDRD) > 60 (>60) Glucose 284 H (74-106) mg/dL Calcium 8.9 (8.5-10.1) mg/dL Meds: Medications Generic Name Dose Route Start Last Admin Trade Name Freq PRN Reason Stop Dose Admin Piperacillin Sod/Tazobactam 100 mls @ 200 mls/hr 02/27/17 17:27 Sod 4.5 gm/ Sodium Chloride IV 02/27/17 17:56 NOW STA Sodium Chloride 10 ml 02/27/17 16:46 02/27/17 16:54 Saline Flush FLUSH 10 ml ASDIRECTED PRN Administration Keep Vein Open - Radiology Interpretation Free Text/Narrative:: L foot X-ray- Departure - Departure Time of Disposition: 19:00 Disposition: Admitted As Inpatient 67 Condition: Fair Clinical Impression: Diabetic foot ulcer Qualifiers: Diabetic foot ulcer location: toe Diabetes mellitus type: type 2 Laterality: left Non-pressure ulcer stage: with necrosis of muscle Qualified Code(s): E11.621 - Type 2 diabetes mellitus with foot ulcer; L97.523 - Non-pressure chronic ulcer of other part of left foot with necrosis of muscle; L97.523 - Non- pressure chronic ulcer of other part of left foot with necrosis of muscle; L97.523 - Non-pressure chronic ulcer of other part of left foot with necrosis of muscle; L97.523 - Non-pressure chronic ulcer of other part of left foot with necrosis of muscle Type II diabetes mellitus with foot ulcer Qualifiers: 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 insulin use: with terminal gauger supervisor use Qualified Code(s): E11.621 - Type 2 diabetes mellitus with foot ulcer; L97.509 - Non-pressure chronic ulcer of other part of unspecified foot with unspecified severity; L97.509 - Non-pressure chronic ulcer of other part of unspecified foot with unspecified severity; L97.509 - Non-pressure chronic ulcer of other part of unspecified foot with unspecified severity; L97.509 - Non-pressure chronic ulcer of other part of unspecified foot with unspecified severity; Z79.4 - jail (current) use of insulin; 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; Z79.4 - jail (current) use of insulin; Z79.4 - jail (current) use of insulin Cellulitis Qualifiers: Site of cellulitis: extremity Site of cellulitis of extremity: lower extremity Laterality: left Qualified Code(s): L03.116 - Cellulitis of left lower limb Clinical Impression: (Ruled Out): Type 2 diabetes mellitus - Discharge Information Referrals: Dhiraj Ruiz MD [Primary Care Provider] - Forms: ED Department Discharge - My Orders Last 24 Hours: My Active Orders 02/27/17 16:45 Foot Comp Min 3V Lt [CR] Stat 02/27/17 16:46 Sodium Chloride 0.9% [Saline Flush] 10 ml FLUSH ASDIRECTED PRN Saline Lock Insert [OM.PC] Routine 02/27/17 17:02 ESR [SEDIMENTATION RATE MANUAL] [HEME] Stat 02/27/17 17:22 UA W/MICROSCOPIC [URIN] Stat 02/27/17 17:26 CULTURE BLOOD [BC] Stat 02/27/17 17:27 CULTURE BLOOD [BC] Stat Piperacillin/Tazobactam [Zosyn] 4.5 gm Sodium Chloride 0.9% [Normal Saline] 100 ml IV NOW - Assessment/Plan Last 24 Hours: My Active Orders 02/27/17 16:45 Foot Comp Min 3V Lt [CR] Stat 02/27/17 16:46 Sodium Chloride 0.9% [Saline Flush] 10 ml FLUSH ASDIRECTED PRN Saline Lock Insert [OM.PC] Routine 02/27/17 17:02 ESR [SEDIMENTATION RATE MANUAL] [HEME] Stat 02/27/17 17:22 UA W/MICROSCOPIC [URIN] Stat 02/27/17 17:26 CULTURE BLOOD [BC] Stat 02/27/17 17:27 CULTURE BLOOD [BC] Stat Piperacillin/Tazobactam [Zosyn] 4.5 gm Sodium Chloride 0.9% [Normal Saline] 100 ml IV NOW
[2017-02-27] MEDS ORDERED: Piperacillin/Tazobactam 4.5 GM in Sodium Chloride 0.9% 100 ML IV STA (17:27)
--- NOTE | 2017-02-27 18:31 | PCM.HP ---
H&P History of Present Illness - General Date of Service: 02/27/17 Admit Problem/Dx: Admission Diagnosis/Problem Admission Diagnosis/Problem Cellulitis of foot Source of Information: Patient, Provider History Limitations: Reports: No Limitations - History of Present Illness Initial Comments - Free Text/Narative: Edgar presents to the emergency room today with bleeding from the bottom of his left foot. He noticed this this morning after he got out of bed. He does note that he cut some skin off the bottom of his foot last night. He notes mild achy pain in the bottom of his foot with ambulation. No pain when he is at rest. Pain has not been bad enough that he's taken anything to help. He has never had pain like this before and it does not radiate. He has noted some drainage that soaks through his socks and he's had changed in several times today. He has not had any fevers or chills. Most recent antibiotic treatment ended 2 weeks ago. No complaints of diarrhea. Otherwise he feels fine. Workup in the emergency room revealed leukocytosis and evidence for at least cellulitis with underlying diabetic foot ulcers. he'll be admitted for IV antibiotics and further workup. - Related Data Allergies/Adverse Reactions: Allergies Allergy/AdvReac Type Severity Reaction Status Date / Time No Known Allergies Allergy Verified 12/22/16 15:48 Home Medications: Home Meds Aspirin [Children's Aspirin] 81 mg PO DAILY 06/29/14 [History] atorvaSTATin Calcium [Atorvastatin Calcium] 40 mg PO BEDTIME 06/29/14 [History] metFORMIN HCl [Metformin HCl] 1,000 mg PO BIDM 06/29/14 [History] FLUoxetine [PROzac] 40 mg PO DAILY 30 Days cap 07/18/16 [Rx] Insulin Glarg,Human.Rec.Analog [Lantus Solostar] 42 unit SUBCUT DAILY 12/19/16 [ History] Acetaminophen [Tylenol] 650 mg PO Q4H PRN tablet 12/20/16 [Rx] Acetaminophen/HYDROcodone [[place] 325-5 MG] 1 - 2 tab PO Q4H PRN #40 tablet 12/20 [Rx] Docusate Sodium [Colace] 100 mg PO BID #100 cap 12/20/16 [Rx] Lisinopril [Prinivil] 2.5 mg PO DAILY tablet 12/20/16 [Rx] Melatonin 9 mg PO BEDTIME PRN tablet 12/20/16 [Rx] Past Medical History - Past Health History Medical/Surgical History: Denies Medical/Surgical History Cardiovascular History: Reports: High Cholesterol, Hypertension Gastrointestinal History: Reports: GERD Genitourinary History: Reports: Diabetic Nephropathy Musculoskeletal History: Reports: Other (See Below) Other Musculoskeletal History: sore right foot, R FOREARM SURGICAL REPAIR. sore on the bottom of left foot Psychiatric History: Reports: Depression Endocrine/Metabolic History: Reports: Diabetes, Type II - Infectious Disease History Infectious Disease History: Reports: Chicken Pox - Past Surgical History Other Musculoskeletal Surgeries/Procedures:: right toe amputation in June Social & Family History - Family History Family Medical History: Noncontributory - Tobacco Use Smoking Status *Q: Never Smoker Second Hand Smoke Exposure: No - Caffeine Use Caffeine Use: Reports: Soda - Alcohol Use Days Per Week of Alcohol Use: 0 - Recreational Drug Use Recreational Drug Use: No H&P Review of Systems - Review of Systems: Review Of Systems: See Below Free Text/Narrative: A complete 12 point review of systems was obtained. Pertinent positives and negatives are noted in the history of present illness. All other systems were reviewed and were negative except as noted. Exam - Exam Exam: See Below - Vital Signs Vital Signs: Last Vital Signs Temp 36.4 C 02/27/17 16:04 Pulse 103 H 02/27/17 16:04 Resp 16 02/27/17 16:04 BP 152/89 H 02/27/17 16:04 Pulse Ox 98 02/27/17 16:04 Weight: 92.6 kg - Exam Quality Assessment: No: Supplemental Oxygen General: Alert, Oriented, Cooperative. No: Mild Distress HEENT: Conjunctiva Clear, Mucosa Moist & [place] Neck: Supple, Trachea Midline Lungs: Clear to Auscultation, Normal Respiratory Effort Cardiovascular: Regular Rate, Regular Rhythm GI/Abdominal Exam: Soft, No Distention Extremities: No Pedal Edema, Increased Warmth (base of left foot, top of left foot between toes 1 and 2), Redness (base of left foot, distal medial portion of left foot and top of left foot near toes 1 through 3) Skin: Warm, Dry, Wound (patient has 4 ulcers on his left foot. There is a less than 1 cm dry a healed ulcer at the base of the second toe. He has a 1 cm dry ulcer at the distal end of the fifth metatarsal. No surrounding erythema here. The distal end of the first metatarsal has 2 ulcers, one more distal and one distal medial. Both of these have some drainage but no purulence. The overlying skin has been removed. No active bleeding.) Neuro Extensive - Mental Status: Alert, Oriented x3, Nl Response to Commands Neuro Extensive - Motor, Sensory, Reflexes: CN II-XII Intact. No: Dysarthria, Abnormal Motor, Tremor Psychiatric: Alert, Normal Affect - Patient Data Lab Results Last 24 hrs: Laboratory Results - last 24 hr 02/27/17 02/27/17 02/27/17 Range/Units 17:02 17:02 17:22 WBC 17.7 H (4.5-11.0) K/uL RBC 4.80 (4.30-5.90) M/uL Hgb 13.9 (12.0-15.0) g/dL Hct 40.8 (40.0-54.0) % MCV 85 (80-98) fL MCH 29 (27-31) pg MCHC 34 (32-36) % Plt Count 301 (150-400) K/uL Sodium 137 L (140-148) mmol/L Potassium 3.9 (3.6-5.2) mmol/L Chloride 101 (100-108) mmol/L Carbon Dioxide 26 (21-32) mmol/L Anion Gap 13.9 (5.0-14.0) mmol/L BUN 10 (7-18) mg/dL Creatinine 0.8 (0.8-1.3) mg/dL Est Cr Clr Drug Dosing 104.33 mL/min Estimated GFR (MDRD) > 60 (>60) Glucose 284 H (74-106) mg/dL Calcium 8.9 (8.5-10.1) mg/dL Urine Color Yellow Urine Appearance Clear Urine pH 5.0 (4.5-8.0) Ur Specific [place] 1.015 (1.008-1.030) Urine Protein Negative (NEGATIVE) mg/dL Urine Glucose (UA) 1000 H (NEGATIVE) mg/dL Urine Ketones Negative (NEGATIVE) mg/dL Urine Occult Blood Negative (NEGATIVE) Urine Nitrite Negative (NEGAITVE) Urine Bilirubin Negative (NEGATIVE) Urine Urobilinogen Normal (NORMAL) mg/dL Ur Leukocyte Esterase Negative (NEGATIVE) Urine RBC 0-5 (0-5) Urine WBC 0-5 (0-5) Ur Epithelial Cells Rare Amorphous Sediment Not seen Urine Bacteria Not seen Urine Mucus Not seen Result Diagrams: 02/27/17 17:02 02/27/17 17:02 Imaging Impressions Last 24 hrs: x-ray of the left foot - images personally reviewed - there is no evidence for fracture or osteomyelitis based on examination of the plain films. *Q Meaningful Use (ADM) - VTE *Q VTE Criteria *Q: - VTE Risk Assess *Q Each Risk Factor Represents 1 Point: Age 41 - 59 years, Obesity ( BMI > 25 kg/m2 ) Total Score 1 Point Risk Factors: 2 Each Risk Factor Represents 2 Points: None Total Score 2 Point Risk Factors: 0 Each Risk Factor Represents 3 Points: None Total Score 3 Point Risk Factors: 0 Each Risk Factor Represents 5 Points: None Total Score 5 Point Risk Factors: 0 Venous Thromboembolism Risk Factor Score *Q: 2 - Stroke *Q Stroke Criteria *Q: - AMI *Q AMI Criteria *Q: - Problem List (1) Cellulitis SNOMED Code(s): 786724707 ICD Code: L03.90 - CELLULITIS, UNSPECIFIED Status: Acute Current Visit: Yes Qualifiers: Site of cellulitis: extremity Site of cellulitis of extremity: lower extremity Laterality: left Qualified Code(s): L03.116 - Cellulitis of left lower limb (2) Diabetic foot ulcer SNOMED Code(s): 495504208 ICD Code: E11.621 - TYPE 2 DIABETES MELLITUS WITH FOOT ULCER; L97.509 - NON- PRESSURE CHRONIC ULCER OTH PRT UNSP FOOT W UNSP SEVERITY Status: Acute Current Visit: Yes Qualifiers: Diabetic foot ulcer location: toe Diabetes mellitus type: type 2 Laterality: left Non-pressure ulcer stage: with necrosis of muscle Qualified Code(s): E11.621 - Type 2 diabetes mellitus with foot ulcer; L97.523 - Non-pressure chronic ulcer of other part of left foot with necrosis of muscle ; L97.523 - Non-pressure chronic ulcer of other part of left foot with necrosis of muscle; L97.523 - Non-pressure chronic ulcer of other part of left foot with necrosis of muscle; L97.523 - Non-pressure chronic ulcer of other part of left foot with necrosis of muscle (3) Insulin dependent diabetes mellitus with complications SNOMED Code(s): 80552667 ICD Code: E11.8 - TYPE 2 DIABETES MELLITUS WITH UNSPECIFIED COMPLICATIONS; 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 Status: Chronic Current Visit: Yes Problem List Initiated/Reviewed/Updated: Yes Orders Last 24hrs: Active Orders 24 hr Category Date Time Status Patient Status Manage Transfer [TRANSFER] Routine ADT 02/27/17 18:11 Ordered Foot Comp Min 3V Lt [CR] Stat Exams 02/27/17 16:45 Taken CULTURE BLOOD [BC] Stat Lab 02/27/17 17:30 Received CULTURE BLOOD [BC] Stat Lab 02/27/17 17:40 Received ESR [SEDIMENTATION RATE MANUAL] [HEME] Stat Lab 02/27/17 17:02 Received Sodium Chloride 0.9% [Saline Flush] Med 02/27/17 16:46 Active 10 ml FLUSH ASDIRECTED PRN Saline Lock Insert [OM.PC] Routine Oth 02/27/17 16:46 Ordered Resuscitation Status Routine Resus Stat 02/27/17 18:14 Ordered Medication Orders Sodium Chloride (Saline Flush) 10 ml FLUSH ASDIRECTED PRN PRN Reason: Keep Vein Open Last Admin: 02/27/17 16:54 Dose: 10 ml Assessment/Plan Comment:: ASSESSMENT AND PLAN - Left foot cellulitis with for foot ulcers - cellulitis of the distal medial left foot with to underlying foot ulcers in this region. X-ray did not show definite evidence for osteomyelitis. No evidence for sepsis at this time. History of MRSA and potential for polymicrobial or resistant organisms with anabiotic's in the past month. Not safe for outpatient management at this time. -Vancomycin and Pip/Tazo -Consult Dr. Car for additional wound care management -Daily dressing changes -Follow-up blood cultures -Pain control -MRI of the foot in the morning -contact precautions with history of MRSA Insulin-dependent diabetes mellitus - patient reports good control at home. Blood sugar moderately elevated today in the setting of infection. -Continue home dosing of Levemir -Medium dose sliding scale insulin Maintenance issues - - DVT prophylaxis - mechanical - GI prophylaxis - not indicated - Nutrition - diabetic diet - Green catheter - not indicated CODE STATUS - full code Admission justification - This patient will be admitted for inpatient services and is medically appropriate meeting medical necessity for inpatient admission as outlined in my documentation. I reasonably expect the patient will require inpatient services that span a period time over 2 midnights. I reasonably expect this patient to be discharged or transferred within 96 hours after admission to the [facility]. Disposition - anticipate discharge home after the hospital stay Primary care physician - Dr. Sara Posey M.D.
[2017-02-27] MEDS ORDERED: Ondansetron 4 MG Tab.DIS PO PRN (19:21)
[2017-02-27] MEDS ORDERED: Melatonin 3 MG Tab PO PRN (19:21)
[2017-02-27] MEDS ORDERED: Polyethylene Glycol 3350 Powder 17 GM Packet PO PRN (19:21)
[2017-02-27] MEDS ORDERED: Acetaminophen 325 MG Tab PO PRN (19:21)
[2017-02-27] MEDS ORDERED: Acetaminophen/HYDROcodone 325-5 MG Tab PO PRN (19:21)
[2017-02-27] MEDS: Sodium Chloride 0.9% 1,000 ML IV SCH (21:46)
[2017-02-27] MEDS: Lactobacillus Rhamnosus GG (Probiotic) Cap PO SCH (21:57)
[2017-02-27] MEDS: Docusate Sodium 100 MG Cap PO SCH (21:57)
[2017-02-27] MEDS: Insulin Aspart 100 Units/ML 3 ML Pen SUBCUT SCH (21:57)
[2017-02-27] MEDS: atorvaSTATin 20 MG Tab PO SCH (22:02)
[2017-02-28] MEDS: Piperacillin/Tazobactam 3.375 GM in Sodium Chloride 0.9% 50 ML IV SCH ×2 (00:21→05:51)
[2017-02-28] MEDS: Sodium Chloride 0.9% 1,000 ML IV SCH ×3 (03:58→23:32)
[2017-02-28] MEDS: Insulin Aspart 100 Units/ML 3 ML Pen SUBCUT SCH ×4 (08:13→21:14)
[2017-02-28] MEDS: metFORMIN 500 MG Tab PO SCH ×2 (08:25→17:10)
[2017-02-28] MEDS: Lisinopril 2.5 MG Tab PO SCH (08:25)
[2017-02-28] MEDS: FLUoxetine 20 MG Cap PO SCH (08:25)
[2017-02-28] MEDS: Docusate Sodium 100 MG Cap PO SCH ×2 (08:25→21:13)
[2017-02-28] MEDS: Aspirin 81 MG Tab.Chew PO SCH (08:25)
[2017-02-28] MEDS: Lactobacillus Rhamnosus GG (Probiotic) Cap PO SCH ×2 (08:25→21:13)
[2017-02-28] MEDS: Insulin Detemir 100 Units/ML 3 ML Pen SUBCUT SCH (08:26)
--- NOTE | 2017-02-28 08:49 | CR ---
Foot Comp Min 3V Lt INDICATION: ? osteomyelitis COMPARISON: MR 02/05/2017 FINDINGS: 3 views. No acute interval change. Partial absence distal phalanx second digit again not ed. No new bone destruction seen.
[2017-02-28] MEDS ORDERED: Potassium Chloride 20 MEQ Tab.ER PO ONE (10:30)
[2017-02-28] MEDS: Piperacillin/Tazobactam/Dext 3.375 GM in Premix Bag 1 BAG IV SCH ×3 (11:18→23:32)
[2017-02-28] MEDS ORDERED: Gadoteridol 279.3 MG/ML 20 ML SDV IV SCH (12:30)
--- NOTE | 2017-02-28 15:21 | MR ---
Lwr Ext Non Joint w wo Cont Lt INDICATION: foot ulcers and cellulitis, r/o osteomyelitis TECHNIQUE: Multiplanar MR images of the left foot obtained. IV contrast given COMPARISON: 02/05/2017 FINDINGS: No abnormal marrow signal or enhancement to suggest osteomyelitis. A small slip of fluid al shravan the plantar aspect of the head of the fifth metatarsal is increased slightly in size measuring 2. 5 cm in length and 4 mm in diameter. This could represent a small abscess. Otherwise no evidence of a bscess. Amputation second digit at the DIP joint level again noted. Small joint effusion along the do rsal aspect of the first MTP joint again noted. Mild diffuse soft tissue edema and enhancement again noted consistent with cellulitis. This appears grossly unchanged given somewhat different technique. IMPRESSION: No evidence of osteomyelitis. Cellulitis unchanged. Small slip of fluid along the planta r aspect of the head of the fifth metatarsal slightly larger. This could represent early abscess form ation.
--- NOTE | 2017-02-28 15:56 | PCM.PN ---
- General Info Date of Service: 02/28/17 Functional Status: Reports: Pain Controlled, Tolerating Diet - Review of Systems General: Denies: Fever Musculoskeletal: Reports: Foot Pain Systems Review Comment:: no acute events overnight. No fevers. No foot pain reported today. He does continue to have some drainage from the left foot near the head of the first metatarsal. Cellulitis has improved with less warmth and decreased redness. MRI did not show evidence for osteomyelitis but did show a small amount of fluid under the ulcer at the distal end of the fifth metatarsal. - Patient Data Vitals - Most Recent: Last Vital Signs Temp 37.1 C 02/28/17 14:40 Pulse 71 02/28/17 14:40 Resp 18 02/28/17 14:40 BP 122/74 02/28/17 14:40 Pulse Ox 95 02/28/17 14:40 Weight - Most Recent: 90.945 kg I&O - Last 24 Hours: Intake & Output 02/28/17 02/28/17 02/28/17 06:59 14:59 22:59 Intake Total 50 2314 Output Total 300 Balance -250 2314 Lab Results Last 24 Hours: Laboratory Results - last 24 hr 02/28/17 02/28/17 Range/Units 06:04 06:04 WBC 11.2 H (4.5-11.0) K/uL RBC 4.06 L (4.30-5.90) M/uL Hgb 12.1 (12.0-15.0) g/dL Hct 35.0 L (40.0-54.0) % MCV 86 (80-98) fL MCH 30 (27-31) pg MCHC 35 (32-36) % Plt Count 289 (150-400) K/uL Sodium 141 (140-148) mmol/L Potassium 3.5 L (3.6-5.2) mmol/L Chloride 106 (100-108) mmol/L Carbon Dioxide 25 (21-32) mmol/L Anion Gap 13.5 (5.0-14.0) mmol/L BUN 10 (7-18) mg/dL Creatinine 0.8 (0.8-1.3) mg/dL Est Cr Clr Drug Dosing 104.33 mL/min Estimated GFR (MDRD) > 60 (>60) Glucose 225 H (74-106) mg/dL Calcium 8.1 L (8.5-10.1) mg/dL Med Orders - Current: Current Medications Acetaminophen (Tylenol) 650 mg PO Q4H PRN PRN Reason: Pain/Fever Hydrocodone Bitart/Acetaminophen ([place] 325-5 Mg) 1 - 2 tab PO Q4H PRN PRN Reason: Pain Aspirin (Aspirin) 81 mg PO DAILY [facility] Last Admin: 02/28/17 08:25 Dose: 81 mg Atorvastatin Calcium (Lipitor) 40 mg PO BEDTIME [facility] Last Admin: 02/27/17 22:02 Dose: 40 mg Docusate Sodium (Colace) 100 mg PO BID [facility] Last Admin: 02/28/17 08:25 Dose: 100 mg Fluoxetine HCl (Prozac) 40 mg PO DAILY [facility] Last Admin: 02/28/17 08:25 Dose: 40 mg Sodium Chloride (Normal Saline) 1,000 mls @ 125 mls/hr IV ASDIRECTED [facility] Last Admin: 02/28/17 05:36 Dose: 125 mls/hr Vancomycin HCl 1.5 gm/ Sodium (Chloride) 250 mls @ 167 mls/hr IV Q12H [facility] Last Admin: 02/28/17 08:21 Dose: 167 mls/hr Piperacillin/Tazobactam/ (Dextrose 3.375 gm/ Premix) 50 mls @ 100 mls/hr IV Q6H [facility] Last Admin: 02/28/17 11:18 Dose: 100 mls/hr Insulin Aspart (Novolog) 0 unit SUBCUT QIDACANDBED [facility] PRN Reason: Protocol Last Admin: 02/28/17 11:55 Dose: 4 units Insulin Detemir (Levemir) 42 unit SUBCUT DAILY [facility] Last Admin: 02/28/17 08:26 Dose: 42 units Lactobacillus Rhamnosus (Culturelle) 1 cap PO BID [facility] Last Admin: 02/28/17 08:25 Dose: 1 cap Lisinopril (Prinivil) 2.5 mg PO DAILY [facility] Last Admin: 02/28/17 08:25 Dose: 2.5 mg Melatonin (Melatonin) 9 mg PO BEDTIME PRN PRN Reason: Sleep Metformin HCl (Glucophage) 1,000 mg PO BIDMEALS [facility] Last Admin: 02/28/17 08:25 Dose: 1,000 mg Ondansetron HCl (Zofran Odt) 4 mg PO Q6H PRN PRN Reason: Nausea able to take PO Polyethylene Glycol (Miralax) 17 gm PO DAILY PRN PRN Reason: Constipation Sodium Chloride (Saline Flush) 10 ml FLUSH ASDIRECTED PRN PRN Reason: Keep Vein Open Last Admin: 02/27/17 16:54 Dose: 10 ml Discontinued Medications Gadoteridol (Prohance) 20 ml IV . DIRECTED [facility] Stop: 02/28/17 14:00 Last Admin: 02/28/17 12:58 Dose: 18 ml Piperacillin Sod/Tazobactam (Sod 4.5 gm/ Sodium Chloride) 100 mls @ 200 mls/hr IV NOW STA Stop: 02/27/17 17:56 Last Admin: 02/27/17 17:42 Dose: 200 mls/hr Piperacillin Sod/Tazobactam (Sod 3.375 gm/ Sodium Chloride) 50 mls @ 100 mls/ hr IV Q6H [facility] Last Admin: 02/28/17 05:51 Dose: 100 mls/hr Vancomycin HCl 1.75 gm/ Sodium (Chloride) 250 mls @ 150 mls/hr IV ONETIME ONE Stop: 02/27/17 21:00 Last Admin: 02/27/17 21:46 Dose: 150 mls/hr Insulin Detemir (Levemir) 42 unit SUBCUT DAILY [facility] Potassium Chloride (Klor-Con M20) 40 meq PO ONETIME ONE Stop: 02/28/17 10:31 Last Admin: 02/28/17 11:18 Dose: 40 meq - Exam Quality Assessment: No: Supplemental Oxygen General: Alert, Oriented, Cooperative, No Acute Distress Lungs: Normal Respiratory Effort Extremities: No Pedal Edema, Other (left foot with mild yellow/brown drainage from the ulcer near the base of the 1st toe. No swelling around the area. Ulcers here are stable. No drainage from the ulcer near the head of the 5th metatarsal. Dry ulcer tip of 2nd toe) Skin: Warm, Rash (improved erythema around head of 1st metatarsal and between toes 1 and 2 ) - Problem List & Annotations (1) Cellulitis SNOMED Code(s): 899467212 Code(s): L03.90 - CELLULITIS, UNSPECIFIED Status: Acute Current Visit: Yes Qualifiers: Site of cellulitis: extremity Site of cellulitis of extremity: lower extremity Laterality: left Qualified Code(s): L03.116 - Cellulitis of left lower limb (2) Diabetic foot ulcer SNOMED Code(s): 177490627 Code(s): E11.621 - TYPE 2 DIABETES MELLITUS WITH FOOT ULCER; L97.509 - NON- PRESSURE CHRONIC ULCER OTH PRT UNSP FOOT W UNSP SEVERITY Status: Acute Current Visit: Yes Qualifiers: Diabetic foot ulcer location: toe Diabetes mellitus type: type 2 Laterality: left Non-pressure ulcer stage: with necrosis of muscle Qualified Code(s): E11.621 - Type 2 diabetes mellitus with foot ulcer; L97.523 - Non-pressure chronic ulcer of other part of left foot with necrosis of muscle ; L97.523 - Non-pressure chronic ulcer of other part of left foot with necrosis of muscle; L97.523 - Non-pressure chronic ulcer of other part of left foot with necrosis of muscle; L97.523 - Non-pressure chronic ulcer of other part of left foot with necrosis of muscle (3) Insulin dependent diabetes mellitus with complications SNOMED Code(s): 15273735 Code(s): E11.8 - TYPE 2 DIABETES MELLITUS WITH UNSPECIFIED COMPLICATIONS; Z79.4 - [facility] (CURRENT) USE OF INSULIN Status: Chronic Current Visit: Yes - Problem List Review Problem List Initiated/Reviewed/Updated: Yes - My Orders Last 24 Hours: My Active Orders 02/27/17 18:14 Resuscitation Status Routine 02/27/17 19:21 Patient Status [ADT] Routine Communication Order [RC] PRN Communication Order [RC] PRN Diabetes Education [RC] Click to Edit Dressing Change [Wound Care] [RC] DAILY Intake and Output [RC] QSHIFT Notify Provider Vital Signs [RC] ASDIRECTED Notify Provider [RC] PRN Oxygen Therapy [RC] PRN Up With Assistance [RC] ASDIRECTED VTE/DVT Education [RC] Per Unit Routine Vital Signs [RC] Q4H Ondansetron [Zofran ODT] 4 mg PO Q6H PRN Polyethylene Glycol 3350 [MiraLAX] 17 gm PO DAILY PRN Sodium Chloride 0.9% [Normal Saline] 1,000 ml IV ASDIRECTED Isolation [COMM] Routine Sequential Compression Device [OM.PC] Per Unit Routine 02/27/17 20:00 Insulin Aspart [NovoLOG] See Protocol SUBCUT QIDACANDBED 02/27/17 21:00 Lactobacillus Rhamnosus GG [Culturelle] 1 cap PO BID 02/28/17 09:00 Insulin Detemir [Levemir] 42 unit SUBCUT DAILY Vancomycin 1.5 gm Sodium Chloride 0.9% [Normal Saline] 250 ml IV Q12H 02/28/17 12:00 Piperacillin/Tazobactam/Dext [Zosyn in Dextrose Iso-Osmotic 3.375 GM] 3.375 gm Premix Bag 1 bag IV Q6H 02/28/17 16:30 GLUCOSE POC LAB TO COLLECT [POC] QIDACANDBED 02/28/17 21:00 GLUCOSE POC LAB TO COLLECT [POC] QIDACANDBED 03/01/17 05:00 BASIC METABOLIC PANEL,BMP [CHEM] Timed CBC W/O DIFF,HEMOGRAM [HEME] Timed (1) CRP [C-REACTIVE PROTEIN] [CHEM] Timed 03/01/17 07:30 GLUCOSE POC LAB TO COLLECT [POC] QIDACANDBED 03/01/17 11:30 GLUCOSE POC LAB TO COLLECT [POC] QIDACANDBED 03/01/17 16:30 GLUCOSE POC LAB TO COLLECT [POC] QIDACANDBED 03/01/17 21:00 GLUCOSE POC LAB TO COLLECT [POC] QIDACANDBED 03/02/17 07:30 GLUCOSE POC LAB TO COLLECT [POC] QIDACANDBED 03/02/17 08:30 VANCOMYCIN TROUGH [CHEM] Routine 03/02/17 11:30 GLUCOSE POC LAB TO COLLECT [POC] QIDACANDBED 03/02/17 16:30 GLUCOSE POC LAB TO COLLECT [POC] QIDACANDBED 03/02/17 21:00 GLUCOSE POC LAB TO COLLECT [POC] QIDACANDBED 03/03/17 07:30 GLUCOSE POC LAB TO COLLECT [POC] QIDACANDBED 03/03/17 11:30 GLUCOSE POC LAB TO COLLECT [POC] QIDACANDBED 03/03/17 16:30 GLUCOSE POC LAB TO COLLECT [POC] QIDACANDBED 03/03/17 21:00 GLUCOSE POC LAB TO COLLECT [POC] QIDACANDBED 03/04/17 07:30 GLUCOSE POC LAB TO COLLECT [POC] QIDACANDBED 03/04/17 11:30 GLUCOSE POC LAB TO COLLECT [POC] QIDACANDBED 03/04/17 16:30 GLUCOSE POC LAB TO COLLECT [POC] QIDACANDBED 03/04/17 21:00 GLUCOSE POC LAB TO COLLECT [POC] QIDACANDBED 03/05/17 07:30 GLUCOSE POC LAB TO COLLECT [POC] QIDACANDBED 03/05/17 11:30 GLUCOSE POC LAB TO COLLECT [POC] QIDACANDBED - Plan Plan:: ASSESSMENT AND PLAN - Left foot cellulitis with for foot ulcers - no evidence for osteomyelitis. White blood cell count better and tolerating current antibiotics.foot pain and cellulitis are both improving. -Vancomycin and Pip/Tazo -Daily dressing changes -Follow-up blood cultures -Pain control -contact precautions with history of MRSA -Podiatry follow-up Insulin-dependent diabetes mellitus - good blood sugar control so far. -Continue home dosing of Levemir -Medium dose sliding scale insulin Maintenance issues - - DVT prophylaxis - mechanical - GI prophylaxis - not indicated - Nutrition - diabetic diet Disposition - anticipate discharge home after the hospital stay Ata Posey M.D.
[2017-02-28] MEDS: atorvaSTATin 20 MG Tab PO SCH (21:13)
[2017-03-01] MEDS: Piperacillin/Tazobactam/Dext 3.375 GM in Premix Bag 1 BAG IV SCH ×2 (06:02→13:54)
[2017-03-01] MEDS: Insulin Aspart 100 Units/ML 3 ML Pen SUBCUT SCH ×4 (09:47→21:52)
[2017-03-01] MEDS: metFORMIN 500 MG Tab PO SCH ×2 (09:50→17:55)
[2017-03-01] MEDS: Lactobacillus Rhamnosus GG (Probiotic) Cap PO SCH ×2 (09:50→21:54)
[2017-03-01] MEDS: Docusate Sodium 100 MG Cap PO SCH ×2 (09:54→21:54)
[2017-03-01] MEDS: Lisinopril 2.5 MG Tab PO SCH (09:55)
[2017-03-01] MEDS: FLUoxetine 20 MG Cap PO SCH (09:56)
[2017-03-01] MEDS: Aspirin 81 MG Tab.Chew PO SCH (09:56)
[2017-03-01] MEDS: Insulin Detemir 100 Units/ML 3 ML Pen SUBCUT SCH (09:57)
--- NOTE | 2017-03-01 17:08 | PCM.PN ---
- General Info Date of Service: 03/01/17 Functional Status: Reports: Pain Controlled, Tolerating Diet, Ambulating - Review of Systems General: Denies: Fever Systems Review Comment:: No acute events overnight. Foot is continuing to feel better and looks much better today. Still some drainage from the wound over the head of the first metatarsal on the plantar surface. No fevers. Cultures negative. - Patient Data Vitals - Most Recent: Last Vital Signs Temp 35.9 C 03/01/17 15:00 Pulse 85 03/01/17 15:00 Resp 18 03/01/17 15:00 BP 121/79 03/01/17 15:00 Pulse Ox 98 03/01/17 15:00 Weight - Most Recent: 90.945 kg I&O - Last 24 Hours: Intake & Output 03/01/17 03/01/17 03/01/17 06:59 14:59 22:59 Intake Total 500 250 Output Total 775 700 Balance -275 -450 Lab Results Last 24 Hours: Laboratory Results - last 24 hr 03/01/17 03/01/17 Range/Units 05:00 05:00 WBC 12.7 H (4.5-11.0) K/uL RBC 4.20 L (4.30-5.90) M/uL Hgb 12.4 (12.0-15.0) g/dL Hct 36.0 L (40.0-54.0) % MCV 86 (80-98) fL MCH 30 (27-31) pg MCHC 34 (32-36) % Plt Count 319 (150-400) K/uL Sodium 142 (140-148) mmol/L Potassium 4.2 (3.6-5.2) mmol/L Chloride 107 (100-108) mmol/L Carbon Dioxide 25 (21-32) mmol/L Anion Gap 14.2 H (5.0-14.0) mmol/L BUN 8 (7-18) mg/dL Creatinine 0.8 (0.8-1.3) mg/dL Est Cr Clr Drug Dosing 103.98 mL/min Estimated GFR (MDRD) > 60 (>60) Glucose 149 H (74-106) mg/dL Calcium 8.5 (8.5-10.1) mg/dL C-Reactive Protein 5.11 H (0.0-0.3) mg/dL Med Orders - Current: Current Medications Acetaminophen (Tylenol) 650 mg PO Q4H PRN PRN Reason: Pain/Fever Hydrocodone Bitart/Acetaminophen ([place] 325-5 Mg) 1 - 2 tab PO Q4H PRN PRN Reason: Pain Aspirin (Aspirin) 81 mg PO DAILY [facility] Last Admin: 03/01/17 09:56 Dose: 81 mg Atorvastatin Calcium (Lipitor) 40 mg PO BEDTIME [facility] Last Admin: 02/28/17 21:13 Dose: 40 mg Docusate Sodium (Colace) 100 mg PO BID [facility] Last Admin: 03/01/17 09:54 Dose: 100 mg Fluoxetine HCl (Prozac) 40 mg PO DAILY [facility] Last Admin: 03/01/17 09:56 Dose: 40 mg Insulin Aspart (Novolog) 0 unit SUBCUT QIDACANDBED [facility] PRN Reason: Protocol Last Admin: 03/01/17 13:57 Dose: 6 units Insulin Detemir (Levemir) 42 unit SUBCUT DAILY [facility] Last Admin: 03/01/17 09:57 Dose: 42 units Lactobacillus Rhamnosus (Culturelle) 1 cap PO BID [facility] Last Admin: 03/01/17 09:50 Dose: 1 cap Lisinopril (Prinivil) 2.5 mg PO DAILY [facility] Last Admin: 03/01/17 09:55 Dose: 2.5 mg Melatonin (Melatonin) 9 mg PO BEDTIME PRN PRN Reason: Sleep Metformin HCl (Glucophage) 1,000 mg PO BIDMEALS [facility] Last Admin: 03/01/17 09:50 Dose: 1,000 mg Ondansetron HCl (Zofran Odt) 4 mg PO Q6H PRN PRN Reason: Nausea able to take PO Polyethylene Glycol (Miralax) 17 gm PO DAILY PRN PRN Reason: Constipation Sodium Chloride (Saline Flush) 10 ml FLUSH ASDIRECTED PRN PRN Reason: Keep Vein Open Last Admin: 02/27/17 16:54 Dose: 10 ml Trimethoprim/Sulfamethoxazole (Septra Ds) 1 tab PO BID [facility] Discontinued Medications Gadoteridol (Prohance) 20 ml IV . DIRECTED [facility] Stop: 02/28/17 14:00 Last Admin: 02/28/17 12:58 Dose: 18 ml Piperacillin Sod/Tazobactam (Sod 4.5 gm/ Sodium Chloride) 100 mls @ 200 mls/hr IV NOW STA Stop: 02/27/17 17:56 Last Admin: 02/27/17 17:42 Dose: 200 mls/hr Piperacillin Sod/Tazobactam (Sod 3.375 gm/ Sodium Chloride) 50 mls @ 100 mls/ hr IV Q6H [facility] Last Admin: 02/28/17 05:51 Dose: 100 mls/hr Sodium Chloride (Normal Saline) 1,000 mls @ 125 mls/hr IV ASDIRECTED [facility] Last Admin: 02/28/17 23:32 Dose: 125 mls/hr Vancomycin HCl 1.75 gm/ Sodium (Chloride) 250 mls @ 150 mls/hr IV ONETIME ONE Stop: 02/27/17 21:00 Last Admin: 02/27/17 21:46 Dose: 150 mls/hr Vancomycin HCl 1.5 gm/ Sodium (Chloride) 250 mls @ 167 mls/hr IV Q12H [facility] Last Admin: 03/01/17 09:50 Dose: 167 mls/hr Piperacillin/Tazobactam/ (Dextrose 3.375 gm/ Premix) 50 mls @ 100 mls/hr IV Q6H [facility] Last Admin: 03/01/17 13:54 Dose: 100 mls/hr Insulin Detemir (Levemir) 42 unit SUBCUT DAILY [facility] Potassium Chloride (Klor-Con M20) 40 meq PO ONETIME ONE Stop: 02/28/17 10:31 Last Admin: 02/28/17 11:18 Dose: 40 meq - Exam Quality Assessment: No: Supplemental Oxygen General: Alert, Oriented, Cooperative, No Acute Distress Neck: Supple Lungs: Normal Respiratory Effort Extremities: No Pedal Edema, Other (Ulcer with mild dry blood around the edge at the head of the fifth metatarsal. Denuded area of skin under the head of the first metatarsal with mild serosanguineous drainage. No significant induration, tenderness or erythema in this area. Medial ulcer has dried up and ulcer over the distal head of the first metatarsal appears improved but not resolved.) Skin: Warm, Dry, Other (No erythema on the top of the foot or plantar surface of the foot were previous erythema had been) Psy/Mental Status: Alert, Normal Affect - Problem List & Annotations (1) Cellulitis SNOMED Code(s): 656682262 Code(s): L03.90 - CELLULITIS, UNSPECIFIED Status: Acute Current Visit: Yes Qualifiers: Site of cellulitis: extremity Site of cellulitis of extremity: lower extremity Laterality: left Qualified Code(s): L03.116 - Cellulitis of left lower limb (2) Diabetic foot ulcer SNOMED Code(s): 649393518 Code(s): E11.621 - TYPE 2 DIABETES MELLITUS WITH FOOT ULCER; L97.509 - NON- PRESSURE CHRONIC ULCER OTH PRT UNSP FOOT W UNSP SEVERITY Status: Acute Current Visit: Yes Qualifiers: Diabetic foot ulcer location: toe Diabetes mellitus type: type 2 Laterality: left Non-pressure ulcer stage: with necrosis of muscle Qualified Code(s): E11.621 - Type 2 diabetes mellitus with foot ulcer; L97.523 - Non-pressure chronic ulcer of other part of left foot with necrosis of muscle ; L97.523 - Non-pressure chronic ulcer of other part of left foot with necrosis of muscle; L97.523 - Non-pressure chronic ulcer of other part of left foot with necrosis of muscle; L97.523 - Non-pressure chronic ulcer of other part of left foot with necrosis of muscle (3) Insulin dependent diabetes mellitus with complications SNOMED Code(s): 33459074 Code(s): E11.8 - TYPE 2 DIABETES MELLITUS WITH UNSPECIFIED COMPLICATIONS; Z79.4 - [employer] (CURRENT) USE OF INSULIN Status: Chronic Current Visit: Yes - Problem List Review Problem List Initiated/Reviewed/Updated: Yes - My Orders Last 24 Hours: My Active Orders 03/01/17 14:05 Convert IV to Saline Lock [OM.PC] Routine 03/01/17 21:00 GLUCOSE POC LAB TO COLLECT [POC] QIDACANDBED Sulfamethoxazole/Trimethoprim [Septra DS] 1 tab PO BID 03/02/17 05:00 BASIC METABOLIC PANEL,BMP [CHEM] Timed CBC W/O DIFF,HEMOGRAM [HEME] Timed (1) 03/02/17 07:30 GLUCOSE POC LAB TO COLLECT [POC] QIDACANDBED 03/02/17 11:30 GLUCOSE POC LAB TO COLLECT [POC] QIDACANDBED 03/02/17 16:30 GLUCOSE POC LAB TO COLLECT [POC] QIDACANDBED 03/02/17 21:00 GLUCOSE POC LAB TO COLLECT [POC] QIDACANDBED 03/03/17 07:30 GLUCOSE POC LAB TO COLLECT [POC] QIDACANDBED 03/03/17 11:30 GLUCOSE POC LAB TO COLLECT [POC] QIDACANDBED 03/03/17 16:30 GLUCOSE POC LAB TO COLLECT [POC] QIDACANDBED 03/03/17 21:00 GLUCOSE POC LAB TO COLLECT [POC] QIDACANDBED 03/04/17 07:30 GLUCOSE POC LAB TO COLLECT [POC] QIDACANDBED 03/04/17 11:30 GLUCOSE POC LAB TO COLLECT [POC] QIDACANDBED 03/04/17 16:30 GLUCOSE POC LAB TO COLLECT [POC] QIDACANDBED 03/04/17 21:00 GLUCOSE POC LAB TO COLLECT [POC] QIDACANDBED 03/05/17 07:30 GLUCOSE POC LAB TO COLLECT [POC] QIDACANDBED 03/05/17 11:30 GLUCOSE POC LAB TO COLLECT [POC] QIDACANDBED - Plan Plan:: ASSESSMENT AND PLAN - Left foot cellulitis with for foot ulcers - no evidence for osteomyelitis. White blood cell count stable. Clinically looks much better today with less erythema and induration. Drainage seems a little less but has not resolved. -Vancomycin and Pip/Tazo through this afternoon -Transition to Bactrim tonight -Daily dressing changes -Follow-up blood cultures -Pain control -contact precautions with history of MRSA -Podiatry follow-up next week Insulin-dependent diabetes mellitus - blood sugars well-controlled for the most part. -Continue home dosing of Levemir -Medium dose sliding scale insulin Maintenance issues - - DVT prophylaxis - mechanical - GI prophylaxis - not indicated - Nutrition - diabetic diet Disposition - anticipate discharge home after the hospital stay, hopefully tomorrow Ata Posey M.D.
[2017-03-01] MEDS: Sulfamethoxazole/Trimethoprim 800-160 MG Tab PO SCH (21:54)
[2017-03-01] MEDS: atorvaSTATin 20 MG Tab PO SCH (21:54)
[2017-03-02] MEDS: Insulin Aspart 100 Units/ML 3 ML Pen SUBCUT SCH ×2 (07:29→11:36)
[2017-03-02] MEDS: Lactobacillus Rhamnosus GG (Probiotic) Cap PO SCH (08:27)
[2017-03-02] MEDS: Insulin Detemir 100 Units/ML 3 ML Pen SUBCUT SCH (08:27)
[2017-03-02] MEDS: Aspirin 81 MG Tab.Chew PO SCH (08:27)
[2017-03-02] MEDS: metFORMIN 500 MG Tab PO SCH (08:27)
[2017-03-02] MEDS: Docusate Sodium 100 MG Cap PO SCH (08:27)
[2017-03-02] MEDS: Lisinopril 2.5 MG Tab PO SCH (08:28)
[2017-03-02] MEDS: Sulfamethoxazole/Trimethoprim 800-160 MG Tab PO SCH (08:28)
[2017-03-02] MEDS: FLUoxetine 20 MG Cap PO SCH (08:28)
--- NOTE | 2017-03-02 11:05 | PCM.DCSUM1 ---
Discharge Summary - Hospital Course Brief History: 56-year-old male with history of insulin-dependent diabetes, previous MRSA infection and chronic foot ulcers who presented with left foot redness and swelling. He was admitted for management of cellulitis in the setting of a diabetic foot ulcer. - Discharge Data Discharge Date: 03/02/17 Discharge Disposition: Home, W Home Health Agency 06 Condition: Good - Discharge Diagnosis/Problem(s) (1) Cellulitis SNOMED Code(s): 789532368 ICD Code: L03.90 - CELLULITIS, UNSPECIFIED Status: Acute Qualifiers: Site of cellulitis: extremity Site of cellulitis of extremity: lower extremity Laterality: left Qualified Code(s): L03.116 - Cellulitis of left lower limb (2) Diabetic foot ulcer SNOMED Code(s): 597319166 ICD Code: E11.621 - TYPE 2 DIABETES MELLITUS WITH FOOT ULCER; L97.509 - NON- PRESSURE CHRONIC ULCER OTH PRT UNSP FOOT W UNSP SEVERITY Status: Acute Qualifiers: Diabetic foot ulcer location: toe Diabetes mellitus type: type 2 Laterality: left Non-pressure ulcer stage: with necrosis of muscle Qualified Code(s): E11.621 - Type 2 diabetes mellitus with foot ulcer; L97.523 - Non-pressure chronic ulcer of other part of left foot with necrosis of muscle ; L97.523 - Non-pressure chronic ulcer of other part of left foot with necrosis of muscle; L97.523 - Non-pressure chronic ulcer of other part of left foot with necrosis of muscle; L97.523 - Non-pressure chronic ulcer of other part of left foot with necrosis of muscle (3) Insulin dependent diabetes mellitus with complications SNOMED Code(s): 67257299 ICD Code: E11.8 - TYPE 2 DIABETES MELLITUS WITH UNSPECIFIED COMPLICATIONS; Z79.4 - STORAGE BATTERY TESTER (CURRENT) USE OF INSULIN Status: Chronic - Patient Summary/Data Labs Pending at D/C: Final results of blood cultures which are negative at 3 days Hospital Course: Edgar presented to the emergency room with drainage from his left foot as well as increased pain. Workup in the emergency room was suggestive of cellulitis over the plantar aspect of the foot near the first and second metatarsal heads. He had 2 ulcers in this area and an area of denuded skin. Cultures were obtained and he was started on broad-spectrum antibiotics and admitted to the hospital. Over the next 48 hours he showed slow but steady improvement in the area of cellulitis. The morning after admission we did perform an MRI which did not show definite evidence for osteomyelitis. He has not had any fevers. White blood cell count initially decreased and then dexter very slightly and decreased to just above normal by the time of discharge. His foot has looked better each day. We have been performing daily dressing changes on the foot. He does have some ongoing drainage from the ulcer over the head of the first metatarsal. He would benefit from ongoing dressing changes. The patient lives by himself and would benefit from home health assistance in making these dressing changes. Because our cultures have been negative we changed him empirically to Bactrim the day before discharge. He has had continued improvement in the foot even after the transition to oral antibiotics. The plan is for 11 more days of antibiotic therapy to complete a two-week course. He will be following up with podiatry in 3 days time. His blood sugars have been well-controlled during the hospital stay, especially the past 24 hours as infection has continued to improve. No changes to his diabetic regimen were made. Vital signs have been stable. - Patient Instructions Diet: Diabetic Diet Activity: As Tolerated Showering/Bathing: May Shower, No Tub Bathing/Swimming Wound/Incision Care: Change Dressing Daily Notify Provider of: Fever, Increased Pain, Nausea and/or Vomiting Other/Special Instructions: 1. You were in the hospital for management of cellulitis of the left foot caused by a diabetic foot ulcer. We did not determine the causative bacteria but you have been improving with our antibiotic therapy. I recommend 11 additional days of antibiotic therapy with Bactrim. You should take this medication twice daily with food. 2. Dressing change instructions - remove the old dressing and cleanse gently with saline. Cover the ulcer by the big toe as well as by your fifth toe with a nonadherent dressing. Cover these nonadherent dressings with a few 4 x 4's for padding. Then wrap the foot with Kerlix and secure with tape. You should change this dressing daily and as needed. It would be best to shower right before the dressing change and you may remove the dressing yourself prior to showering. 3. I have placed a referral to home health care to help make the transition from hospital to home easier. They will help with your dressing changes daily. 4. Please seek medical attention if you develop fever greater than 101, have severe pain or if you have progressive swelling or increasing drainage from the foot. - Discharge Plan Prescriptions/Med Rec: Lactobacillus Rhamnosus GG [Culturelle] 1 cap PO BID #30 cap Sulfamethoxazole/Trimethoprim [IJD: Sulfamethoxazole/Trimethoprim DS] 1 tab PO BID #21 tablet Home Medications: Home Meds Aspirin [Children's Aspirin] 81 mg PO DAILY 06/29/14 [History] atorvaSTATin Calcium [Atorvastatin Calcium] 40 mg PO BEDTIME 06/29/14 [History] metFORMIN HCl [Metformin HCl] 1,000 mg PO BIDM 06/29/14 [History] FLUoxetine [PROzac] 40 mg PO DAILY 30 Days cap 07/18/16 [Rx] Insulin Glarg,Human.Rec.Analog [Lantus Solostar] 42 unit SUBCUT DAILY 12/19/16 [ History] Acetaminophen [Tylenol] 650 mg PO Q4H PRN tablet 12/20/16 [Rx] Acetaminophen/HYDROcodone [Ute 325-5 MG] 1 - 2 tab PO Q4H PRN #40 tablet 12/20 [Rx] Docusate Sodium [Colace] 100 mg PO BID #100 cap 12/20/16 [Rx] Lisinopril [Prinivil] 2.5 mg PO DAILY tablet 12/20/16 [Rx] Melatonin 9 mg PO BEDTIME PRN tablet 12/20/16 [Rx] Lactobacillus Rhamnosus GG [Culturelle] 1 cap PO BID #30 cap 03/02/17 [Rx] Sulfamethoxazole/Trimethoprim [IJD: Sulfamethoxazole/Trimethoprim DS] 1 tab PO BID #21 tablet 03/02/17 [Rx] Patient Handouts: Diabetes and Foot Care, Cellulitis, Adult, Sulfamethoxazole; Trimethoprim, SMX-TMP tablets Referrals: Chuy Kovacs DPM [Physician] - 03/05/17 9:00 am Britany Serna RN [Registered Nurse] - 03/20/17 10:00 am Dhiraj Ruiz MD [Primary Care Provider] - (follow-up as needed after the hospital stay) - Discharge Summary/Plan Comment DC Time >30 min.: Yes (35 - setting up home care and follow up communication) - Patient Data Vitals - Most Recent: Last Vital Signs Temp 36.9 C 03/02/17 07:37 Pulse 73 03/02/17 07:37 Resp 18 03/02/17 07:37 BP 136/77 03/02/17 08:28 Pulse Ox 95 03/02/17 07:37 Weight - Most Recent: 90.945 kg I&O - Last 24 hours: Intake & Output 03/01/17 03/02/17 03/02/17 22:59 06:59 14:59 Intake Total 400 500 Output Total 175 650 Balance 225 -150 Lab Results - Last 24 hrs: Laboratory Results - last 24 hr 03/02/17 03/02/17 Range/Units 05:47 05:47 WBC 11.5 H (4.5-11.0) K/uL RBC 4.20 L (4.30-5.90) M/uL Hgb 12.3 (12.0-15.0) g/dL Hct 35.9 L (40.0-54.0) % MCV 86 (80-98) fL MCH 29 (27-31) pg MCHC 34 (32-36) % Plt Count 321 (150-400) K/uL Sodium 141 (140-148) mmol/L Potassium 3.6 (3.6-5.2) mmol/L Chloride 105 (100-108) mmol/L Carbon Dioxide 28 (21-32) mmol/L Anion Gap 8.5 (5.0-14.0) mmol/L BUN 7 (7-18) mg/dL Creatinine 0.9 (0.8-1.3) mg/dL Est Cr Clr Drug Dosing 92.43 mL/min Estimated GFR (MDRD) > 60 (>60) Glucose 100 (74-106) mg/dL Calcium 8.6 (8.5-10.1) mg/dL Med Orders - Current: Current Medications Acetaminophen (Tylenol) 650 mg PO Q4H PRN PRN Reason: Pain/Fever Hydrocodone Bitart/Acetaminophen (Ute 325-5 Mg) 1 - 2 tab PO Q4H PRN PRN Reason: Pain Aspirin (Aspirin) 81 mg PO DAILY [facility] Last Admin: 03/02/17 08:27 Dose: 81 mg Atorvastatin Calcium (Lipitor) 40 mg PO BEDTIME JACQUELYN Last Admin: 03/01/17 21:54 Dose: 40 mg Docusate Sodium (Colace) 100 mg PO BID [facility] Last Admin: 03/02/17 08:27 Dose: 100 mg Fluoxetine HCl (Prozac) 40 mg PO DAILY [facility] Last Admin: 03/02/17 08:28 Dose: 40 mg Insulin Aspart (Novolog) 0 unit SUBCUT QIDACANDBED [facility] PRN Reason: Protocol Last Admin: 03/02/17 07:29 Dose: Not Given Insulin Detemir (Levemir) 42 unit SUBCUT DAILY [facility] Last Admin: 03/02/17 08:27 Dose: 42 units Lactobacillus Rhamnosus (Culturelle) 1 cap PO BID [facility] Last Admin: 03/02/17 08:27 Dose: 1 cap Lisinopril (Prinivil) 2.5 mg PO DAILY [facility] Last Admin: 03/02/17 08:28 Dose: 2.5 mg Melatonin (Melatonin) 9 mg PO BEDTIME PRN PRN Reason: Sleep Metformin HCl (Glucophage) 1,000 mg PO BIDMEALS [facility] Last Admin: 03/02/17 08:27 Dose: 1,000 mg Ondansetron HCl (Zofran Odt) 4 mg PO Q6H PRN PRN Reason: Nausea able to take PO Polyethylene Glycol (Miralax) 17 gm PO DAILY PRN PRN Reason: Constipation Sodium Chloride (Saline Flush) 10 ml FLUSH ASDIRECTED PRN PRN Reason: Keep Vein Open Last Admin: 02/27/17 16:54 Dose: 10 ml Trimethoprim/Sulfamethoxazole (Septra Ds) 1 tab PO BID [facility] Last Admin: 03/02/17 08:28 Dose: 1 tab Discontinued Medications Gadoteridol (Prohance) 20 ml IV . DIRECTED [facility] Stop: 02/28/17 14:00 Last Admin: 02/28/17 12:58 Dose: 18 ml Piperacillin Sod/Tazobactam (Sod 4.5 gm/ Sodium Chloride) 100 mls @ 200 mls/hr IV NOW [facility] Stop: 02/27/17 17:56 Last Admin: 02/27/17 17:42 Dose: 200 mls/hr Piperacillin Sod/Tazobactam (Sod 3.375 gm/ Sodium Chloride) 50 mls @ 100 mls/ hr IV Q6H [facility] Last Admin: 02/28/17 05:51 Dose: 100 mls/hr Sodium Chloride (Normal Saline) 1,000 mls @ 125 mls/hr IV ASDIRECTED [facility] Last Admin: 02/28/17 23:32 Dose: 125 mls/hr Vancomycin HCl 1.75 gm/ Sodium (Chloride) 250 mls @ 150 mls/hr IV ONETIME ONE Stop: 02/27/17 21:00 Last Admin: 02/27/17 21:46 Dose: 150 mls/hr Vancomycin HCl 1.5 gm/ Sodium (Chloride) 250 mls @ 167 mls/hr IV Q12H [facility] Last Admin: 03/01/17 09:50 Dose: 167 mls/hr Piperacillin/Tazobactam/ (Dextrose 3.375 gm/ Premix) 50 mls @ 100 mls/hr IV Q6H [facility] Last Admin: 03/01/17 13:54 Dose: 100 mls/hr Insulin Detemir (Levemir) 42 unit SUBCUT DAILY [facility] Potassium Chloride (Klor-Con M20) 40 meq PO ONETIME ONE Stop: 02/28/17 10:31 Last Admin: 02/28/17 11:18 Dose: 40 meq - Exam Quality Assessment: Denies: Supplemental Oxygen General: Reports: Alert, Oriented, Cooperative, No Acute Distress Lungs: Reports: Normal Respiratory Effort Cardiovascular: Reports: Regular Rate, Regular Rhythm Extremities: No Pedal Edema, Other (left foot with small ulcer and large callus plantar surface, base of fifth metatarsal. Large area of denuded skin and ulcer base of first metatarsal, plantar surface. Serosanguineous drainage from this ulcer. No purulence. No warmth or erythema. Second toe has a less than 1 cm dry ulceration from previous debridement on the tip) *Q Meaningful Use (DIS) - VTE *Q VTE Criteria *Q: - Stroke *Q Stroke Criteria *Q: - AMI *Q AMI Criteria *Q:
[2017-03-02 11:35] VITALS: BP 135/79
== END 2017-03-02 12:35 | disposition home health service (06) | DRG 638 ==
LOC: JP.ED 15:56 → JP.MS 18:11
PROVIDERS: ADMIT Internal Medicine; ATTEND Internal Medicine
DX: E11.621 Type 2 diabetes mellitus with foot ulcer (principal); L03.116 Cellulitis of left lower limb; L97.523 Non-pressure chronic ulcer of other part of left foot with necrosis of muscle; Z79.4 Long term (current) use of insulin; E11.21 Type 2 diabetes mellitus with diabetic nephropathy; Z79.2 Long term (current) use of antibiotics; Z86.14 Personal history of Methicillin resistant Staphylococcus aureus infection; I10 Essential (primary) hypertension; E78.00 Pure hypercholesterolemia, unspecified; F32.9 Major depressive disorder, single episode, unspecified; Z79.82 Long term (current) use of aspirin
CPT/HCPCS: 36415; 73630-26-LT; 73630-LT; 73720-26-LT; 73720-LT; 80048; 81001; 82962; 85027; 85651; 86140; 87040; 96365; 99285-25; A9270-GY; A9576; J2543; J3370; J7030; J7050

== ENCOUNTER 2017-04-09 14:34 | Inpatient (IN) | payer MEDICAID ==
--- NOTE | 2017-04-09 13:53 | MR ---
Lwr Ext Non Joint w wo Cont Lt HISTORY: FOOT ULCER, CELLULITIS/ABSCESS OF TOE Multiplanar sequences of the left foot were obtained without and with gadolinium. COMPARISON: MRI left foot, 02/28/2017 FINDINGS: There is a soft tissue ulcer with surrounding cellulitis changes at the plantar aspect of t he foot adjacent to the head of the first metatarsal. This extends adjacent to the sesamoid bones of the first MTP joint. Both of the sesamoid bones demonstrate decreased T1 marrow signal, increased T2 marrow signal, and marrow enhancement. There appears to be erosion at the plantar aspect of both sesa moid bones. Appearance is consistent with osteomyelitis involving both sesamoid bones at the first MT P joint. No abscess is identified. There is also abnormal marrow signal with enhancement lateral aspect head of the first metatarsal hilario picious for early osteomyelitis. No definite cortical erosive changes are seen at the head of first m etatarsal. Remainder of the bony structures of left foot show normal marrow signal throughout. No other areas smyth spicious for osteomyelitis are seen. Possible developing abscess adjacent to the plantar aspect head of the fifth metatarsal is no longer apparent. IMPRESSION: 1. Soft tissue ulcer with cellulitis adjacent to the plantar aspect base of the left first metatarsal . No soft tissue abscess is identified. 2. Probable osteomyelitis involving both of the sesamoid bones at the first MTP joint. 3. Possible early osteomyelitis signal changes lateral aspect head of the first metatarsal.
[2017-04-09] MEDS ORDERED: Ondansetron 4 MG Tab.DIS PO PRN (15:29)
[2017-04-09] MEDS ORDERED: Acetaminophen 325 MG Tab PO PRN (15:29)
[2017-04-09] MEDS ORDERED: Ibuprofen 600 MG Tab PO PRN (15:29)
[2017-04-09] MEDS ORDERED: Melatonin 3 MG Tab PO PRN (15:29)
[2017-04-09] MEDS ORDERED: oxyCODONE 5 MG Tab PO PRN (15:29)
[2017-04-09] MEDS ORDERED: Polyethylene Glycol 3350 Powder 17 GM Packet PO PRN (15:29)
[2017-04-09] MEDS ORDERED: Sodium Chloride 0.9% 10 ML Syringe FLUSH PRN (15:29)
--- NOTE | 2017-04-09 15:46 | PCM.HP ---
H&P History of Present Illness - General Date of Service: 04/09/17 Admit Problem/Dx: Admission Diagnosis/Problem Admission Diagnosis/Problem Osteomyelitis of ankle or foot Source of Information: Patient, Provider History Limitations: Reports: No Limitations - History of Present Illness Initial Comments - Free Text/Narative: Edgar was a direct admission from the podiatry clinic. He was seen there today for routine follow-up of a left foot ulcer. There was some concern for infection around the great toe and an x-ray was obtained to assess for osteomyelitis. There was concern for osteomyelitis on the x-ray so this prompted an MRI which did show osteomyelitis. the patient reports that he does not have any pain in his foot at this time and has been ambulating without limitation. He has noticed some mild intermittent drainage but nothing concerning. He has not noticed any redness or warmth on the foot. He has not had any fevers. He thought his foot was healing well after a recent bout of cellulitis involving the lateral aspect of the same foot. Appetite has been decreased over the past couple of days but blood sugars have been well controlled per his report. Surgical intervention is planned in the morning. The patient does not have a history of difficulty with anesthesia. His functional status has been acceptable with no limitations such as chest pain or dyspnea on exertion. - Related Data Allergies/Adverse Reactions: Allergies Allergy/AdvReac Type Severity Reaction Status Date / Time No Known Allergies Allergy Verified 12/22/16 15:48 Home Medications: Home Meds Aspirin [Children's Aspirin] 81 mg PO DAILY 06/29/14 [History] atorvaSTATin Calcium [Atorvastatin Calcium] 40 mg PO BEDTIME 06/29/14 [History] metFORMIN HCl [Metformin HCl] 1,000 mg PO BIDM 06/29/14 [History] FLUoxetine [PROzac] 40 mg PO DAILY 30 Days cap 07/18/16 [Rx] Insulin Glarg,Human.Rec.Analog [Lantus Solostar] 42 unit SUBCUT DAILY 12/19/16 [ History] Acetaminophen [Tylenol] 650 mg PO Q4H PRN tablet 12/20/16 [Rx] Acetaminophen/HYDROcodone [[place] 325-5 MG] 1 - 2 tab PO Q4H PRN #40 tablet 12/20 [Rx] Docusate Sodium [Colace] 100 mg PO BID #100 cap 10/25/17 [Rx] Lisinopril [Prinivil] 2.5 mg PO DAILY tablet 12/20/16 [Rx] Melatonin 9 mg PO BEDTIME PRN tablet 12/20/16 [Rx] Lactobacillus Rhamnosus GG [Culturelle] 1 cap PO BID #30 cap 03/02/17 [Rx] Past Medical History - Past Health History Medical/Surgical History: Denies Medical/Surgical History Cardiovascular History: Reports: High Cholesterol, Hypertension Gastrointestinal History: Reports: GERD Genitourinary History: Reports: Diabetic Nephropathy Musculoskeletal History: Reports: Other (See Below) Other Musculoskeletal History: sore right foot, R [employer] REPAIR. sore on the bottom of left foot Psychiatric History: Reports: Depression Endocrine/Metabolic History: Reports: Diabetes, Type II Dermatologic History: Reports: Cellulitis - Infectious Disease History Infectious Disease History: Reports: Chicken Pox - Past Surgical History Head Surgeries/Procedures: Reports: None Cardiovascular Surgical History: Reports: None GI Surgical History: Reports: None Male Surgical History: Reports: None Endocrine Surgical History: Reports: None Musculoskeletal Surgical History: Reports: Amputation Other Musculoskeletal Surgeries/Procedures:: right toe amputation in June Social & Family History - Family History Family Medical History: Noncontributory - Tobacco Use Smoking Status *Q: Never Smoker Second Hand Smoke Exposure: No - Caffeine Use Caffeine Use: Reports: Coffee, Soda - Alcohol Use Days Per Week of Alcohol Use: 0 - Recreational Drug Use Recreational Drug Use: No H&P Review of Systems - Review of Systems: Review Of Systems: See Below Free Text/Narrative: A complete 12 point review of systems was obtained. Pertinent positives and negatives are noted in the history of present illness. All other systems were reviewed and were negative except as noted. Exam - Exam Exam: See Below - Vital Signs Vital Signs: Last Vital Signs Temp Pulse 88 04/09/17 15:35 Resp 16 04/09/17 15:35 BP 124/71 04/09/17 15:35 Pulse Ox 99 04/09/17 15:35 Weight: 90.356 kg - Exam Quality Assessment: No: Supplemental Oxygen General: Alert, Oriented, Cooperative. No: Mild Distress HEENT: Conjunctiva Clear, Mucosa Moist & [place] Neck: Supple, Trachea Midline Lungs: Clear to Auscultation, Normal Respiratory Effort Cardiovascular: Regular Rate, Regular Rhythm GI/Abdominal Exam: Normal Bowel Sounds, Soft, Non-Tender, No Distention Back Exam: Normal Inspection, Full Range of Motion Extremities: No Pedal Edema, Increased Warmth (left foot) Skin: Warm, Dry, Wound (1.3 cm ulceration base of left great toe with fibrinous material on the inside. ) Neuro Extensive - Mental Status: Alert, Oriented x3, Nl Response to Commands Neuro Extensive - Motor, Sensory, Reflexes: CN II-XII Intact. No: Dysarthria, Abnormal Motor, Tremor Psychiatric: Alert, Normal Affect - Patient Data Lab Results Last 24 hrs: white blood cell count about 17,000 CRP 17 sedimentation rate greater than 100 Imaging Impressions Last 24 hrs: XR left foot - changes concerning for osteomyelitis at the base of the left great toe MRI left foot - probable osteomyelitis at base of 1 metatarsal and both sesamoid bones at the first MTP joint. Cellulitis around ulcer base of great toe but no abscess *Q Meaningful Use (ADM) - VTE *Q VTE Criteria *Q: VTE Pharmacological Contraindications *Q: Patient Scheduled Surgery - VTE Risk Assess *Q Each Risk Factor Represents 1 Point: Age 41 - 59 years, Minor Surgery Planned Total Score 1 Point Risk Factors: 2 Each Risk Factor Represents 2 Points: None Total Score 2 Point Risk Factors: 0 Each Risk Factor Represents 3 Points: None Total Score 3 Point Risk Factors: 0 Each Risk Factor Represents 5 Points: None Total Score 5 Point Risk Factors: 0 Venous Thromboembolism Risk Factor Score *Q: 2 - Stroke *Q Stroke Criteria *Q: - AMI *Q AMI Criteria *Q: - Problem List (1) Osteomyelitis of foot, left, acute SNOMED Code(s): 2167341349175894 ICD Code: M86.172 - OTHER ACUTE OSTEOMYELITIS, LEFT ANKLE AND FOOT Status: Acute Current Visit: Yes (2) Insulin dependent diabetes mellitus with complications SNOMED Code(s): 77655642 ICD Code: E11.8 - TYPE 2 DIABETES MELLITUS WITH UNSPECIFIED COMPLICATIONS; Z79.4 - SNF (CURRENT) USE OF INSULIN Status: Chronic Current Visit: No Problem List Initiated/Reviewed/Updated: Yes Orders Last 24hrs: Active Orders 24 hr Category Date Time Status Patient Status [ADT] Routine ADT 04/09/17 15:30 Active Communication Order [RC] PRN Care 04/09/17 15:30 Active Communication Order [RC] PRN Care 04/09/17 15:30 Active Diabetes Education [RC] Click to Edit Care 04/09/17 15:30 Active Notify Provider Consults [RC] ASDIRECTED Care 04/09/17 15:35 Active Notify Provider Vital Signs [RC] ASDIRECTED Care 04/09/17 15:32 Active Notify Provider [RC] PRN Care 04/09/17 15:35 Active Oxygen Therapy [RC] PRN Care 04/09/17 15:30 Active Up With Assistance [RC] ASDIRECTED Care 04/09/17 15:29 Active VTE/DVT Education [RC] Per Unit Routine Care 04/09/17 15:30 Active Vital Signs [RC] Q4H Care 04/09/17 15:30 Active Consult to Physician [CONS] Routine Cons 04/09/17 15:29 Ordered Consistent Carbohydrate Diet [DIET] Diet 04/09/17 Dinner Active Nothing per Oral After Midnight Diet [DIET] Diet 04/10/17 Breakfast Active BASIC METABOLIC PANEL,BMP [CHEM] AM Lab 04/10/17 05:11 Ordered CBC W/O DIFF,HEMOGRAM [HEME] AM Lab 04/10/17 05:11 Ordered GLUCOSE POC LAB TO COLLECT [POC] QIDACANDBED Lab 04/09/17 16:30 Ordered GLUCOSE POC LAB TO COLLECT [POC] QIDACANDBED Lab 04/09/17 21:00 Ordered GLUCOSE POC LAB TO COLLECT [POC] QIDACANDBED Lab 04/10/17 07:30 Ordered GLUCOSE POC LAB TO COLLECT [POC] QIDACANDBED Lab 04/10/17 11:30 Ordered GLUCOSE POC LAB TO COLLECT [POC] QIDACANDBED Lab 04/10/17 16:30 Ordered GLUCOSE POC LAB TO COLLECT [POC] QIDACANDBED Lab 04/10/17 21:00 Ordered GLUCOSE POC LAB TO COLLECT [POC] QIDACANDBED Lab 04/11/17 07:30 Ordered GLUCOSE POC LAB TO COLLECT [POC] QIDACANDBED Lab 04/11/17 11:30 Ordered GLUCOSE POC LAB TO COLLECT [POC] QIDACANDBED Lab 04/11/17 16:30 Ordered GLUCOSE POC LAB TO COLLECT [POC] QIDACANDBED Lab 04/11/17 21:00 Ordered GLUCOSE POC LAB TO COLLECT [POC] QIDACANDBED Lab 04/12/17 07:30 Ordered GLUCOSE POC LAB TO COLLECT [POC] QIDACANDBED Lab 04/12/17 11:30 Ordered GLUCOSE POC LAB TO COLLECT [POC] QIDACANDBED Lab 04/12/17 16:30 Ordered GLUCOSE POC LAB TO COLLECT [POC] QIDACANDBED Lab 04/12/17 21:00 Ordered GLUCOSE POC LAB TO COLLECT [POC] QIDACANDBED Lab 04/13/17 07:30 Ordered GLUCOSE POC LAB TO COLLECT [POC] QIDACANDBED Lab 04/13/17 11:30 Ordered GLUCOSE POC LAB TO COLLECT [POC] QIDACANDBED Lab 04/13/17 16:30 Ordered GLUCOSE POC LAB TO COLLECT [POC] QIDACANDBED Lab 04/13/17 21:00 Ordered GLUCOSE POC LAB TO COLLECT [POC] QIDACANDBED Lab 04/14/17 07:30 Ordered GLUCOSE POC LAB TO COLLECT [POC] QIDACANDBED Lab 04/14/17 11:30 Ordered GLUCOSE POC LAB TO COLLECT [POC] QIDACANDBED Lab 04/14/17 16:30 Ordered GLUCOSE POC LAB TO COLLECT [POC] QIDACANDBED Lab 04/14/17 21:00 Ordered GLUCOSE POC LAB TO COLLECT [POC] QIDACANDBED Lab 04/15/17 07:30 Ordered GLUCOSE POC LAB TO COLLECT [POC] QIDACANDBED Lab 04/15/17 11:30 Ordered GLUCOSE POC LAB TO COLLECT [POC] QIDACANDBED Lab 04/15/17 16:30 Ordered GLUCOSE POC LAB TO COLLECT [POC] QIDACANDBED Lab 04/15/17 21:00 Ordered GLUCOSE POC LAB TO COLLECT [POC] QIDACANDBED Lab 04/16/17 07:30 Ordered GLUCOSE POC LAB TO COLLECT [POC] QIDACANDBED Lab 04/16/17 11:30 Ordered GLUCOSE POC LAB TO COLLECT [POC] QIDACANDBED Lab 04/16/17 16:30 Ordered GLUCOSE POC LAB TO COLLECT [POC] QIDACANDBED Lab 04/16/17 21:00 Ordered GLUCOSE POC LAB TO COLLECT [POC] QIDACANDBED Lab 04/17/17 07:30 Ordered Acetaminophen [Tylenol] Med 04/09/17 15:29 Ordered 650 mg PO Q4H PRN Aspirin Med 04/10/17 09:00 Ordered 81 mg PO DAILY Docusate Sodium [Colace] Med 04/09/17 21:00 Ordered 100 mg PO BID FLUoxetine [PROzac] Med 04/10/17 09:00 Ordered 40 mg PO DAILY Ibuprofen [Motrin] Med 04/09/17 15:29 Ordered 600 mg PO Q6H PRN Insulin Aspart [NovoLOG] Med 04/09/17 17:00 Ordered See Protocol SUBCUT QIDACANDBED Insulin Detemir [Levemir] Med 04/10/17 09:00 Ordered 20 unit SUBCUT DAILY Lactobacillus Rhamnosus GG [Culturelle] Med 04/09/17 21:00 Ordered 1 cap PO BID Lisinopril [Prinivil] Med 04/10/17 09:00 Ordered 2.5 mg PO DAILY Melatonin Med 04/09/17 15:29 Ordered 9 mg PO BEDTIME PRN Ondansetron [Zofran ODT] Med 04/09/17 15:29 Ordered 4 mg PO Q6H PRN Piperacillin/Tazobactam [Zosyn] 3.375 gm Med 04/09/17 15:45 Ordered Sodium Chloride 0.9% [Normal Saline] 50 ml IV Q6H Polyethylene Glycol 3350 [MiraLAX] Med 04/09/17 15:29 Ordered 17 gm PO DAILY PRN Sodium Chloride 0.9% [Normal Saline] 1,000 ml Med 04/09/17 23:00 Ordered IV ASDIRECTED Sodium Chloride 0.9% [Saline Flush] Med 04/09/17 15:29 Ordered 10 ml FLUSH ASDIRECTED PRN Vancomycin 1.5 gm Med 04/10/17 04:00 Ordered Sodium Chloride 0.9% [Normal Saline] 250 ml IV Q12H Vancomycin 1.75 gm Med 04/09/17 16:00 Ordered Sodium Chloride 0.9% [Normal Saline] 250 ml IV ONETIME atorvaSTATin Calcium [Atorvastatin Calcium] Med 04/09/17 21:00 Ordered 40 mg PO BEDTIME metFORMIN HCl [Metformin HCl] Med 04/09/17 17:00 Ordered 1,000 mg PO BIDM oxyCODONE Med 04/09/17 15:29 Ordered 5 mg PO Q4H PRN Isolation [COMM] Routine Oth 04/09/17 15:38 Ordered Saline Lock Insert [OM.PC] Routine Oth 04/09/17 15:29 Ordered Sequential Compression Device [OM.PC] Per Unit Routine Oth 04/09/17 15:33 Ordered VTE Pharmacological Contraindications [AST] Per Unit Oth 04/09/17 15:29 Ordered Routine Resuscitation Status Routine Resus Stat 04/09/17 15:29 Ordered Medication Orders Acetaminophen (Tylenol) 650 mg PO Q4H PRN PRN Reason: Pain (Mild 1-3)/fever Aspirin (Aspirin) 81 mg PO DAILY [facility] Docusate Sodium (Colace) 100 mg PO BID JACQUELYN Fluoxetine HCl (Prozac) 40 mg PO DAILY [facility] Piperacillin Sod/Tazobactam (Sod 3.375 gm/ Sodium Chloride) 50 mls @ 100 mls/ hr IV Q6H JACQUELYN Sodium Chloride (Normal Saline) 1,000 mls @ 75 mls/hr IV ASDIRECTED JACQUELYN Vancomycin HCl 1.75 gm/ Sodium (Chloride) 250 mls @ 150 mls/hr IV ONETIME ONE Stop: 04/09/17 17:39 Vancomycin HCl 1.5 gm/ Sodium (Chloride) 250 mls @ 150 mls/hr IV Q12H JACQUELYN Ibuprofen (Motrin) 600 mg PO Q6H PRN PRN Reason: Pain/Fever Insulin Aspart (Novolog) 0 unit SUBCUT QIDACANDBED JACQUELYN PRN Reason: Protocol Insulin Detemir (Levemir) 20 unit SUBCUT DAILY JACQUELYN Lactobacillus Rhamnosus (Culturelle) 1 cap PO BID [facility] Lisinopril (Prinivil) 2.5 mg PO DAILY [facility] Melatonin (Melatonin) 9 mg PO BEDTIME PRN PRN Reason: Sleep Non-Formulary Medication (Atorvastatin Calcium [Atorvastatin Calcium]) 40 mg PO BEDTIME [facility] Non-Formulary Medication (Metformin Hcl [Metformin Hcl]) 1,000 mg PO BIDM [facility] Ondansetron HCl (Zofran Odt) 4 mg PO Q6H PRN PRN Reason: Nausea able to take PO Oxycodone HCl (Oxycodone) 5 mg PO Q4H PRN PRN Reason: Pain (moderate 4-6) Polyethylene Glycol (Miralax) 17 gm PO DAILY PRN PRN Reason: Constipation Sodium Chloride (Saline Flush) 10 ml FLUSH ASDIRECTED PRN PRN Reason: Keep Vein Open Assessment/Plan Comment:: ASSESSMENT AND PLAN - Left foot osteomyelitis - infection centered around the base of the left toe where he has a chronic diabetic foot ulcer. The plan is for surgical debridement in the morning and there is potential for toe or possibly partial foot amputation depending on surgical findings. He will be empirically started on antibiotics to cover both resistant staph species and anaerobic bacteria. -vancomycin and Pip/Tazo -Blood cultures if he has fever -Repeat white count in the morning -Nothing by mouth after midnight for surgical intervention tomorrow -Pain control -Consultation with Dr. 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 Patient reports good control at home and recent control during the hospital stay was excellent. With surgical intervention planned tomorrow he will likely be nothing by mouth for part of the day so he will only receive part of his normal morning long-acting insulin. -Levemir 20 units in the morning -Low-dose sliding scale insulin Maintenance issues - - DVT prophylaxis - mechanical with upcoming surgery - GI prophylaxis - not indicated - Nutrition - diabetic diet this evening, nothing by mouth after midnight - Green catheter - not indicated CODE STATUS - full code Admission justification - This patient will be admitted for inpatient services and is medically appropriate meeting medical necessity for inpatient admission as outlined in my documentation. I reasonably expect the patient will require inpatient services that span a period time over 2 midnights. I reasonably expect this patient to be discharged or transferred within 96 hours [facility]. Disposition - anticipate discharge home with home care after the hospital stay Primary care physician - Dr Sara Posey M.D.
[2017-04-09] MEDS: Piperacillin/Tazobactam/Dext 3.375 GM in Premix Bag 1 BAG IV SCH ×2 (17:09→21:54)
[2017-04-09] MEDS: metFORMIN 500 MG Tab PO SCH (17:54)
[2017-04-09] MEDS: Insulin Aspart 100 Units/ML 3 ML Pen SUBCUT SCH ×2 (17:57→21:52)
[2017-04-09] MEDS: Docusate Sodium 100 MG Cap PO SCH (21:51)
[2017-04-09] MEDS: Lactobacillus Rhamnosus GG (Probiotic) Cap PO SCH (21:52)
[2017-04-09] MEDS: atorvaSTATin 20 MG Tab PO SCH (21:55)
[2017-04-09] MEDS ORDERED: Sodium Chloride 0.9% 1,000 ML IV SCH (23:00)
[2017-04-10] MEDS: Piperacillin/Tazobactam/Dext 3.375 GM in Premix Bag 1 BAG IV SCH ×4 (03:20→21:29)
[2017-04-10] MEDS ORDERED: Lidocaine 2% 20 ML MDV ONE (08:04)
[2017-04-10] MEDS ORDERED: Bupivacaine 0.5% 50 ML MDV ONE (08:04)
[2017-04-10] MEDS: Insulin Aspart 100 Units/ML 3 ML Pen SUBCUT SCH ×4 (08:08→21:29)
[2017-04-10] MEDS: FLUoxetine 20 MG Cap PO SCH (08:19)
[2017-04-10] MEDS: Lisinopril 2.5 MG Tab PO SCH (08:19)
[2017-04-10] MEDS: metFORMIN 500 MG Tab PO SCH ×2 (08:19→16:30)
[2017-04-10] MEDS: Aspirin 81 MG Tab.Chew PO SCH (08:19)
[2017-04-10] MEDS: Docusate Sodium 100 MG Cap PO SCH ×2 (08:19→21:28)
[2017-04-10] MEDS: Lactobacillus Rhamnosus GG (Probiotic) Cap PO SCH ×2 (08:19→21:28)
[2017-04-10] MEDS ORDERED: Midazolam 1 MG/ML 2 ML SDV ONE (08:44)
[2017-04-10] MEDS ORDERED: fentaNYL 100 MCG/2 ML SDV ONE (08:44)
[2017-04-10] MEDS ORDERED: Propofol 200 MG/20 ML SDV ONE ×2 (08:44→10:15)
[2017-04-10] MEDS ORDERED: Insulin Detemir 100 Units/ML 3 ML Pen SUBCUT SCH (09:00)
--- NOTE | 2017-04-10 11:44 | PCM.PN ---
- General Info Date of Service: 04/10/17 Functional Status: Reports: Pain Controlled, Tolerating Diet - Review of Systems General: Denies: Fever Musculoskeletal: Reports: Foot Pain Systems Review Comment:: No acute events overnight. No significant issues with foot pain or fever. White blood cell count is down a little bit this morning. He went to surgery this morning and had his left great toe amputated. Cultures are pending. No pain issues postoperatively. Blood sugars have been controlled. - Patient Data Vitals - Most Recent: Last Vital Signs Temp 35.8 C 04/10/17 11:10 Pulse 72 04/10/17 11:10 Resp 16 04/10/17 11:10 BP 127/74 04/10/17 11:10 Pulse Ox 94 L 04/10/17 11:10 Weight - Most Recent: 90.356 kg I&O - Last 24 Hours: Intake & Output 04/09/17 04/10/17 04/10/17 22:59 06:59 14:59 Intake Total 410 883 50 Balance 410 883 50 Lab Results Last 24 Hours: Laboratory Results - last 24 hr 04/10/17 04/10/17 Range/Units 05:11 05:11 WBC 14.3 H (4.5-11.0) K/uL RBC 4.39 (4.30-5.90) M/uL Hgb 12.7 (12.0-15.0) g/dL Hct 37.5 L (40.0-54.0) % MCV 85 (80-98) fL MCH 29 (27-31) pg MCHC 34 (32-36) % Plt Count 387 (150-400) K/uL Sodium 138 L (140-148) mmol/L Potassium 3.9 (3.6-5.2) mmol/L Chloride 103 (100-108) mmol/L Carbon Dioxide 25 (21-32) mmol/L Anion Gap 13.9 (5.0-14.0) mmol/L BUN 13 D (7-18) mg/dL Creatinine 1.1 (0.8-1.3) mg/dL Est Cr Clr Drug Dosing 75.88 mL/min Estimated GFR (MDRD) > 60 (>60) Glucose 242 H (74-106) mg/dL Calcium 8.8 (8.5-10.1) mg/dL Med Orders - Current: Current Medications Acetaminophen (Tylenol) 650 mg PO Q4H PRN PRN Reason: Pain (Mild 1-3)/fever Aspirin (Aspirin) 81 mg PO DAILY [facility] Last Admin: 04/10/17 08:19 Dose: Not Given Atorvastatin Calcium (Lipitor) 40 mg PO BEDTIME [facility] Last Admin: 04/09/17 21:55 Dose: 40 mg Docusate Sodium (Colace) 100 mg PO BID [facility] Last Admin: 04/10/17 08:19 Dose: Not Given Fluoxetine HCl (Prozac) 40 mg PO DAILY [facility] Last Admin: 04/10/17 08:19 Dose: Not Given Piperacillin/Tazobactam/ (Dextrose 3.375 gm/ Premix) 50 mls @ 100 mls/hr IV Q6H [facility] Last Admin: 04/10/17 09:16 Dose: 100 mls/hr Vancomycin HCl 1.5 gm/ Sodium (Chloride) 250 mls @ 150 mls/hr IV Q12H [facility] Last Admin: 04/10/17 03:20 Dose: 150 mls/hr Sodium Chloride (Normal Saline) 1,000 mls @ 25 mls/hr IV ASDIRECTED [facility] Ibuprofen (Motrin) 600 mg PO Q6H PRN PRN Reason: Pain/Fever Insulin Aspart (Novolog) 0 unit SUBCUT QIDACANDBED [facility] PRN Reason: Protocol Last Admin: 04/10/17 08:08 Dose: 2 unit Insulin Detemir (Levemir) 42 unit SUBCUT DAILY [facility] Lactobacillus Rhamnosus (Culturelle) 1 cap PO BID [facility] Last Admin: 04/10/17 08:19 Dose: Not Given Lisinopril (Prinivil) 2.5 mg PO DAILY [facility] Last Admin: 04/10/17 08:19 Dose: Not Given Melatonin (Melatonin) 9 mg PO BEDTIME PRN PRN Reason: Sleep Metformin HCl (Glucophage) 1,000 mg PO BIDMEALS [facility] Last Admin: 04/10/17 08:19 Dose: Not Given Ondansetron HCl (Zofran Odt) 4 mg PO Q6H PRN PRN Reason: Nausea able to take PO Oxycodone HCl (Oxycodone) 5 mg PO Q4H PRN PRN Reason: Pain (moderate 4-6) Polyethylene Glycol (Miralax) 17 gm PO DAILY PRN PRN Reason: Constipation Sodium Chloride (Saline Flush) 10 ml FLUSH ASDIRECTED PRN PRN Reason: Keep Vein Open Discontinued Medications Bupivacaine HCl (Marcaine 0.5%) Confirm Administered Dose 50 ml .ROUTE .STK-MED ONE Stop: 04/10/17 08:05 Fentanyl (Sublimaze) Confirm Administered Dose 100 mcg .ROUTE .STK-MED ONE Stop: 04/10/17 08:45 Sodium Chloride (Normal Saline) 1,000 mls @ 75 mls/hr IV ASDIRECTED [facility] Last Admin: 04/10/17 09:14 Dose: 75 mls/hr Vancomycin HCl 1.75 gm/ Sodium (Chloride) 250 mls @ 150 mls/hr IV ONETIME ONE Stop: 04/09/17 18:09 Last Admin: 04/09/17 17:51 Dose: 150 mls/hr Insulin Detemir (Levemir) 20 unit SUBCUT DAILY [facility] Last Admin: 04/10/17 08:06 Dose: 20 unit Lidocaine HCl (Xylocaine 2%) Confirm Administered Dose 20 ml .ROUTE .STK-MED ONE Stop: 04/10/17 08:05 Midazolam HCl (Versed 1 Mg/Ml) Confirm Administered Dose 2 mg .ROUTE .STK-MED ONE Stop: 04/10/17 08:45 Propofol (Diprivan 20 Ml) Confirm Administered Dose 200 mg .ROUTE .STK-MED ONE Stop: 04/10/17 08:45 Propofol (Diprivan 20 Ml) Confirm Administered Dose 200 mg .ROUTE .STK-MED ONE Stop: 04/10/17 10:16 - Exam Quality Assessment: No: Supplemental Oxygen General: Alert, Oriented, Cooperative, No Acute Distress Neck: Supple Lungs: Normal Respiratory Effort GI/Abdominal Exam: Soft, No Distention Extremities: No Pedal Edema, Other (left foot wrapped in dry intact surgical dressings) Skin: Warm, Dry Psy/Mental Status: Alert, Normal Affect - Problem List & Annotations (1) Osteomyelitis of foot, left, acute SNOMED Code(s): 2293894855138346 Code(s): M86.172 - OTHER ACUTE OSTEOMYELITIS, LEFT ANKLE AND FOOT Status: Acute Current Visit: Yes (2) Insulin dependent diabetes mellitus with complications SNOMED Code(s): 86211945 Code(s): E11.8 - TYPE 2 DIABETES MELLITUS WITH UNSPECIFIED COMPLICATIONS; Z79.4 - TRANSFORMATION CONSULTANT (CURRENT) USE OF INSULIN Status: Chronic Current Visit: No - Problem List Review Problem List Initiated/Reviewed/Updated: Yes - My Orders Last 24 Hours: My Active Orders 04/09/17 15:29 Up With Assistance [RC] ASDIRECTED Consult to Physician [CONS] Routine Acetaminophen [Tylenol] 650 mg PO Q4H PRN Ibuprofen [Motrin] 600 mg PO Q6H PRN Melatonin 9 mg PO BEDTIME PRN Ondansetron [Zofran ODT] 4 mg PO Q6H PRN Polyethylene Glycol 3350 [MiraLAX] 17 gm PO DAILY PRN Sodium Chloride 0.9% [Saline Flush] 10 ml FLUSH ASDIRECTED PRN oxyCODONE 5 mg PO Q4H PRN Saline Lock Insert [OM.PC] Routine VTE Pharmacological Contraindications [AST] Per Unit Routine Resuscitation Status Routine 04/09/17 15:30 Patient Status [ADT] Routine Communication Order [RC] PRN Communication Order [RC] PRN Diabetes Education [RC] Click to Edit Oxygen Therapy [RC] PRN Vital Signs [RC] Q4H 04/09/17 15:32 Notify Provider Vital Signs [RC] ASDIRECTED 04/09/17 15:33 Sequential Compression Device [OM.PC] Per Unit Routine 04/09/17 15:35 Notify Provider Consults [RC] ASDIRECTED Notify Provider [RC] PRN 04/09/17 15:38 Isolation [COMM] Routine 04/09/17 16:00 Piperacillin/Tazobactam/Dext [Zosyn in Dextrose Iso-Osmotic 3.375 GM] 3.375 gm Premix Bag 1 bag IV Q6H 04/09/17 17:00 POC Glucose [Blood Glucose Check, Bedside] [RC] QIDACANDBED Insulin Aspart [NovoLOG] See Protocol SUBCUT QIDACANDBED metFORMIN [Glucophage] 1,000 mg PO BIDMEALS 04/09/17 21:00 Docusate Sodium [Colace] 100 mg PO BID Lactobacillus Rhamnosus GG [Culturelle] 1 cap PO BID atorvaSTATin [Lipitor] 40 mg PO BEDTIME 04/09/17 Dinner Consistent Carbohydrate Diet [DIET] 04/10/17 04:00 Vancomycin 1.5 gm Sodium Chloride 0.9% [Normal Saline] 250 ml IV Q12H 04/10/17 09:00 Aspirin 81 mg PO DAILY FLUoxetine [PROzac] 40 mg PO DAILY Lisinopril [Prinivil] 2.5 mg PO DAILY 04/10/17 12:00 Sodium Chloride 0.9% [Normal Saline] 1,000 ml IV ASDIRECTED 04/10/17 16:30 GLUCOSE POC LAB TO COLLECT [POC] QIDACANDBED 04/10/17 21:00 GLUCOSE POC LAB TO COLLECT [POC] QIDACANDBED 04/11/17 05:00 BASIC METABOLIC PANEL,BMP [CHEM] Timed CBC W/O DIFF,HEMOGRAM [HEME] Timed (1) 04/11/17 07:30 GLUCOSE POC LAB TO COLLECT [POC] QIDACANDBED 04/11/17 09:00 Insulin Detemir [Levemir] 42 unit SUBCUT DAILY 04/11/17 11:30 GLUCOSE POC LAB TO COLLECT [POC] QIDACANDBED 04/11/17 16:30 GLUCOSE POC LAB TO COLLECT [POC] QIDACANDBED 04/11/17 21:00 GLUCOSE POC LAB TO COLLECT [POC] QIDACANDBED 04/12/17 07:30 GLUCOSE POC LAB TO COLLECT [POC] QIDACANDBED 04/12/17 11:30 GLUCOSE POC LAB TO COLLECT [POC] QIDACANDBED 04/12/17 16:30 GLUCOSE POC LAB TO COLLECT [POC] QIDACANDBED 04/12/17 21:00 GLUCOSE POC LAB TO COLLECT [POC] QIDACANDBED 04/13/17 07:30 GLUCOSE POC LAB TO COLLECT [POC] QIDACANDBED 04/13/17 11:30 GLUCOSE POC LAB TO COLLECT [POC] QIDACANDBED 04/13/17 16:30 GLUCOSE POC LAB TO COLLECT [POC] QIDACANDBED 04/13/17 21:00 GLUCOSE POC LAB TO COLLECT [POC] QIDACANDBED 04/14/17 07:30 GLUCOSE POC LAB TO COLLECT [POC] QIDACANDBED 04/14/17 11:30 GLUCOSE POC LAB TO COLLECT [POC] QIDACANDBED 04/14/17 16:30 GLUCOSE POC LAB TO COLLECT [POC] QIDACANDBED 04/14/17 21:00 GLUCOSE POC LAB TO COLLECT [POC] QIDACANDBED 04/15/17 07:30 GLUCOSE POC LAB TO COLLECT [POC] QIDACANDBED 04/15/17 11:30 GLUCOSE POC LAB TO COLLECT [POC] QIDACANDBED 04/15/17 16:30 GLUCOSE POC LAB TO COLLECT [POC] QIDACANDBED 04/15/17 21:00 GLUCOSE POC LAB TO COLLECT [POC] QIDACANDBED 04/16/17 07:30 GLUCOSE POC LAB TO COLLECT [POC] QIDACANDBED 04/16/17 11:30 GLUCOSE POC LAB TO COLLECT [POC] QIDACANDBED 04/16/17 16:30 GLUCOSE POC LAB TO COLLECT [POC] QIDACANDBED 04/16/17 21:00 GLUCOSE POC LAB TO COLLECT [POC] QIDACANDBED 04/17/17 07:30 GLUCOSE POC LAB TO COLLECT [POC] QIDACANDBED - Plan Plan:: ASSESSMENT AND PLAN - Left foot osteomyelitis - status post amputation of the left great toe on 04/10. Pain controlled at this time. Not having fevers. Cultures are pending. -vancomycin and Pip/Tazo -Follow-up wound cultures -Pain control -Consultation with Dr. 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 Morning dose of Levemir decreased because of nothing by mouth status. -Levemir 42 units in the morning -Low-dose sliding scale insulin Maintenance issues - - DVT prophylaxis - mechanical with upcoming surgery - GI prophylaxis - not indicated - Nutrition - diabetic diet this evening, nothing by mouth after midnight Disposition - anticipate discharge home with home care after the hospital stay Ata Posey M.D.
[2017-04-10] MEDS ORDERED: Sodium Chloride 0.9% 1,000 ML IV SCH (12:00)
[2017-04-10] MEDS ORDERED: hydrOXYzine HCl 25 MG Tab PO PRN (12:06)
--- NOTE | 2017-04-10 17:26 | OR ---
DATE OF PROCEDURE: 04/10/2017 [employer] DRIVER: None. PREOPERATIVE DIAGNOSIS: Osteomyelitis in the left 1st ray. POSTOPERATIVE DIAGNOSIS: Osteomyelitis in the left 1st ray. PROCEDURE PERFORMED: Partial 1st ray amputation, left foot. ANESTHESIA: Local with IV sedation. HEMOSTASIS: Hemostasis was obtained with an ankle tourniquet at 250 mmHg. ESTIMATED BLOOD LOSS: 20 mL. MATERIALS: Cristiane drain was placed. CONDITION: Stable. INDICATIONS FOR SURGERY: Osteomyelitis and sesamoids first metatarsal and base of the proximal phalanx, left 1st ray. INJECTABLES: 10 mL Marcaine 0.5% plain were injected postoperatively. PATHOLOGY: Distal left 1st ray was sent and also aerobic and anaerobic cultures were taken. PROCEDURE IN DETAIL: The patient was brought to the operating room, placed on the operating table in supine position. Following IV sedation, anesthesia was obtained with a total 20 mL of 1:1 mixture of Marcaine 0.5% plain and lidocaine 2% plain. Left foot was then scrubbed, prepped, and draped in the usual aseptic manner, raised to 60 degrees for hemostasis and tourniquet was inflated. Esmarch was not used. Foot was lowered to table. Skin incision was made in a racquet type incision around the ulceration which was completely excised from the plantar aspect of the left 1st metatarsal head and then around the base of the left great toe. Incisions were carried straight down to bone on the toe. The left great toe was disarticulated at the 1st metatarsophalangeal joint. The tendon and the sesamoids along with the sesamoidal apparatus were removed with the inter sesamoidal ligament and the medial lateral sesamoidal ligaments removed. The 1st metatarsal head was probed with a blunt probe and soft spots were found on the head on the plantar lateral side and also the sesamoids were soft with bone palpation. The 1st metatarsal head was then removed with a sagittal saw, back to healthy strong bone. All necrotic and questionable diseased tissue was removed with a 15 blade. Then the incision was flushed out with 3 L of sterile saline. The aerobic and anaerobic cultures were taken from deep within the inside of the ulceration in order to avoid contamination of the cultures. The incision was then closed with 3-0 nylon in a simple interrupted configuration and the Cristiane drain was cut into quarters, lengthwise, and two pieces of the [place] drain were placed on the incision. The incision was then dressed with Xeroform, 4x4s, ABD pad, Kerlix, and Coban. The patient was returned to the recovery room with vital signs stable and vascular status intact to both feet. The patient was returned to the floor where medical management will be carried out by Dr. Posey, the hospitalist. The patient to follow with Dr. Kovacs in one week in the clinic. Plan on discharging the patient on IV antibiotics per cultures. Chuy Kovacs DPM /[id number]
[2017-04-10] MEDS: atorvaSTATin 20 MG Tab PO SCH (21:29)
[2017-04-11] MEDS: Piperacillin/Tazobactam/Dext 3.375 GM in Premix Bag 1 BAG IV SCH ×4 (03:16→21:26)
[2017-04-11] MEDS: Insulin Aspart 100 Units/ML 3 ML Pen SUBCUT SCH ×4 (07:52→21:09)
[2017-04-11] MEDS: metFORMIN 500 MG Tab PO SCH ×2 (07:53→16:29)
[2017-04-11] MEDS: Lactobacillus Rhamnosus GG (Probiotic) Cap PO SCH ×2 (10:09→20:24)
[2017-04-11] MEDS: Lisinopril 2.5 MG Tab PO SCH (10:09)
[2017-04-11] MEDS: Aspirin 81 MG Tab.Chew PO SCH (10:09)
[2017-04-11] MEDS: FLUoxetine 20 MG Cap PO SCH (10:11)
[2017-04-11] MEDS: Docusate Sodium 100 MG Cap PO SCH ×2 (10:12→20:24)
--- NOTE | 2017-04-11 10:37 | PCM.PN ---
- General Info Date of Service: 04/11/17 Functional Status: Reports: Pain Controlled, Tolerating Diet - Review of Systems General: Denies: Fever Musculoskeletal: Denies: Foot Pain Psychiatric: Reports: Depression Systems Review Comment:: No acute events overnight. Pain is well-controlled. He has not had fevers. Patient reports that he is feeling very depressed with recent issues as well as losing his toe and part of his foot. He very much wants to go home. Cultures are pending and a gram-negative avel is currently being isolated for identification and susceptibilities. - Patient Data Vitals - Most Recent: Last Vital Signs Temp 36.5 C 04/11/17 07:00 Pulse 67 04/11/17 07:00 Resp 18 04/11/17 07:00 BP 123/63 04/11/17 10:09 Pulse Ox 97 04/11/17 07:00 Weight - Most Recent: 90.356 kg I&O - Last 24 Hours: Intake & Output 04/10/17 04/11/17 04/11/17 22:59 06:59 14:59 Intake Total 1194 532 Output Total 725 275 Balance 469 257 Lab Results Last 24 Hours: Laboratory Results - last 24 hr 04/11/17 04/11/17 Range/Units 05:45 05:45 WBC 12.7 H (4.5-11.0) K/uL RBC 4.11 L (4.30-5.90) M/uL Hgb 11.9 L (12.0-15.0) g/dL Hct 35.5 L (40.0-54.0) % MCV 86 (80-98) fL MCH 29 (27-31) pg MCHC 34 (32-36) % Plt Count 356 (150-400) K/uL Sodium 141 (140-148) mmol/L Potassium 3.6 (3.6-5.2) mmol/L Chloride 106 (100-108) mmol/L Carbon Dioxide 27 (21-32) mmol/L Anion Gap 7.9 (5.0-14.0) mmol/L BUN 12 (7-18) mg/dL Creatinine 1.1 (0.8-1.3) mg/dL Est Cr Clr Drug Dosing 75.62 mL/min Estimated GFR (MDRD) > 60 (>60) Glucose 121 H (74-106) mg/dL Calcium 8.6 (8.5-10.1) mg/dL Med Orders - Current: Current Medications Acetaminophen (Tylenol) 650 mg PO Q4H PRN PRN Reason: Pain (Mild 1-3)/fever Aspirin (Aspirin) 81 mg PO DAILY [facility] Last Admin: 04/11/17 10:09 Dose: 81 mg Atorvastatin Calcium (Lipitor) 40 mg PO BEDTIME [facility] Last Admin: 04/10/17 21:29 Dose: 40 mg Docusate Sodium (Colace) 100 mg PO BID [facility] Last Admin: 04/11/17 10:12 Dose: Not Given Fluoxetine HCl (Prozac) 40 mg PO DAILY [facility] Last Admin: 04/11/17 10:11 Dose: 40 mg Hydroxyzine HCl (Atarax) 25 mg PO Q8H PRN PRN Reason: PAIN Piperacillin/Tazobactam/ (Dextrose 3.375 gm/ Premix) 50 mls @ 100 mls/hr IV Q6H [facility] Last Admin: 04/11/17 03:16 Dose: 100 mls/hr Vancomycin HCl 1.5 gm/ Sodium (Chloride) 250 mls @ 150 mls/hr IV Q12H [facility] Last Admin: 04/11/17 03:22 Dose: 150 mls/hr Sodium Chloride (Normal Saline) 1,000 mls @ 25 mls/hr IV ASDIRECTED [facility] Last Admin: 04/10/17 12:50 Dose: 25 mls/hr Ibuprofen (Motrin) 600 mg PO Q6H PRN PRN Reason: Pain/Fever Insulin Aspart (Novolog) 0 unit SUBCUT QIDACANDBED [facility] PRN Reason: Protocol Last Admin: 04/11/17 07:52 Dose: Not Given Insulin Detemir (Levemir) 42 unit SUBCUT DAILY [facility] Lactobacillus Rhamnosus (Culturelle) 1 cap PO BID [facility] Last Admin: 04/11/17 10:09 Dose: 1 cap Lisinopril (Prinivil) 2.5 mg PO DAILY [facility] Last Admin: 04/11/17 10:09 Dose: 2.5 mg Melatonin (Melatonin) 9 mg PO BEDTIME PRN PRN Reason: Sleep Last Admin: 04/10/17 22:37 Dose: 9 mg [facility] ([facility]) [facility] Last Admin: 04/11/17 07:53 Dose: 1,000 mg Ondansetron HCl (Zofran Odt) 4 mg PO Q6H PRN PRN Reason: Nausea able to take PO Oxycodone HCl (Oxycodone) 5 mg PO Q4H PRN PRN Reason: Pain (moderate 4-6) Polyethylene Glycol (Miralax) 17 gm PO DAILY PRN PRN Reason: Constipation Sodium Chloride (Saline Flush) 10 ml FLUSH ASDIRECTED PRN PRN Reason: Keep Vein Open Discontinued Medications Bupivacaine HCl (Marcaine 0.5%) Confirm Administered Dose 50 ml .ROUTE .STK-MED ONE Stop: 04/10/17 08:05 Fentanyl (Sublimaze) Confirm Administered Dose 100 mcg .ROUTE .STK-MED ONE Stop: 04/10/17 08:45 Sodium Chloride (Normal Saline) 1,000 mls @ 75 mls/hr IV ASDIRECTED [facility] Last Admin: 04/10/17 09:14 Dose: 75 mls/hr Vancomycin HCl 1.75 gm/ Sodium (Chloride) 250 mls @ 150 mls/hr IV ONETIME ONE Stop: 04/09/17 18:09 Last Admin: 04/09/17 17:51 Dose: 150 mls/hr Insulin Detemir (Levemir) 20 unit SUBCUT DAILY [facility] Last Admin: 04/10/17 08:06 Dose: 20 unit Lidocaine HCl (Xylocaine 2%) Confirm Administered Dose 20 ml .ROUTE .STK-MED ONE Stop: 04/10/17 08:05 Midazolam HCl (Versed 1 Mg/Ml) Confirm Administered Dose 2 mg .ROUTE .STK-MED ONE Stop: 04/10/17 08:45 Propofol (Diprivan 20 Ml) Confirm Administered Dose 200 mg .ROUTE .STK-MED ONE Stop: 04/10/17 08:45 Propofol (Diprivan 20 Ml) Confirm Administered Dose 200 mg .ROUTE .STK-MED ONE Stop: 04/10/17 10:16 - Exam Quality Assessment: No: Supplemental Oxygen General: Alert, Oriented, Cooperative, No Acute Distress Neck: Supple Lungs: Normal Respiratory Effort Extremities: No Pedal Edema, Other (left foot with dry intact surgical dressings ) Psy/Mental Status: Alert, Depressed - Problem List & Annotations (1) Osteomyelitis of foot, left, acute SNOMED Code(s): 1805641273287146 Code(s): M86.172 - OTHER ACUTE OSTEOMYELITIS, LEFT ANKLE AND FOOT Status: Acute Current Visit: Yes (2) Insulin dependent diabetes mellitus with complications SNOMED Code(s): 74657749 Code(s): E11.8 - TYPE 2 DIABETES MELLITUS WITH UNSPECIFIED COMPLICATIONS; Z79.4 - 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 OF INSULIN Status: Chronic Current Visit: No - Problem List Review Problem List Initiated/Reviewed/Updated: Yes - My Orders Last 24 Hours: My Active Orders 04/10/17 12:00 Sodium Chloride 0.9% [Normal Saline] 1,000 ml IV ASDIRECTED 04/10/17 Lunch Consistent Carbohydrate Diet [DIET] 04/11/17 05:45 GLYCOSYLATED HEMOGLOBIN,HGBA1C [CHEM] Routine 04/11/17 09:00 Insulin Detemir [Levemir] 42 unit SUBCUT DAILY 04/11/17 10:35 Potassium Chloride [Klor-Con M20] 40 meq PO ONETIME ONE Central Line PICC Insertion [Central Venous Line Insertion] [OM.PC] Routine 04/11/17 10:36 Central Line Assessment [RC] QSHIFT 04/11/17 11:30 GLUCOSE POC LAB TO COLLECT [POC] QIDACANDBED 04/11/17 15:30 VANCOMYCIN TROUGH [CHEM] Routine 04/11/17 16:30 GLUCOSE POC LAB TO COLLECT [POC] QIDACANDBED 04/11/17 21:00 GLUCOSE POC LAB TO COLLECT [POC] QIDACANDBED 04/12/17 05:00 BASIC METABOLIC PANEL,BMP [CHEM] Timed CBC W/O DIFF,HEMOGRAM [HEME] Timed (1) 04/12/17 07:30 GLUCOSE POC LAB TO COLLECT [POC] QIDACANDBED 04/12/17 11:30 GLUCOSE POC LAB TO COLLECT [POC] QIDACANDBED 04/12/17 16:30 GLUCOSE POC LAB TO COLLECT [POC] QIDACANDBED 04/12/17 21:00 GLUCOSE POC LAB TO COLLECT [POC] QIDACANDBED 04/13/17 07:30 GLUCOSE POC LAB TO COLLECT [POC] QIDACANDBED 04/13/17 11:30 GLUCOSE POC LAB TO COLLECT [POC] QIDACANDBED 04/13/17 16:30 GLUCOSE POC LAB TO COLLECT [POC] QIDACANDBED 04/13/17 21:00 GLUCOSE POC LAB TO COLLECT [POC] QIDACANDBED 04/14/17 07:30 GLUCOSE POC LAB TO COLLECT [POC] QIDACANDBED 04/14/17 11:30 GLUCOSE POC LAB TO COLLECT [POC] QIDACANDBED 04/14/17 16:30 GLUCOSE POC LAB TO COLLECT [POC] QIDACANDBED 04/14/17 21:00 GLUCOSE POC LAB TO COLLECT [POC] QIDACANDBED 04/15/17 07:30 GLUCOSE POC LAB TO COLLECT [POC] QIDACANDBED 04/15/17 11:30 GLUCOSE POC LAB TO COLLECT [POC] QIDACANDBED 04/15/17 16:30 GLUCOSE POC LAB TO COLLECT [POC] QIDACANDBED 04/15/17 21:00 GLUCOSE POC LAB TO COLLECT [POC] QIDACANDBED 04/16/17 07:30 GLUCOSE POC LAB TO COLLECT [POC] QIDACANDBED 04/16/17 11:30 GLUCOSE POC LAB TO COLLECT [POC] QIDACANDBED 04/16/17 16:30 GLUCOSE POC LAB TO COLLECT [POC] QIDACANDBED 04/16/17 21:00 GLUCOSE POC LAB TO COLLECT [POC] QIDACANDBED 04/17/17 07:30 GLUCOSE POC LAB TO COLLECT [POC] QIDACANDBED - Plan Plan:: ASSESSMENT AND PLAN - Left foot osteomyelitis - status post amputation of the left great toe on 04/10. Pain controlled at this time. Not having fevers. Cultures are pending with gram- negative avel currently being isolated.. -vancomycin and Pip/Tazo -Follow-up wound cultures -Pain control -Consultation with Dr. 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 Sugars acceptable so far. -Levemir 42 units in the morning -Low-dose sliding scale insulin Maintenance issues - - DVT prophylaxis - mechanical - GI prophylaxis - not indicated - Nutrition - diabetic diet Disposition - anticipate discharge home with home care after the hospital stay Ata Posey M.D.
[2017-04-11] MEDS: Insulin Detemir 100 Units/ML 3 ML Pen SUBCUT SCH (10:40)
[2017-04-11] MEDS ORDERED: Potassium Chloride 20 MEQ Tab.ER PO ONE (10:45)
[2017-04-11] MEDS: atorvaSTATin 20 MG Tab PO SCH (20:24)
[2017-04-12] MEDS: Piperacillin/Tazobactam/Dext 3.375 GM in Premix Bag 1 BAG IV SCH (04:47)
[2017-04-12] MEDS: Insulin Aspart 100 Units/ML 3 ML Pen SUBCUT SCH (08:17)
[2017-04-12] MEDS: Docusate Sodium 100 MG Cap PO SCH (08:18)
[2017-04-12] MEDS: FLUoxetine 20 MG Cap PO SCH (08:19)
[2017-04-12] MEDS: Aspirin 81 MG Tab.Chew PO SCH (08:19)
[2017-04-12] MEDS: metFORMIN 500 MG Tab PO SCH ×2 (08:19→17:15)
[2017-04-12] MEDS: Lactobacillus Rhamnosus GG (Probiotic) Cap PO SCH (08:19)
[2017-04-12] MEDS: Lisinopril 2.5 MG Tab PO SCH (08:20)
[2017-04-12] MEDS: Insulin Detemir 100 Units/ML 3 ML Pen SUBCUT SCH (08:20)
[2017-04-12] MEDS ORDERED: cefTRIAXone 2 GM in Sodium Chloride 0.9% 50 ML IV SCH (09:30)
--- NOTE | 2017-04-12 12:20 | PCM.DCSUM1 ---
Discharge Summary - Hospital Course Brief History: 56-year-old male with insulin-dependent diabetes complicated by neuropathy as well as slowly/poorly healing foot ulcers who presented for routine follow-up and was found to have osteomyelitis in his left great toe and was admitted for further management. 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 PT Reason for Consult: Other (Type Response) Special Instructions: CONSULT FOR AMPUTATION LEFT GREAT TOE CONSULT/EVALUATION FOR CRUTCH AND/OR KNEE SCOOTER AND FOR TRAINING This query below is only for informational purposes and is not editable. Admission Diagnosis/Problem: Osteomyelitis of ankle or foot Hospital Course: Edgar presented to the podiatry clinic for routine follow-up. There was concern for possible osteomyelitis with some overlying cellulitis at the base of his first metatarsal on the left foot. An x-ray was obtained and this was somewhat concerning for osteomyelitis on MRI of the foot was obtained. This did show evidence for osteomyelitis involving the great toe as well as the head of the first metatarsal. The patient was directly admitted to the hospital. Empiric antibiotics with vancomycin and Zosyn were initiated. He did not have any fevers so blood cultures were not obtained. The morning after admission he went to the operating room and had resection of his left great toe as well as the head of the first metatarsal on the left foot. His postoperative course has been relatively uncomplicated. His pain has been very well controlled. He's been getting around using a wheelchair and on the day of discharge a knee scooter. He has not had any fevers. His white blood cell count has trended down. His diabetes has been well-controlled. His culture did eventually grow Morganella which was sensitive to ceftriaxone. We have elected to utilize this antibiotic as are outpatient IV antibiotic based on these of administration and effectiveness against the Morganella. The plan is for him to have 2 weeks of IV antibiotics and a PICC line has been successfully placed prior to discharge. He will be following up in the podiatry clinic next week. He will be obtaining his antibiotics through the outpatient setting and will be returning to the hospital daily for his antibiotics and daily dressing changes. - Patient Instructions Diet: Diabetic Diet Activity: As Tolerated Showering/Bathing: May Shower (cover left foot with water-tight bag when showering ) Notify Provider of: Fever, Increased Pain, Swelling and Redness, Drainage, Nausea and/or Vomiting Other/Special Instructions: 1. You were in the hospital for management of left foot osteomyelitis. The infection was severe enough that you required amputation of your big toe on the left side. Because the infection was deep into the bone recommend 2 weeks of IV antibiotics with ceftriaxone. You will be receiving 2 g of ceftriaxone every 24 hours. You may need additional antibiotics after the IV antibiotics are complete but this will be determined at the time of follow-up. You will be daily dressing changes on the foot and these can be provided at the time of your antibiotic administration. 2. You should not bear any weight on your left foot until instructed to do so by Dr. Kovacs. 3. Continue your usual home medications as previously prescribed. 4. Seek medical attention if you develop fever greater than 101, you have severe pain in your left foot or if you have persistent vomiting or diarrhea. - Discharge Plan Prescriptions/Med Rec: cefTRIAXone Sodium [Ceftriaxone] 2 gm IJ Q24H #14 vial L.acidoph,Paracasei, B.lactis [Probiotic] 1 each PO BID #30 capsule Home Medications: Home Meds Aspirin [Children's Aspirin] 81 mg PO DAILY 06/29/14 [History] atorvaSTATin Calcium [Atorvastatin Calcium] 40 mg PO BEDTIME 06/29/14 [History] metFORMIN HCl [Metformin HCl] 1,000 mg PO BIDM 06/29/14 [History] FLUoxetine [PROzac] 40 mg PO DAILY 30 Days cap 07/18/16 [Rx] Insulin Glarg,Human.Rec.Analog [Lantus Solostar] 42 unit SUBCUT DAILY 12/19/16 [ History] Acetaminophen [Tylenol] 650 mg PO Q4H PRN tablet 12/20/16 [Rx] Acetaminophen/HYDROcodone [Newton 325-5 MG] 1 - 2 tab PO Q4H PRN #40 tablet 12/20 [Rx] Docusate Sodium [Colace] 100 mg PO BID #100 cap 12/20/16 [Rx] Lisinopril [Prinivil] 2.5 mg PO DAILY tablet 12/20/16 [Rx] Melatonin 9 mg PO BEDTIME PRN tablet 12/20/16 [Rx] Lactobacillus Rhamnosus GG [Culturelle] 1 cap PO BID #30 cap 03/02/17 [Rx] L.acidoph,Paracasei, B.lactis [Probiotic] 1 each PO BID #30 capsule 04/12/17 [Rx ] cefTRIAXone Sodium [Ceftriaxone] 2 gm IJ Q24H #14 vial 04/12/17 [Rx] Patient Handouts: Bone and Joint Infections, Adult, Ceftriaxone injection Referrals: Chuy Kovacs DPM [Physician] - 04/16/17 3:00 pm (Next Sunday or Sunday (04/16 or 04/17)) Britany Serna, RN [Registered Nurse] - 04/24/17 1:00 pm (Appointment scheduled with Britany at [facility]. Bring blood sugar records.) - Discharge Summary/Plan Comment DC Time >30 min.: Yes (45 - outpatient IV abx set up ) - Patient Data Vitals - Most Recent: Last Vital Signs Temp 37.3 C 04/12/17 07:00 Pulse 74 04/12/17 07:00 Resp 18 04/12/17 07:00 BP 126/74 04/12/17 08:20 Pulse Ox 97 04/12/17 07:00 Weight - Most Recent: 90.356 kg I&O - Last 24 hours: Intake & Output 04/11/17 04/12/17 04/12/17 22:59 06:59 14:59 Intake Total 200 600 480 Output Total 300 400 625 Balance -100 200 -145 Lab Results - Last 24 hrs: Laboratory Results - last 24 hr 04/11/17 04/12/17 04/12/17 Range/Units 15:32 05:00 05:00 WBC 12.1 H (4.5-11.0) K/uL RBC 4.13 L (4.30-5.90) M/uL Hgb 11.9 L (12.0-15.0) g/dL Hct 35.5 L (40.0-54.0) % MCV 86 (80-98) fL MCH 29 (27-31) pg MCHC 34 (32-36) % Plt Count 400 (150-400) K/uL Sodium 140 (140-148) mmol/L Potassium 3.6 (3.6-5.2) mmol/L Chloride 106 (100-108) mmol/L Carbon Dioxide 26 (21-32) mmol/L Anion Gap 8.2 (5.0-14.0) mmol/L BUN 11 (7-18) mg/dL Creatinine 1.0 (0.8-1.3) mg/dL Est Cr Clr Drug Dosing 83.19 mL/min Estimated GFR (MDRD) > 60 (>60) Glucose 88 (74-106) mg/dL Calcium 8.9 (8.5-10.1) mg/dL Vancomycin Trough 20.7 H (10.0-20.0) ug/mL ZARIA Results - Last 24 hrs: Microbiology 04/10/17 10:08 Gram Stain - Final Toe, Left - Left Big Wound Culture - Preliminary Morganella Morganii Ssp Sotero Anaerobic Culture - Preliminary NO GROWTH AFTER 2 DAYS Med Orders - Current: Current Medications Acetaminophen (Tylenol) 650 mg PO Q4H PRN PRN Reason: Pain (Mild 1-3)/fever Aspirin (Aspirin) 81 mg PO DAILY [facility] Last Admin: 04/12/17 08:19 Dose: 81 mg Atorvastatin Calcium (Lipitor) 40 mg PO BEDTIME [facility] Last Admin: 04/11/17 20:24 Dose: 40 mg Docusate Sodium (Colace) 100 mg PO BID [facility] Last Admin: 04/12/17 08:18 Dose: 100 mg Fluoxetine HCl (Prozac) 40 mg PO DAILY [facility] Last Admin: 04/12/17 08:19 Dose: 40 mg Hydroxyzine HCl (Atarax) 25 mg PO Q8H PRN PRN Reason: PAIN Ceftriaxone Sodium 2 gm/ (Sodium Chloride) 50 mls @ 100 mls/hr IV Q24H [facility] Last Admin: 04/12/17 09:36 Dose: 100 mls/hr Ibuprofen (Motrin) 600 mg PO Q6H PRN PRN Reason: Pain/Fever Insulin Detemir (Levemir) 36 unit SUBCUT DAILY [facility] Lactobacillus Rhamnosus (Culturelle) 1 cap PO BID [facility] Last Admin: 04/12/17 08:19 Dose: 1 cap Lisinopril (Prinivil) 2.5 mg PO DAILY [facility] Last Admin: 04/12/17 08:20 Dose: 2.5 mg Melatonin (Melatonin) 9 mg PO BEDTIME PRN PRN Reason: Sleep Last Admin: 04/10/17 22:37 Dose: 9 mg Metformin HCl (Glucophage) 1,000 mg PO BIDPRALS [facility] Last Admin: 04/12/17 08:19 Dose: 1,000 mg Ondansetron HCl (Zofran Odt) 4 mg PO Q6H PRN PRN Reason: Nausea able to take PO Oxycodone HCl (Oxycodone) 5 mg PO Q4H PRN PRN Reason: Pain (moderate 4-6) Polyethylene Glycol (Miralax) 17 gm PO DAILY PRN PRN Reason: Constipation Sodium Chloride (Saline Flush) 10 ml FLUSH ASDIRECTED PRN PRN Reason: Keep Vein Open Discontinued Medications Bupivacaine HCl (Marcaine 0.5%) Confirm Administered Dose 50 ml .ROUTE .STK-MED ONE Stop: 04/10/17 08:05 Fentanyl (Sublimaze) Confirm Administered Dose 100 mcg .ROUTE .STK-MED ONE Stop: 04/10/17 08:45 Piperacillin/Tazobactam/ (Dextrose 3.375 gm/ Premix) 50 mls @ 100 mls/hr IV Q6H [facility] Last Admin: 04/12/17 04:47 Dose: 100 mls/hr Sodium Chloride (Normal Saline) 1,000 mls @ 75 mls/hr IV ASDIRECTED [facility] Last Admin: 04/10/17 09:14 Dose: 75 mls/hr Vancomycin HCl 1.75 gm/ Sodium (Chloride) 250 mls @ 150 mls/hr IV ONETIME ONE Stop: 04/09/17 18:09 Last Admin: 04/09/17 17:51 Dose: 150 mls/hr Vancomycin HCl 1.5 gm/ Sodium (Chloride) 250 mls @ 150 mls/hr IV Q12H [facility] Last Admin: 04/11/17 03:22 Dose: 150 mls/hr Sodium Chloride (Normal Saline) 1,000 mls @ 25 mls/hr IV ASDIRECTED [facility] Last Admin: 04/10/17 12:50 Dose: 25 mls/hr Vancomycin HCl 1.5 gm/ Sodium (Chloride) 250 mls @ 150 mls/hr IV Q18H [facility] Last Admin: 04/11/17 21:26 Dose: 150 mls/hr Insulin Aspart (Novolog) 0 unit SUBCUT QIDACANDBED [facility] PRN Reason: Protocol Last Admin: 04/12/17 08:17 Dose: Not Given Insulin Detemir (Levemir) 20 unit SUBCUT DAILY [facility] Last Admin: 04/10/17 08:06 Dose: 20 unit Insulin Detemir (Levemir) 42 unit SUBCUT DAILY [facility] Last Admin: 04/12/17 08:20 Dose: 42 units Lidocaine HCl (Xylocaine 2%) Confirm Administered Dose 20 ml .ROUTE .STK-MED ONE Stop: 04/10/17 08:05 Midazolam HCl (Versed 1 Mg/Ml) Confirm Administered Dose 2 mg .ROUTE .STK-MED ONE Stop: 04/10/17 08:45 Potassium Chloride (Klor-Con M20) 40 meq PO ONETIME ONE Stop: 04/11/17 10:46 Last Admin: 04/11/17 12:17 Dose: 40 meq Propofol (Diprivan 20 Ml) Confirm Administered Dose 200 mg .ROUTE .STK-MED ONE Stop: 04/10/17 08:45 Propofol (Diprivan 20 Ml) Confirm Administered Dose 200 mg .ROUTE .STK-MED ONE Stop: 04/10/17 10:16 - Exam Quality Assessment: Denies: Supplemental Oxygen General: Reports: Alert, Oriented, Cooperative, No Acute Distress Neck: Reports: Supple Lungs: Reports: Normal Respiratory Effort GI/Abdominal Exam: No Distention Extremities: Other (left foot with dry intact surgical dressings) Psy/Mental Status: Reports: Alert, Normal Affect *Q Meaningful Use (DIS) - VTE *Q VTE Criteria *Q: VTE Pharmacological Contraindications *Q: Patient Scheduled Surgery - Stroke *Q Stroke Criteria *Q: - AMI *Q AMI Criteria *Q:
[2017-04-12 12:44] VITALS: BP 121/78
[2017-04-12] MEDS ORDERED: Bacitracin Oint 1 GM U/D Packet ONE (16:58)
[2017-04-12] MEDS ORDERED: Bacitracin Oint 1 GM U/D Packet TOP ONE (17:00)
[2017-04-13] MEDS ORDERED: Insulin Detemir 100 Units/ML 3 ML Pen SUBCUT SCH (09:00)
== END 2017-04-12 17:18 | disposition home or self-care (01) | DRG 617 ==
LOC: JP.MS 14:34
PROVIDERS: ADMIT Internal Medicine; ATTEND Internal Medicine
PROC: 0Y6Q0Z0 Detachment at Left 1st Toe, Complete, Open Approach (ICD-10-PCS; principal; 2017-04-10)
PROC: 0QBP0ZZ Excision of Left Metatarsal, Open Approach (ICD-10-PCS; 2017-04-10)
DX: E11.69 Type 2 diabetes mellitus with other specified complication (principal); M86.172 Other acute osteomyelitis, left ankle and foot; B96.89 Other specified bacterial agents as the cause of diseases classified elsewhere; Z79.4 Long term (current) use of insulin; E11.621 Type 2 diabetes mellitus with foot ulcer; L97.529 Non-pressure chronic ulcer of other part of left foot with unspecified severity; I10 Essential (primary) hypertension; E78.00 Pure hypercholesterolemia, unspecified; K21.9 Gastro-esophageal reflux disease without esophagitis; F32.9 Major depressive disorder, single episode, unspecified; E11.40 Type 2 diabetes mellitus with diabetic neuropathy, unspecified; Z79.2 Long term (current) use of antibiotics; Z79.82 Long term (current) use of aspirin
CPT/HCPCS: 36415; 73720-26-LT; 73720-LT; 80048; 80202; 82962; 83036; 85027; 87070; 87075; 87077; 87186; 87205; 88305; 88311; 97116-GP; 97161-GP; A9270-GY; A9576; J0696; J2250; J2543; J2704; J3010; J3370; J7040; J7050